=== PATIENT | female | born 1935 | race Caucasian/White ===

== ENCOUNTER 2017-04-05 11:01 | Outpatient (CLI) | payer MEDICARE, OTHER ==
--- NOTE | 2017-04-05 11:41 | Mammography Report ---
DIAGNOSTIC BILATERAL MAMMOGRAM: 04/05/2017 CLINICAL INDICATION: An 82-year-old nulliparous patient with personal history of left breast cancer status post lumpectomy and chemoradiation. COMPARISON: 08/2016, 12/2015, 03/2015, 08/2014, 07/2014, 06/2014, 06/2012, 12/2010, 08/2008. TECHNIQUE: Routine CC and MLO projections were obtained of the breasts. FINDINGS: The breasts again demonstrate scattered fibroglandular densities bilaterally. Coarse and punctate, typically benign calcifications are present. Postoperative and posttreatment changes in th e left breast are stable. No suspicious masses, clustered microcalcifications, or regions of archite ctural distortion are identified. IMPRESSION: BENIGN FINDINGS. RECOMMENDATION: Routine annual screening unless otherwise clinically indicated. BI-RADS category 2, benign findings. STANDARD QUALIFYING STATEMENTS 1. This examination was reviewed with the aid of Computer-Aided Detection (CAD). 2. A negative or benign imaging report should not delay biopsy if clinically suspicious findings are present. Consider surgical consultation if warranted. More than 5% of cancers are not identified by i maging. 3. Dense breasts may obscure an underlying neoplasm. JOB #: [id number] EXT JOB #:
== END 2017-04-05 11:02 | disposition home or self-care (01) ==
LOC: DI 11:01
PROVIDERS: ATTEND Internal Medicine Hematology & Oncology
DX: C50.212 Malignant neoplasm of upper-inner quadrant of left female breast (principal)
CPT/HCPCS: 77066

== ENCOUNTER 2018-01-27 10:16 | Outpatient (CLI) | payer MEDICARE, OTHER ==
--- NOTE | 2018-01-27 14:12 | XRAY Report ---
EXAM: CHEST RADIOGRAPHY EXAM DATE: 01/27/2018 10:30 AM. CLINICAL HISTORY: PNEUMONIA. COMPARISON: Chest radiograph 07/18/2014. TECHNIQUE: 2 views. FINDINGS: Lungs/Pleura: Increased lung markings. Bronchial cuffing. Bibasilar lung opacities. Blunting posterio r costophrenic angles. Mediastinum: Stable Other: Cholecystectomy clip IMPRESSION: 1. Bronchial cuffing and increased lung markings suggestive of underlying reactive airways disease or bronchitis/bronchiolitis 2. Heterogeneous bibasilar lung opacities may represent pneumonia. Follow-up to resolution 3. Small pleural effusions [facility] Referring Provider Line: [phone] SITE ID: [id number]
== END 2018-01-27 10:17 | disposition home or self-care (01) ==
LOC: DI 10:16
PROVIDERS: ATTEND Physician Assistant Medical
DX: J18.9 Pneumonia, unspecified organism (principal); J90 Pleural effusion, not elsewhere classified
CPT/HCPCS: 71046

== ENCOUNTER 2018-04-17 13:22 | Outpatient (CLI) | payer MEDICARE, OTHER ==
--- NOTE | 2018-04-18 14:54 | DEXA Report ---
Procedure Date: 04/17/2018 Accession Number: [id number] / [id number] Procedure: DEX - Dexa Spine and/or Hip CPT Code: FULL RESULT: EXAM: Dexa Spine and/or Hip DATE: 04/17/2018 2:04 PM CLINICAL HISTORY: POSTMENOPAUSAL TECHNIQUE: Dual energy x-ray absorptiometry (DXA) was performed on a [employer] System. Regions measured are the AP Spine, femoral neck, and if needed forearm. COMPARISON: None. In accordance with the International Society for Clinical Densitometry (ISCD) guidelines, data from previous exams may be reanalyzed using current recommendations and techniques. This is done to allow a more accurate basis for comparison with the current study. FINDINGS: The data for the lumbar spine is as follows: BMD (g/cm/cm) T-SCORE Z-SCORE REGION L1 1.733 5.0 5.8 L2 1.539 2.8 3.6 L3 1.641 3.7 4.4 L4 1.794 4.9 5.7 TOTAL 1.683 4.2 4.9 NOTE: All evaluable vertebrae are used for classification The data for the hip is as follows: BMD (g/cm/cm) T-SCORE Z-SCORE REGION Neck 1.037 0.0 1.6 TOTAL 1.176 1.3 2.8 NOTE: The femoral neck or total proximal femur, whichever is lowest, is used for classification. IMPRESSION: THE WHO CLASSIFICATION BASED ON THE INTERNATIONAL REFERENCE STANDARD IS NORMAL. THE FRACTURE RISK IS NOT INCREASED. RECOMMENDATION: Patients with diagnosis of osteoporosis or osteopenia should have regular bone mineral density assessment. For those eligible for Medicare, routine testing is allowed once every 2 years. Testing frequency can be increased for patients who have rapidly progressing disease or for those who are receiving medical therapy to restore bone mass. COMMENT: World Health Organization (WHO) definitions for osteoporosis and osteopenia: NORMAL BMD: T-score at -1.0 or higher, fracture risk is low OSTEOPENIA BMD: T-score between -1.0 and -2.5, fracture risk is increased. OSTEOPOROSIS BMD: T-score at -2.5 or lower, fracture risk is high. National Osteoporosis Foundation recommends: 1. Obtain adequate dietary calcium (at least 1200 mg per day) and vitamin D (400-800 international units per day). 2. Participate, as appropriate, in regular weightbearing and muscle-strengthening exercise. 3. Avoid tobacco use and reduce alcohol and caffeine intake. 4. For more detailed information see the website at www.NOF.org.
== END 2018-04-17 13:23 | disposition home or self-care (01) ==
LOC: DI 13:22
PROVIDERS: ATTEND Internal Medicine Hematology & Oncology
DX: C50.212 Malignant neoplasm of upper-inner quadrant of left female breast (principal); N95.8 Other specified menopausal and perimenopausal disorders
CPT/HCPCS: 77080

== ENCOUNTER 2018-04-17 13:24 | Outpatient (CLI) | payer MEDICARE, OTHER ==
--- NOTE | 2018-04-18 13:00 | Mammography Report ---
Procedure Date: 04/17/2018 Accession Number: [id number] / [id number] Procedure: STEPHANIE - Diagnostic Dig Bilat CPT Code: FULL RESULT: EXAM: Diagnostic Dig Bilat DATE: 04/17/2018 2:18 PM CLINICAL HISTORY: History of left breast cancer status post lumpectomy and chemotherapy. TECHNIQUE: Bilateral CC and MLO projections with an additional true lateral view. COMPARISON: 04/05/2017, 09/20/2016, 01/07/2016, 04/08/2015, 09/05/2014, 07/30/2014, 07/18/2014 and 07/13/2012 FINDINGS: There are scattered fibroglandular densities. Postsurgical deformity of the left breast is stable. Increasing coarse dystrophic posttreatment calcifications are present. No new dominant mass, suspicious microcalcifications or other finding. IMPRESSION: Benign findings RECOMMENDATION: Suggest routine screening in 12 months. BIRADS CATEGORY 2: Benign findings STANDARD QUALIFYING STATEMENTS: 1. This examination was reviewed with the aid of Computer-Aided Detection (CAD). 2. A negative or benign imaging report should not delay biopsy if clinically suspicious findings are present. Consider surgical consultation if warrented. More than 5% of cancers are not identified by imaging. 3. Dense breasts may obscure an underlying neoplasm.
== END 2018-04-17 13:25 | disposition home or self-care (01) ==
LOC: DI 13:24
PROVIDERS: ATTEND Internal Medicine Hematology & Oncology
DX: C50.212 Malignant neoplasm of upper-inner quadrant of left female breast (principal); N95.8 Other specified menopausal and perimenopausal disorders
CPT/HCPCS: 77066; 77080

== ENCOUNTER 2019-04-17 09:57 | Outpatient (CLI) | payer MEDICARE, OTHER ==
--- NOTE | 2019-04-17 14:09 | Mammography Report ---
Reason: HX BREAST CA Procedure Date: 04/17/2019 Accession Number: [id number] / [id number] Procedure: STEPHANIE - Diagnostic Dig Bilat CPT Code: FULL RESULT: EXAM: Diagnostic Dig Bilat DATE: 04/17/2019 10:36 AM CLINICAL HISTORY: Diagnostic examination. Personal history of left breast cancer status post lumpectomy in 2013. TECHNIQUE: (B) - Bilateral CC, laterally exaggerated CC, MLO views were obtained. Left ML view was obtained. Limited ability to position the patient, best possible images are obtained. COMPARISON: 04/17/2018 through 01/07/2016. PARENCHYMAL PATTERN: (A) - The breast(s) demonstrate(s) scattered fibroglandular densities. FINDINGS: Post lumpectomy and post treatment changes in the left breast are again seen with no concerning interval development. There are no suspicious masses, calcifications, or areas of distortion. IMPRESSION: Benign findings. BI-RADS category 2. RECOMMENDATION: (ANNUAL) - Recommend routine annual screening mammography. BI-RADS CATEGORY: (2) - Benign Findings. STANDARD QUALIFYING STATEMENTS: 1. This examination was not reviewed with the aid of Computer-Aided Detection (CAD). 2. A negative or benign imaging report should not preclude biopsy if clinically suspicious findings are present. 3. Dense breasts may obscure an underlying neoplasm. 4. This examination was reviewed with the aid of 3D breast imaging (tomosynthesis).
== END 2019-04-17 09:58 | disposition home or self-care (01) ==
LOC: DI 09:57
PROVIDERS: ATTEND Internal Medicine Hematology & Oncology
DX: C50.912 Malignant neoplasm of unspecified site of left female breast (principal)
CPT/HCPCS: 77066; G0279; 77062

== ENCOUNTER 2019-04-22 09:41 | Outpatient (CLI) | payer MEDICARE, OTHER ==
[2019-04-22 12:13] LABS: BASOPHILS % (AUTO) 0.7 %; EOSINOPHILS # (AUTO) 0.1 10^3/uL (0.0-0.7); EOSINOPHILS % (AUTO) 2.2 %; HGB - HEMOGLOBIN 12.7 g/dL (12.0-16.0); LYMPHOCYTES # (AUTO) 1.6 10^3/uL (1.5-3.5); LYMPHOCYTES % (AUTO) 27.9 %; MEAN CORPUSCULAR HEMOGLOBIN 30.8 pg (27.0-31.0); MEAN CORPUSCULAR HGB CONC 30.8 g/dL (32.0-36.0); MEAN PLATELET VOLUME 10.2 fL (7.9-10.8); MONOCYTES # (AUTO) 0.6 10^3/uL (0.0-1.0); MONOCYTES % (AUTO) 10.4 %; NEUTROPHILS # (AUTO) 3.4 10^3/uL (1.5-6.6); NEUTROPHILS % (AUTO) 58.5 %; PLT - PLATELET COUNT 234 10^3/uL (130-450); RED BLOOD COUNT 4.12 10^6/uL (4.20-5.40); RED CELL DISTRIBUTION WIDTH 14.9 % (12.0-15.0); WHITE BLOOD COUNT 5.9 x10^3/uL (4.8-10.8)
[2019-04-22 12:33] LABS: ALBUMIN/GLOBULIN RATIO 1.1 (1.0-2.2); ALKALINE PHOSPHATASE 62 IU/L (42-121); ALT ALANINE AMINOTRANSFERASE 18 IU/L (10-60); AST ASPARTATE AMINOTRANSFERASE 19 IU/L (10-42); BILIRUBIN,TOTAL 0.7 mg/dL (0.2-1.0); BUN - BLOOD UREA NITROGEN 21 mg/dL (6-20); CALCIUM 9.1 mg/dL (8.5-10.3); CARBON DIOXIDE - CO2 27 mmol/L (21-32); CHLORIDE 106 mmol/L (101-111); CHOL/HDL RATIO 3.7 (<4.4); CHOLESTEROL 204 mg/dL; CREATININE 0.8 mg/dL (0.4-1.0); GFR - MDRD 68 (>89); GLUCOSE 120 mg/dL (70-100); HDL CHOLESTEROL 55 mg/dL; LDL CHOLESTEROL,CALCULATED 128 mg/dL; LDL/HDL RATIO 2.3 (<4.4); SODIUM 142 mmol/L (135-145); TOTAL PROTEIN 7.5 g/dL (6.7-8.2); VLDL CHOLESTEROL 21 mg/dL
[2019-04-22 12:43] LABS: HB2 TOTAL 13.3 g/dL; HEMOGLOBIN A1C 0.54 g/dL; HEMOGLOBIN A1C % 5.9 % (4.6-6.2)
[2019-04-22 13:09] LABS: FREE T4 (FREE THYROXINE) 1.22 ng/dL (0.58-1.64)
== END 2019-04-22 09:42 | disposition home or self-care (01) ==
LOC: LAB.WCP 09:41
PROVIDERS: ATTEND Physician Assistant Medical
DX: E03.9 Hypothyroidism, unspecified (principal); I10 Essential (primary) hypertension; E78.5 Hyperlipidemia, unspecified; R73.9 Hyperglycemia, unspecified
CPT/HCPCS: 36415; 80053; 80061; 83036; 83721; 84439; 84443; 85025

== ENCOUNTER 2019-11-04 08:51 | Outpatient (CLI) | payer MEDICARE, OTHER ==
--- NOTE | 2019-11-04 14:53 | Nuclear Medicine Report ---
Reason: L BR CA, NEW PX IN R TIB, L FEMUR Procedure Date: 11/04/2019 Accession Number: [id number] / [id number] Procedure: NM - Bone Whole Body CPT Code: Final Report FULL RESULT: EXAM: BONE SCAN EXAM DATE: 11/04/2019 01:36 PM. CLINICAL HISTORY: L BR CA, NEW PX IN R TIB, L FEMUR. COMPARISON: ABDOMEN/PELVIS W/ 08/31/2016 12:30 PM. TECHNIQUE: Following the intravenous administration of 31.5 mCi of technetium 99m MDP and an appropriate delay, a whole-body scan was performed in anterior and posterior projections. Site-specific spot views of the region of interest were obtained in various projections. FINDINGS: Normal renal radiotracer uptake and bladder activity. Normal soft tissue activity. Overall normal osseous uptake. Moderate fairly linear uptake at approximately T9-T10, ultimately indeterminate but may be degenerative or reflect underlying compression fracture. Other multifocal cervical, thoracic, lumbar spinal uptake likely degenerative. Probable degenerative uptake at the sternoclavicular joints, right AC joint, bilateral mid feet. Nonspecific mild periprosthetic uptake at the knees. IMPRESSION: 1. No definite scintigraphic evidence of osseous metastatic disease. 2. Moderate uptake at approximately T9-T10, ultimately indeterminate but may be degenerative or reflect underlying compression fracture. 3. Other multifocal probable degenerative uptake as noted above. [facility]
--- NOTE | 2019-11-06 09:08 | DEXA Report ---
Reason: POSTMENOPAUSAL Procedure Date: 11/04/2019 Accession Number: [id number] / [id number] Procedure: DEX - Dexa Spine and/or Hip CPT Code: Final Report FULL RESULT: EXAM: Dexa Spine and/or Hip DATE: 11/04/2019 10:11 AM CLINICAL HISTORY: POSTMENOPAUSAL TECHNIQUE: Dual energy x-ray absorptiometry (DXA) was performed on a [employer] System. Regions measured are the AP Spine, femoral neck, and if needed forearm. COMPARISON: 04/17/2018 In accordance with the International Society for Clinical Densitometry (ISCD) guidelines, data from previous exams may be reanalyzed using current recommendations and techniques. This is done to allow a more accurate basis for comparison with the current study. FINDINGS: The data for the lumbar spine is as follows: BMD (g/cm/cm) T-SCORE Z-SCORE REGION L1 0.975 -1.3 -0.5 L2 1.147 -0.4 0.3 L3 1.040 -1.3 -0.6 L4 1.017 -1.5 -0.7 TOTAL 1.038 -1.2 -0.4 NOTE: All evaluable vertebrae are used for classification The data for the hip is as follows: BMD (g/cm/cm) T-SCORE Z-SCORE REGION Neck 0.968 -0.5 1.2 TOTAL 1.086 0.6 2.1 NOTE: The femoral neck or total proximal femur, whichever is lowest, is used for classification. DXA RESULTS SUMMARY: Spine SCAN DATE AGE BMD CHANGE VS CHANGE VS PREVIOUS PREVIOUS % [birth year][age]04/2019 [age] 1.038 -0.645* -38.3* 04/17/2018 85.1 1.683 * Denotes significant change at the 95% confidence level. Denotes dissimilar scan types or analysis methods. DXA RESULTS SUMMARY: Hip SCAN DATE AGE BMD CHANGE VS CHANGE VS PREVIOUS PREVIOUS % [birth year][age]04[birth year]2019 86.6 1.086 -0.090* -7.7* 04/17/2018 85.1 1.176 * Denotes significant change at the 95% confidence level. Denotes dissimilar scan types or analysis methods. IMPRESSION: THE WHO CLASSIFICATION BASED ON THE INTERNATIONAL REFERENCE STANDARD IS NORMAL. THE FRACTURE RISK IS NOT INCREASED. RECOMMENDATION: Patients with diagnosis of osteoporosis or osteopenia should have regular bone mineral density assessment. For those eligible for Medicare, routine testing is allowed once every 2 years. Testing frequency can be increased for patients who have rapidly progressing disease or for those who are receiving medical therapy to restore bone mass. COMMENT: World Health Organization (WHO) definitions for osteoporosis and osteopenia: NORMAL BMD: T-score at -1.0 or higher, fracture risk is low OSTEOPENIA BMD: T-score between -1.0 and -2.5, fracture risk is increased. OSTEOPOROSIS BMD: T-score at -2.5 or lower, fracture risk is high. National Osteoporosis Foundation recommends: 1. Obtain adequate dietary calcium (at least 1200 mg per day) and vitamin D (400-800 international units per day). 2. Participate, as appropriate, in regular weightbearing and muscle-strengthening exercise. 3. Avoid tobacco use and reduce alcohol and caffeine intake. 4. For more detailed information see the website at www.NOF.org.
== END 2019-11-04 08:52 | disposition home or self-care (01) ==
LOC: DI 08:51
PROVIDERS: ATTEND Internal Medicine Hematology & Oncology
DX: C50.912 Malignant neoplasm of unspecified site of left female breast (principal); M85.88 Other specified disorders of bone density and structure, other site; R07.81 Pleurodynia; M79.661 Pain in right lower leg; M89.8X8 Other specified disorders of bone, other site; Z78.0 Asymptomatic menopausal state
CPT/HCPCS: 77080; 78306

== ENCOUNTER 2019-12-27 07:57 | Inpatient (IN) | payer MEDICARE, OTHER ==
--- NOTE | 2019-12-27 08:28 | ED Physician Documentation ---
PD HPI DYSPNEA - Stated complaint Stated Complaint: SOA - Chief complaint Chief Complaint: Cardiac - History obtained from History obtained from: Patient - History of Present Illness Timing - onset: How many weeks ago (1) Timing - onset during: Light activity Timing - duration: Weeks (1) Timing - details: Gradual onset (Patient states she has had a feeling of wheezing and trouble breathing with activity associated with fever chills. She has a chronic cough from chronic bronchitis states that has not changed too much in character. No sputum production. However she has felt more wheezing and using her nebulizer this past few days. No history of heart disease that she is aware of. She felt significantly worse last night with dyspnea at rest and lightheadedness.), Still present (much worse last evening) Inciting event(s): URI Improved by: Rest. No: Inhaler/neb Worsened by: Exertion, Coughing Associated symptoms: Cough, Wheezing, Bilateral edema. No: Chest pain / discomfort, Palpitations Similar symptoms before: Has not had sx before Recently seen: Not recently seen Review of Systems Constitutional: reports: Chills, Myalgias, Fatigue. denies: Fever Nose: reports: Congestion. denies: Rhinorrhea / runny nose Throat: denies: Sore throat Cardiac: reports: Pedal edema (for the past few days). denies: Chest pain / pressure, Palpitations, Calf pain Respiratory: reports: Dyspnea, Cough, Wheezing GI: denies: Nausea : denies: Dysuria Neurologic: reports: Generalized weakness. denies: Focal weakness, Numbness Immunocompromised: denies: Immunocompromised PD PAST MEDICAL HISTORY - Past Medical History Cardiovascular: Congestive heart failure, Hypertension, High cholesterol, Murmur, Other Respiratory: None Endocrine/Autoimmune: HyPOthyroidism GI: None : None HEENT: None Psych: Depression, Anxiety Musculoskeletal: None Derm: None - Past Surgical History Past Surgical History: Yes General: Cholecystectomy, Appendectomy Ortho: Knee replacement /[employer]: Tubal ligation, 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, Other - Present Medications Home Medications: Ambulatory Orders Medication Instructions Recorded Confirmed NIFEdipine [Procardia Xl] 90 mg PO DAILY 08/28/13 12/27/19 polyethylene glycoL 3350 [Miralax] 17 gm PO DAILY PRN 11/24/14 11/11/19 Anastrozole 1 mg PO DAILY 90 Days #90 tablet 01/25/19 02/28/20 Albuterol Sulf [Ventolin Hfa 2 puffs INH Q4H PRN 12/27/19 12/27/19 Inhaler] Levothyroxine Sodium [Synthroid] 150 mcg PO QDAC 12/27/19 12/27/19 Trazodone HCl 150 mg PO QPM 12/27/19 12/27/19 - Allergies Allergies/Adverse Reactions: Allergies Allergy/AdvReac Type Severity Reaction Status Date / Time No Known Drug Allergies Allergy Verified 11/11/19 15:07 - Social History Does the pt smoke?: No Smoking Status: Never smoker Does the pt drink ETOH?: Yes Does the pt have substance abuse?: No - Immunizations Immunizations are current?: Yes - POLST Patient has POLST: No PD ED PE NORMAL - Vitals Vital signs reviewed: Yes - General General: Alert and oriented X 3, Well developed/nourished, Other - Cardiac Cardiac: No: RRR (Irregular and fast with a rate 1 40-1 50. There is a 1 out of 6 systolic murmur at the left sternal border with radiation to the neck consistent with possible aortic stenosis.) - Respiratory Respiratory: No: No respiratory distress (but does have expiratory wheezing bilaterally. Some fine crackles in bases. Able to talk sentences. ), Clear bilaterally - Abdomen Abdomen: Soft, Non tender - Back Back: No CVA TTP - Derm Derm: Normal color, Warm and dry - Extremities Extremities: No tenderness to palpate, Normal ROM s pain, No calf tenderness / cord, Other (mild edema in both legs. ) - Neuro Neuro: Alert and oriented X 3, No motor deficit, Normal speech Results - Vitals Vitals: Vital Signs - 24 hr 12/27/19 12/27/19 12/27/19 08:11 09:01 09:05 Temperature 37.1 C Heart Rate 150 H 127 H 87 Respiratory 20 24 20 Rate Blood Pressure 145/82 H 105/73 O2 Saturation 97 90 L 12/27/19 12/27/19 12/27/19 09:07 09:10 09:25 Temperature Heart Rate 89 90 88 Respiratory 27 H 24 27 H Rate Blood Pressure 119/91 H 100/59 L 115/67 O2 Saturation 94 96 95 12/27/19 12/27/19 12/27/19 09:30 10:00 10:13 Temperature Heart Rate 92 115 H 113 H Respiratory 18 24 24 Rate Blood Pressure 124/57 L 113/57 L 106/73 O2 Saturation 96 93 93 Oxygen O2 Source Nasal cannula - EKG (time done) 08:19 Rate: Rate (enter#) (143) Rhythm: Atrial fibrillation [employer]: Normal QRS: Normal Ischemia: Normal ST segments, Non specific changes. No: ST elevation c/w ischemia, ST depression Compare to prior EKG: Old EKG unavailable - Labs Labs: Laboratory Tests 12/27/19 12/27/19 12/27/19 08:45 08:45 08:45 WBC 8.4 RBC 3.70 L Hgb 11.8 L Hct 36.4 L MCV 98.4 MCH 31.9 H MCHC 32.4 RDW 14.4 Plt Count 220 MPV 10.1 Neut # (Auto) 6.3 Lymph # (Auto) 1.2 L Cooper # (Auto) 0.8 Eos # (Auto) 0.1 Baso # (Auto) 0.1 Absolute Nucleated RBC 0.00 Nucleated RBC % 0.0 Sodium 139 Potassium 4.0 Chloride 102 Carbon Dioxide 27 Anion Gap 10.0 BUN 20 Creatinine 0.8 Estimated GFR (MDRD) 68 L Glucose 130 H Lactic Acid Calcium 8.6 Magnesium 2.1 Total Bilirubin 0.7 AST 53 H ALT 86 H Alkaline Phosphatase 61 Troponin I High Sens 15.4 H* B-Natriuretic Peptide Total Protein 7.1 Albumin 3.5 Globulin 3.6 Albumin/Globulin Ratio 1.0 Lipase 23 TSH 12/27/19 12/27/19 12/27/19 08:45 09:25 09:25 WBC RBC Hgb Hct MCV MCH MCHC RDW Plt Count MPV Neut # (Auto) Lymph # (Auto) Cooper # (Auto) Eos # (Auto) Baso # (Auto) Absolute Nucleated RBC Nucleated RBC % Sodium Potassium Chloride Carbon Dioxide Anion Gap BUN Creatinine Estimated GFR (MDRD) Glucose Lactic Acid 1.2 Calcium Magnesium Total Bilirubin AST ALT Alkaline Phosphatase Troponin I High Sens B-Natriuretic Peptide 442 H Total Protein Albumin Globulin Albumin/Globulin Ratio Lipase TSH 0.09 L - Rads (name of study) chest xray Radiology: Prelim report reviewed (Interstitial fluid consistent with some failure. No focal infiltrates.), See rad report PD MEDICAL DECISION MAKING - ED course Complexity details: reviewed results, re-evaluated patient (Improved with DuoNeb as well as diltiazem. Her breathing is clear with less wheezing. Her heart rate is also down to 100-110. Likely both did lead to some improvement.), considered differential (Apparent new onset atrial fibrillation with fast rate. So unclear the timing of that as it sounds like it might of started yesterday and preceded by chest cold with exacerbation of her chronic bronchitis with wheezing. M may have been longer with this A. fib but the worsening of symptoms yesterday suggest onset then. She does not appear to be in any failure per se.) Departure - Departure Disposition: [facility] DC/Xfer Clinical Impression: Acute exacerbation of chronic bronchitis, Atrial fibrillation with rapid ventricular response, Acute dyspnea Upper respiratory infection Qualifiers: URI type: unspecified URI Qualified Code(s): J06.9 - Acute upper respiratory infection, unspecified Condition: Stable Record reviewed to determine appropriate education?: Yes Discharge Date/Time: 12/27/19 10:38
[2019-12-27] MEDS ORDERED: IPRATROPIUM/ALBUTEROL 3 ML NEB INH STA (08:52)
[2019-12-27] MEDS ORDERED: DEXAMETHASONE 10 MG/ML VIAL IVP STA (08:53)
[2019-12-27] MEDS ORDERED: diltiaZEM INJ 5 MG/ML VIAL IVP STA ×2 (08:53→09:59)
--- NOTE | 2019-12-27 08:55 | XRAY Report ---
Reason: Chest pain Procedure Date: 12/27/2019 Accession Number: [id number] / [id number] Procedure: XR - Chest 1 View X-Ray CPT Code: 87484 Final Report FULL RESULT: EXAM: CHEST RADIOGRAPHY 1 VIEW EXAM DATE: 12/27/2019. CLINICAL HISTORY: Chest pain. COMPARISON: PA and lateral chest on 02/08/2018. TECHNIQUE: AP upright portable chest at 0818. FINDINGS: The projection is lordotic. Lungs/Pleura: Mild distention of the pulmonary vasculature and increased interstitial opacity. No segmental consolidation or mass. No pleural fluid or pneumothorax. Mediastinum: Heart size is normal. Aortic tortuosity and atherosclerosis are unchanged. Otherwise normal mediastinal contours. Bones: Degenerative changes of the spine. Other: Surgical clips in the left axilla. IMPRESSION: Pulmonary vasculature appears slightly distended and there is a mild increase in interstitial opacity, suspect for mild congestive heart failure or fluid overload. Otherwise, no acute abnormality. [facility]
[2019-12-27] MEDS ORDERED: FUROSEMIDE 20 MG/2 ML VIAL IVP STA (09:03)
[2019-12-27 09:04] LABS: BASOPHILS # (AUTO) 0.1 10^3/uL (0.0-0.1); BASOPHILS % (AUTO) 0.6 %; EOSINOPHILS # (AUTO) 0.1 10^3/uL (0.0-0.7); EOSINOPHILS % (AUTO) 0.8 %; HGB - HEMOGLOBIN 11.8 g/dL (12.0-16.0); LYMPHOCYTES # (AUTO) 1.2 10^3/uL (1.5-3.5); LYMPHOCYTES % (AUTO) 14.4 %; MEAN CORPUSCULAR HEMOGLOBIN 31.9 pg (27.0-31.0); MEAN CORPUSCULAR HGB CONC 32.4 g/dL (32.0-36.0); MEAN CORPUSCULAR VOLUME 98.4 fL (81.0-99.0); MEAN PLATELET VOLUME 10.1 fL (7.9-10.8); MONOCYTES # (AUTO) 0.8 10^3/uL (0.0-1.0); MONOCYTES % (AUTO) 8.9 %; NEUTROPHILS # (AUTO) 6.3 10^3/uL (1.5-6.6); NEUTROPHILS % (AUTO) 75.1 %; PLT - PLATELET COUNT 220 10^3/uL (130-450); RED CELL DISTRIBUTION WIDTH 14.4 % (12.0-15.0); WHITE BLOOD COUNT 8.4 x10^3/uL (4.8-10.8)
[2019-12-27 09:46] LABS: ALBUMIN 3.5 g/dL (3.2-5.5); BILIRUBIN,TOTAL 0.7 mg/dL (0.2-1.0); CALCIUM 8.6 mg/dL (8.5-10.3); CREATININE 0.8 mg/dL (0.4-1.0); MAGNESIUM 2.1 mg/dL (1.7-2.8); TOTAL PROTEIN 7.1 g/dL (6.7-8.2)
[2019-12-27] MEDS ORDERED: KETOROLAC 30 MG/ML VIAL IVP STA (09:59)
[2019-12-27] MEDS ORDERED: ASPIRIN 325 MG TABLET PO STA (09:59)
[2019-12-27] MEDS ORDERED: ONDANSETRON 4 MG/2 ML VIAL IVP PRN (10:15)
[2019-12-27] MEDS ORDERED: LEVALBUTEROL 1.25 MG/3 ML NEB INH PRN (10:22)
[2019-12-27] MEDS ORDERED: polyethylene glycoL 3350 17 GM PACKET PO PRN (10:29)
[2019-12-27 11:22] LABS: BILIRUBIN,URINE NEGATIVE (NEGATIVE); GLUCOSE, URINE (UA) NEGATIVE (NEGATIVE); KETONES,URINE (UA) NEGATIVE (NEGATIVE); LEUKOCYTE ESTERASE, URINE NEGATIVE (NEGATIVE); NITRITE,URINE NEGATIVE (NEGATIVE); OCCULT BLOOD,URINE NEGATIVE (NEGATIVE); PH,URINE 6.5 PH (5.0-7.5); PROTEIN,URINE NEGATIVE (NEGATIVE); UROBILINOGEN,URINE 0.2 (NORMAL) E.U./dL (NORMAL)
[2019-12-27 11:25] LABS: CLARITY,URINE CLEAR (CLEAR)
[2019-12-27] MEDS ORDERED: ENOXAPARIN 30 MG/0.3 ML SYRINGE SUBQ SCH (12:00)
[2019-12-27] MEDS ORDERED: AZITHROMYCIN 250 MG TABLET PO ONE (12:00)
[2019-12-27] MEDS: BUDESONIDE 0.5 MG/2 ML NEB INH SCH ×2 (12:22→18:31)
[2019-12-27] MEDS: LEVALBUTEROL 1.25 MG/3 ML NEB INH SCH ×2 (12:22→18:22)
[2019-12-27 12:27] LABS: INR 1.1 (0.8-1.2)
[2019-12-27] MEDS: methylPREDNISolone SUCCINATE 40 MG/ML VIAL IVP SCH ×2 (14:10→21:14)
[2019-12-27] MEDS: FUROSEMIDE 20 MG/2 ML VIAL IVP SCH (14:10)
[2019-12-27] MEDS: SODIUM CHLORIDE FLUSH 0.9% 10 ML SYRINGE IVP SCH (16:06)
--- NOTE | 2019-12-27 17:01 | HISTORY & PHYSICAL EXAMINATION ---
DATE OF SERVICE: 12/27/2019 Physician: Indira Aguilar MD HISTORY OF PRESENT ILLNESS: This is an 84-year-old white female with a history of breast cancer 5 years ago, history of aortic stenosis and regurgitation, diastolic heart failure in the past, hypothyroidism, on replacement, bronchial asthma for which she takes p.r.n. inhalers and leg edema for which she takes p.r.n. Lasix. The patient reports that she developed a URI about 2 days ago with a cough and chills, but no fevers and this progressed daily to worsening shortness of breath. Because of the orthopnea complaints, she presented to the emergency room this morning and was found to be in new onset of atrial fibrillation, which is paroxysmal, and when she is in the atrial fibrillation, it is in a rapid ventricular rate. She was given IV diltiazem pushes x2, which dropped her heart rate only briefly to the 90s, it is still in the 100-120 range now and she received a nebulizer and with this, she felt better. The patient is being admitted to the hospital for management of bronchial asthma, new onset of atrial fibrillation with rapid ventricular response, worsening volume overload seen on chest x-ray, therefore, acute on chronic heart failure. ALLERGIES: NONE. MEDICATIONS 1. Nifedipine 90 mg daily. 2. Albuterol inhaler p.r.n. 3. Synthroid 150 mcg daily. 4. Arimidex 1 mg daily. 5. Trazodone 150 mg every night. 6. MiraLax daily p.r.n. constipation. FAMILY HISTORY: Heart disease in her father, her mother of sinus cancer and was a heavy smoker. She has one living brother, and one of alcoholism. She has 5 children, all of which are adopted, no natural children. SOCIAL HISTORY: The patient lives with her daughter and son-in-law and a grandchild. She is very active around the house, does cleaning, laundry and drives a car. 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 The patient was a smoker, she used to smoke until the age of 38 and has quit for 46 years. Alcohol: Social., about 2 drinks per week. Illicit drug use: Never. PAST MEDICAL HISTORY: CHF, bronchial asthma, hypothyroidism, on replacement, aortic stenosis murmur, breast cancer. PHYSICAL EXAMINATION GENERAL: Elderly white female. She is in mild respiratory distress. VITAL SIGNS: Blood pressure 122/60, heart rate 95-110 in atrial fibrillation and she intermittently goes into sinus rhythm. When she is in sinus rhythm, she has Mobitz 1 (Wenkebach) heart block. She is saturating at 93% on 2 liters nasal cannula. There was no oxygen saturation documented when she was on room air. HEENT: Unremarkable. NECK: Shows no JVD in a 30-degree upright angle. No carotid bruits. CHEST: Has crackles at both bases. HEART: Tachycardia. Irregularly irregular, 3/6 systolic murmur at the base, radiating to the neck, and a 2/6 systolic murmur at the lower left sternal border and apex. ABDOMEN: Obese with a pannus, and there is a small umbilical hernia. EXTREMITIES: Legs have 1+ lymphedema of the shins and she has 1+ pitting pedal edema. NEUROLOGIC: Grossly intact. LABORATORY DATA: Normal electrolytes. Normal BUN and creatinine. Lactic acid normal at 1.2, elevated AST of 53 and ALT of 86 Elevated troponin, high sensitivity of 15.4, very low TSH of 0.09. White blood count 8.4, hemoglobin 11.8, platelet count normal at 220. INR normal at 1.1. Urinalysis unremarkable. Serology showed negative for influenza A and B. CHEST X-RAY: Mild congestive heart failure and no obvious infiltrate. EKG: Atrial fibrillation with a rapid ventricular rate, left IVCD, left anterior fascicular block, poor R-wave progression. Compared to an old EKG from 2-3 years ago, the atrial fibrillation is new, along with tachycardia. IMPRESSION 1. Paroxysmal atrial fibrillation with rapid ventricular response. 2. New onset of atrial fibrillation. 3. Congestive heart failure, acute on chronic. 4. Bronchial asthma. 5. 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 6. Elevated troponin. 7. Elevated liver function tests, suspect from passive liver congestion. 8. Heart murmur. 9. History of breast cancer. PLAN: Start the patient on p.o. around the clock Cardizem for continued rate control. Use Lasix IV b.i.d. for her volume overload. Begin Zithromax for bronchial asthma treatment along with IV Solu-Medrol, Xopenex inhalers and steroid inhaler with Budesonide. Obtain an Echo to evaluate LV and RV contractility and her murmur. Cycle Troponins. Follow her BNP. Stop her thyroid replacement entirely since this is very likely adding to the rapid rate of her new atrial fibrillation. Depending on results of the Echo LVEF, her CHADS score will be calculated to determine which anticoagulant should be used for stroke prevention. The above was all discussed with the patient and her youngest, adult daughter at bedside, and she is agreeable to plan. CODE STATUS: DNR. DEEP VENOUS THROMBOSIS: PROPHYLAXIS: Pharmacotherapy. ATTESTATION: The patient is expected to be discharged or transferred to another facility within 96 hours: Yes cc: Tram Quintanilla PA-C TD: 12/27/2019 15:16 MARQUES
[2019-12-27] MEDS ORDERED: AZITHROMYCIN 250 MG TABLET PO STA (17:31)
[2019-12-27] MEDS: traZODone 50 MG TABLET PO SCH (21:13)
[2019-12-27] MEDS: SODIUM CHLORIDE FLUSH 0.9% 10 ML SYRINGE IVP PRN (21:14)
[2019-12-27] MEDS: FAMOTIDINE 20 MG TABLET PO SCH (21:14)
[2019-12-28] MEDS: LEVALBUTEROL 1.25 MG/3 ML NEB INH SCH ×4 (00:24→18:18)
[2019-12-28] MEDS: SODIUM CHLORIDE FLUSH 0.9% 10 ML SYRINGE IVP SCH ×3 (00:51→17:18)
[2019-12-28 05:24] LABS: BASOPHILS % (AUTO) 0.1 %; HGB - HEMOGLOBIN 11.5 g/dL (12.0-16.0); LYMPHOCYTES # (AUTO) 0.6 10^3/uL (1.5-3.5); LYMPHOCYTES % (AUTO) 9.1 %; MEAN CORPUSCULAR HGB CONC 32.2 g/dL (32.0-36.0); MEAN CORPUSCULAR VOLUME 99.4 fL (81.0-99.0); MONOCYTES # (AUTO) 0.2 10^3/uL (0.0-1.0); MONOCYTES % (AUTO) 2.6 %; NEUTROPHILS # (AUTO) 6.1 10^3/uL (1.5-6.6); NEUTROPHILS % (AUTO) 87.6 %; PLT - PLATELET COUNT 204 10^3/uL (130-450); RED BLOOD COUNT 3.59 10^6/uL (4.20-5.40); WHITE BLOOD COUNT 6.9 x10^3/uL (4.8-10.8)
[2019-12-28 05:31] LABS: ALBUMIN 3.2 g/dL (3.2-5.5); ALBUMIN/GLOBULIN RATIO 0.9 (1.0-2.2); BILIRUBIN,TOTAL 0.5 mg/dL (0.2-1.0); CALCIUM 8.6 mg/dL (8.5-10.3); CREATININE 0.8 mg/dL (0.4-1.0); MAGNESIUM 2.1 mg/dL (1.7-2.8); TOTAL PROTEIN 6.9 g/dL (6.7-8.2)
[2019-12-28] MEDS: FUROSEMIDE 20 MG/2 ML VIAL IVP SCH (06:12)
[2019-12-28] MEDS: SODIUM CHLORIDE FLUSH 0.9% 10 ML SYRINGE IVP PRN ×2 (06:12→22:07)
[2019-12-28] MEDS: methylPREDNISolone SUCCINATE 40 MG/ML VIAL IVP SCH ×3 (06:12→22:07)
[2019-12-28] MEDS: BUDESONIDE 0.5 MG/2 ML NEB INH SCH ×2 (06:15→18:18)
--- NOTE | 2019-12-28 08:32 | PHARMACY PROGRESS NOTE ---
- Best Possible Medication History Admit Date and Time: 12/27/19 1015 Processed by: Pharmacy Medication History completed: Yes Patient Interview: Completed Secondary Source(s): Physician records, Pharmacy records, Insurance records As the person ultimately responsible for medication therapy, providers are able to order a medication from an existing home medication list in [facility] via the "Reconcile Routine" prior to Confirmation of that medication by ground support equipment fitter. Such practice is discouraged except when the physician, in their clinical judgment, deems that a medical need exists for a medication without regard to previous use.
[2019-12-28] MEDS: AZITHROMYCIN 250 MG TABLET PO SCH (09:18)
[2019-12-28] MEDS: ACETAMINOPHEN 325 MG TABLET PO PRN (09:18)
[2019-12-28] MEDS: FAMOTIDINE 20 MG TABLET PO SCH ×2 (09:18→20:36)
[2019-12-28] MEDS: ANASTROZOLE 1 MG TABLET PO SCH (09:18)
[2019-12-28] MEDS: APIXABAN 5 MG TABLET PO SCH ×2 (09:19→20:35)
--- NOTE | 2019-12-28 12:00 | PROVIDER PROGRESS NOTE ---
Assessment/Plan - Problem List (1) Atrial fibrillation with rapid ventricular response Assessment/Plan: Heart rate control has been adequate using Cardizem CD every 6 hours. The etiology of the new onset of A. fib appears to be thyrotoxicosis related to high thyroid dose medication intake, plus due to longstanding valvular disease causing dilated atrial sizes on Echo. Synthroid has been stopped. Will transition to a long-acting oral agent for rate control, with Cardizem CD. Remain on telemetry while her meds and doses are being adjusted. Her CHADS score was 2 (hypertension and age over 79), therefore oral anticoagulant is stroke prevention treatment of choice and yesterday evening Eliquis was started. (2) Acute on chronic congestive heart failure Qualifiers: Heart failure type: diastolic Qualified Code(s): I50.33 - Acute on chronic diastolic (congestive) heart failure Assessment/Plan: The LVEF is preserved with probable diastolic dysfunction therefore. She has aortic stenosis, aortic regurgitation, and mitral stenosis. These findings have undoubtedly led to atrial enlargement and therefore her new A. fib. Her Afib with rapid rate added to the CHF exacerbation. She now has cor pulmonale as wel, with a dilated right ventricle and mild primary hypertension. She still desaturates to 87% with walking, on room air. Her BNP increased from 400's yesterday to 500's today. Continue supplemental oxygen, since she desaturated on room air when walking today. Continue with IV diuresis. She is not in negative fluid balance yet. Her I's and O's are equal. The patient also noticed that her urine output did not increase. Today she told me that the PRN Lasix dose is 80 mg orally. Will increase iv Lasix dose to 40 mg iv bid, and if no effect then to 80 mg iv bid. Follow I's and O's and daily weights, daily BMP and Mg. She is not ready for [facility] today. (3) Acute exacerbation of chronic bronchitis Assessment/Plan: She became hypoxic to a saturation of 87% on room air when trying to walk today with RT. She was put on supplemental O2 and the saturation increased to 89%. She remains on antibiotics, steroids, nebs. 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 fib and her CHF exacerbation. Her Synthroid is now on hold and plan to hold it for about 4 to 7 days. (5) Aortic stenosis Assessment/Plan: The Echo done yesterday shows moderate-severe aortic stenosis, and mild aortic regurfitation which is essentially stable for her. The Echo also showed mitral stenosis. She has left atrial and right atrial enlargement and right ventricular enlargement and mild pulm HTN. (6) Essential hypertension Assessment/Plan: She was on Procardia before admission. Now her blood pressure is controlled with Cardizem, which was needed for rate control. (7) Hx of breast cancer Assessment/Plan: Continue on her Arimidex daily treatment (8) Morbid obesity with BMI of 40.0-44.9, adult Assessment/Plan: She felt weak and "wobbly" when walking today. We will order PT to prevent deconditioning while she is here. A weight reduction diet would be helpful - Current Meds Current Meds: Current Medications Generic Name Dose Route Start Last Admin Trade Name Freq PRN Reason Stop Dose Admin Acetaminophen 650 mg 12/27/19 10:15 12/28/19 09:18 Tylenol PO 650 mg Q4HR PRN Administration Pain 1 to 4 Anastrozole 1 mg 12/28/19 09:00 12/28/19 09:18 Anastrozole PO 1 mg DAILY JULIANO Administration Apixaban 5 mg 12/28/19 09:00 12/28/19 09:19 Eliquis PO 5 mg BID JULIANO Administration Azithromycin 250 mg 12/28/19 09:00 12/28/19 09:18 Zithromax PO 12/31/19 09:01 250 mg DAILY JULIANO Administration Budesonide 0.5 mg 12/27/19 11:00 12/28/19 06:15 Pulmicort INH 0.5 mg RTBID JULIANO Administration Diltiazem HCl 60 mg 12/27/19 12:00 12/28/19 11:36 Cardizem PO 60 mg Q6HR JULIANO Administration Famotidine 10 mg 12/27/19 21:00 12/28/19 09:18 Pepcid PO 10 mg BID JULIANO Administration Furosemide 20 mg 12/27/19 14:00 12/28/19 06:12 Lasix Inj 20mg Vial IVP 20 mg BIDDIURETIC JULIANO Administration Levalbuterol HCl 1.25 mg 12/27/19 12:00 12/28/19 06:15 Xopenex INH 1.25 mg Q6H JULIANO Administration Methylprednisolone 40 mg 12/27/19 14:00 12/28/19 06:12 Solu-Medrol (40mg Vial) IVP 40 mg TID JULIANO Administration Polyethylene Glycol 17 gm 12/27/19 10:29 12/28/19 09:19 Miralax PO 17 gm DAILY PRN Administration Constipation Sodium Chloride 10 ml 12/27/19 10:15 12/28/19 06:12 Normal Saline Flush 0.9% IVP 10 ml PRN PRN Administration NEEDED PER PROVIDER ORDERS Sodium Chloride 10 ml 12/27/19 17:00 12/28/19 09:19 Normal Saline Flush 0.9% IVP 10 ml 0100,0900,1700 JULIANO Administration Trazodone HCl 150 mg 12/27/19 21:00 12/27/19 21:13 Desyrel PO 150 mg HS JULIANO Administration - Lab Result Fish Bone Diagrams: 12/28/19 04:40 12/28/19 04:40 - Additional Planning My Orders: My Active Orders 12/27/19 11:00 Budesonide [Pulmicort] 0.5 mg INH RTBID 12/27/19 12:00 Levalbuterol [Xopenex] 1.25 mg INH Q6H diltiaZEM [Cardizem] 60 mg PO Q6HR 12/27/19 14:00 FUROSEMIDE INJ 20mg VIAL [LASIX INJ 20mg VIAL] 20 mg IVP BIDDIURETIC methylPREDNISolone SUCCINATE [SOLU-Medrol (40MG VIAL)] 40 mg IVP TID 12/27/19 17:00 Sodium Chloride Flush 0.9% [Normal Saline Flush 0.9%] 10 ml IVP 0100,0900,1700 12/27/19 21:00 Famotidine [Pepcid] 10 mg PO BID traZODone [Desyrel] 150 mg PO HS 12/27/19 Lunch Low Sodium Diet [DIET] 12/28/19 Evaluate and Treat PT [PT] Routine 12/28/19 09:00 Anastrozole 1 mg PO DAILY Apixaban [Eliquis] 5 mg PO BID Azithromycin [Zithromax] 250 mg PO DAILY 12/29/19 05:00 BNP - B-NATRIURETIC PEPTIDE [IAI] DAILYLAB CBC - COMP BLD CT W/AUTO DIFF [HEME] DAILYLAB CMP [COMPREHENSIVE METABOLIC PANEL] [CHEM] DAILYLAB MAGNESIUM [CHEM] DAILYLAB 12/30/19 05:00 CMP [COMPREHENSIVE METABOLIC PANEL] [CHEM] DAILYLAB MAGNESIUM [CHEM] DAILYLAB Subjective - Subjective Patient Reports: Resting Comfortably, Shortness of Breath (Today the patient reported to me that when she uses her Lasix as needed leg edema, the dose is 80 mg, With that she gets a good diuretic effect. Since being here, she has not had the feeling of urinating more than her normal.) Objective Vital Signs: Vital Signs - 24 hr 12/27/19 12/27/19 12/27/19 12:01 12:22 14:07 Temperature 36.8 C Heart Rate 95 Heart Rate [ Activity] Heart Rate [ Brachial] Heart Rate [ 106 H Monitoring electrodes] Respiratory 20 20 Rate Blood Pressure 122/69 Blood Pressure [Activity] Blood Pressure 119/68 [Right Brachial artery] O2 Saturation 93 O2 Saturation [ With Activity] 12/27/19 12/27/19 12/27/19 15:49 18:22 18:27 Temperature 36.8 C 36.8 C Heart Rate 76 60 Heart Rate [ Activity] Heart Rate [ Brachial] Heart Rate [ 72 Monitoring electrodes] Respiratory 20 22 18 Rate Blood Pressure Blood Pressure [Activity] Blood Pressure 126/60 [Right Brachial artery] O2 Saturation 94 93 O2 Saturation [ With Activity] 12/27/19 12/27/19 12/28/19 18:57 19:44 00:25 Temperature 36.7 C Heart Rate 65 Heart Rate [ Activity] Heart Rate [ Brachial] Heart Rate [ 87 Monitoring electrodes] Respiratory 20 18 Rate Blood Pressure 118/85 H Blood Pressure [Activity] Blood Pressure 130/58 L [Right Brachial artery] O2 Saturation 94 O2 Saturation [ With Activity] 12/28/19 12/28/19 12/28/19 00:27 00:49 04:55 Temperature 36.6 C 36.5 C Heart Rate Heart Rate [ Activity] Heart Rate [ 75 66 Brachial] Heart Rate [ Monitoring electrodes] Respiratory 18 18 Rate Blood Pressure 130/66 Blood Pressure [Activity] Blood Pressure 130/66 142/73 H [Right Brachial artery] O2 Saturation 92 94 O2 Saturation [ With Activity] 12/28/19 12/28/19 12/28/19 06:05 06:16 07:47 Temperature 36.4 C L Heart Rate 52 L Heart Rate [ Activity] Heart Rate [ 72 Brachial] Heart Rate [ Monitoring electrodes] Respiratory 16 20 Rate Blood Pressure 134/63 H Blood Pressure [Activity] Blood Pressure 141/71 H [Right Brachial artery] O2 Saturation 94 O2 Saturation [ With Activity] 12/28/19 12/28/19 12/28/19 10:47 10:55 11:06 Temperature Heart Rate 105 H Heart Rate [ 76 Activity] Heart Rate [ 88 Brachial] Heart Rate [ Monitoring electrodes] Respiratory Rate Blood Pressure Blood Pressure 141/71 H [Activity] Blood Pressure 133/67 H [Right Brachial artery] O2 Saturation O2 Saturation [ 93 With Activity] 12/28/19 11:36 Temperature Heart Rate Heart Rate [ Activity] Heart Rate [ Brachial] Heart Rate [ Monitoring electrodes] Respiratory Rate Blood Pressure 133/67 H Blood Pressure [Activity] Blood Pressure [Right Brachial artery] O2 Saturation O2 Saturation [ With Activity] Oxygen O2 Source [With Activity] Nasal cannula O2 Source Nasal cannula I&O (Last 24 Hrs): Intake and Output Totals x24h 12/26/19 12/27/19 12/28/19 23:59 23:59 23:59 Intake Total 1277 490 Output Total 300 1400 Balance 977 -910 General: Alert, Oriented x3 HEENT: Mucous membr. moist/pink Neck: Supple, No JVD Neuro: Alert, Non Focal Cardiovascular: Other (Irreg irreg, 2/6 systolic murmur throughout, loudest at the base) Respiratory: Rales, Other (Bilateral rales, up 1/2 bilaterally, posteriorly.) Abdomen: Soft, Other (Obese with pannus) Extremities: Other (1+ pedal edema, 1+ lymphedema of shins up to knees) - Results Results: Laboratory Results WBC 6.9 x10^3/uL (4.8-10.8) 12/28/19 04:40 RBC 3.59 10^6/uL (4.20-5.40) L 12/28/19 04:40 Hgb 11.5 g/dL (12.0-16.0) L 12/28/19 04:40 Hct 35.7 % (37.0-47.0) L 12/28/19 04:40 MCV 99.4 fL (81.0-99.0) H 12/28/19 04:40 MCH 32.0 pg (27.0-31.0) H 12/28/19 04:40 MCHC 32.2 g/dL (32.0-36.0) 12/28/19 04:40 RDW 14.0 % (12.0-15.0) 12/28/19 04:40 Plt Count 204 10^3/uL (130-450) 12/28/19 04:40 MPV 10.0 fL (7.9-10.8) 12/28/19 04:40 Neut # (Auto) 6.1 10^3/uL (1.5-6.6) 12/28/19 04:40 Lymph # (Auto) 0.6 10^3/uL (1.5-3.5) L 12/28/19 04:40 [place] # (Auto) 0.2 10^3/uL (0.0-1.0) 12/28/19 04:40 Eos # (Auto) 0.0 10^3/uL (0.0-0.7) 12/28/19 04:40 Baso # (Auto) 0.0 10^3/uL (0.0-0.1) 12/28/19 04:40 Absolute Nucleated RBC 0.00 x10^3/uL 12/28/19 04:40 Nucleated RBC % 0.0 /100WBC 12/28/19 04:40 PT 13.0 secs (9.9-12.6) H 12/27/19 12:18 INR 1.1 (0.8-1.2) 12/27/19 12:18 Sodium 140 mmol/L (135-145) 12/28/19 04:40 Potassium 4.3 mmol/L (3.5-5.0) 12/28/19 04:40 Chloride 102 mmol/L (101-111) 12/28/19 04:40 Carbon Dioxide 28 mmol/L (21-32) 12/28/19 04:40 Anion Gap 10.0 (6-13) 12/28/19 04:40 BUN 24 mg/dL (6-20) H 12/28/19 04:40 Creatinine 0.8 mg/dL (0.4-1.0) 12/28/19 04:40 Estimated GFR (MDRD) 68 (>89) L 12/28/19 04:40 Glucose 174 mg/dL (70-100) H 12/28/19 04:40 Lactic Acid 1.2 mmol/L (0.5-2.2) 12/27/19 09:25 Calcium 8.6 mg/dL (8.5-10.3) 12/28/19 04:40 Magnesium 2.1 mg/dL (1.7-2.8) 12/28/19 04:40 Total Bilirubin 0.5 mg/dL (0.2-1.0) 12/28/19 04:40 AST 26 IU/L (10-42) 12/28/19 04:40 ALT 68 IU/L (10-60) H 12/28/19 04:40 Alkaline Phosphatase 53 IU/L (42-121) 12/28/19 04:40 Troponin I High Sens 14.6 ng/L (2.3-14.8) 12/27/19 12:18 B-Natriuretic Peptide 513 pg/mL (5-100) H 12/28/19 04:40 Total Protein 6.9 g/dL (6.7-8.2) 12/28/19 04:40 Albumin 3.2 g/dL (3.2-5.5) 12/28/19 04:40 Globulin 3.7 g/dL (2.1-4.2) 12/28/19 04:40 Albumin/Globulin Ratio 0.9 (1.0-2.2) L 12/28/19 04:40 Lipase 23 U/L (22-51) 12/27/19 08:45 TSH 0.09 uIU/mL (0.34-5.60) L 12/27/19 08:45 Urine Color YELLOW 12/27/19 11:18 Urine Clarity CLEAR (CLEAR) 12/27/19 11:18 Urine pH 6.5 PH (5.0-7.5) 12/27/19 11:18 Ur Specific [place] 1.015 (1.002-1.030) 12/27/19 11:18 Urine Protein NEGATIVE mg/dL (NEGATIVE) 12/27/19 11:18 Urine Glucose (UA) NEGATIVE mg/dL (NEGATIVE) 12/27/19 11:18 Urine Ketones NEGATIVE mg/dL (NEGATIVE) 12/27/19 11:18 Urine Occult Blood NEGATIVE (NEGATIVE) 12/27/19 11:18 Urine Nitrite NEGATIVE (NEGATIVE) 12/27/19 11:18 Urine Bilirubin NEGATIVE (NEGATIVE) 12/27/19 11:18 Urine Urobilinogen 0.2 (NORMAL) E.U./dL (NORMAL) 12/27/19 11:18 Ur Leukocyte Esterase NEGATIVE (NEGATIVE) 12/27/19 11:18 Ur Microscopic Review NOT INDICATED 12/27/19 11:18 Urine Culture Comments NOT INDICATED 12/27/19 11:18 Influenza A (Rapid) Negative (Negative) 12/27/19 12:20 Influenza B (Rapid) Negative (Negative) 12/27/19 12:20 - Procedures Procedures: Procedures ENDOSC POLYPECTOMY OF LG INTEST (04/11/14) EXCISE AXILLARY NODE (09/05/14) INSERTION OF TOTALLY IMPLANTABLE VASC ACCESS DEVIC (10/31/14) LOCAL EXCIS BREAST LES (09/05/14) REMOVAL OF VAD FROM UP EXTREM SUBCU/FASCIA, PERC APPROACH (08/07/15) THORAX SFT TISS XRAY NEC (10/31/14)
[2019-12-28] MEDS: FUROSEMIDE 40 MG/4 ML VIAL IVP SCH (13:32)
--- NOTE | 2019-12-28 14:20 | ADVANCE CARE PLANNING NOTE ---
Advance Care Planning - Planning Encounter Date: 12/28/19 Time: 14:00 Purpose: To re-think her DNR status Parties in Attendance: I spoke to the patient in her room, sitting in a recliner. Decisional Capacity of the Patient: She has full decisional capacity. - Diagnosis for Encounter (1) Acute on chronic congestive heart failure Qualifiers: Heart failure type: diastolic Qualified Code(s): I50.33 - Acute on chronic diastolic (congestive) heart failure Summary: Diastolic dysfunction secondary to chronic and due to new Afib with RVR, are now confirmed. - Encounter Subjective/Patient's Story: This was reviewed at the admission meeting, which took place yesterday with the daughter present and confirming the history. This is a 84-year-old white female who adopted 5 out of 8 foster children. She has a history of hypertension, obesity, aortic stenosis, chronic (diastolic) heart failure, and reactive airway disease. She is usually very active, "runs the house", drives a car, no longer works. She lives with her youngest (adult) daughter, son-in-law and their child. Objective/Medical Story: She presented with a 2 to 3-day history of URI with chills and feeling feverish, had become very short of breath with activity and orthopneic and had leg edema worse than her intermittent edema for which she takes Lasix 80 mg prn. She has been diagnosed with new onset of A. fib, was in RVR, has bronchitis with mild CHF by chest x-ray. She is very weak with attempting to walk today, and is still very SOB with walking a few feet, and desaturated. She is getting antibiotics, iv steroids, nebulizers, IV diuretics and new medications for rate control plus new Eliquis. Goals of Care: The patient stated yesterday and reiterated now that she wants "nature to take its course", but she and the daughter Karis have agreed that CPR and shock should be attempted in a Code Blue situation. Plan: I will change the Code Status to follow her request. Additional Discussion: The patient specifically requests to not be intubated and put on a ventilator, but to try CPR and shock. Code Status: Attempt Resuscitation Time spent on advance care plannin min
[2019-12-28] MEDS: DOCUSATE SODIUM 250 MG CAPSULE PO SCH (20:35)
[2019-12-28] MEDS: traZODone 50 MG TABLET PO SCH (20:35)
[2019-12-28] MEDS: SENNA 8.6 MG TABLET PO SCH (20:36)
[2019-12-29] MEDS: LEVALBUTEROL 1.25 MG/3 ML NEB INH SCH ×4 (00:10→19:28)
[2019-12-29] MEDS: SODIUM CHLORIDE FLUSH 0.9% 10 ML SYRINGE IVP SCH ×3 (00:31→17:54)
[2019-12-29] MEDS: ACETAMINOPHEN 325 MG TABLET PO PRN (03:31)
[2019-12-29 05:03] LABS: BASOPHILS % (AUTO) 0.2 %; LYMPHOCYTES # (AUTO) 0.5 10^3/uL (1.5-3.5); LYMPHOCYTES % (AUTO) 4.1 %; MEAN CORPUSCULAR HEMOGLOBIN 30.9 pg (27.0-31.0); MEAN CORPUSCULAR HGB CONC 31.3 g/dL (32.0-36.0); MEAN CORPUSCULAR VOLUME 98.9 fL (81.0-99.0); MEAN PLATELET VOLUME 10.3 fL (7.9-10.8); MONOCYTES # (AUTO) 0.5 10^3/uL (0.0-1.0); MONOCYTES % (AUTO) 3.6 %; NEUTROPHILS # (AUTO) 11.6 10^3/uL (1.5-6.6); NEUTROPHILS % (AUTO) 91.4 %; PLT - PLATELET COUNT 222 10^3/uL (130-450); RED BLOOD COUNT 3.56 10^6/uL (4.20-5.40); RED CELL DISTRIBUTION WIDTH 14.4 % (12.0-15.0); WHITE BLOOD COUNT 12.7 x10^3/uL (4.8-10.8)
[2019-12-29 05:16] LABS: ALBUMIN 3.3 g/dL (3.2-5.5); ALBUMIN/GLOBULIN RATIO 0.9 (1.0-2.2); BILIRUBIN,TOTAL 0.6 mg/dL (0.2-1.0); CALCIUM 8.6 mg/dL (8.5-10.3); CREATININE 0.8 mg/dL (0.4-1.0); MAGNESIUM 2.2 mg/dL (1.7-2.8); TOTAL PROTEIN 6.8 g/dL (6.7-8.2)
[2019-12-29] MEDS: SODIUM CHLORIDE FLUSH 0.9% 10 ML SYRINGE IVP PRN ×2 (06:00→22:01)
[2019-12-29] MEDS: methylPREDNISolone SUCCINATE 40 MG/ML VIAL IVP SCH ×3 (06:00→22:00)
[2019-12-29] MEDS: FUROSEMIDE 40 MG/4 ML VIAL IVP SCH ×2 (06:00→14:17)
[2019-12-29] MEDS: BUDESONIDE 0.5 MG/2 ML NEB INH SCH ×2 (06:05→19:28)
[2019-12-29] MEDS: diltiaZEM CD 120 MG CAPSULE PO SCH ×2 (08:30→17:54)
[2019-12-29] MEDS: ANASTROZOLE 1 MG TABLET PO SCH (08:30)
[2019-12-29] MEDS: SENNA 8.6 MG TABLET PO SCH (08:31)
[2019-12-29] MEDS: FAMOTIDINE 20 MG TABLET PO SCH ×2 (08:31→20:35)
[2019-12-29] MEDS: AZITHROMYCIN 250 MG TABLET PO SCH (08:31)
[2019-12-29] MEDS: DOCUSATE SODIUM 250 MG CAPSULE PO SCH (08:31)
[2019-12-29] MEDS: APIXABAN 5 MG TABLET PO SCH ×2 (08:31→20:36)
--- NOTE | 2019-12-29 16:36 | PROVIDER PROGRESS NOTE ---
Assessment/Plan - Problem List (1) Atrial fibrillation with rapid ventricular response Assessment/Plan: HR is well controlled with present Cardizem CD dose. She is on new Eliquis for stroke prevention. (2) Acute on chronic congestive heart failure Qualifiers: Heart failure type: diastolic Qualified Code(s): I50.33 - Acute on chronic diastolic (congestive) heart failure Assessment/Plan: She is now in (-) fluid balance since the iv LAsix dose was increased and fluid restriction added to diet order Continue Lasix and will transition to po Lasix daily, not just prn. (3) Acute exacerbation of chronic bronchitis Assessment/Plan: Her lungs are clear and she is not coughing. Continue pulmonary toilet and antibx. 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 (5) Aortic stenosis Assessment/Plan: Moderate-severe by Echo done here. (6) Essential hypertension Assessment/Plan: BP controlled onb current meds and management (7) Hx of breast cancer Assessment/Plan: On Arimadex (8) Morbid obesity with BMI of 40.0-44.9, adult Assessment/Plan: Weight reduction would be beneficial. - Current Meds Current Meds: Current Medications Generic Name Dose Route Start Last Admin Trade Name Freq PRN Reason Stop Dose Admin Acetaminophen 650 mg 12/27/19 10:15 12/29/19 03:31 Tylenol PO 650 mg Q4HR PRN Administration Pain 1 to 4 Anastrozole 1 mg 12/28/19 09:00 12/29/19 08:30 Anastrozole PO 1 mg DAILY JULIANO Administration Apixaban 5 mg 12/28/19 09:00 12/29/19 08:31 Eliquis PO 5 mg BID JULIANO Administration Azithromycin 250 mg 12/28/19 09:00 12/29/19 08:31 Zithromax PO 12/31/19 09:01 250 mg DAILY JULIANO Administration Budesonide 0.5 mg 12/27/19 11:00 12/29/19 06:05 Pulmicort INH 0.5 mg RTBID JULIANO Administration Diltiazem HCl 120 mg 12/29/19 08:00 12/29/19 08:30 Cardizem Cd PO 120 mg 0800,1800 JULIANO Administration Docusate Sodium 250 - 500 mg 12/28/19 21:00 12/29/19 08:31 Colace 250mg Capsule PO 250 mg DAILY JULIANO Administration Famotidine 10 mg 12/27/19 21:00 12/29/19 08:31 Pepcid PO 10 mg BID JULIANO Administration Furosemide 40 mg 12/28/19 14:00 12/29/19 14:17 Lasix Inj 40 Mg Vial IVP 40 mg BIDDIURETIC JULIANO Administration Levalbuterol HCl 1.25 mg 12/27/19 12:00 12/29/19 12:37 Xopenex INH 1.25 mg Q6H JULIANO Administration Methylprednisolone 40 mg 12/27/19 14:00 12/29/19 14:17 Solu-Medrol (40mg Vial) IVP 40 mg TID JULIANO Administration Polyethylene Glycol 17 gm 12/27/19 10:29 12/28/19 09:19 Miralax PO 17 gm DAILY PRN Administration Constipation Senna 8.6 - 17.2 mg 12/28/19 21:00 12/29/19 08:31 Senokot PO 8.6 mg DAILY JULIANO Administration Sodium Chloride 10 ml 12/27/19 10:15 12/29/19 06:00 Normal Saline Flush 0.9% IVP 10 ml PRN PRN Administration NEEDED PER PROVIDER ORDERS Sodium Chloride 10 ml 12/27/19 17:00 12/29/19 08:34 Normal Saline Flush 0.9% IVP 10 ml 0100,0900,1700 JULIANO Administration Trazodone HCl 150 mg 12/27/19 21:00 12/28/19 20:35 Desyrel PO 150 mg HS JULIANO Administration - Lab Result Fish Bone Diagrams: 12/29/19 04:20 12/29/19 04:20 - Additional Planning My Orders: My Active Orders 12/28/19 21:00 Docusate Sodium 250Mg Capsule [Colace 250Mg Capsule] 250 - 500 mg PO DAILY Senna [Senokot] 8.6 - 17.2 mg PO DAILY 12/29/19 08:00 diltiaZEM CD [Cardizem Cd] 120 mg PO 0800,1800 12/30/19 05:00 CMP [COMPREHENSIVE METABOLIC PANEL] [CHEM] DAILYLAB MAGNESIUM [CHEM] DAILYLAB Subjective - Subjective Patient Reports: Feeling Better, Other (Has increased urination since Lasix dose was increased yesterday afternoon, and able to lie flat to rest without SOB) Objective Vital Signs: Vital Signs - 24 hr 12/28/19 12/28/19 12/28/19 17:17 18:18 20:11 Temperature 36.7 C Heart Rate 84 Heart Rate [ 93 Brachial] Respiratory 16 20 Rate Blood Pressure 153/95 H Blood Pressure 137/50 H [Right Brachial artery] O2 Saturation 96 12/28/19 12/29/19 12/29/19 23:35 00:05 03:30 Temperature 36.8 C 36.7 C Heart Rate 75 Heart Rate [ 76 62 Brachial] Respiratory 18 16 18 Rate Blood Pressure Blood Pressure 141/78 H 130/85 H [Right Brachial artery] O2 Saturation 93 94 12/29/19 12/29/19 12/29/19 05:57 06:05 06:27 Temperature Heart Rate 85 Heart Rate [ 99 77 Brachial] Respiratory 18 Rate Blood Pressure Blood Pressure 144/85 H [Right Brachial artery] O2 Saturation 95 96 12/29/19 12/29/19 12/29/19 07:28 12:26 12:39 Temperature 36.6 C 36.4 C L Heart Rate 85 Heart Rate [ 96 93 Brachial] Respiratory 18 20 20 Rate Blood Pressure Blood Pressure 113/65 133/88 H [Right Brachial artery] O2 Saturation 94 95 Oxygen O2 Source [With Activity] Nasal cannula O2 Source Nasal cannula I&O (Last 24 Hrs): Intake and Output Totals x24h 12/27/19 12/28/19 12/29/19 23:59 23:59 23:59 Intake Total 1277 1670 480 Output Total 300 2650 2950 Balance 977 -980 -2470 General: Alert, Oriented x3 HEENT: Mucous membr. moist/pink Neck: Supple, No JVD Neuro: Alert, Non Focal Cardiovascular: Other (Irreg, 3/6 murmur) Respiratory: No respiratory distress, Breath sounds nml Abdomen: Soft, Other (Obese with pannus) Extremities: Other (Trace edema) - Results Results: Laboratory Results WBC 12.7 x10^3/uL (4.8-10.8) H 12/29/19 04:20 RBC 3.56 10^6/uL (4.20-5.40) L 12/29/19 04:20 Hgb 11.0 g/dL (12.0-16.0) L 12/29/19 04:20 Hct 35.2 % (37.0-47.0) L 12/29/19 04:20 MCV 98.9 fL (81.0-99.0) 12/29/19 04:20 MCH 30.9 pg (27.0-31.0) 12/29/19 04:20 MCHC 31.3 g/dL (32.0-36.0) L 12/29/19 04:20 RDW 14.4 % (12.0-15.0) 12/29/19 04:20 Plt Count 222 10^3/uL (130-450) 12/29/19 04:20 MPV 10.3 fL (7.9-10.8) 12/29/19 04:20 Neut # (Auto) 11.6 10^3/uL (1.5-6.6) H 12/29/19 04:20 Lymph # (Auto) 0.5 10^3/uL (1.5-3.5) L 12/29/19 04:20 [place] # (Auto) 0.5 10^3/uL (0.0-1.0) 12/29/19 04:20 Eos # (Auto) 0.0 10^3/uL (0.0-0.7) 12/29/19 04:20 Baso # (Auto) 0.0 10^3/uL (0.0-0.1) 12/29/19 04:20 Absolute Nucleated RBC 0.00 x10^3/uL 12/29/19 04:20 Nucleated RBC % 0.0 /100WBC 12/29/19 04:20 PT 13.0 secs (9.9-12.6) H 12/27/19 12:18 INR 1.1 (0.8-1.2) 12/27/19 12:18 Sodium 139 mmol/L (135-145) 12/29/19 04:20 Potassium 4.5 mmol/L (3.5-5.0) 12/29/19 04:20 Chloride 101 mmol/L (101-111) 12/29/19 04:20 Carbon Dioxide 28 mmol/L (21-32) 12/29/19 04:20 Anion Gap 10.0 (6-13) 12/29/19 04:20 BUN 35 mg/dL (6-20) H 12/29/19 04:20 Creatinine 0.8 mg/dL (0.4-1.0) 12/29/19 04:20 Estimated GFR (MDRD) 68 (>89) L 12/29/19 04:20 Glucose 174 mg/dL (70-100) H 12/29/19 04:20 Lactic Acid 1.2 mmol/L (0.5-2.2) 12/27/19 09:25 Calcium 8.6 mg/dL (8.5-10.3) 12/29/19 04:20 Magnesium 2.2 mg/dL (1.7-2.8) 12/29/19 04:20 Total Bilirubin 0.6 mg/dL (0.2-1.0) 12/29/19 04:20 AST 38 IU/L (10-42) 12/29/19 04:20 ALT 82 IU/L (10-60) H 12/29/19 04:20 Alkaline Phosphatase 51 IU/L (42-121) 12/29/19 04:20 Troponin I High Sens 14.6 ng/L (2.3-14.8) 12/27/19 12:18 B-Natriuretic Peptide 431 pg/mL (5-100) H 12/29/19 04:20 Total Protein 6.8 g/dL (6.7-8.2) 12/29/19 04:20 Albumin 3.3 g/dL (3.2-5.5) 12/29/19 04:20 Globulin 3.5 g/dL (2.1-4.2) 12/29/19 04:20 Albumin/Globulin Ratio 0.9 (1.0-2.2) L 12/29/19 04:20 Lipase 23 U/L (22-51) 12/27/19 08:45 TSH 0.09 uIU/mL (0.34-5.60) L 12/27/19 08:45 Urine Color YELLOW 12/27/19 11:18 Urine Clarity CLEAR (CLEAR) 12/27/19 11:18 Urine pH 6.5 PH (5.0-7.5) 12/27/19 11:18 Ur Specific [place] 1.015 (1.002-1.030) 12/27/19 11:18 Urine Protein NEGATIVE mg/dL (NEGATIVE) 12/27/19 11:18 Urine Glucose (UA) NEGATIVE mg/dL (NEGATIVE) 12/27/19 11:18 Urine Ketones NEGATIVE mg/dL (NEGATIVE) 12/27/19 11:18 Urine Occult Blood NEGATIVE (NEGATIVE) 12/27/19 11:18 Urine Nitrite NEGATIVE (NEGATIVE) 12/27/19 11:18 Urine Bilirubin NEGATIVE (NEGATIVE) 12/27/19 11:18 Urine Urobilinogen 0.2 (NORMAL) E.U./dL (NORMAL) 12/27/19 11:18 Ur Leukocyte Esterase NEGATIVE (NEGATIVE) 12/27/19 11:18 Ur Microscopic Review NOT INDICATED 12/27/19 11:18 Urine Culture Comments NOT INDICATED 12/27/19 11:18 Influenza A (Rapid) Negative (Negative) 12/27/19 12:20 Influenza B (Rapid) Negative (Negative) 12/27/19 12:20 - Procedures Procedures: Procedures ENDOSC POLYPECTOMY OF LG INTEST (04/11/14) EXCISE AXILLARY NODE (09/05/14) INSERTION OF TOTALLY IMPLANTABLE VASC ACCESS DEVIC (10/31/14) LOCAL EXCIS BREAST LES (09/05/14) REMOVAL OF VAD FROM UP EXTREM SUBCU/FASCIA, PERC APPROACH (08/07/15) THORAX SFT TISS XRAY NEC (10/31/14)
[2019-12-29] MEDS: traZODone 50 MG TABLET PO SCH (20:35)
[2019-12-30] MEDS: LEVALBUTEROL 1.25 MG/3 ML NEB INH SCH ×4 (00:36→19:48)
[2019-12-30] MEDS: FUROSEMIDE 40 MG/4 ML VIAL IVP SCH ×2 (05:25→13:38)
[2019-12-30] MEDS: SODIUM CHLORIDE FLUSH 0.9% 10 ML SYRINGE IVP PRN ×3 (05:25→21:54)
[2019-12-30] MEDS: methylPREDNISolone SUCCINATE 40 MG/ML VIAL IVP SCH ×3 (05:25→21:54)
[2019-12-30] MEDS: SODIUM CHLORIDE FLUSH 0.9% 10 ML SYRINGE IVP SCH ×4 (05:38→23:41)
[2019-12-30 06:04] LABS: ALBUMIN 3.1 g/dL (3.2-5.5); ALBUMIN/GLOBULIN RATIO 0.9 (1.0-2.2); BILIRUBIN,TOTAL 0.4 mg/dL (0.2-1.0); CALCIUM 8.2 mg/dL (8.5-10.3); CREATININE 0.8 mg/dL (0.4-1.0); MAGNESIUM 2.3 mg/dL (1.7-2.8); TOTAL PROTEIN 6.5 g/dL (6.7-8.2)
[2019-12-30] MEDS: BUDESONIDE 0.5 MG/2 ML NEB INH SCH ×2 (07:22→19:48)
[2019-12-30] MEDS: SENNA 8.6 MG TABLET PO SCH (08:28)
[2019-12-30] MEDS: AZITHROMYCIN 250 MG TABLET PO SCH (08:29)
[2019-12-30] MEDS: APIXABAN 5 MG TABLET PO SCH ×2 (08:29→20:51)
[2019-12-30] MEDS: diltiaZEM CD 120 MG CAPSULE PO SCH (08:29)
[2019-12-30] MEDS: DOCUSATE SODIUM 250 MG CAPSULE PO SCH (08:29)
[2019-12-30] MEDS: FAMOTIDINE 20 MG TABLET PO SCH ×2 (08:29→20:51)
[2019-12-30] MEDS: ANASTROZOLE 1 MG TABLET PO SCH (08:29)
--- NOTE | 2019-12-30 15:13 | PROVIDER PROGRESS NOTE ---
Assessment/Plan - Problem List (1) Atrial fibrillation with rapid ventricular response Assessment/Plan: HR rises to 130's with walking and is slow to recover afterward with rest, but eventually drops to 80's and during sleep her HR is 80's. This could be from being very out of shape and overweight, and her Thyrotoxicosis. Will increase dose of Cardizem for rate control, from Cardizem CD 120 bid to Cardizem CD 180 bid, starting tonight. Watch for excessive BP drop. She is on new Eliquis for stroke prophylaxis treatment. (2) Acute on chronic diastolic (congestive) heart failure Assessment/Plan: Her underlying significant valve disease likely caused the diastolic heart failure, which was worsened by (unknown duration of) her new Afib with RVR. After the Lasix 20 iv bid was increased to 40 mg iv bid, she has finally had a neg fluid balance. She is now 5L (-) in fluid balance. Today with PT ambulation she still desaturated to 85% on room air. Will transition to oral Lasix tomorrow, to assure there is continued good diuresis. She was taking an 80 mg dose at home, but only prn for leg edema, which was maybe once a week in the past. She was also sipping on water all day, her first day here, until a fluid restriction was added to the orders. A consult was requested of Dietary for CHF teaching, hopefully to be done today. An oxygen saturation walk test should be repeated tomorrow, for possible home oxygen order. (3) Acute exacerbation of chronic bronchitis Assessment/Plan: This event started with a URI and cough and chills. Mucinex, empiric antibiotics plus nebs and iv steroids have helped. Will transition to po steroids and she will need a taper down schedule at [facility], continue Mucinex, finish the po Zithromax dosing, and resume home inhalers after [facility]. She was tested today for a new order for home O2 and would need it, by virtue of desating to 85% on room air, but she will not be discharged today, since several medications are being adjusted. Will re-order a desat walk study with RT for tomorrow. Possible Dch home tomorrow. 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 Will recheck a TSH in the morning tomorrow, to determine if the thyroid treatment can be resumed at a lower dose for DCh home. IN addition, the patient reported that she has noticed no full-body itching since being off Synthroid and wants a new formulation if thyroid treatment is restarted: possibly Rebecca Thyroid. (5) Aortic stenosis Assessment/Plan: Moderate-severe seen on echo done this admission. (6) Essential hypertension Assessment/Plan: Nifedipine was stopped at admission, in order to use Diltiazem. Her current (new) meds are controlling her BP. (7) Hx of breast cancer Assessment/Plan: Anastrazole daily continues (8) Morbid obesity with BMI of 40.0-44.9, adult Assessment/Plan: Weight loss would be beneficial - Current Meds Current Meds: Current Medications Generic Name Dose Route Start Last Admin Trade Name Freq PRN Reason Stop Dose Admin Acetaminophen 650 mg 12/27/19 10:15 12/29/19 03:31 Tylenol PO 650 mg Q4HR PRN Administration Pain 1 to 4 Anastrozole 1 mg 12/28/19 09:00 12/30/19 08:29 Anastrozole PO 1 mg DAILY JULIANO Administration Apixaban 5 mg 12/28/19 09:00 12/30/19 08:29 Eliquis PO 5 mg BID JULIANO Administration Azithromycin 250 mg 12/28/19 09:00 12/30/19 08:29 Zithromax PO 12/31/19 09:01 250 mg DAILY JULIANO Administration Budesonide 0.5 mg 12/27/19 11:00 12/30/19 07:22 Pulmicort INH 0.5 mg RTBID JULIANO Administration Diltiazem HCl 120 mg 12/29/19 08:00 12/30/19 08:29 Cardizem Cd PO 120 mg 0800,1800 JULIANO Administration Docusate Sodium 250 - 500 mg 12/28/19 21:00 12/30/19 08:29 Colace 250mg Capsule PO 250 mg DAILY JULIANO Administration Famotidine 10 mg 12/27/19 21:00 12/30/19 08:29 Pepcid PO 10 mg BID JULIANO Administration Levalbuterol HCl 1.25 mg 12/27/19 12:00 12/30/19 13:01 Xopenex INH 1.25 mg Q6H JULIANO Administration Methylprednisolone 40 mg 12/27/19 14:00 12/30/19 13:38 Solu-Medrol (40mg Vial) IVP 12/30/19 23:00 40 mg TID JULIANO Administration Polyethylene Glycol 17 gm 12/27/19 10:29 12/28/19 09:19 Miralax PO 17 gm DAILY PRN Administration Constipation Senna 8.6 - 17.2 mg 12/28/19 21:00 12/30/19 08:28 Senokot PO 8.6 mg DAILY JULIANO Administration Sodium Chloride 10 ml 12/27/19 10:15 12/30/19 05:37 Normal Saline Flush 0.9% IVP 10 ml PRN PRN Administration NEEDED PER PROVIDER ORDERS Sodium Chloride 10 ml 12/27/19 17:00 12/30/19 08:31 Normal Saline Flush 0.9% IVP 10 ml 0100,0900,1700 JULIANO Administration Trazodone HCl 150 mg 12/27/19 21:00 12/29/19 20:35 Desyrel PO 150 mg HS JULIANO Administration - Lab Result Fish Bone Diagrams: 12/29/19 04:20 12/30/19 05:22 - Additional Planning My Orders: My Active Orders 12/30/19 13:26 Oxygen Desat. Study w/Exercise [RC] .ONCE 12/31/19 08:00 predniSONE [Deltasone] 20 mg PO DAILYWM 12/31/19 09:00 Furosemide [Lasix] 80 mg PO DAILY Subjective - Subjective Patient Reports: Other (Wants to go home, but understands that she was weak and needed PT.) Nursing Reports: Other (When PT walked with her, she dropped her sat to 85% on r.a.) Objective Vital Signs: Vital Signs - 24 hr 12/29/19 12/29/19 12/29/19 16:52 19:28 20:03 Temperature 36.5 C 36.8 C Heart Rate 91 Heart Rate [ 85 91 Brachial] Respiratory 18 18 18 Rate Blood Pressure [Left Brachial artery] Blood Pressure 131/71 H 126/69 [Right Brachial artery] O2 Saturation 95 95 12/30/19 12/30/19 12/30/19 00:31 00:35 05:00 Temperature 36.6 C 36.5 C Heart Rate 84 Heart Rate [ 85 87 Brachial] Respiratory 18 18 18 Rate Blood Pressure 153/82 H [Left Brachial artery] Blood Pressure 148/80 H [Right Brachial artery] O2 Saturation 94 96 12/30/19 12/30/19 12/30/19 07:25 07:32 13:00 Temperature 36.4 C L Heart Rate 86 Heart Rate [ 81 91 Brachial] Respiratory 18 20 18 Rate Blood Pressure 131/56 H [Left Brachial artery] Blood Pressure 148/86 H [Right Brachial artery] O2 Saturation 93 90 L 12/30/19 12/30/19 13:03 13:27 Temperature Heart Rate 77 120 H Heart Rate [ Brachial] Respiratory 18 Rate Blood Pressure [Left Brachial artery] Blood Pressure [Right Brachial artery] O2 Saturation Oxygen O2 Source [With Activity] Nasal cannula O2 Source Nasal cannula I&O (Last 24 Hrs): Intake and Output Totals x24h 12/28/19 12/29/19 12/30/19 23:59 23:59 23:59 Intake Total 1670 1130 890 Output Total 2650 4850 3000 Balance -980 -3720 -2110 General: Alert, Oriented x3 HEENT: Mucous membr. moist/pink, Other (Good dentition.) Neck: Supple, No JVD Neuro: Alert, Non Focal Cardiovascular: Other (Irreg, 3/6 systolic murmur at base of heart) Respiratory: No respiratory distress, Breath sounds nml Abdomen: Soft, Other (Obese with pannus) Extremities: No edema (but she has lymphedema of shins) - Results Results: Laboratory Results WBC 12.7 x10^3/uL (4.8-10.8) H 12/29/19 04:20 RBC 3.56 10^6/uL (4.20-5.40) L 12/29/19 04:20 Hgb 11.0 g/dL (12.0-16.0) L 12/29/19 04:20 Hct 35.2 % (37.0-47.0) L 12/29/19 04:20 MCV 98.9 fL (81.0-99.0) 12/29/19 04:20 MCH 30.9 pg (27.0-31.0) 12/29/19 04:20 MCHC 31.3 g/dL (32.0-36.0) L 12/29/19 04:20 RDW 14.4 % (12.0-15.0) 12/29/19 04:20 Plt Count 222 10^3/uL (130-450) 12/29/19 04:20 MPV 10.3 fL (7.9-10.8) 12/29/19 04:20 Neut # (Auto) 11.6 10^3/uL (1.5-6.6) H 12/29/19 04:20 Lymph # (Auto) 0.5 10^3/uL (1.5-3.5) L 12/29/19 04:20 [place] # (Auto) 0.5 10^3/uL (0.0-1.0) 12/29/19 04:20 Eos # (Auto) 0.0 10^3/uL (0.0-0.7) 12/29/19 04:20 Baso # (Auto) 0.0 10^3/uL (0.0-0.1) 12/29/19 04:20 Absolute Nucleated RBC 0.00 x10^3/uL 12/29/19 04:20 Nucleated RBC % 0.0 /100WBC 12/29/19 04:20 PT 13.0 secs (9.9-12.6) H 12/27/19 12:18 INR 1.1 (0.8-1.2) 12/27/19 12:18 Sodium 138 mmol/L (135-145) 12/30/19 05:22 Potassium 4.2 mmol/L (3.5-5.0) 12/30/19 05:22 Chloride 100 mmol/L (101-111) L 12/30/19 05:22 Carbon Dioxide 32 mmol/L (21-32) 12/30/19 05:22 Anion Gap 6.0 (6-13) 12/30/19 05:22 BUN 40 mg/dL (6-20) H 12/30/19 05:22 Creatinine 0.8 mg/dL (0.4-1.0) 12/30/19 05:22 Estimated GFR (MDRD) 68 (>89) L 12/30/19 05:22 Glucose 163 mg/dL (70-100) H 12/30/19 05:22 Lactic Acid 1.2 mmol/L (0.5-2.2) 12/27/19 09:25 Calcium 8.2 mg/dL (8.5-10.3) L 12/30/19 05:22 Magnesium 2.3 mg/dL (1.7-2.8) 12/30/19 05:22 Total Bilirubin 0.4 mg/dL (0.2-1.0) 12/30/19 05:22 AST 49 IU/L (10-42) H 12/30/19 05:22 ALT 114 IU/L (10-60) H 12/30/19 05:22 Alkaline Phosphatase 50 IU/L (42-121) 12/30/19 05:22 Troponin I High Sens 14.6 ng/L (2.3-14.8) 12/27/19 12:18 B-Natriuretic Peptide 431 pg/mL (5-100) H 12/29/19 04:20 Total Protein 6.5 g/dL (6.7-8.2) L 12/30/19 05:22 Albumin 3.1 g/dL (3.2-5.5) L 12/30/19 05:22 Globulin 3.4 g/dL (2.1-4.2) 12/30/19 05:22 Albumin/Globulin Ratio 0.9 (1.0-2.2) L 12/30/19 05:22 Lipase 23 U/L (22-51) 12/27/19 08:45 TSH 0.09 uIU/mL (0.34-5.60) L 12/27/19 08:45 Urine Color YELLOW 12/27/19 11:18 Urine Clarity CLEAR (CLEAR) 12/27/19 11:18 Urine pH 6.5 PH (5.0-7.5) 12/27/19 11:18 Ur Specific [place] 1.015 (1.002-1.030) 12/27/19 11:18 Urine Protein NEGATIVE mg/dL (NEGATIVE) 12/27/19 11:18 Urine Glucose (UA) NEGATIVE mg/dL (NEGATIVE) 12/27/19 11:18 Urine Ketones NEGATIVE mg/dL (NEGATIVE) 12/27/19 11:18 Urine Occult Blood NEGATIVE (NEGATIVE) 12/27/19 11:18 Urine Nitrite NEGATIVE (NEGATIVE) 12/27/19 11:18 Urine Bilirubin NEGATIVE (NEGATIVE) 12/27/19 11:18 Urine Urobilinogen 0.2 (NORMAL) E.U./dL (NORMAL) 12/27/19 11:18 Ur Leukocyte Esterase NEGATIVE (NEGATIVE) 12/27/19 11:18 Ur Microscopic Review NOT INDICATED 12/27/19 11:18 Urine Culture Comments NOT INDICATED 12/27/19 11:18 Influenza A (Rapid) Negative (Negative) 12/27/19 12:20 Influenza B (Rapid) Negative (Negative) 12/27/19 12:20 - Procedures Procedures: Procedures ENDOSC POLYPECTOMY OF LG INTEST (04/11/14) EXCISE AXILLARY NODE (09/05/14) INSERTION OF TOTALLY IMPLANTABLE VASC ACCESS DEVIC (10/31/14) LOCAL EXCIS BREAST LES (09/05/14) REMOVAL OF VAD FROM UP EXTREM SUBCU/FASCIA, PERC APPROACH (08/07/15) THORAX SFT TISS XRAY NEC (10/31/14)
[2019-12-30] MEDS: diltiaZEM CD 180 MG CAPSULE PO SCH (17:46)
[2019-12-30] MEDS: traZODone 50 MG TABLET PO SCH (20:51)
[2019-12-31 05:36] LABS: CALCIUM 8.2 mg/dL (8.5-10.3); CREATININE 0.8 mg/dL (0.4-1.0); MAGNESIUM 2.3 mg/dL (1.7-2.8)
[2019-12-31] MEDS: BUDESONIDE 0.5 MG/2 ML NEB INH SCH (07:38)
[2019-12-31] MEDS ORDERED: predniSONE 20 MG TABLET PO SCH (08:00)
[2019-12-31] MEDS: diltiaZEM CD 180 MG CAPSULE PO SCH (08:30)
[2019-12-31] MEDS: ANASTROZOLE 1 MG TABLET PO SCH (08:43)
[2019-12-31] MEDS: SENNA 8.6 MG TABLET PO SCH (08:43)
[2019-12-31] MEDS: APIXABAN 5 MG TABLET PO SCH (08:44)
[2019-12-31] MEDS: FAMOTIDINE 20 MG TABLET PO SCH (08:44)
[2019-12-31] MEDS: AZITHROMYCIN 250 MG TABLET PO SCH (08:44)
[2019-12-31] MEDS: DOCUSATE SODIUM 250 MG CAPSULE PO SCH (08:45)
[2019-12-31] MEDS: SODIUM CHLORIDE FLUSH 0.9% 10 ML SYRINGE IVP SCH (08:47)
[2019-12-31] MEDS ORDERED: FUROSEMIDE 40 MG TABLET PO SCH (09:00)
--- NOTE | 2019-12-31 09:22 | Discharge Plan ---
Discharge Plan Problem Reviewed?: Yes Disposition: Home, Self Care Condition: Stable Prescriptions: Apixaban [Eliquis] 5 mg PO BID #60 tablet diltiaZEM CD [Cardizem Cd] 180 mg PO 0800,1800 #60 capsule Furosemide [Lasix] 40 mg PO DAILY #30 tablet Potassium Chloride [Micro-K] 10 meq PO 0800 #30 capsule Diet: Cardiac Activity Restrictions: Activity as Tolerated Shower Restrictions: No Driving Restrictions: No Assistance Devices: Walker Instruction Topics: Apixaban oral tablets, Diltiazem tablets, Tips Using Less Salt, Choices Low Salt, Heart Valve Stenosis, Potassium, Diet Low Salt Dc, Hypertension Pulmonary, Foods Heart Healthy, Atrial Fibrillation Health Concerns: In the context of a patient who has valve heart disease called aortic stenosis, and diastolic heart failure, you presented with a cold 2 days ago and was symptomatic with cough, chills, but were getting more more short of breath. In the emergency room you were found to be in new onset atrial fibrillation which is an irregularly irregular heart rate that was very fast. We also think that your cold gave you asthmatic bronchitis. The fast heart rate did also give you a little bit worse diastolic heart failure. An ultrasound of your heart was done during the stay, that is called an echocardiogram. Your heart muscle on the left side of your heart is big, but its ability to pump, which is called ejection fraction, is normal. That ejection fraction is 65 to 70%. The right side of your heart is also enlarged indicating that you have been in chronic heart failure from your aortic stenosis. And that your asthma is also causing the right side of your heart to work more. Plan of Treatment: 1. You were started on a new medicine called Cardizem to slow down your heart rate. You will be on it twice a day until you see your primary care provider, Tram Quintanilla, in the next week. You may be able to go to once a day. See AARON Quintanilla in the next week. 2. AARON Quintanilla may want to send you to see a inspector casing for an opinion. 3. You have been started on Lasix. You will take it every day. This helps with the diastolic heart failure. 4. Take your weight daily with your blood pressure. Write it down in a daily spiral notebook diary. Take that diary with you when you see AARON Quintanilla to make sure that you are maintaining a good fluid dry weight. 5. Atrial fibrillation will increase your risk of stroke. That is from small clots that develop in the heart chambers. You have been started on a medicine that will stop those clots from forming in your heart chamber. The medicine is called Eliquis and you will take it every day. Again, when you see cardiology, they may change your medication for this. 6. You were on steroids while you were in the hospital for your asthmatic bronchitis. You no longer need those. You will go home on your usual Ventolin inhaler. 7. was called into you after you left. Do not take your synthroid until you see AARON Quintanilla. She may want to change you to a new medicine. Care Goals: To control your heart rate so that you do not go into congestive heart failure. Hopefully to see a inspector casing to get you back into a regular rhythm. Assessment: Patient expresses understanding of care goals as long as we write them down. This has been provided to her. And she promises to follow through. No Smoking: If you smoke, Please STOP! Call for help. Follow-up with: Tram Quintanilla PA-C [Primary Care Provider] -
[2019-12-31 11:00] VITALS: BP 117/69
--- NOTE | 2019-12-31 14:15 | DISCHARGE SUMMARY ---
Physician: Key Crowell MD DATE OF ADMISSION: 12/27/2019 DATE OF DISCHARGE: 12/31/2019 PRIMARY CARE PHYSICIAN: Tram Quintanilla PA-C DISCHARGE DIAGNOSES 1. Acute on chronic diastolic heart failure. 2. New onset atrial fibrillation with rapid ventricular response. 3. Acute exacerbation of chronic bronchitis. 4. 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 5. Aortic stenosis, moderate to severe. 6. Essential hypertension. 7. History of breast cancer. 8. Morbid obesity with a body mass index of 40 to 44.9. DISCHARGE MEDICATIONS 1. Albuterol HFA inhaler 2 puffs every 4 hours as needed. 2. Levothyroxine 150 mcg daily. 3. Procardia XL 90 mg daily. 4. Trazodone 150 mg every evening. 5. Anastrozole 1 mg daily. 6. Eliquis 5 mg p.o. b.i.d. 7. Cardizem CD 180 mg p.o. b.i.d. 8. Lasix 40 mg daily. 9. Potassium 10 mEq daily. HOSPITAL COURSE: Patient is an 84-year-old female who has documented aortic stenosis, chronic leg ed ra, history of breast cancer, history of asthma requiring Ventolin p.r.n. that presents with a histo ry of a URI for several days. It gradually became symptomatic enough that coughing was nonstop and s he was becoming short of breath and came to the ER. In the emergency room, she was identified as hav ing new onset atrial fibrillation. Initial troponin was 15.4, repeat 4 hours later was 14.6. So she is not felt to have an NC. TSH was 0.09 and on repeat less than 0.08 and felt to be over treated fo r her hypothyroidism. BNP was mildly elevated at 442. Patient was brought into slow down her heart rate, and to control probable acute diastolic congestive heart failure which she has chronic diastolic heart failure as a history. At discharge she has an echocardiogram that has not been finally reported. Preliminary report shows her to have moderate concentric ventricular hypertrophy. Systolic function is normal with an ejectio n fraction of 65-70%. Vofl-iv-xatorhgu right ventricular enlargement. Right ventricular systolic fu nction is mildly impaired. Moderate to severe aortic stenosis with a peak mean pressure gradient at 54 mmHg/31 mmHg. Aortic valve area is 1.09 cm. As compared to her prior echo, the aortic pressure g radient of increased from 45 mmHg/27 mmHg. She has mild mitral stenosis, moderate mitral annular katia cification, mildly abnormal right heart pressures with RVSP at rest 45 mmHg. Patient was also changed to daily as opposed to p.r.n, Lasix 80 mg. At discharge, she will be discha rged on 40 mg of daily Lasix with potassium supplementation. Because of her risk of stroke with a high CHADS score. She has been placed on Eliquis. For her bronchitis, she did respond to empiric steroids and Mucinex. Antibiotics were not required. It was discussed with her that she may want to be on a new thyroid medication. She says that she has full body itching with Synthroid. If she wants to go back on Synthroid or thyroid replacement, Armo ur Thyroid may be a better choice for her. At discharge, nifedipine was stopped in order to use dilt iazem. She is discharged in stable condition. DISCHARGE PHYSICAL EXAMINATION VITAL SIGNS: Temperature of 36.5, pulse 86, blood pressure 117/69, respirations 18, 95% on room air. GENERAL: She is a 4 feet 11 female who weighs 118 kg. Very cheerful, bright personality with short, curly, dyed red hair, penciled in eyebrows. NECK: Supple. No JVD. LUNGS: Completely clear to auscultation and percussion. HEART: PMI is normally placed with an irregular rate, rhythm and a harsh systolic murmur that radiat es into her carotids. ABDOMEN: Obese, soft, nontender. EXTREMITIES: Right now the feet have no edema. She is ambulating in her room without any increased respiratory effort or ataxia. Greater than 30 minutes was spent coordinating discharge. I have asked her to please follow up with her primary care provider, Tram Quintanilla. She also should probably follow up with Cardiology. Begi nnjamin conversation should occur with regard to how she plans on having her aortic stenosis disease tr eated. At 84 it maybe only medical management versus a EVAN. cc: Tram Quintanilla PA-C TD: 12/31/2019 13:52
== END 2019-12-31 11:25 | disposition home or self-care (01) | DRG 292 ==
LOC: ED 07:57 → MS2 10:15
PROVIDERS: ADMIT Internal Medicine; ATTEND Specialist
DX: I48.91 Unspecified atrial fibrillation (principal); J42 Unspecified chronic bronchitis; J06.9 Acute upper respiratory infection, unspecified; I11.0 Hypertensive heart disease with heart failure; I50.9 Heart failure, unspecified; E78.00 Pure hypercholesterolemia, unspecified; Z68.41 Body mass index [BMI] 40.0-44.9, adult; Z96.659 Presence of unspecified artificial knee joint; J44.1 Chronic obstructive pulmonary disease with (acute) exacerbation; I50.33 Acute on chronic diastolic (congestive) heart failure; I48.0 Paroxysmal atrial fibrillation; E03.9 Hypothyroidism, unspecified; E05.40 Thyrotoxicosis factitia without thyrotoxic crisis or storm; T38.1X5A Adverse effect of thyroid hormones and substitutes, initial encounter; Y92.009 Unspecified place in unspecified non-institutional (private) residence as the place of occurrence of the external cause; I35.0 Nonrheumatic aortic (valve) stenosis; E66.01 Morbid (severe) obesity due to excess calories; R79.89 Other specified abnormal findings of blood chemistry; C50.919 Malignant neoplasm of unspecified site of unspecified female breast; Z79.899 Other long term (current) drug therapy; Z79.51 Long term (current) use of inhaled steroids; Z87.891 Personal history of nicotine dependence
CPT/HCPCS: 36415; 71045; 80048; 80053; 81003; 83605; 83690; 83735; 83880; 84443; 84484; 85025; 85610; 87275; 87276; 93005; 93306; 94640; 96374; 96375; 96376; 97116; 97162; 97530; 99284; 99285; A9270; J1650; J7512; J7626; 81001; 87086; 94761

== ENCOUNTER 2020-03-06 09:34 | Outpatient (CLI) | payer MEDICARE, OTHER ==
[2020-03-06 14:44] LABS: ALBUMIN/GLOBULIN RATIO 1.2 (1.0-2.2); ALKALINE PHOSPHATASE 55 IU/L (42-121); ALT ALANINE AMINOTRANSFERASE 20 IU/L (10-60); AST ASPARTATE AMINOTRANSFERASE 33 IU/L (10-42); BILIRUBIN,TOTAL 0.7 mg/dL (0.2-1.0); BUN - BLOOD UREA NITROGEN 25 mg/dL (6-20); CALCIUM 9.3 mg/dL (8.5-10.3); CARBON DIOXIDE - CO2 33 mmol/L (21-32); CHLORIDE 92 mmol/L (101-111); CHOLESTEROL 387 mg/dL; CREATININE 1.6 mg/dL (0.4-1.0); GLUCOSE 123 mg/dL (70-100); HDL CHOLESTEROL 64 mg/dL; LDL CHOLESTEROL,CALCULATED 281 mg/dL; LDL/HDL RATIO 4.4 (<4.4); SODIUM 137 mmol/L (135-145); TOTAL PROTEIN 7.3 g/dL (6.7-8.2); VLDL CHOLESTEROL 42 mg/dL
[2020-03-06 15:49] LABS: FREE T4 (FREE THYROXINE) < 0.25 ng/dL (0.58-1.64)
== END 2020-03-06 23:59 | disposition home or self-care (01) ==
LOC: LAB.WCP 09:34
PROVIDERS: ATTEND Physician Assistant Medical
DX: E78.5 Hyperlipidemia, unspecified (principal); E03.9 Hypothyroidism, unspecified
CPT/HCPCS: 36415; 80053; 80061; 83721; 84439; 84443

== ENCOUNTER 2020-04-28 07:10 | Outpatient (CLI) | payer MEDICARE, OTHER ==
[2020-04-28 11:57] LABS: BASOPHILS # (AUTO) 0.1 10^3/uL (0.0-0.1); BASOPHILS % (AUTO) 0.9 %; EOSINOPHILS # (AUTO) 0.2 10^3/uL (0.0-0.7); EOSINOPHILS % (AUTO) 2.7 %; HGB - HEMOGLOBIN 8.9 g/dL (12.0-16.0); LYMPHOCYTES # (AUTO) 1.6 10^3/uL (1.5-3.5); LYMPHOCYTES % (AUTO) 28.7 %; MEAN CORPUSCULAR HEMOGLOBIN 30.8 pg (27.0-31.0); MEAN CORPUSCULAR HGB CONC 30.3 g/dL (32.0-36.0); MEAN CORPUSCULAR VOLUME 101.7 fL (81.0-99.0); MEAN PLATELET VOLUME 9.7 fL (7.9-10.8); MONOCYTES # (AUTO) 0.6 10^3/uL (0.0-1.0); NEUTROPHILS # (AUTO) 3.2 10^3/uL (1.5-6.6); NEUTROPHILS % (AUTO) 56.5 %; PLT - PLATELET COUNT 273 10^3/uL (130-450); RED BLOOD COUNT 2.89 10^6/uL (4.20-5.40); RED CELL DISTRIBUTION WIDTH 16.4 % (12.0-15.0); WHITE BLOOD COUNT 5.6 x10^3/uL (4.8-10.8)
[2020-04-28 12:10] LABS: CALCIUM 8.7 mg/dL (8.5-10.3)
== END 2020-04-28 23:59 | disposition home or self-care (01) ==
LOC: LAB.WCP 07:10
PROVIDERS: ATTEND Physician Assistant Medical
DX: E03.9 Hypothyroidism, unspecified (principal); R53.83 Other fatigue; D62 Acute posthemorrhagic anemia; K92.2 Gastrointestinal hemorrhage, unspecified
CPT/HCPCS: 36415; 80048; 84443; 85025

== ENCOUNTER 2020-05-04 07:15 | Outpatient (CLI) | payer MEDICARE, OTHER ==
[2020-05-04 13:10] LABS: BASOPHILS # (AUTO) 0.1 10^3/uL (0.0-0.1); BASOPHILS % (AUTO) 0.9 %; EOSINOPHILS # (AUTO) 0.2 10^3/uL (0.0-0.7); EOSINOPHILS % (AUTO) 2.9 %; HGB - HEMOGLOBIN 9.3 g/dL (12.0-16.0); LYMPHOCYTES # (AUTO) 1.4 10^3/uL (1.5-3.5); LYMPHOCYTES % (AUTO) 23.8 %; MEAN CORPUSCULAR HEMOGLOBIN 29.8 pg (27.0-31.0); MEAN CORPUSCULAR HGB CONC 29.8 g/dL (32.0-36.0); MEAN PLATELET VOLUME 9.8 fL (7.9-10.8); MONOCYTES # (AUTO) 0.7 10^3/uL (0.0-1.0); MONOCYTES % (AUTO) 11.9 %; NEUTROPHILS # (AUTO) 3.5 10^3/uL (1.5-6.6); NEUTROPHILS % (AUTO) 60.2 %; PLT - PLATELET COUNT 320 10^3/uL (130-450); RED BLOOD COUNT 3.12 10^6/uL (4.20-5.40); RED CELL DISTRIBUTION WIDTH 17.2 % (12.0-15.0); WHITE BLOOD COUNT 5.8 x10^3/uL (4.8-10.8)
[2020-05-04 13:46] LABS: CREATININE 0.9 mg/dL (0.4-1.0)
== END 2020-05-04 23:59 | disposition home or self-care (01) ==
LOC: LAB.WCP 07:15
PROVIDERS: ATTEND Physician Assistant Medical
DX: I10 Essential (primary) hypertension (principal); D62 Acute posthemorrhagic anemia
CPT/HCPCS: 36415; 80048; 85025

== ENCOUNTER 2020-09-18 14:53 | Inpatient (IN) | payer MEDICARE, OTHER ==
--- NOTE | 2020-09-18 15:06 | ED Physician Documentation ---
PD HPI DYSPNEA - Stated complaint Stated Complaint: SOA,WEAKNESS - History obtained from History obtained from: Patient - History of Present Illness Timing - onset: How many weeks ago (few) Timing - onset during: Rest (now even dyspnea at rest), Light activity (for few weeks), Exertion Timing - details: Gradual onset, Still present Improved by: O2 (chronic oxygen 3 lpm NC.), Rest, Sitting up, Other (has taken extra lasix dose yeseterday and today with some increased urine output but still dyspnea.) Worsened by: Exertion, Laying flat. No: Coughing Associated symptoms: Wheezing, Bilateral edema. No: Fever, Cough, Hemoptysis, Chest pain / discomfort Similar symptoms before: Diagnosis (CHF/ atrial fib, anemia with transfusions (iron deficiency).) Recently seen: Clinic (Cardology Dr. Maloney yesterday for cardioversion of her atrial fib. Told she was anemic yesterday. History of iron deficiency anemia.) Review of Systems Constitutional: denies: Fever, Chills Nose: denies: Rhinorrhea / runny nose, Congestion Throat: denies: Sore throat Cardiac: reports: Pedal edema. denies: Chest pain / pressure, Palpitations, Calf pain Respiratory: reports: Dyspnea, Wheezing. denies: Cough GI: denies: Nausea, Vomiting, Diarrhea, Bloody / black stool : denies: Dysuria Skin: denies: Rash, Lesions Neurologic: reports: Generalized weakness. denies: Focal weakness, Numbness, Near syncope PD PAST MEDICAL HISTORY - Past Medical History Cardiovascular: Congestive heart failure (no ischemic heart disease. Prior atrial fib and aortic stenosis. On diuretics. 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, 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, Other - Present Medications Home Medications: Ambulatory Orders Medication Instructions Recorded Confirmed NIFEdipine [Procardia Xl] 90 mg PO DAILY 08/28/13 08/03/20 Anastrozole 1 mg PO DAILY 90 Days #90 tablet 11/23/18 08/03/20 Albuterol Sulf [Ventolin Hfa 2 puffs INH Q4H PRN 12/27/19 08/03/20 Inhaler] Levothyroxine Sodium [Synthroid] 150 mcg PO QDAC 12/27/19 08/03/20 Trazodone HCl 150 mg PO QPM 12/27/19 08/03/20 Apixaban [Eliquis] 5 mg PO BID #60 tablet 12/31/19 08/03/20 Furosemide [Lasix] 40 mg PO DAILY #30 tablet 12/31/19 08/03/20 Potassium Chloride [Micro-K] 10 meq PO 0800 #30 capsule 12/31/19 08/03/20 diltiaZEM CD [Cardizem Cd] 180 mg PO 0800,1800 #60 capsule 12/31/19 08/03/20 - Allergies Allergies/Adverse Reactions: Allergies Allergy/AdvReac Type Severity Reaction Status Date / Time No Known Drug Allergies Allergy Verified 09/18/20 15:07 - Social History Does the pt smoke?: No Smoking Status: Never smoker Does the pt drink ETOH?: Yes Does the pt have substance abuse?: No - Immunizations Immunizations are current?: Yes - POLST Patient has POLST: No PD ED PE NORMAL - Vitals Vital signs reviewed: Yes - General General: Alert and oriented X 3, Well developed/nourished - HEENT HEENT: Pharynx benign - Neck Neck: Supple, no meningeal sign, No adenopathy - Cardiac Cardiac: RRR, Other (2/6 systolic murmur left chest c/w . ) - Respiratory Respiratory: No: Clear bilaterally (crackles fine in both bases/lower third. ) - Abdomen Abdomen: Soft, Non tender - Derm Derm: Normal color, Warm and dry - Extremities Extremities: Other (1+ edema in both lower legs up to knees; no calf tenderness. ) - Neuro Neuro: Alert and oriented X 3, No motor deficit, Normal speech Eye Opening: Spontaneous Motor: Obeys Commands Verbal: Oriented GCS Score: 15 Results - Vitals Vitals: Vital Signs - 24 hr 09/18/20 09/18/20 09/18/20 15:07 15:13 15:57 Temperature 37.0 C 37.0 C Heart Rate 83 82 75 Respiratory 30 H 22 23 Rate Blood Pressure 135/40 H 135/40 H O2 Saturation 92 96 09/18/20 16:46 Temperature 37.0 C Heart Rate 78 Respiratory 24 Rate Blood Pressure 122/52 L O2 Saturation 97 Oxygen O2 Source [With Activity] Nasal cannula O2 Source Nasal cannula Oxygen Flow Rate 3 - EKG (time done) 14:58 Rate: Rate (enter#) (79) Rhythm: NSR [place]: Normal Intervals: Wide QRS, RBBB Ischemia: Normal ST segments, T wave inversion, Non specific changes. No: ST elevation c/w ischemia, ST depression Compare to prior EKG: Unchanged from prior EKG (November 2019) - Labs Labs: Laboratory Tests 09/18/20 09/18/20 09/18/20 16:13 16:13 16:13 WBC 7.1 RBC 2.01 L Hgb 5.9 L* Hct 21.0 L MCV 104.5 H MCH 29.4 MCHC 28.1 L RDW 18.9 H Plt Count 220 MPV 10.1 Neut # (Auto) 5.5 Lymph # (Auto) 0.7 L Iroquois # (Auto) 0.7 Eos # (Auto) 0.1 Baso # (Auto) 0.0 Absolute Nucleated RBC 0.00 Nucleated RBC % 0.0 Sodium 140 Potassium 3.5 Chloride 95 L Carbon Dioxide 35 H Anion Gap 10.0 BUN 24 H Creatinine 0.9 Estimated GFR (MDRD) 59 L Glucose 125 H Calcium 8.3 L Ionized Calcium YES Magnesium 1.8 Total Bilirubin 0.5 AST 17 ALT 12 Alkaline Phosphatase 50 B-Natriuretic Peptide 283 H Total Protein 6.5 L Albumin 3.3 Globulin 3.2 Albumin/Globulin Ratio 1.0 Blood Type Crossmatch IS Only 09/18/20 16:13 WBC RBC Hgb Hct MCV MCH MCHC RDW Plt Count MPV Neut # (Auto) Lymph # (Auto) Iroquois # (Auto) Eos # (Auto) Baso # (Auto) Absolute Nucleated RBC Nucleated RBC % Sodium Potassium Chloride Carbon Dioxide Anion Gap BUN Creatinine Estimated GFR (MDRD) Glucose Calcium Ionized Calcium Magnesium Total Bilirubin AST ALT Alkaline Phosphatase B-Natriuretic Peptide Total Protein Albumin Globulin Albumin/Globulin Ratio Blood Type O POSITIVE Crossmatch IS Only See Detail - Rads (name of study) chest xray Radiology: Prelim report reviewed (bilateral congestion cw CHF), See rad report PD MEDICAL DECISION MAKING - ED course Complexity details: considered differential (Progressive shortness of breath and orthopnea to the point of rest dyspnea over the last several days with leg edema. History of A. fib with cardioversion yesterday by Dr. Morton. Sinus rhythm today but still clinically appears CHF and also is significantly anemic with hemoglobin 5.9)
[2020-09-18] MEDS ORDERED: ALBUTEROL NEB 2.5 MG/3 ML INH STA (15:32)
[2020-09-18] MEDS ORDERED: DEXAMETHASONE 10 MG/ML VIAL IVP STA (15:32)
--- NOTE | 2020-09-18 15:59 | XRAY Report ---
PROCEDURE: Chest 1 View X-Ray INDICATIONS: Chest Pain TECHNIQUE: One view of the chest was acquired. COMPARISON: 12/27/2019 FINDINGS: Surgical changes and devices: None. Lungs and pleura: A single view of the chest was performed. There are bilateral airspace opacities in the lower lungs, worse on the right. Mediastinum: Mediastinal contours appear normal. Heart size is normal. The aorta is tortuous Bones and chest wall: No suspicious bony lesions. Overlying soft tissues appear unremarkable. IMPRESSION: Bilateral mid and lower lung field infiltrates most consistent with CHF. Reviewed by: Wally Veliz on 09/18/2020 3:58 PM PST Approved by: Wally Veliz on 09/18/2020 3:58 PM PST Station ID: [id number]
[2020-09-18] MEDS ORDERED: FUROSEMIDE 40 MG/4 ML VIAL IVP STA (16:14)
[2020-09-18 16:27] LABS: BASOPHILS % (AUTO) 0.6 %; EOSINOPHILS # (AUTO) 0.1 10^3/uL (0.0-0.7); LYMPHOCYTES # (AUTO) 0.7 10^3/uL (1.5-3.5); LYMPHOCYTES % (AUTO) 9.6 %; MEAN CORPUSCULAR HEMOGLOBIN 29.4 pg (27.0-31.0); MEAN CORPUSCULAR HGB CONC 28.1 g/dL (32.0-36.0); MEAN CORPUSCULAR VOLUME 104.5 fL (81.0-99.0); MEAN PLATELET VOLUME 10.1 fL (7.9-10.8); MONOCYTES # (AUTO) 0.7 10^3/uL (0.0-1.0); MONOCYTES % (AUTO) 10.3 %; NEUTROPHILS # (AUTO) 5.5 10^3/uL (1.5-6.6); NEUTROPHILS % (AUTO) 77.9 %; PLT - PLATELET COUNT 220 10^3/uL (130-450); RED BLOOD COUNT 2.01 10^6/uL (4.20-5.40); RED CELL DISTRIBUTION WIDTH 18.9 % (12.0-15.0); WHITE BLOOD COUNT 7.1 x10^3/uL (4.8-10.8)
[2020-09-18 16:39] LABS: ALBUMIN 3.3 g/dL (3.2-5.5); ALKALINE PHOSPHATASE 50 IU/L (42-121); ALT ALANINE AMINOTRANSFERASE 12 IU/L (10-60); AST ASPARTATE AMINOTRANSFERASE 17 IU/L (10-42); BILIRUBIN,TOTAL 0.5 mg/dL (0.2-1.0); BUN - BLOOD UREA NITROGEN 24 mg/dL (6-20); CALCIUM 8.3 mg/dL (8.5-10.3); CARBON DIOXIDE - CO2 35 mmol/L (21-32); CHLORIDE 95 mmol/L (101-111); CREATININE 0.9 mg/dL (0.4-1.0); GLUCOSE 125 mg/dL (70-100); MAGNESIUM 1.8 mg/dL (1.7-2.8); SODIUM 140 mmol/L (135-145); TOTAL PROTEIN 6.5 g/dL (6.7-8.2)
[2020-09-18 16:42] LABS: HGB - HEMOGLOBIN 5.9 g/dL (12.0-16.0)
[2020-09-18 16:54] LABS: VBG PH 7.425 (7.31-7.41)
[2020-09-18] MEDS ORDERED: ONDANSETRON 4 MG/2 ML VIAL IVP PRN (16:55)
[2020-09-18] MEDS ORDERED: SODIUM CHLORIDE FLUSH 0.9% 10 ML SYRINGE IVP PRN (16:55)
[2020-09-18] MEDS ORDERED: ACETAMINOPHEN 325 MG TABLET PO PRN (16:55)
[2020-09-18] MEDS ORDERED: FUROSEMIDE 20 MG/2 ML VIAL IVP SCH (17:00)
[2020-09-18 17:07] LABS: PARTIAL THROMBOPLASTIN TIME 30.3 secs (24.9-33.3)
--- NOTE | 2020-09-18 17:07 | HISTORY & PHYSICAL EXAMINATION ---
Chief Complaint - Chief Complaint Chief Complaint: SOB History of Present Illness - Admitted From Admitted From:: ER - History Obtained From Records Reviewed: [facility] History obtained from: Pt Exam Limitations: no - History of Present Illness HPI Comment/Other: This is a 85-years old female with a past medical history significant for breast cancer 6 years ago, aortic stenosis and regurgitation, afib with Eliquis, diastolic heart failure in the past, hypothyroidism, bronchial asthma and leg edema, severe anemia of iron deficiency, Who present to ER complain shortness of breathing. Pt reports she has been on shortness of breath early on this year. In the last few days her shortness of breath increased significantly. She took O2 at home. She visited her nurse supervisor on yesterday, and Got labs done yesterday. She was told very anemic. Pt also report she had a cardiac conversion for her A- Fib in her nurse supervisor office on yesterday as well. In ER her EKG show she had Sinus rhythm. Patient denies GI bleeding, chest pain, fever, chill, cough, nausea, vomiting, abdominal pain.Routine laboratory show her hemoglobin is 5.9. Chest x-ray show Bilaterally middle to low lung field infiltrate most consistent with CHF. In the ER, patient is afebrile, but tachypnea at 30, patient needed 3 L oxygen support to have 96% sats. Discussed the care goal with the patient, patient clearly stated she wanted DNR, and at the time nurse is in the bedside as witness. History - Past Medical History Cardiovascular: reports: Congestive heart failure (no ischemic heart disease. Prior atrial fib and aortic stenosis. On diuretics. 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: Tubal ligation, 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, Other - POLST Patient has POLST: No Meds/Allgy - Home Medications Home Medications: Ambulatory Orders Medication Instructions Recorded Confirmed Anastrozole 1 mg PO DAILY 90 Days #90 tablet 11/23/18 09/18/20 Albuterol Sulf [Ventolin Hfa 2 puffs INH Q4H PRN 12/27/19 09/18/20 Inhaler] Levothyroxine Sodium [Synthroid] 150 mcg PO QDAC 12/27/19 09/18/20 Trazodone HCl 150 mg PO QPM 12/27/19 09/18/20 Apixaban [Eliquis] 5 mg PO BID #60 tablet 12/31/19 09/18/20 Furosemide [Lasix] 40 mg PO DAILY #30 tablet 12/31/19 09/18/20 Potassium Chloride [Micro-K] 10 meq PO 0800 #30 capsule 12/31/19 09/18/20 diltiaZEM CD [Cardizem Cd] 180 mg PO 0800,1800 #60 capsule 12/31/19 09/18/20 Aspirin [Aspirin EC] 81 mg PO DAILY 09/18/20 Budesonide/Formoterol Fumarate 2 puffs INH BID 09/18/20 [Symbicort 160-4.5 Mcg Inhaler] Clopidogrel [Plavix] 75 mg PO DAILY 09/18/20 09/18/20 Metoprolol Tartrate [Lopressor] 25 mg PO BID 09/18/20 09/18/20 Pantoprazole [Protonix] 40 mg PO QDAC 09/18/20 09/18/20 Rosuvastatin Calcium [Crestor] 5 mg PO QPM 09/18/20 09/18/20 - Allergies Allergies/Adverse Reactions: Allergies Allergy/AdvReac Type Severity Reaction Status Date / Time No Known Drug Allergies Allergy Verified 09/18/20 15:07 Review of Systems - Constitutional Constitutional: denies: Fever, Chills, Poor appetite, Diaphoresis - Eyes Eyes: denies: Pain, Blurred vision, Field loss, Vision loss, Dipolpia - Ears, Nose & Throat Ears, Nose & Throat: denies: Ear pain, Vertigo, Nosebleeds, Sore throat, Bleeding gums - Cardiovascular Cariovascular: reports: Edema, Exertional dyspnea, Decr. exercise tolerance. denies: Irregular heart rate, Palpitations, Chest pain, Lightheadedness, Syncope - Respiratory Respiratory: reports: SOB with exertion. denies: Cough, Sputum production, Wheezing, Hemoptysis, Orthopnea, SOB at rest - Gastrointestinal Gastrointestinal: reports: Abdominal pain, Constipation. denies: Diarrhea, Rectal bleeding, Black stools, Bloody stools, Nausea, Vomiting, [place] blood emesis, Coffee grounds emesis - Genitourinary Genitourinary: denies: Dysuria, Hematuria, Incontinence - Musculoskeletal Musculoskeletal: denies: Muscle pain, Muscle aches, Limited range of motion - Integumentary Integumentary: denies: Rash, Lesions, Lumps - Neurological Neurological: reports: General weakness. denies: Focal weakness, Headache, Dizziness, Numbness, Memory problems, Pre-existing deficit, Abnormal gait, Seizures, Incoordination, Slurred speech - Psychiatric Psychiatric: denies: Suicidal, Delusions, Hallucinations - Endocrine Endocrine: denies: Polyuria, Polydypsia - Hematologic/Lymphatic Hematologic/Lymphatic: reports: Anemia. denies: Blood clots Exam - Vital Signs Vital Signs: Vital Signs x48h Temp Pulse Resp BP Pulse Ox 09/18/20 16:46 37.0 C 78 24 122/52 L 97 09/18/20 15:57 75 23 09/18/20 15:13 37.0 C 82 22 135/40 H 96 09/18/20 15:07 37.0 C 83 30 H 135/40 H 92 - Physical Exam General Appearance: positive: Alert, Mild distress. negative: Lethargic Eyes Bilateral: positive: Normal inspection, EOMI, No lid inflammation ENT: positive: ENT inspection nml, No signs of dehydration. negative: Purulent nasal drainage Neck: positive: Thyroid nml, Trachea midline. negative: Thyromegaly, Tracheal deviation Respiratory: positive: Chest non-tender, No respiratory distress. negative: Wheezes, Rales, Rhonchi Cardiovascular: positive: Irregularly irregular, Systolic murmur, Diastolic murmur. negative: No murmur, Tachycardia, Bradycardia Peripheral Pulses: positive: 2+ Abdomen: positive: Non-tender, Nml bowel sounds, No distention. negative: Tenderness, Guarding, Rebound Back: positive: Nml inspection. negative: CVA tenderness (R), CVA tenderness (L) Skin: positive: Color nml, No rash, Warm, Dry. negative: Cyanosis, Diaphoresis, Pallor Extremities: positive: Non-tender, Full ROM, Nml appearance. negative: Calf tenderness Neurologic/Psychiatric: positive: Oriented x3, Motor nml, Sensation nml, Mood/affect nml. negative: Weakness, Sensory loss, Facial droop, Slurred/abnml speech, Depressed mood/affect Sepsis Event Note (H) - Evaluation Current Stage of Sepsis: Ruled out Conclusion/Plan - Problem List (1) Anemia Conclusion/Plan: Patient had a hemoglobin 5.9 on today and patient complain shortness of breathing. Patient denies dark stool, Or GI bleeding. Occult stool blood test is pending. Patient take both Eliquis and Plavix in the home medication list. We will resume patient Plavix now, depending to stooi blood test then patient may resume Eliquis as well if occult stool test is negative. Anemia study show patient does not have significant iron deficiency. It is unclear why patient still has a significant anemia. Patient had 500 mg twice intravenous iron on your last months when she visited Dr. Erick Orta. ER order 2 units blood transfusion, We will give the patient 20 mg intravenous Lasix after each transfusion. Patient has history diastolic heart failure, CXR suggest CHF, And the patient has a history of moderate to severe aortic stenosis. (2) Diastolic heart failure Conclusion/Plan: Patient had echo done in November of this year suggest patient had reserved EF with diastolic heart failure and with moderate to severe aortic stenosis. Chest x-ray suggest CHF. pt also present leg edema. Patient is follow-up by her nurse supervisor, she visit her nurse supervisor on yesterday and [facility]. We will resume patient home medication metoprolol, statin, Plavix, lower dosage of Lasix for her blood transfusion but we will precaution of pt's aortic stenosis as well. Telemetry, vital signs monitor patient. (3) A-fib Conclusion/Plan: Patient has a history of atrial fibrillation. Patient had a cardiac conversion at her nurse supervisor office on yesterday, now pt's HR is good controlled, EKG show it is Sinus rhythm. Patient was given metoprolol on yesterday, we will resume. Patient also take Cardizem in the home, we will resume if her heart rate is not controlled. Continue threat monitoring analyst (4) Aortic stenosis Conclusion/Plan: Patient has history moderate to severe aortic stenosis, murmur. We will cautiously use diuretic as well vasodilation blood pressure medicine.Advised patient continue follow-up with nurse supervisor as outpatient. (5) Hypothyroidism Conclusion/Plan: We will check TSH, resume home synthroid (6) Asthma Conclusion/Plan: Patient is no asthma exacerbation now, resume home albuterol PRN (7) Hx of breast cancer Conclusion/Plan: Patient follow-up with oncologist Dr. Erick Orta. we may resume her home meds after confirm - Lab Results Fish Bones: 09/18/20 16:13 09/18/20 16:13 Core Measures - Anticipated LOS I expect patient to be DC'd or transferred within 96 hours.: Yes - DVT/VTE - Prophylaxis VTE/DVT Device ordered at admit?: Yes VTE/DVT Prophylaxis med ordered at admit?: Yes
[2020-09-18 17:29] LABS: ABSOLUTE RETICS # AUTO 0.102 10^6/uL (0.020-0.110); RED BLOOD COUNT 2.05 10^6/uL (4.20-5.40)
[2020-09-18 17:46] LABS: FERRITIN 34.9 ng/mL (11.0-306.8)
[2020-09-18 17:58] LABS: % IRON SATURATION 7 % (20-50); IRON 29 ug/dL (28-170); TOTAL IRON BINDING CAPACITY 388 ug/dL (250-450); TRANSFERRIN 277 mg/dL (192-382)
[2020-09-18] MEDS: SODIUM CHLORIDE FLUSH 0.9% 10 ML SYRINGE IVP SCH (18:17)
[2020-09-18 18:42] LABS: C. PNEUMONIAE- RESP PCR PANEL NOT DETECTED
[2020-09-18] MEDS ORDERED: ALBUTEROL NEB 2.5 MG/3 ML INH PRN (18:50)
[2020-09-18] MEDS: FUROSEMIDE 20 MG/2 ML VIAL IVP PRN ×2 (19:49→23:16)
[2020-09-18] MEDS ORDERED: APIXABAN 5 MG TABLET PO SCH (21:00)
[2020-09-18] MEDS: ATORVASTATIN 10 MG TABLET PO SCH (21:09)
[2020-09-18] MEDS: traZODone 50 MG TABLET PO SCH (21:10)
[2020-09-18] MEDS: METOPROLOL TARTRATE 25 MG TABLET PO SCH (23:16)
[2020-09-19 06:03] LABS: BASOPHILS % (AUTO) 0.2 %; HGB - HEMOGLOBIN 7.9 g/dL (12.0-16.0); LYMPHOCYTES # (AUTO) 0.5 10^3/uL (1.5-3.5); LYMPHOCYTES % (AUTO) 9.1 %; MEAN CORPUSCULAR HEMOGLOBIN 30.2 pg (27.0-31.0); MEAN CORPUSCULAR HGB CONC 30.2 g/dL (32.0-36.0); MEAN PLATELET VOLUME 9.6 fL (7.9-10.8); MONOCYTES # (AUTO) 0.2 10^3/uL (0.0-1.0); MONOCYTES % (AUTO) 3.5 %; NEUTROPHILS # (AUTO) 4.3 10^3/uL (1.5-6.6); NEUTROPHILS % (AUTO) 86.4 %; PLT - PLATELET COUNT 185 10^3/uL (130-450); RED BLOOD COUNT 2.62 10^6/uL (4.20-5.40); RED CELL DISTRIBUTION WIDTH 18.7 % (12.0-15.0); WHITE BLOOD COUNT 4.9 x10^3/uL (4.8-10.8)
[2020-09-19 06:14] LABS: CALCIUM 8.2 mg/dL (8.5-10.3); CREATININE 0.7 mg/dL (0.4-1.0)
[2020-09-19] MEDS: PANTOPRAZOLE 40 MG TABLET PO SCH (06:28)
[2020-09-19] MEDS ORDERED: LEVOTHYROXINE 75 MCG TABLET PO SCH (07:00)
[2020-09-19] MEDS ORDERED: ENOXAPARIN 40 MG/0.4 ML SYRINGE SUBQ SCH (09:00)
[2020-09-19] MEDS: METOPROLOL TARTRATE 25 MG TABLET PO SCH ×2 (09:43→20:36)
[2020-09-19] MEDS: polyethylene glycoL 3350 17 GM PACKET PO SCH (09:44)
[2020-09-19] MEDS: SODIUM CHLORIDE FLUSH 0.9% 10 ML SYRINGE IVP SCH ×3 (09:44→16:04)
[2020-09-19] MEDS: CLOPIDOGREL 75 MG TABLET PO SCH (09:44)
--- NOTE | 2020-09-19 10:53 | PROVIDER PROGRESS NOTE ---
Assessment/Plan - Problem List (1) CHF (congestive heart failure) Assessment/Plan: Patient presented with dyspnea, leg edema and desaturations. Her BNP was elevated and chest x-ray showed CHF. Her last Echo done in November of this year suggest patient had reserved EF with diastolic heart failure (and with moderate to severe aortic stenosis). She had just undergone elective cardioversion from A. fib successfully converted to sinus rhythm, done on the day before this hospitalization. Presumably her current severe anemia and recent A. fib put her into congestive heart failure. We will continue her home meds of Lasix 40 mg p.o. daily and Metoprolol and Cardizem for rate control. Follow I's and O's, currently she is only -750 mL since admission. Follow BMP and magnesium daily. (2) Anemia Assessment/Plan: There is a history of iron deficiency and she has needed IV iron in the past, is followed by furniture refinisher. At presentation now, her hemoglobin was 5.9, she received 2 units PRBCs, the hemoglobin improved to 7.9. Follow H/H every 12 hours. A guaiac of her stool was(+) today. Eliquis will not be resumed. She is on her daily Plavix and aspirin however, since coronary stenting was just done 4 mos ago. Will request Gen Surgery consult for EGD and colonoscopy. (3) History of atrial fibrillation Assessment/Plan: This patient was on Eliquis, Cardizem and metoprolol, and she can feel when she goes into A. fib (according to the records that were obtained from [facility], Dr. Morton's notes). She just underwent elective cardioversion successfully to sinus rhythm on 09/17/2020. There was no RAUL with this procedure, the notes state that the rationale was because she was on uninterrupted Eliquis. TSH is very low which means she was on excessive Synthroid, and this may have caused the recent recurrence of her A. fib from which she needed that cardioversion. We will stop her Synthroid. Will await stool guaiac, if it is negative plan to resume her Eliquis 5 mg p.o. twice daily. Continue Cardizem and Metoprolol. (4) History of hypothyroidism Assessment/Plan: She was on Synthroid 150 mcg daily. Her TSH is very low indicating she was on excessive Synthroid dose. We will stop her Synthroid currently. A lower dose will be resumed in several days. (5) Status post insertion of drug-eluting stent into left anterior descending (LAD) artery for coronary artery disease Assessment/Plan: We received records from Dr. Morton her oncology social worker office in [place]. This patient has coronary disease with atherectomy and stenting done to the proximal RCA, and stenting to the mid LAD done in April 2020. We will continue her daily aspirin and Plavix. (6) Hx of breast cancer Assessment/Plan: She was on home Arimidex for this (7) Hypokalemia Assessment/Plan: Related to diuretics. Replace. Follow BMP daily (8) Asthma Assessment/Plan: Her inhalers are ordered as needed as nebs (9) Hx of diabetes mellitus Assessment/Plan: The records from [place] indicate she has a history of diabetes mellitus. She was on no diabetic medications on her med list. Her A1c is pending to establish if she has this diagnosis. (10) Morbid obesity with BMI of 50.0-59.9, adult Assessment/Plan: As per Hx - Current Meds Current Meds: Current Medications Generic Name Dose Route Start Last Admin Trade Name Freq PRN Reason Stop Dose Admin Atorvastatin Calcium 10 mg 09/18/20 21:00 09/18/20 21:09 Lipitor PO 10 mg QPM JULIANO Administration Clopidogrel Bisulfate 75 mg 09/19/20 09:00 09/19/20 09:44 Plavix PO 75 mg DAILY JULIANO Administration Metoprolol Tartrate 25 mg 09/18/20 21:00 09/19/20 09:43 Lopressor PO 25 mg BID JULINAO Administration Pantoprazole Sodium 40 mg 09/19/20 07:00 09/19/20 06:28 Protonix PO 40 mg QDAC JULIANO Administration Polyethylene Glycol 17 gm 09/19/20 09:00 09/19/20 09:44 Miralax PO 17 gm DAILY JULIANO Administration Sodium Chloride 10 ml 09/18/20 17:00 09/19/20 09:44 Normal Saline Flush 0.9% IVP 10 ml 0100,0900,1700 JULIANO Administration Trazodone HCl 150 mg 09/18/20 21:00 09/18/20 21:10 Desyrel PO 150 mg QPM JULIANO Administration - Lab Result Fish Bone Diagrams: 09/19/20 05:56 09/19/20 05:56 - Additional Planning My Orders: My Active Orders 09/19/20 05:00 MAGNESIUM [CHEM] Routine 09/19/20 09:00 polyethylene glycoL 3350 [Miralax] 17 gm PO DAILY 09/19/20 11:00 Aspirin EC [Ecotrin] 81 mg PO DAILY Furosemide [Lasix] 40 mg PO DAILY 09/19/20 17:00 HEMOGLOBIN AND HEMATOCRIT [HEME] Q12H 09/19/20 21:00 Apixaban [Eliquis] 5 mg PO BID 09/20/20 05:00 HEMOGLOBIN AND HEMATOCRIT [HEME] Q12H MAGNESIUM [CHEM] DAILYLAB 09/20/20 07:00 Pantoprazole [Protonix] 40 mg PO QDAC 09/20/20 08:00 Potassium Chloride [Micro-K] 10 meq PO 0800 09/20/20 17:00 HEMOGLOBIN AND HEMATOCRIT [HEME] Q12H 09/21/20 05:00 HEMOGLOBIN AND HEMATOCRIT [HEME] Q12H 09/21/20 17:00 HEMOGLOBIN AND HEMATOCRIT [HEME] Q12H Subjective - Subjective Patient Reports: Resting Comfortably, No Complaints, Other (Feels much better after 2units PRBCs transfused late yesterday) Objective Vital Signs: Vital Signs - 24 hr 09/18/20 09/18/20 09/18/20 15:07 15:13 15:57 Temperature 37.0 C 37.0 C Heart Rate 83 82 75 Heart Rate [ Radial] Respiratory 30 H 22 23 Rate Blood Pressure 135/40 H 135/40 H Blood Pressure [Right Brachial artery] O2 Saturation 92 96 09/18/20 09/18/20 09/18/20 16:46 17:00 17:30 Temperature 37.0 C 36.9 C Heart Rate 78 79 80 Heart Rate [ Radial] Respiratory 24 18 18 Rate Blood Pressure 122/52 L 116/54 L 116/56 L Blood Pressure [Right Brachial artery] O2 Saturation 97 98 98 09/18/20 09/18/20 09/18/20 17:33 17:45 18:56 Temperature 37.2 C 37.1 C 37.1 C Heart Rate 77 78 Heart Rate [ 85 Radial] Respiratory 18 18 14 Rate Blood Pressure 116/54 L 115/47 L Blood Pressure 131/49 H [Right Brachial artery] O2 Saturation 96 09/18/20 09/18/2009/18/20 20:01 20:17 20:25 Temperature 36.9 C 36.9 C Heart Rate 82 82 85 Heart Rate [ Radial] Respiratory 18 18 16 Rate Blood Pressure 127/45 L 127/45 L Blood Pressure [Right Brachial artery] O2 Saturation 09/18/20 09/18/20 09/18/20 20:40 23:00 23:16 Temperature 37.2 C 36.9 C Heart Rate 83 81 Heart Rate [ Radial] Respiratory 18 18 Rate Blood Pressure 136/53 H 123/41 L 123/41 L Blood Pressure [Right Brachial artery] O2 Saturation 09/19/20 09/19/20 09/19/20 04:50 07:51 09:43 Temperature 36.8 C 36.8 C Heart Rate Heart Rate [ 86 83 Radial] Respiratory 16 19 Rate Blood Pressure 127/52 L Blood Pressure 142/57 H 130/59 L [Right Brachial artery] O2 Saturation 96 96 Oxygen O2 Source [With Activity] Nasal cannula O2 Source Nasal cannula Oxygen Flow Rate 3 I&O (Last 24 Hrs): Intake and Output Totals x24h 09/17/20 09/18/20 09/19/20 23:59 23:59 23:59 Intake Total 1040 340 Output Total 750 1100 Balance 290 -760 General: Alert, Oriented x3 HEENT: EOMI, Mucous membr. moist/pink Neck: Supple, No JVD Neuro: Alert, Non Focal Cardiovascular: Regular rate Respiratory: No respiratory distress Abdomen: Soft Extremities: No edema - Results Results: Laboratory Results WBC 4.9 x10^3/uL (4.8-10.8) 09/19/20 05:56 RBC 2.62 10^6/uL (4.20-5.40) L 09/19/20 05:56 Hgb 7.9 g/dL (12.0-16.0) L 09/19/20 05:56 Hct 26.2 % (37.0-47.0) L 09/19/20 05:56 MCV 100.0 fL (81.0-99.0) H 09/19/20 05:56 MCH 30.2 pg (27.0-31.0) 09/19/20 05:56 MCHC 30.2 g/dL (32.0-36.0) L 09/19/20 05:56 RDW 18.7 % (12.0-15.0) H 09/19/20 05:56 Plt Count 185 10^3/uL (130-450) 09/19/20 05:56 MPV 9.6 fL (7.9-10.8) 09/19/20 05:56 Reticulocyte % (Auto) 4.96 % (0.5-2.3) H 09/18/20 17:22 Neut # (Auto) 4.3 10^3/uL (1.5-6.6) 09/19/20 05:56 Lymph # (Auto) 0.5 10^3/uL (1.5-3.5) L 09/19/20 05:56 [place] # (Auto) 0.2 10^3/uL (0.0-1.0) 09/19/20 05:56 Eos # (Auto) 0.0 10^3/uL (0.0-0.7) 09/19/20 05:56 Baso # (Auto) 0.0 10^3/uL (0.0-0.1) 09/19/20 05:56 Absolute Nucleated RBC 0.00 x10^3/uL 09/19/20 05:56 Nucleated RBC % 0.0 /100WBC 09/19/20 05:56 Absolute Retic 0.102 10^6/uL (0.020-0.110) 09/18/20 17:22 PT 21.0 secs (9.9-12.6) H 09/18/20 16:49 INR 2.0 (0.8-1.2) H 09/18/20 16:49 APTT 30.3 secs (24.9-33.3) 09/18/20 16:49 VBG pH 7.425 (7.31-7.41) H 09/18/20 16:13 Ionized Calcium 1.08 mmol/L (1.15-1.33) L 09/18/20 16:13 Sodium 142 mmol/L (135-145) 09/19/20 05:56 Potassium 3.3 mmol/L (3.5-5.0) L 09/19/20 05:56 Chloride 95 mmol/L (101-111) L 09/19/20 05:56 Carbon Dioxide 38 mmol/L (21-32) H 09/19/20 05:56 Anion Gap 9.0 (6-13) 09/19/20 05:56 BUN 23 mg/dL (6-20) H 09/19/20 05:56 Creatinine 0.7 mg/dL (0.4-1.0) 09/19/20 05:56 Estimated GFR (MDRD) 79 (>89) L 09/19/20 05:56 Glucose 144 mg/dL (70-100) H 09/19/20 05:56 Calcium 8.2 mg/dL (8.5-10.3) L 09/19/20 05:56 Ionized Calcium YES 09/18/20 16:13 Magnesium 1.8 mg/dL (1.7-2.8) 09/18/20 16:13 Iron 29 ug/dL (28-170) 09/18/20 16:13 TIBC 388 ug/dL (250-450) 09/18/20 16:13 % Saturation 7 % (20-50) L 09/18/20 16:13 Transferrin 277 mg/dL (192-382) 09/18/20 16:13 Ferritin 34.9 ng/mL (11.0-306.8) 09/18/20 16:13 Total Bilirubin 0.5 mg/dL (0.2-1.0) 09/18/20 16:13 AST 17 IU/L (10-42) 09/18/20 16:13 ALT 12 IU/L (10-60) 09/18/20 16:13 Alkaline Phosphatase 50 IU/L (42-121) 09/18/20 16:13 Lactate Dehydrogenase 280 IU/L (91-225) H 09/18/20 16:13 B-Natriuretic Peptide 663 pg/mL (5-100) H 09/19/20 05:56 Total Protein 6.5 g/dL (6.7-8.2) L 09/18/20 16:13 Albumin 3.3 g/dL (3.2-5.5) 09/18/20 16:13 Globulin 3.2 g/dL (2.1-4.2) 09/18/20 16:13 Albumin/Globulin Ratio 1.0 (1.0-2.2) 09/18/20 16:13 Vitamin B12 335 pg/mL (180-914) 09/18/20 16:13 TSH 0.15 uIU/mL (0.34-5.60) L 09/19/20 05:56 Nasal Adenovirus (PCR) NOT DETECTED 09/18/20 17:36 Nasal B. parapertussis DNA (PCR) NOT DETECTED 09/18/20 17:36 Nasal Coronavir 229E PCR NOT DETECTED 09/18/20 17:36 Nasal Coronavir HKU1 PCR NOT DETECTED 09/18/20 17:36 Nasal Coronavir NL63 PCR NOT DETECTED 09/18/20 17:36 Nasal Coronavir OC43 PCR NOT DETECTED 09/18/20 17:36 Nasal Enterovir/Rhinovir PCR NOT DETECTED 09/18/20 17:36 Nasal Influenza B PCR NOT DETECTED 09/18/20 17:36 Nasal Influenza A PCR NOT DETECTED 09/18/20 17:36 Nasal Parainfluen 1 PCR NOT DETECTED 09/18/20 17:36 Nasal Parainfluen 2 PCR NOT DETECTED 09/18/20 17:36 Nasal Parainfluen 3 PCR NOT DETECTED 09/18/20 17:36 Nasal Parainfluen 4 PCR NOT DETECTED 09/18/20 17:36 Nasal RSV (PCR) NOT DETECTED 09/18/20 17:36 Nasal B.pertussis DNA PCR NOT DETECTED 09/18/20 17:36 Nasal C.pneumoniae (PCR) NOT DETECTED 09/18/20 17:36 Macho Human Metapneumo PCR NOT DETECTED 09/18/20 17:36 Nasal M.pneumoniae (PCR) NOT DETECTED 09/18/20 17:36 Nasal SARS-CoV-2 (PCR) NOT DETECTED 09/18/20 17:36 Blood Type O POSITIVE 09/18/20 16:13 Antibody Screen NEGATIVE 09/18/20 16:13 Crossmatch IS Only See Detail 09/18/20 16:13 - Procedures Procedures: Procedures ENDOSC POLYPECTOMY OF LG INTEST (04/11/14) EXCISE AXILLARY NODE (09/05/14) INSERTION OF TOTALLY IMPLANTABLE VASC ACCESS DEVIC (10/31/14) LOCAL EXCIS BREAST LES (09/05/14) REMOVAL OF VAD FROM UP EXTREM SUBCU/FASCIA, PERC APPROACH (08/07/15) THORAX SFT TISS XRAY NEC (10/31/14) Sepsis Event Note (H) - Evaluation Current Stage of Sepsis: Ruled out
[2020-09-19] MEDS: ASPIRIN EC 81 MG TABLET PO SCH (11:25)
[2020-09-19] MEDS: FUROSEMIDE 40 MG TABLET PO SCH (11:25)
[2020-09-19 13:11] LABS: HEMOGLOBIN A1c% 4.5 % (4.27-6.07)
[2020-09-19 17:08] LABS: HGB - HEMOGLOBIN 7.8 g/dL (12.0-16.0)
[2020-09-19] MEDS ORDERED: diltiaZEM CD 180 MG CAPSULE PO SCH (19:00)
[2020-09-19] MEDS: ATORVASTATIN 10 MG TABLET PO SCH (20:35)
[2020-09-19] MEDS: traZODone 50 MG TABLET PO SCH (20:36)
[2020-09-19] MEDS ORDERED: APIXABAN 5 MG TABLET PO SCH (21:00)
--- NOTE | 2020-09-19 21:03 | CONSULTATION NOTE ---
Referring Provider Name of Referring Provider:: Dr. Aguilar Consult Date: 09/19/20 Chief Complaint - Chief Complaint Chief Complaint: Gastrointestinal bleed History of Present Illness - Admitted From Admitted From:: Home - History Obtained From Records Reviewed: EMR History obtained from: Patient Exam Limitations: None - History of Present Illness HPI Comment/Other: 85-year-old female multiply comorbid with atrial fibrillation on Eliquis who had recently been started on oral iron supplementation secondary to chronic anemia who presents with acute onset bright red blood per rectum. Patient admitted through the emergency room and transfused 2 unit packed cells. Patient reports last colonoscopy 3 years prior. No prior episodes of gastrointestinal bleeding. Denies reflux. Daily bowel movements. Only prior abdominal surgical history includes appendectomy at age 18 by report, however review of records list cholecystectomy as well as hysterectomy. No hematemesis. No recent sick contacts. No personal or family history of inflammatory bowel disease Crohn's disease ulcerative colitis. No personal or family history of colorectal cancer. Patient prior smoker with reported development of COPD. History - Past Medical History Cardiovascular: reports: Congestive heart failure (no ischemic heart disease. Prior atrial fib and aortic stenosis. On diuretics. 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: Tubal ligation, 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, Other - POLST Patient has POLST: No Meds/Allgy - Home Medications Home Medications: Ambulatory Orders Medication Instructions Recorded Confirmed Anastrozole 1 mg PO DAILY 90 Days #90 tablet 11/23/18 09/18/20 Albuterol Sulf [Ventolin Hfa 2 puffs INH Q4H PRN 12/27/19 09/18/20 Inhaler] Levothyroxine Sodium [Synthroid] 150 mcg PO QDAC 12/27/19 09/18/20 Trazodone HCl 150 mg PO QPM 12/27/19 09/18/20 Apixaban [Eliquis] 5 mg PO BID #60 tablet 12/31/19 09/18/20 Furosemide [Lasix] 40 mg PO DAILY #30 tablet 12/31/19 09/18/20 Potassium Chloride [Micro-K] 10 meq PO 0800 #30 capsule 12/31/19 09/18/20 [id number] CD [Cardizem Cd] 180 mg PO 0800,1800 #60 capsule 12/31/19 09/18/20 Aspirin [Aspirin EC] 81 mg PO DAILY 09/18/20 Clopidogrel [Plavix] 75 mg PO DAILY 09/18/20 09/18/20 Metoprolol Tartrate [Lopressor] 25 mg PO BID 09/18/20 09/18/20 Pantoprazole [Protonix] 40 mg PO QDAC 09/18/20 09/18/20 Rosuvastatin Calcium [Crestor] 5 mg PO QPM 09/18/20 09/18/20 - Allergies Allergies/Adverse Reactions: Allergies Allergy/AdvReac Type Severity Reaction Status Date / Time No Known Drug Allergies Allergy Verified 09/18/20 15:07 Review of Systems - Constitutional Constitutional: reports: Weakness - Cardiovascular Cariovascular: reports: Irregular heart rate, Palpitations - Respiratory Respiratory: reports: Cough, Sputum production - Gastrointestinal Gastrointestinal: reports: Rectal bleeding, Black stools, Bloody stools. denies: Abdominal pain, Abdominal distention, Nausea, Vomiting - All Other Systems All Other Systems: reports: Reviewed and negative Exam - Vital Signs Reviewed Vital Signs: Yes Vital Signs: Vital Signs x48h Temp Pulse Resp BP BP Pulse Ox 09/19/20 20:36 140/52 H 09/19/20 19:50 37.1 C 79 20 140/52 H 98 09/19/20 15:40 36.6 C 75 20 110/46 L 94 - Physical Exam General Appearance: positive: No acute distress, Alert Eyes Bilateral: positive: Normal inspection, PERRL, EOMI ENT: positive: ENT inspection nml Neck: positive: Nml inspection Respiratory: positive: Chest non-tender, No respiratory distress, Breath sounds nml Cardiovascular: positive: Irregularly irregular. negative: Regular rate & rhythm Abdomen: positive: Non-tender, No distention. negative: Tenderness, Guarding, Rebound Rectal: positive: Other (Deferred pending colonoscopy) Extremities: positive: Non-tender, Full ROM, Nml appearance Neurologic/Psychiatric: positive: Oriented x3, CN's nml (2-12), Motor nml, Sensation nml, Mood/affect nml Conclusion/Plan - Diagnosis Diagnosis: 1. Coronary artery disease, atrial fibrillation on systemic anticoagulation, CHF. 2. Gastrointestinal bleeding, symptomatic anemia. 3. COPD, history of tobacco use and abuse. 4. Morbid obesity, diabetes - Plan Plan: 1. Admit to hospital, with hospitalist service 2. Transfuse as necessary, serial H&H's 3. Plan upper endoscopy to evaluate source, will also perform colonoscopy given history of diverticulosis, extensive 4. Aggressive resuscitation 5. Bowel rest and bowel prep 6. PPI infusion and consider Carafate pending results 7. Continue to hold systemic anticoagulation - Lab Results Fish Bones: 09/20/20 05:30 09/20/20 05:30
[2020-09-19] MEDS: POTASSIUM CHLOR 10 MEQ/100 ML 10 MEQ/100 ML BAG IV SCH ×2 (21:33→22:47)
[2020-09-19] MEDS: SODIUM/POTASSIUM/MAG SULFATES 354 ML PREP KIT PO SCH (21:48)
[2020-09-20] MEDS: POTASSIUM CHLOR 10 MEQ/100 ML 10 MEQ/100 ML BAG IV SCH ×2 (00:14→01:22)
[2020-09-20] MEDS: SODIUM CHLORIDE FLUSH 0.9% 10 ML SYRINGE IVP SCH ×3 (00:35→16:45)
[2020-09-20] MEDS: SODIUM/POTASSIUM/MAG SULFATES 354 ML PREP KIT PO SCH (04:56)
[2020-09-20 05:50] LABS: BASOPHILS % (AUTO) 0.1 %; EOSINOPHILS # (AUTO) 0.1 10^3/uL (0.0-0.7); EOSINOPHILS % (AUTO) 1.4 %; HGB - HEMOGLOBIN 8.6 g/dL (12.0-16.0); LYMPHOCYTES % (AUTO) 13.1 %; MEAN CORPUSCULAR HEMOGLOBIN 29.6 pg (27.0-31.0); MEAN CORPUSCULAR HGB CONC 28.7 g/dL (32.0-36.0); MEAN CORPUSCULAR VOLUME 103.1 fL (81.0-99.0); MEAN PLATELET VOLUME 9.9 fL (7.9-10.8); MONOCYTES # (AUTO) 0.7 10^3/uL (0.0-1.0); MONOCYTES % (AUTO) 8.4 %; NEUTROPHILS # (AUTO) 6.1 10^3/uL (1.5-6.6); NEUTROPHILS % (AUTO) 76.6 %; PLT - PLATELET COUNT 222 10^3/uL (130-450); RED BLOOD COUNT 2.91 10^6/uL (4.20-5.40); RED CELL DISTRIBUTION WIDTH 18.9 % (12.0-15.0)
[2020-09-20] MEDS: PANTOPRAZOLE 40 MG TABLET PO SCH ×3 (06:02→21:54)
[2020-09-20 06:03] LABS: CALCIUM 8.7 mg/dL (8.5-10.3); CREATININE 0.8 mg/dL (0.4-1.0); MAGNESIUM 2.4 mg/dL (1.7-2.8)
[2020-09-20 06:11] LABS: PLATELET ESTIMATE, MANUAL NORMAL (130-450,000) (NORMAL); PLATELET MORPHOLOGY NORMAL APPEARANCE (NORMAL); RBC MORPHOLOGY (MULTIPLE) 1+ HYPOCHROMASIA (NORMAL)
[2020-09-20] MEDS ORDERED: PANTOPRAZOLE 40 MG TABLET PO SCH (07:00)
[2020-09-20] MEDS: METOPROLOL TARTRATE 25 MG TABLET PO SCH (08:26)
[2020-09-20] MEDS: FUROSEMIDE 40 MG TABLET PO SCH (08:27)
[2020-09-20] MEDS: POTASSIUM CHLORIDE 10 MEQ CAPSULE PO SCH (08:28)
[2020-09-20] MEDS: polyethylene glycoL 3350 17 GM PACKET PO SCH (08:28)
--- NOTE | 2020-09-20 09:48 | ANESTHESIA ---
Pre-Anesthesia VS, & Labs - Diagnosis gi bleed - Procedure EGD, colonoscopy Vital Signs: Temp Pulse Resp BP Pulse Ox 36.5 C 135 H 20 100/80 100 09/20/20 07:52 09/20/20 07:52 09/20/20 07:52 09/20/20 07:52 09/20/20 07:52 Height: 4 ft 11 in Weight (kg): 113.398 kg Body Mass Index: 50.5 BMI Classification: Morbidly Obese - Is Patient ?: No - Lab Results Current Lab Results: Laboratory Tests 09/20/20 05:30: B-Natriuretic Peptide 625 H 09/20/20 05:30: Sodium 144, Potassium 4.0, Chloride 96 L, Carbon Dioxide 40 H*, Anion Gap 8.0, BUN 28 H, Creatinine 0.8, Estimated GFR (MDRD) 68 L, Glucose 130 H, Calcium 8.7, Magnesium 2.4 09/20/20 05:30: WBC 8.0, RBC 2.91 L, Hgb 8.6 L, Hct 30.0 L, MCV 103.1 H, MCH 29.6, MCHC 28.7 L, RDW 18.9 H, Plt Count 222, MPV 9.9, Neut # (Auto) 6.1, Lymph # (Auto) 1.0 L, [place] # (Auto) 0.7, Eos # (Auto) 0.1, Baso # (Auto) 0.0, Absolute Nucleated RBC 0.00, Nucleated RBC % 0.0, Manual Slide Review Indicated, WBC Morphology NORMAL APPEARANCE, Platelet Estimate NORMAL (130-450,000), Platelet Morphology NORMAL APPEARANCE, RBC Morph Micro Appear 1+ HYPOCHROMASIA 09/19/20 16:50: Hgb 7.8 L, Hct 26.5 L 09/19/20 05:56: Magnesium 2.2 09/19/20 05:56: Estimat Average Glucose 82, Hemoglobin A1c % 4.5 09/19/20 05:56: TSH 0.15 L 09/19/20 05:56: B-Natriuretic Peptide 663 H 09/19/20 05:56: Sodium 142, Potassium 3.3 L, Chloride 95 L, Carbon Dioxide 38 H, Anion Gap 9.0, BUN 23 H, Creatinine 0.7, Estimated GFR (MDRD) 79 L, Glucose 144 H, Calcium 8.2 L 09/19/20 05:56: WBC 4.9, RBC 2.62 L, Hgb 7.9 L, Hct 26.2 L, MCV 100.0 H, MCH 30.2, MCHC 30.2 L, RDW 18.7 H, Plt Count 185, MPV 9.6, Neut # (Auto) 4.3, Lymph # (Auto) 0.5 L, [place] # (Auto) 0.2, Eos # (Auto) 0.0, Baso # (Auto) 0.0, Absolute Nucleated RBC 0.00, Nucleated RBC % 0.0 09/18/20 17:22: RBC 2.05 L, Reticulocyte % (Auto) 4.96 H, Absolute Retic 0.102 09/18/20 16:49: PT 21.0 H, INR 2.0 H, APTT 30.3 09/18/20 16:13: Lactate Dehydrogenase 280 H 09/18/20 16:13: Ferritin 34.9, Vitamin B12 335 09/18/20 16:13: Iron 29, TIBC 388, % Saturation 7 L, Transferrin 277 09/18/20 16:13: VBG pH 7.425 H, Ionized Calcium 1.08 L 09/18/20 16:13: Blood Type O POSITIVE, Antibody Screen NEGATIVE, Crossmatch IS Only See Detail 09/18/20 16:13: Ionized Calcium YES, Sodium 140, Potassium 3.5, Chloride 95 L, Carbon Dioxide 35 H, Anion Gap 10.0, BUN 24 H, Creatinine 0.9, Estimated GFR (MDRD) 59 L, Glucose 125 H, Calcium 8.3 L, Magnesium 1.8, Total Bilirubin 0.5, AST 17, ALT 12, Alkaline Phosphatase 50, Total Protein 6.5 L, Albumin 3.3, Globulin 3.2, Albumin/Globulin Ratio 1.0 09/18/20 16:13: B-Natriuretic Peptide 283 H 09/18/20 16:13: WBC 7.1, RBC 2.01 L, Hgb 5.9 L*, Hct 21.0 L, MCV 104.5 H, MCH 29.4, MCHC 28.1 L, RDW 18.9 H, Plt Count 220, MPV 10.1, Neut # (Auto) 5.5, Lymph # (Auto) 0.7 L, [place] # (Auto) 0.7, Eos # (Auto) 0.1, Baso # (Auto) 0.0, Absolute Nucleated RBC 0.00, Nucleated RBC % 0.0 Lab results reviewed: Yes Fish Bones: 09/20/20 05:30 09/20/20 05:30 Home Medications and Allergies Home Medications: Ambulatory Orders Aspirin [Aspirin EC] 81 mg PO DAILY 09/18/20 Clopidogrel [Plavix] 75 mg PO DAILY 09/18/20 Metoprolol Tartrate [Lopressor] 25 mg PO BID 09/18/20 Pantoprazole [Protonix] 40 mg PO QDAC 09/18/20 Rosuvastatin Calcium [Crestor] 5 mg PO QPM 09/18/20 Active Medications Acetaminophen (Tylenol) 650 mg PO Q4HR PRN PRN Reason: Pain 1 to 4 Last Admin: 09/20/20 01:13 Dose: 650 mg Documented by: Albuterol () 2.5 mg INH Q4H PRN PRN Reason: Shortness of Air/Wheezing Aspirin (Ecotrin) 81 mg PO DAILY [facility] Last Admin: 09/19/20 11:25 Dose: 81 mg Documented by: Atorvastatin Calcium (Lipitor) 10 mg PO QPM [facility] Last Admin: 09/19/20 20:35 Dose: 10 mg Documented by: Clopidogrel Bisulfate (Plavix) 75 mg PO DAILY [facility] Last Admin: 09/19/20 09:44 Dose: 75 mg Documented by: Furosemide (Lasix) 40 mg PO DAILY [facility] Last Admin: 09/20/20 08:27 Dose: 40 mg Documented by: Metoprolol Tartrate (Lopressor) 25 mg PO BID [facility] Last Admin: 09/20/20 08:26 Dose: 25 mg Documented by: Ondansetron HCl (Zofran Inj) 4 mg IVP Q6HR PRN PRN Reason: Nausea / Vomiting Pantoprazole Sodium (Protonix) 40 mg PO QDAC [facility] Last Admin: 09/20/20 06:02 Dose: 40 mg Documented by: Polyethylene Glycol (Miralax) 17 gm PO DAILY [facility] Last Admin: 09/20/20 08:28 Dose: Not Given Documented by: Potassium Chloride (Micro-K) 10 meq PO 0800 [facility] Last Admin: 09/20/20 08:28 Dose: 10 meq Documented by: Sodium Chloride (Normal Saline Flush 0.9%) 10 ml IVP PRN PRN PRN Reason: NEEDED PER PROVIDER ORDERS Last Admin: 09/20/20 08:28 Dose: 10 ml Documented by: Sodium Chloride (Normal Saline Flush 0.9%) 10 ml IVP 0100,0900,1700 [facility] Last Admin: 09/20/20 08:28 Dose: 10 ml Documented by: Trazodone HCl (Desyrel) 150 mg PO QPM [facility] Last Admin: 09/19/20 20:36 Dose: 150 mg Documented by: Albuterol Sulf [Ventolin Hfa Inhaler] 2 puffs INH Q4H PRN 12/27/19 Levothyroxine Sodium [Synthroid] 150 mcg PO QDAC 12/27/19 Trazodone HCl 150 mg PO QPM 12/27/19 Aspirin [Aspirin EC] 81 mg PO DAILY 09/18/20 Clopidogrel [Plavix] 75 mg PO DAILY 09/18/20 Metoprolol Tartrate [Lopressor] 25 mg PO BID 09/18/20 Pantoprazole [Protonix] 40 mg PO QDAC 09/18/20 Rosuvastatin Calcium [Crestor] 5 mg PO QPM 09/18/20 Allergies/Adverse Reactions: Allergies Allergy/AdvReac Type Severity Reaction Status Date / Time No Known Drug Allergies Allergy Verified 09/18/20 15:07 Anes History & Medical History - Anesthetic History Anesthesia Complications: reports: No previous complications - Medical History Cardiovascular: reports: Congestive heart failure (no ischemic heart disease. Prior atrial fib and aortic stenosis. On diuretics. ), Hypertension, High cholesterol, Murmur, Valve disorder (aortic stenosis), Other Pulmonary: reports: None Gastrointestinal: reports: None Urinary: reports: None Neuro: reports: None Musculoskeletal: reports: None Endocrine/Autoimmune: reports: HyPOthyroidism Blood Disorders: reports: None Skin: reports: None Smoking Status: Former smoker - Surgical History General: Cholecystectomy, Appendectomy Gynecologic: Tubal ligation, 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, Other Orthopedic: Knee replacement Exam General: Alert Dental: WNL Mouth Opening: Greater than 4 Fingerbreadths Mallampati classification: II Thyromental Distance: greater than 6 cm Respiratory: Decreased breath sounds, Accessory muscle use, Rales Cardiovascular: Regular rate, Normal S1, Normal S2 Plan Anesthesia Type: MAC Consent for Procedure(s) Verified and Reviewed: Yes Code Status: Attempt Resuscitation ASA classification: 3-Severe systemic disease Is this case an emergency?: Yes
--- NOTE | 2020-09-20 11:46 | PROVIDER PROGRESS NOTE ---
Progress Note 85-year-old female gastrointestinal bleed transfused 2 units packed red blood cells. Multiply comorbid and systemic anticoagulation historically for atrial fibrillation. Coronary artery disease, CHF, COPD, diabetes. Morbid obesity. Status post colonoscopy with results as follows: 1. Extensive diverticulosis predominantly sigmoid with significant tortuosity and angulation requiring careful navigation. 2. No faye active diverticular bleed however single area of potential previous inflammatory change at single diverticulum 3. Terminal ileum normal with no ileitis, no hematochezia or melanotic stool. 4. No colitis, no proctitis. Status post upper endoscopy with results as follows: 1. Duodenum normal with no duodenitis, bilious contents, 2. Enteritis with segmental gastritis, biopsied 3. Hiatal hernia; gastric body biopsy 4. GE junction normal with no esophagitis; biopsy Would recommend the followin. Continue to hold systemic anticoagulation until stabilized for H&H 2. PPI twice daily after transition from gtt; Carafate 4 times daily 3. Await biopsy results before considering H. pylori treatment 4. Recommend iron infusions in likely acute on chronic blood loss anemia 5. Safe to resume diet low fiber advance slowly.
[2020-09-20] MEDS: CLOPIDOGREL 75 MG TABLET PO SCH (15:26)
[2020-09-20] MEDS: ASPIRIN EC 81 MG TABLET PO SCH (15:26)
[2020-09-20 17:16] LABS: HGB - HEMOGLOBIN 7.9 g/dL (12.0-16.0)
--- NOTE | 2020-09-20 18:30 | PROVIDER PROGRESS NOTE ---
Assessment/Plan - Problem List (1) Anemia Qualifiers: Anemia type: iron deficiency Assessment/Plan: Stabilized after transfusion on day of admission. We are continue to follow her hemoglobin every 12 hours to transfuse again if it drops under 8. Awaiting today's EGD results which will also help determine if bleeding has stopped>> Dr. Ribera performed EGD and colonoscopy and found very mild gastritis and a previously bleeding diverticulum. He recommends stopping anticoagulation which was done yesterday. Continue to replace with iron. PPI was recommended. Will resume her diet advancing it slowly, possible discharge tomorrow (2) CHF (congestive heart failure) Assessment/Plan: Resolved. Her bicarb is climbing daily since admission, making concerned that she actually is dehydrated and has contraction alkalosis. Will hold the Lasix today since she is n.p.o. and not volume overloaded. Follow BMP daily (3) History of atrial fibrillation Assessment/Plan: Patient was cardioverted to sinus rhythm 1 day before this admission, electively with her barrel drainer and [place]. Today she is back in A. fib and not in sinus rhythm. She can no longer be on anticoagulants at least temporarily. Her Eliquis was stopped yesterday. Continue with her heart rate control controlling meds. Continue telemetry. If rate control is achieved, she could be discharged tomorrow (5) Status post insertion of drug-eluting stent into left anterior descending (LAD) artery for coronary artery disease Assessment/Plan: We will continue her aspirin Plavix since her stent was just placed 4 months ago (6) Hx of breast cancer Assessment/Plan: As per history. (7) Asthma Assessment/Plan: No exacerbation current, prn inh [id number] (8) Hx of diabetes mellitus Assessment/Plan: CC diet and assess insulin for Accu-Cheks (9) Morbid obesity with BMI of 50.0-59.9, adult Assessment/Plan: As per Hx (10) Hypokalemia Assessment/Plan: Resolved - Current Meds Current Meds: Current Medications Generic Name Dose Route Start Last Admin Trade Name Freq PRN Reason Stop Dose Admin Acetaminophen 650 mg 09/18/20 16:55 09/20/20 01:13 Tylenol PO 650 mg Q4HR PRN Administration Pain 1 to 4 Aspirin 81 mg 09/19/20 11:00 09/20/20 15:26 Ecotrin PO 81 mg DAILY JULIANO Administration Atorvastatin Calcium 10 mg 09/18/20 21:00 09/19/20 20:35 Lipitor PO 10 mg QPM JULIANO Administration Clopidogrel Bisulfate 75 mg 09/19/20 09:00 09/20/20 15:26 Plavix PO 75 mg DAILY JULIANO Administration Furosemide 40 mg 09/19/20 11:00 09/20/20 08:27 Lasix PO 40 mg DAILY JULIANO Administration Pantoprazole Sodium 40 mg 09/19/20 07:00 09/20/20 06:02 Protonix PO 40 mg QDAC JULIANO Administration Polyethylene Glycol 17 gm 09/19/20 09:00 09/20/20 08:28 Miralax PO Not Given DAILY JULIANO Potassium Chloride 10 meq 09/20/20 08:00 09/20/20 08:28 Micro-K PO 10 meq 0800 JULIANO Administration Sodium Chloride 10 ml 09/18/20 16:55 09/20/20 08:28 Normal Saline Flush 0.9% IVP 10 ml PRN PRN Administration NEEDED PER PROVIDER ORDERS Sodium Chloride 10 ml 09/18/20 17:00 09/20/20 16:45 Normal Saline Flush 0.9% IVP 10 ml 0100,0900,1700 JULIANO Administration Trazodone HCl 150 mg 09/18/20 21:00 09/19/20 20:36 Desyrel PO 150 mg QPM JULIANO Administration - Lab Result Fish Bone Diagrams: 09/20/20 16:58 09/20/20 05:30 - Additional Planning My Orders: My Active Orders 09/20/20 08:00 Potassium Chloride [Micro-K] 10 meq PO 0800 09/20/20 Dinner DIET [Soft (Low Fiber) Diet] [DIET] 09/20/20 21:00 Metoprolol Succinate [Toprol Xl] 25 mg PO BID 09/21/20 05:00 HEMOGLOBIN AND HEMATOCRIT [HEME] Q12H 09/21/20 17:00 HEMOGLOBIN AND HEMATOCRIT [HEME] Q12H Objective Vital Signs: Vital Signs - 24 hr 09/19/20 09/19/20 09/19/20 19:50 20:25 20:36 Temperature 37.1 C Heart Rate 77 Heart Rate [ Brachial] Heart Rate [ Monitoring electrodes] Heart Rate [ 79 Radial] Respiratory 20 18 Rate Blood Pressure 140/52 H Blood Pressure [Left Radial artery] Blood Pressure 140/52 H [Right Brachial artery] O2 Saturation 98 09/20/20 09/20/20 09/20/20 00:00 07:52 08:26 Temperature 36.7 C 36.5 C Heart Rate Heart Rate [ Brachial] Heart Rate [ 114 H Monitoring electrodes] Heart Rate [ 100 135 H Radial] Respiratory 18 20 Rate Blood Pressure Blood Pressure [Left Radial artery] Blood Pressure 137/78 H 100/80 [Right Brachial artery] O2 Saturation 98 100 09/20/20 09/20/20 11:38 15:42 Temperature 36.3 C L 36.5 C Heart Rate Heart Rate [ 92 Brachial] Heart Rate [ Monitoring electrodes] Heart Rate [ 112 H Radial] Respiratory 17 20 Rate Blood Pressure Blood Pressure 101/52 L [Left Radial artery] Blood Pressure 104/63 [Right Brachial artery] O2 Saturation 93 97 Oxygen O2 Source [With Activity] Nasal cannula O2 Source Nasal cannula Oxygen Flow Rate 3 I&O (Last 24 Hrs): Intake and Output Totals x24h 09/18/20 09/19/20 09/20/20 23:59 23:59 23:59 Intake Total 1040 2760 2321 Output Total 750 2950 5950 Balance 290 -413 -3625 General: Alert HEENT: Mucous membr. moist/pink Neck: Supple Neuro: Non Focal Cardiovascular: Other (Irregularly irregular) Respiratory: No respiratory distress Abdomen: Soft Extremities: No edema - Results Results: Laboratory Results WBC 8.0 x10^3/uL (4.8-10.8) 09/20/20 05:30 RBC 2.91 10^6/uL (4.20-5.40) L 09/20/20 05:30 Hgb 7.9 g/dL (12.0-16.0) L 09/20/20 16:58 Hct 26.7 % (37.0-47.0) L 09/20/20 16:58 MCV 103.1 fL (81.0-99.0) H 09/20/20 05:30 MCH 29.6 pg (27.0-31.0) 09/20/20 05:30 MCHC 28.7 g/dL (32.0-36.0) L 09/20/20 05:30 RDW 18.9 % (12.0-15.0) H 09/20/20 05:30 Plt Count 222 10^3/uL (130-450) 09/20/20 05:30 MPV 9.9 fL (7.9-10.8) 09/20/20 05:30 Reticulocyte % (Auto) 4.96 % (0.5-2.3) H 09/18/20 17:22 Neut # (Auto) 6.1 10^3/uL (1.5-6.6) 09/20/20 05:30 Lymph # (Auto) 1.0 10^3/uL (1.5-3.5) L 09/20/20 05:30 [place] # (Auto) 0.7 10^3/uL (0.0-1.0) 09/20/20 05:30 Eos # (Auto) 0.1 10^3/uL (0.0-0.7) 09/20/20 05:30 Baso # (Auto) 0.0 10^3/uL (0.0-0.1) 09/20/20 05:30 Absolute Nucleated RBC 0.00 x10^3/uL 09/20/20 05:30 Nucleated RBC % 0.0 /100WBC 09/20/20 05:30 Manual Slide Review Indicated 09/20/20 05:30 WBC Morphology NORMAL APPEARANCE (NORMAL) 09/20/20 05:30 Platelet Estimate NORMAL (130-450,000) (NORMAL) 09/20/20 05:30 Platelet Morphology NORMAL APPEARANCE (NORMAL) 09/20/20 05:30 RBC Morph Micro Appear 1+ HYPOCHROMASIA (NORMAL) 09/20/20 05:30 Absolute Retic 0.102 10^6/uL (0.020-0.110) 09/18/20 17:22 PT 21.0 secs (9.9-12.6) H 09/18/20 16:49 INR 2.0 (0.8-1.2) H 09/18/20 16:49 APTT 30.3 secs (24.9-33.3) 09/18/20 16:49 VBG pH 7.425 (7.31-7.41) H 09/18/20 16:13 Ionized Calcium 1.08 mmol/L (1.15-1.33) L 09/18/20 16:13 Sodium 144 mmol/L (135-145) 09/20/20 05:30 Potassium 4.0 mmol/L (3.5-5.0) 09/20/20 05:30 Chloride 96 mmol/L (101-111) L 09/20/20 05:30 Carbon Dioxide 40 mmol/L (21-32) H* 09/20/20 05:30 Anion Gap 8.0 (6-13) 09/20/20 05:30 BUN 28 mg/dL (6-20) H 09/20/20 05:30 Creatinine 0.8 mg/dL (0.4-1.0) 09/20/20 05:30 Estimated GFR (MDRD) 68 (>89) L 09/20/20 05:30 Glucose 130 mg/dL (70-100) H 09/20/20 05:30 Estimat Average Glucose 82 mg/dL (70-100) 09/19/20 05:56 Hemoglobin A1c % 4.5 % (4.27-6.07) 09/19/20 05:56 Calcium 8.7 mg/dL (8.5-10.3) 09/20/20 05:30 Ionized Calcium YES 09/18/20 16:13 Magnesium 2.4 mg/dL (1.7-2.8) 09/20/20 05:30 Iron 29 ug/dL (28-170) 09/18/20 16:13 TIBC 388 ug/dL (250-450) 09/18/20 16:13 % Saturation 7 % (20-50) L 09/18/20 16:13 Transferrin 277 mg/dL (192-382) 09/18/20 16:13 Ferritin 34.9 ng/mL (11.0-306.8) 09/18/20 16:13 Total Bilirubin 0.5 mg/dL (0.2-1.0) 09/18/20 16:13 AST 17 IU/L (10-42) 09/18/20 16:13 ALT 12 IU/L (10-60) 09/18/20 16:13 Alkaline Phosphatase 50 IU/L (42-121) 09/18/20 16:13 Lactate Dehydrogenase 280 IU/L (91-225) H 09/18/20 16:13 B-Natriuretic Peptide 625 pg/mL (5-100) H 09/20/20 05:30 Total Protein 6.5 g/dL (6.7-8.2) L 09/18/20 16:13 Albumin 3.3 g/dL (3.2-5.5) 09/18/20 16:13 Globulin 3.2 g/dL (2.1-4.2) 09/18/20 16:13 Albumin/Globulin Ratio 1.0 (1.0-2.2) 09/18/20 16:13 Vitamin B12 335 pg/mL (180-914) 09/18/20 16:13 TSH 0.15 uIU/mL (0.34-5.60) L 09/19/20 05:56 Nasal Adenovirus (PCR) NOT DETECTED 09/18/20 17:36 Nasal B. parapertussis DNA (PCR) NOT DETECTED 09/18/20 17:36 Nasal Coronavir 229E PCR NOT DETECTED 09/18/20 17:36 Nasal Coronavir HKU1 PCR NOT DETECTED 09/18/20 17:36 Nasal Coronavir NL63 PCR NOT DETECTED 09/18/20 17:36 Nasal Coronavir OC43 PCR NOT DETECTED 09/18/20 17:36 Nasal Enterovir/Rhinovir PCR NOT DETECTED 09/18/20 17:36 Nasal Influenza B PCR NOT DETECTED 09/18/20 17:36 Nasal Influenza A PCR NOT DETECTED 09/18/20 17:36 Nasal Parainfluen 1 PCR NOT DETECTED 09/18/20 17:36 Nasal Parainfluen 2 PCR NOT DETECTED 09/18/20 17:36 Nasal Parainfluen 3 PCR NOT DETECTED 09/18/20 17:36 Nasal Parainfluen 4 PCR NOT DETECTED 09/18/20 17:36 Nasal RSV (PCR) NOT DETECTED 09/18/20 17:36 Nasal B.pertussis DNA PCR NOT DETECTED 09/18/20 17:36 Nasal C.pneumoniae (PCR) NOT DETECTED 09/18/20 17:36 [place] Human Metapneumo PCR NOT DETECTED 09/18/20 17:36 Nasal M.pneumoniae (PCR) NOT DETECTED 09/18/20 17:36 Nasal SARS-CoV-2 (PCR) NOT DETECTED 09/18/20 17:36 Blood Type O POSITIVE 09/18/20 16:13 Antibody Screen NEGATIVE 09/18/20 16:13 Crossmatch IS Only See Detail 09/18/20 16:13 - Procedures Procedures: Procedures ENDOSC POLYPECTOMY OF LG INTEST (04/11/14) EXCISE AXILLARY NODE (09/05/14) INSERTION OF TOTALLY IMPLANTABLE VASC ACCESS DEVIC (10/31/14) LOCAL EXCIS BREAST LES (09/05/14) REMOVAL OF VAD FROM UP EXTREM SUBCU/FASCIA, PERC APPROACH (08/07/15) THORAX SFT TISS XRAY NEC (10/31/14) Sepsis Event Note (H) - Evaluation Current Stage of Sepsis: Ruled out
[2020-09-20] MEDS: traZODone 50 MG TABLET PO SCH (21:53)
[2020-09-20] MEDS: ATORVASTATIN 10 MG TABLET PO SCH (21:54)
[2020-09-20] MEDS: METOPROLOL SUCCINATE 25 MG TABLET PO SCH (21:54)
[2020-09-21] MEDS: SODIUM CHLORIDE FLUSH 0.9% 10 ML SYRINGE IVP SCH ×3 (00:01→16:18)
[2020-09-21] MEDS: ALBUTEROL NEB 2.5 MG/3 ML INH PRN (04:28)
[2020-09-21 05:02] LABS: BASOPHILS % (AUTO) 0.3 %; EOSINOPHILS # (AUTO) 0.1 10^3/uL (0.0-0.7); EOSINOPHILS % (AUTO) 2.1 %; HGB - HEMOGLOBIN 8.1 g/dL (12.0-16.0); LYMPHOCYTES # (AUTO) 1.4 10^3/uL (1.5-3.5); LYMPHOCYTES % (AUTO) 21.4 %; MEAN CORPUSCULAR HEMOGLOBIN 29.6 pg (27.0-31.0); MEAN CORPUSCULAR HGB CONC 28.4 g/dL (32.0-36.0); MEAN PLATELET VOLUME 9.8 fL (7.9-10.8); MONOCYTES # (AUTO) 0.6 10^3/uL (0.0-1.0); NEUTROPHILS # (AUTO) 4.1 10^3/uL (1.5-6.6); NEUTROPHILS % (AUTO) 65.7 %; PLT - PLATELET COUNT 203 10^3/uL (130-450); RED BLOOD COUNT 2.74 10^6/uL (4.20-5.40); RED CELL DISTRIBUTION WIDTH 18.1 % (12.0-15.0); WHITE BLOOD COUNT 6.3 x10^3/uL (4.8-10.8)
[2020-09-21 05:08] LABS: CALCIUM 8.4 mg/dL (8.5-10.3); CREATININE 0.9 mg/dL (0.4-1.0)
[2020-09-21 05:29] LABS: PLATELET ESTIMATE, MANUAL NORMAL (130-450,000) (NORMAL); PLATELET MORPHOLOGY NORMAL APPEARANCE (NORMAL); RBC MORPHOLOGY (MULTIPLE) 1+ HYPOCHROMASIA (NORMAL)
[2020-09-21] MEDS: METOPROLOL SUCCINATE 25 MG TABLET PO SCH (09:33)
[2020-09-21] MEDS: PANTOPRAZOLE 40 MG TABLET PO SCH ×2 (09:33→20:09)
[2020-09-21] MEDS: ASPIRIN EC 81 MG TABLET PO SCH (09:33)
[2020-09-21] MEDS: POTASSIUM CHLORIDE 10 MEQ CAPSULE PO SCH (09:33)
--- NOTE | 2020-09-21 09:34 | ANESTHESIA POST OP EVALUATION ---
Anesthesia Post Eval - Post Anesthesia Eval Vitals: Last Vital Signs Temp 36.9 C 09/21/20 03:02 Pulse 73 09/21/20 04:28 Resp 22 09/21/20 04:28 BP 119/64 09/21/20 03:02 Pulse Ox 95 09/21/20 03:02 CV Function Including HR & BP: positive: Stable Pain Control: positive: Satisfactory Nausea & Vomiting: positive: Negative Mental Status: positive: Patient Participates Respiratory Status: Airway Patent Hydration Status: Satisfactory Anesthesia Complications: positive: None
[2020-09-21] MEDS: polyethylene glycoL 3350 17 GM PACKET PO SCH (10:03)
[2020-09-21] MEDS: CLOPIDOGREL 75 MG TABLET PO SCH (10:44)
[2020-09-21] MEDS ORDERED: METOPROLOL 5 MG/5 ML VIAL IVP ONE (12:00)
[2020-09-21 17:14] LABS: HGB - HEMOGLOBIN 8.2 g/dL (12.0-16.0)
[2020-09-21] MEDS: ATORVASTATIN 10 MG TABLET PO SCH (20:09)
[2020-09-21] MEDS: traZODone 50 MG TABLET PO SCH (20:09)
[2020-09-21] MEDS: METOPROLOL SUCCINATE 50 MG TABLET PO SCH (20:09)
[2020-09-21] MEDS ORDERED: polyethylene glycoL 3350 17 GM PACKET PO SCH (20:10)
--- NOTE | 2020-09-21 20:25 | PROVIDER PROGRESS NOTE ---
Subjective - Prog Note Date Prog Note Date: 09/21/20 Prog Note Time: 20:29 - Subjective Pt reports feeling: Improved Subjective: She says that she feels fine. She is tired. She prefers to be at about 30 to 35 degrees because she gets too short of breath if she lays down flat. No chest pain, no cough, no dizziness or syncope. Current Medications - Current Medications Current Medications: Active Medications Acetaminophen (Tylenol) 650 mg PO Q4HR PRN PRN Reason: Pain 1 to 4 Last Admin: 09/20/20 01:13 Dose: 650 mg Documented by: Albuterol () 2.5 mg INH Q4H PRN PRN Reason: Shortness of Air/Wheezing Last Admin: 09/21/20 04:28 Dose: 2.5 mg Documented by: Aspirin (Ecotrin) 81 mg PO DAILY ON LICENSE OF [facility] Last Admin: 09/21/20 09:33 Dose: 81 mg Documented by: Atorvastatin Calcium (Lipitor) 10 mg PO QPM ON LICENSE OF [facility] Last Admin: 09/21/20 20:09 Dose: 10 mg Documented by: Clopidogrel Bisulfate (Plavix) 75 mg PO DAILY ON LICENSE OF [facility] Last Admin: 09/21/20 10:44 Dose: 75 mg Documented by: Metoprolol Succinate (Toprol Xl) 50 mg PO BID ON LICENSE OF [facility] Last Admin: 09/21/20 20:09 Dose: 50 mg Documented by: Ondansetron HCl (Zofran Inj) 4 mg IVP Q6HR PRN PRN Reason: Nausea / Vomiting Pantoprazole Sodium (Protonix) 40 mg PO BID ON LICENSE OF [facility] Last Admin: 09/21/20 20:09 Dose: 40 mg Documented by: Polyethylene Glycol (Miralax) 17 gm PO DAILY ON LICENSE OF [facility] Stop: 09/22/20 01:00 Last Admin: 09/21/20 20:07 Dose: 17 gm Documented by: Potassium Chloride (Micro-K) 10 meq PO 0800 ON LICENSE OF [facility] Last Admin: 09/21/20 09:33 Dose: 10 meq Documented by: Sodium Chloride (Normal Saline Flush 0.9%) 10 ml IVP PRN PRN PRN Reason: NEEDED PER PROVIDER ORDERS Last Admin: 09/20/20 08:28 Dose: 10 ml Documented by: Sodium Chloride (Normal Saline Flush 0.9%) 10 ml IVP 0100,0900,1700 ON LICENSE OF [facility] Last Admin: 09/21/20 16:18 Dose: 10 ml Documented by: Trazodone HCl (Desyrel) 150 mg PO QPM JULIANO Last Admin: 09/21/20 20:09 Dose: 150 mg Documented by: Albuterol Sulf [Ventolin Hfa Inhaler] 2 puffs INH Q4H PRN 12/27/19 Levothyroxine Sodium [Synthroid] 150 mcg PO QDAC 12/27/19 Trazodone HCl 150 mg PO QPM 12/27/19 Aspirin [Aspirin EC] 81 mg PO DAILY 09/18/20 Clopidogrel [Plavix] 75 mg PO DAILY 09/18/20 Metoprolol Tartrate [Lopressor] 25 mg PO BID 09/18/20 Pantoprazole [Protonix] 40 mg PO QDAC 09/18/20 Rosuvastatin Calcium [Crestor] 5 mg PO QPM 09/18/20 Objective - Vital Signs/Intake & Output Reviewed Vital Signs: Yes Vital Signs: Vital Signs x48h Temp Pulse Pulse Pulse Resp BP BP 09/21/20 19:58 36.9 C 100 20 120/52 L 09/21/20 15:59 36.9 C 81 22 108/74 09/21/20 13:00 114 H 105/68 09/21/20 12:45 110 H 92/47 L 09/21/20 12:30 95 100/62 Pulse Ox 09/21/20 19:58 100 09/21/20 15:59 97 09/21/20 13:00 09/21/20 12:45 09/21/20 12:30 Intake & Output: Intake & Output 09/18/20 09/19/20 09/20/20 09/21/20 23:59 23:59 23:59 23:59 Intake Total 1040 2760 2621 890 Output Total 750 2950 6150 1300 Balance 093 -225 -2456 -410 - Objective General Appearance: positive: Alert, Other (4 foot 11 female who weighs 114 kg. Brightly dyed red hair.) Eyes Bilateral: positive: PERRL, EOMI ENT: positive: Pharynx nml Neck: positive: No JVD. negative: Stiff neck Respiratory: positive: Other (No respiratory distress at rest. But when I have her sit up to examine her, and she starts to talk, this all makes her short of breath. Getting up to walk to the bathroom is reportedly causing her quite a bit of dyspnea per nursing.). negative: Wheezes, Rales, Rhonchi Cardiovascular: positive: Irregularly irregular, Systolic murmur. negative: Gallop/S4, Friction rub Abdomen: positive: Non-tender, No organomegaly, Nml bowel sounds, No distention Skin: positive: Warm, Dry, Pallor Extremities: positive: Non-tender Neurologic/Psychiatric: positive: Oriented x3, CN's nml (2-12) (Mildly deaf.), Motor nml, Other (Able to dangle her feet at the side of the bed, stand, walk to the bathroom.) - Lab Results Fish Bones: 09/21/20 17:08 09/21/20 04:50 Other Labs: Lab Results x24hrs 09/21/20 09/21/20 09/21/20 Range/Units 17:08 04:50 04:50 WBC (4.8-10.8) x10^3/uL RBC (4.20-5.40) 10^6/uL Hgb 8.2 L (12.0-16.0) g/dL Hct 27.6 L (37.0-47.0) % MCV (81.0-99.0) fL MCH (27.0-31.0) pg MCHC (32.0-36.0) g/dL RDW (12.0-15.0) % Plt Count (130-450) 10^3/uL MPV (7.9-10.8) fL Neut # (Auto) (1.5-6.6) 10^3/uL Lymph # (Auto) (1.5-3.5) 10^3/uL [place] # (Auto) (0.0-1.0) 10^3/uL Eos # (Auto) (0.0-0.7) 10^3/uL Baso # (Auto) (0.0-0.1) 10^3/uL Absolute Nucleated RBC x10^3/uL Nucleated RBC % /100WBC Manual Slide Review Platelet Estimate (NORMAL) Platelet Morphology (NORMAL) RBC Morph Micro Appear (NORMAL) Sodium 141 (135-145) mmol/L Potassium 4.0 (3.5-5.0) mmol/L Chloride 92 L (101-111) mmol/L Carbon Dioxide 39 H* (21-32) mmol/L Anion Gap 10.0 (6-13) BUN 25 H (6-20) mg/dL Creatinine 0.9 (0.4-1.0) mg/dL Estimated GFR (MDRD) 59 L (>89) Glucose 101 H (70-100) mg/dL Calcium 8.4 L (8.5-10.3) mg/dL B-Natriuretic Peptide 802 H (5-100) pg/mL 09/21/20 Range/Units 04:50 WBC 6.3 (4.8-10.8) x10^3/uL RBC 2.74 L (4.20-5.40) 10^6/uL Hgb 8.1 L (12.0-16.0) g/dL Hct 28.5 L (37.0-47.0) % MCV 104.0 H (81.0-99.0) fL MCH 29.6 (27.0-31.0) pg MCHC 28.4 L (32.0-36.0) g/dL RDW 18.1 H (12.0-15.0) % Plt Count 203 (130-450) 10^3/uL MPV 9.8 (7.9-10.8) fL Neut # (Auto) 4.1 (1.5-6.6) 10^3/uL Lymph # (Auto) 1.4 L (1.5-3.5) 10^3/uL [place] # (Auto) 0.6 (0.0-1.0) 10^3/uL Eos # (Auto) 0.1 (0.0-0.7) 10^3/uL Baso # (Auto) 0.0 (0.0-0.1) 10^3/uL Absolute Nucleated RBC 0.00 x10^3/uL Nucleated RBC % 0.0 /100WBC Manual Slide Review Indicated Platelet Estimate NORMAL (130-450,000) (NORMAL) Platelet Morphology NORMAL APPEARANCE (NORMAL) RBC Morph Micro Appear 1+ HYPOCHROMASIA (NORMAL) Sodium (135-145) mmol/L Potassium (3.5-5.0) mmol/L Chloride (101-111) mmol/L Carbon Dioxide (21-32) mmol/L Anion Gap (6-13) BUN (6-20) mg/dL Creatinine (0.4-1.0) mg/dL Estimated GFR (MDRD) (>89) Glucose (70-100) mg/dL Calcium (8.5-10.3) mg/dL B-Natriuretic Peptide (5-100) pg/mL ABX Reporting Has patient been on IV antibiotics over the past 48 hours?: No Sepsis Event Note (H) - Evaluation Current Stage of Sepsis: Ruled out Assessment/Plan - Problem List (1) Acute blood loss anemia Impression: Qualifiers: with iron deficiency and FOBT (+) Assessment/Plan: Stabilized after transfusion on day of admission.On admission she was 5.9 g. Transfused 2 units total. Hemoglobin has stayed stable at 8.1-8.2 today. We are continue to follow her hemoglobin every 12 hours to transfuse again if it drops under 8. Dr. Ribera performed EGD and colonoscopy and found very mild gastritis and a p reviously bleeding diverticulum. He recommends stopping anticoagulation which was done 09/19 Continue to replace with iron. PPI was recommended. Her diet was advanced. We were considering discharging her today. But since she went back into RVR from her atrial fibrillation discharge she has been de layed. (2) CHF (congestive heart failure) Assessment/Plan: Resolved. Her bicarb is climbing daily since admission, making concerned that she actually is dehydrated and has contraction alkalosis. Lasix was held. Carbon dioxide went from 40 yesterday to 39 today. Follow BMP daily (3) Atrial fibrillation Assessment/Plan: Patient was cardioverted to sinus rhythm 1 day before this admission, electively with her vegetable grower in [place]. 09/20 she is back in A. fib and not in sinus rhythm. She cannot be on anticoagulants, at least temporarily. Her Eliquis was stopped 09/19 Continue with her heart rate control controlling meds. Continue telemetry. If rate control is achieved, she could be discharged tomorrow. She was supposed to be discharged today. But with rate not completely controlled will reassess tomorrow morning. We will also reassess carbon dioxide levels. (5) Status post insertion of drug-eluting stent into left anterior descending (LAD) artery for coronary artery disease Assessment/Plan: We will continue her aspirin Plavix since her stent was just placed 4 months ago (6) Hx of breast cancer Assessment/Plan: As per history. (7) Asthma Assessment/Plan: No exacerbation current, prn inh [id number] (8) Hx of diabetes mellitus Assessment/Plan: CC diet and assess insulin for Accu-Cheks (9) Morbid obesity with BMI of 50.0-59.9, adult Assessment/Plan: As per Hx (10) Hypokalemia Assessment/Plan: Resolved (11) Aortic stenosis Moderate to severe aortic stenosis was the last documented finding from the reports we received from her vegetable grower in [place]. No CHF, syncope or angina (12) Hypothyroidism TSH is oversupressed at 0.015. synthroid is at 150 mcg daily. She received 1 dose on the and has not received any since then. Would resume at 125 mcg at discharge. Recheck TSH in a month.
[2020-09-22] MEDS: ALBUTEROL NEB 2.5 MG/3 ML INH PRN ×3 (00:10→22:12)
[2020-09-22] MEDS: SODIUM CHLORIDE FLUSH 0.9% 10 ML SYRINGE IVP SCH ×3 (00:10→16:42)
[2020-09-22 05:43] LABS: BASOPHILS % (AUTO) 0.4 %; EOSINOPHILS # (AUTO) 0.1 10^3/uL (0.0-0.7); EOSINOPHILS % (AUTO) 2.4 %; HGB - HEMOGLOBIN 8.1 g/dL (12.0-16.0); LYMPHOCYTES # (AUTO) 1.1 10^3/uL (1.5-3.5); LYMPHOCYTES % (AUTO) 20.4 %; MEAN CORPUSCULAR HGB CONC 29.2 g/dL (32.0-36.0); MEAN CORPUSCULAR VOLUME 102.6 fL (81.0-99.0); MONOCYTES # (AUTO) 0.5 10^3/uL (0.0-1.0); MONOCYTES % (AUTO) 9.9 %; NEUTROPHILS # (AUTO) 3.6 10^3/uL (1.5-6.6); NEUTROPHILS % (AUTO) 66.7 %; PLT - PLATELET COUNT 192 10^3/uL (130-450); RED CELL DISTRIBUTION WIDTH 17.4 % (12.0-15.0); WHITE BLOOD COUNT 5.3 x10^3/uL (4.8-10.8)
[2020-09-22 05:52] LABS: CALCIUM 8.2 mg/dL (8.5-10.3); CREATININE 0.6 mg/dL (0.4-1.0)
[2020-09-22] MEDS: CLOPIDOGREL 75 MG TABLET PO SCH (10:00)
[2020-09-22] MEDS: POTASSIUM CHLORIDE 10 MEQ CAPSULE PO SCH (10:00)
[2020-09-22] MEDS: METOPROLOL SUCCINATE 50 MG TABLET PO SCH ×2 (10:00→21:04)
[2020-09-22] MEDS: PANTOPRAZOLE 40 MG TABLET PO SCH ×2 (10:00→21:04)
[2020-09-22] MEDS: ASPIRIN EC 81 MG TABLET PO SCH (10:00)
--- NOTE | 2020-09-22 14:09 | PROVIDER PROGRESS NOTE ---
Subjective - Prog Note Date Prog Note Date: 09/22/20 - Subjective Subjective: She states she still feels short of breath especially when lying flat. Reports no lower extremity edema. Denies any chest pain. She is on 3 L of oxygen at home. She states she been short of breath for the past year and a half. She states that minimal exertion causes her to be quite dyspneic. Current Medications - Current Medications Current Medications: Active Medications Acetaminophen (Tylenol) 650 mg PO Q4HR PRN PRN Reason: Pain 1 to 4 Last Admin: 09/20/20 01:13 Dose: 650 mg Documented by: Albuterol () 2.5 mg INH Q4H PRN PRN Reason: Shortness of Air/Wheezing Last Admin: 09/22/20 07:11 Dose: 2.5 mg Documented by: Aspirin (Ecotrin) 81 mg PO DAILY [facility] Last Admin: 09/22/20 10:00 Dose: 81 mg Documented by: Atorvastatin Calcium (Lipitor) 10 mg PO QPM [facility] Last Admin: 09/21/20 20:09 Dose: 10 mg Documented by: Clopidogrel Bisulfate (Plavix) 75 mg PO DAILY [facility] Last Admin: 09/22/20 10:00 Dose: 75 mg Documented by: Levothyroxine Sodium (Synthroid) 125 mcg PO QDAC [facility] Metoprolol Succinate (Toprol Xl) 50 mg PO BID [facility] Last Admin: 09/22/20 10:00 Dose: 50 mg Documented by: Ondansetron HCl (Zofran Inj) 4 mg IVP Q6HR PRN PRN Reason: Nausea / Vomiting Pantoprazole Sodium (Protonix) 40 mg PO BID [facility] Last Admin: 09/22/20 10:00 Dose: 40 mg Documented by: Potassium Chloride (Micro-K) 10 meq PO 0800 [facility] Last Admin: 09/22/20 10:00 Dose: 10 meq Documented by: Sodium Chloride (Normal Saline Flush 0.9%) 10 ml IVP PRN PRN PRN Reason: NEEDED PER PROVIDER ORDERS Last Admin: 09/20/20 08:28 Dose: 10 ml Documented by: Sodium Chloride (Normal Saline Flush 0.9%) 10 ml IVP 0100,0900,1700 [facility] Last Admin: 09/22/20 10:01 Dose: 10 ml Documented by: Trazodone HCl (Desyrel) 150 mg PO QPM [facility] Last Admin: 09/21/20 20:09 Dose: 150 mg Documented by: Albuterol Sulf [Ventolin Hfa Inhaler] 2 puffs INH Q4H PRN 12/27/19 Levothyroxine Sodium [Synthroid] 150 mcg PO QDAC 12/27/19 Trazodone HCl 150 mg PO QPM 12/27/19 Aspirin [Aspirin EC] 81 mg PO DAILY 09/18/20 Clopidogrel [Plavix] 75 mg PO DAILY 09/18/20 Metoprolol Tartrate [Lopressor] 25 mg PO BID 09/18/20 Pantoprazole [Protonix] 40 mg PO QDAC 09/18/20 Rosuvastatin Calcium [Crestor] 5 mg PO QPM 09/18/20 Objective - Vital Signs/Intake & Output Vital Signs: Vital Signs x48h Temp Pulse Pulse Resp BP BP Pulse Ox 09/22/20 12:12 36.9 C 95 20 111/89 H 96 09/22/20 08:00 36.8 C 116 H 20 123/68 96 09/22/20 07:18 36.8 C 85 16 97 09/22/20 07:12 81 16 Intake & Output: Intake & Output 09/19/20 09/20/20 09/21/20 09/22/20 23:59 23:59 23:59 23:59 Intake Total 2760 2621 1290 440 Output Total 2950 6150 1850 500 Balance -190 -3529 -560 -60 - Objective General Appearance: positive: No acute distress, Alert Eyes Bilateral: positive: Normal inspection, Conjunctivae nml ENT: positive: ENT inspection nml, Other (Nasal cannula in place.) Neck: positive: Nml inspection Respiratory: positive: No respiratory distress, Other (Diminished in bases.). negative: Wheezes, Rales Cardiovascular: positive: Irregularly irregular. negative: Tachycardia, Bradycardia, Systolic murmur Abdomen: positive: Non-tender, No distention. negative: Tenderness, Rebound Skin: positive: Warm, Dry Extremities: positive: Pedal edema (Trace edema in bilateral lower extremities.) Neurologic/Psychiatric: positive: Oriented x3. negative: Disoriented to person, Disoriented to place, Disoriented to time - Lab Results Fish Bones: 09/22/20 05:32 09/22/20 05:32 Other Labs: Lab Results x24hrs 09/22/20 09/22/20 09/22/20 Range/Units 05:32 05:32 05:32 WBC 5.3 (4.8-10.8) x10^3/uL RBC 2.70 L (4.20-5.40) 10^6/uL Hgb 8.1 L (12.0-16.0) g/dL Hct 27.7 L (37.0-47.0) % MCV 102.6 H (81.0-99.0) fL MCH 30.0 (27.0-31.0) pg MCHC 29.2 L (32.0-36.0) g/dL RDW 17.4 H (12.0-15.0) % Plt Count 192 (130-450) 10^3/uL MPV 10.0 (7.9-10.8) fL Neut # (Auto) 3.6 (1.5-6.6) 10^3/uL Lymph # (Auto) 1.1 L (1.5-3.5) 10^3/uL [place] # (Auto) 0.5 (0.0-1.0) 10^3/uL Eos # (Auto) 0.1 (0.0-0.7) 10^3/uL Baso # (Auto) 0.0 (0.0-0.1) 10^3/uL Absolute Nucleated RBC 0.00 x10^3/uL Nucleated RBC % 0.0 /100WBC Sodium 139 (135-145) mmol/L Potassium 3.7 (3.5-5.0) mmol/L Chloride 94 L (101-111) mmol/L Carbon Dioxide 36 H (21-32) mmol/L Anion Gap 9.0 (6-13) BUN 19 (6-20) mg/dL Creatinine 0.6 (0.4-1.0) mg/dL Estimated GFR (MDRD) 95 (>89) Glucose 100 (70-100) mg/dL Calcium 8.2 L (8.5-10.3) mg/dL B-Natriuretic Peptide 778 H (5-100) pg/mL 09/21/20 Range/Units 17:08 WBC (4.8-10.8) x10^3/uL RBC (4.20-5.40) 10^6/uL Hgb 8.2 L (12.0-16.0) g/dL Hct 27.6 L (37.0-47.0) % MCV (81.0-99.0) fL MCH (27.0-31.0) pg MCHC (32.0-36.0) g/dL RDW (12.0-15.0) % Plt Count (130-450) 10^3/uL MPV (7.9-10.8) fL Neut # (Auto) (1.5-6.6) 10^3/uL Lymph # (Auto) (1.5-3.5) 10^3/uL [place] # (Auto) (0.0-1.0) 10^3/uL Eos # (Auto) (0.0-0.7) 10^3/uL Baso # (Auto) (0.0-0.1) 10^3/uL Absolute Nucleated RBC x10^3/uL Nucleated RBC % /100WBC Sodium (135-145) mmol/L Potassium (3.5-5.0) mmol/L Chloride (101-111) mmol/L Carbon Dioxide (21-32) mmol/L Anion Gap (6-13) BUN (6-20) mg/dL Creatinine (0.4-1.0) mg/dL Estimated GFR (MDRD) (>89) Glucose (70-100) mg/dL Calcium (8.5-10.3) mg/dL B-Natriuretic Peptide (5-100) pg/mL ABX Reporting Has patient been on IV antibiotics over the past 48 hours?: No Sepsis Event Note (H) - Evaluation Current Stage of Sepsis: Ruled out Assessment/Plan - Problem List (1) Acute on chronic diastolic heart failure Impression: Although her BNP has increased since admission, she remains on her baseline 3 L of oxygen. She still feels quite dyspneic with exertion although this appears be quite chronic for her. Her chest x-ray did reveal pulmonary vascular congestion on admission. Given her ongoing dyspnea, we will repeat this today. Her Lasix had been held due to contraction alkalosis. Based off of chest x-ray findings today, will consider another dose of IV Lasix. She will need oral Lasix on discharge. Continue with daily weights. Recheck BNP in the morning. (2) Acute blood loss anemia Impression: This was likely secondary to mild gastritis and possibly bleeding diverticulum. Her hemoglobin has since maintained without evidence of bleeding. Continue oral iron supplementation. Continue to hold anticoagulation for the time being but will likely discharge her on Eliquis and Plavix if okay with general surgery. Continue oral Protonix. (3) Chronic respiratory failure with hypoxia Impression: She remains on her baseline 3 L of oxygen. It is unclear if this is due to her chronic heart failure or possible underlying COPD given her smoking history. We will treat her acute congestive heart failure as mentioned above. (4) Status post insertion of drug-eluting stent into left anterior descending (LAD) artery for coronary artery disease Impression: Continue aspirin and Plavix for the time being given her stent was placed about 4 months ago. Will discuss with general surgery on discharge that she should be on Eliquis given atrial fibrillation. We will likely look to discharge her on Eliquis and Plavix. (5) Atrial fibrillation with rapid ventricular response Impression: Her heart rate has been better controlled this morning it was up to the 110s. Her metoprolol dose to be increased 50 mg twice daily. We will continue this for the time being and will consider increasing 75 mg if necessary. (6) Hx of diabetes mellitus Impression: Her last A1c was 4.5% all of this was obtained during his hospitalization she was anemic and might have been drawn after she received 2 units of packed red blood cells which could decrease this value. We will continue carb controlled diet. Start sliding scale. (7) Hypothyroidism Impression: Her TSH was quite suppressed at 0.15. We have resumed her home Synthroid but at a lower dose of 125 mcg. She will need repeat TSH in 4 to 6 weeks.
[2020-09-22] MEDS ORDERED: ETOMIDATE 40 MG/20 ML VIAL IVP ONE (15:22)
[2020-09-22] MEDS ORDERED: PHENYLEPHRINE 10 MG/ML VIAL IV ONE (15:22)
[2020-09-22] MEDS ORDERED: MIDAZOLAM 2 MG/2 ML VIAL IVP ONE (15:22)
[2020-09-22] MEDS ORDERED: LIDOCAINE-MPF 2% 5 ML VIAL IM ONE (15:22)
--- NOTE | 2020-09-22 16:09 | XRAY Report ---
PROCEDURE: Chest 1 View X-Ray INDICATIONS: Follow up CHF. TECHNIQUE: One view of the chest was acquired. COMPARISON: Chest x-ray 09/18/2020 FINDINGS: Surgical changes and devices: None. Lungs and pleura: Persistent although improved appearance of bilateral pulmonary opacities. Persisten t is most notable in the left base. Increased vascularity is noted. Mediastinum: Mediastinal contours appear normal. Heart size is enlarged. Bones and chest wall: No suspicious bony lesions. Overlying soft tissues appear unremarkable. IMPRESSION: Improved appearance of previous bibasilar opacities. There is persistent likely left effusion with in creased vascularity consistent with edema. Reviewed by: Ashanti Amor MD on 09/22/2020 3:08 PM [facility] Approved by: Ashanti Amor MD on 09/22/2020 3:08 PM [facility] Station ID: [id number]
[2020-09-22] MEDS ORDERED: FUROSEMIDE 20 MG/2 ML VIAL IVP ONE (16:40)
[2020-09-22] MEDS: INSULIN ASPART 300 UNIT/3 ML PEN SUBQ SCH ×2 (16:42→21:04)
[2020-09-22] MEDS: ATORVASTATIN 10 MG TABLET PO SCH (21:04)
[2020-09-22] MEDS: traZODone 50 MG TABLET PO SCH (21:04)
[2020-09-23] MEDS: SODIUM CHLORIDE FLUSH 0.9% 10 ML SYRINGE IVP SCH ×2 (00:30→10:54)
[2020-09-23] MEDS ORDERED: LEVOTHYROXINE 125 MCG TABLET PO SCH (07:00)
[2020-09-23 07:03] LABS: BASOPHILS % (AUTO) 0.8 %; EOSINOPHILS # (AUTO) 0.2 10^3/uL (0.0-0.7); EOSINOPHILS % (AUTO) 2.9 %; HGB - HEMOGLOBIN 7.7 g/dL (12.0-16.0); LYMPHOCYTES % (AUTO) 19.5 %; MEAN CORPUSCULAR HEMOGLOBIN 29.4 pg (27.0-31.0); MEAN CORPUSCULAR HGB CONC 28.9 g/dL (32.0-36.0); MEAN CORPUSCULAR VOLUME 101.5 fL (81.0-99.0); MEAN PLATELET VOLUME 9.6 fL (7.9-10.8); MONOCYTES # (AUTO) 0.5 10^3/uL (0.0-1.0); MONOCYTES % (AUTO) 10.4 %; NEUTROPHILS # (AUTO) 3.4 10^3/uL (1.5-6.6); NEUTROPHILS % (AUTO) 65.8 %; PLT - PLATELET COUNT 177 10^3/uL (130-450); RED BLOOD COUNT 2.62 10^6/uL (4.20-5.40); RED CELL DISTRIBUTION WIDTH 17.2 % (12.0-15.0); WHITE BLOOD COUNT 5.1 x10^3/uL (4.8-10.8)
[2020-09-23 07:21] LABS: CALCIUM 8.2 mg/dL (8.5-10.3); CREATININE 0.7 mg/dL (0.4-1.0); MAGNESIUM 2.3 mg/dL (1.7-2.8)
[2020-09-23 07:56] LABS: PLATELET ESTIMATE, MANUAL NORMAL (130-450,000) (NORMAL); PLATELET MORPHOLOGY NORMAL APPEARANCE (NORMAL); RBC MORPHOLOGY (MULTIPLE) 3+ HYPOCHROMASIA (NORMAL)
[2020-09-23] MEDS: PANTOPRAZOLE 40 MG TABLET PO SCH (08:30)
[2020-09-23] MEDS: INSULIN ASPART 300 UNIT/3 ML PEN SUBQ SCH ×2 (08:30→12:18)
[2020-09-23] MEDS: ASPIRIN EC 81 MG TABLET PO SCH (08:30)
[2020-09-23] MEDS: CLOPIDOGREL 75 MG TABLET PO SCH (08:30)
[2020-09-23] MEDS: POTASSIUM CHLORIDE 10 MEQ CAPSULE PO SCH (08:30)
[2020-09-23] MEDS ORDERED: METOPROLOL SUCCINATE 50 MG TABLET PO SCH (09:00)
[2020-09-23] MEDS ORDERED: diltiaZEM CD 180 MG CAPSULE PO SCH (09:00)
[2020-09-23] MEDS: ALBUTEROL NEB 2.5 MG/3 ML INH PRN (10:10)
[2020-09-23] MEDS ORDERED: IRON DEXTRAN 1,000 MG in SODIUM CHLORIDE 0.9% 250 ML IV ONE (11:00)
--- NOTE | 2020-09-23 11:24 | Discharge Plan ---
Discharge Plan Problem Reviewed?: Yes Disposition: Home, Self Care Condition: Stable Prescriptions: Pantoprazole [Protonix] 40 mg PO QDAC #30 tab Levothyroxine [Synthroid] 125 mcg PO QDAC #30 tablet Diet: Cardiac Activity Restrictions: Activity as Tolerated Health Concerns: You were seen in the hospital because of bleeding that caused you to be anemic. You underwent an endoscopy and colonoscopy. You had mild inflammation of your stomach and you need to take Protonix 40 mg every day. The colonoscopy showed you have diverticulosis which at times can cause bleeding. This usually resol ves on its own. He did require blood and your blood counts have since been stable. Your iron levels are low because of the bleeding and we gave you an iron infusion during this hospitalization. Please stop taking the Eliquis due to the bleeding. You can continue aspirin and Plavix. Plan of Treatment: Your thyroid medication dose is too high so we have decreased to 125 mcg a day. A new prescription was sent to your pharmacy. You will need to check your thyroid labs in 4 to 6 weeks with your primary care doctor. Stop taking the old dose of 150 mcg. I spoke with the surgeon and we recommend that you take aspirin and Plavix and stop the Eliquis for the time being due to the bleeding you had. You will need to have your blood counts checked and if they are stable with no evidence of bleeding, your primary care doctor can consider resuming the Eliquis at that time. Care Goals: To make sure your blood counts are stable and there is no further evidence of bleeding. Assessment: Patient expressed understanding of the treatment plan. Additional Instructions or Follow Up instructions: Please follow-up with your primary care provider within 1 week. You should have repeat labs to make sure your blood counts are stable. No Smoking: If you smoke, Please STOP! Call for help. Follow-up with: Tram Quintanilla PA-C [Primary Care Provider] -
--- NOTE | 2020-09-23 11:29 | DISCHARGE SUMMARY ---
"Discharge Summary Admit Date: 09/18/20 Discharge Date: 09/23/20 Discharging Provider: Ang Escalona Primary Care Provider: Tram Quintanilla Code Status: Do Not Attempt Resuscitation Condition at Discharge: Stable Discharge Disposition: 01 Home, Self Care - DIAGNOSES Admission Diagnoses: Anemia Diastolic heart failure Atrial fibrillation Aortic stenosis Hypothyroidism Asthma History of breast cancer Shortness of breath Discharge Diagnoses with Status of Each Condition: Acute blood loss anemia - stable. Acute on chronic diastolic heart failure - resolved. Chronic respiratory failure with hypoxia - stable. Status post insertion of drug-eluting stent into the LAD for coronary artery disease - stable. Atrial fibrillation with RVR - stable. History of diabetes - stable. Hypothyroidism - stable. - HPI History of Present Illness: H&P per ADIN Cunningham: This is a 85-years old female with a past medical history significant for breast cancer 6 years ago, aortic stenosis and regurgitation, afib with Eliquis, diastolic heart failure in the past, hypothyroidism, bronchial asthma and leg ed ra, severe anemia of iron deficiency, Who present to ER complain shortness of breathing. Pt reports she has been on shortness of breath early on this year. In the last few days her shortness of breath increased significantly. She took O2 at home. She visited her automatic coin machine mechanic on yesterday, and Got labs done yesterday. She was told very anemic. Pt also report she had a cardiac conversion for her A- Fib in her automatic coin machine mechanic office on yesterday as well. In ER her EKG show she had Sinus rhythm. Patient denies GI bleeding, chest pain, fever, chill, cough, nausea, vomiting, abdominal pain.Routine laboratory show her hemoglobin is 5.9. Chest x-ray show Bilaterally middle to low lung field infiltrate most consistent with CHF. In the ER, patient is afebrile, but tachypnea at 30, patient needed 3 L oxygen support to have 96% sats. Discussed the care goal with the patient, patient clearly stated she wanted DNR, and at the time nurse is in the bedside as witness. - CONSULTS | PROCEDURES Consultations: General Surgery Procedures: Colonoscopy showed extensive diverticulosis predominantly sigmoid with significant tortuosity and angulation. No faye active diverticular bleed however single area of potential previous amatory changes single diverticulum. Terminal ileum normal with no ileitis, no hematochezia or melanotic stool. No colitis, no proctitis. Endoscopy showed normal duodenum with no duodenitis. Enteritis with segmental gastritis. Hiatal hernia. GE junction normal with no esophagitis. - HOSPITAL COURSE Hospital Course: She was admitted for acute blood loss anemia and transfused 2 units of packed red blood cell. She underwent endoscopy and colonoscopy which was concerning for possible diverticular bleed and gastritis. Her home Eliquis was held throughout this hospitalization. She was continued on aspirin and Plavix given her recent drug-eluting stent that was placed 4 months ago. Her hemoglobin remained stable after transfusion. Unfortunate she did develop mild acute on chronic diastolic congestive heart failure after the transfusions. She was diuresed with Lasix IV. She did develop a slight contraction alkalosis and so the IV Lasix was discontinued. She always remained on her baseline 3 L of oxygen via nasal cannula. Repeat chest x-ray showed improvement in the pulmonary vascular congestion. Her BNP did increase though and she still felt dyspneic. She was given 1 more day of IV Lasix with improvement in her BNP and significant improvement in her symptoms. She was changed back to oral diuretics. She was given a dose of IV iron prior to discharge given her chronic iron deficiency anemia. Her TSH was also found to be decreased at 0.15. Her home Synthroid dose was decreased to 125 mcg on discharge. I did discuss with general surgery regarding antiplatelet regimen on discharge. They recommended continuing with aspirin and Plavix for the time being but to hold off on Eliquis given the concern for a recurrent diverticular bleed. They stated Eliquis can be resumed on outpatient basis if her hemoglobin remained stable without evidence of bleeding. She will be discharged on aspirin and Plavix. When her Eliquis is been resumed, her aspirin can likely be discontinued and she can just be on Eliquis and Plavix. This was discussed with the patient who is in agreement. On day of discharge, hemoglobin is 7.7. It has been stable at around 8 over the past 48 hours. - ALLERGIES Allergies/Adverse Reactions: Allergies Allergy/AdvReac Type Severity Reaction Status Date / Time No Known Drug Allergies Allergy Verified 09/18/20 15:07 - MEDICATIONS Home Medications: Ambulatory Orders Medication Instructions Recorded Confirmed Anastrozole 1 mg PO DAILY 90 Days #90 tablet 11/23/18 09/18/20 Albuterol Sulf [Ventolin Hfa 2 puffs INH Q4H PRN 12/27/19 09/18/20 Inhaler] Trazodone HCl 150 mg PO QPM 12/27/19 09/18/20 Furosemide [Lasix] 40 mg PO DAILY #30 tablet 12/31/19 09/18/20 Potassium Chloride [Micro-K] 10 meq PO 0800 #30 capsule 12/31/19 09/18/20 [id number] CD [Cardizem Cd] 180 mg PO 0800,1800 #60 capsule 12/31/19 09/18/20 Aspirin [Aspirin EC] 81 mg PO DAILY 09/18/20 Clopidogrel [Plavix] 75 mg PO DAILY 09/18/20 09/18/20 Metoprolol Tartrate [Lopressor] 25 mg PO BID 09/18/20 09/18/20 Rosuvastatin Calcium [Crestor] 5 mg PO QPM 09/18/20 09/18/20 Levothyroxine [Synthroid] 125 mcg PO QDAC #30 tablet 09/23/20 Pantoprazole [Protonix] 40 mg PO QDAC #30 tab 09/23/20 - PHYSICAL EXAM AT DISCHARGE General Appearance: positive: No acute distress, Alert Eyes Bilateral: positive: Normal inspection, Conjunctivae nml ENT: positive: ENT inspection nml Neck: positive: Nml inspection Respiratory: positive: No respiratory distress, Other (Diminished in bases.). negative: Wheezes, Rales Cardiovascular: positive: Irregularly irregular. negative: Tachycardia, Bradycardia, Systolic murmur Abdomen: positive: Non-tender, No distention. negative: Tenderness, Guarding, Rebound Skin: positive: Warm, Dry Extremities: positive: Pedal edema (Trace pitting edema in bilateral lower extremities.) Neurologic/Psychiatric: positive: Oriented x3, Motor nml. negative: Disoriented to person, Disoriented to place, Disoriented to time Physical Exam Other/Comments: Vital Signs - 24 hr 09/22/20 09/22/20 09/23/20 21:00 22:06 00:31 Temperature 37.3 C 37.0 C Heart Rate 120 H Heart Rate [ 114 H Brachial] Heart Rate [ 77 Monitoring electrodes] Respiratory 18 20 20 Rate Blood Pressure [Left Radial artery] Blood Pressure 123/71 126/91 H [Right Brachial artery] O2 Saturation 98 98 09/23/20 09/23/20 09/23/20 04:18 08:00 10:10 Temperature 36.7 C 36.9 C Heart Rate 74 Heart Rate [ 77 76 Brachial] Heart Rate [ Monitoring electrodes] Respiratory 17 16 20 Rate Blood Pressure [Left Radial artery] Blood Pressure 120/58 L 139/50 H [Right Brachial artery] O2 Saturation 97 98 09/23/20 13:00 Temperature 36.8 C Heart Rate Heart Rate [ Brachial] Heart Rate [ 94 Monitoring electrodes] Respiratory 24 Rate Blood Pressure 127/60 [Left Radial artery] Blood Pressure [Right Brachial artery] O2 Saturation 98 Oxygen O2 Source [With Activity] Nasal cannula O2 Source Room air Oxygen Flow Rate 3 - LABS Result Diagrams: 09/23/20 06:22 09/23/20 06:22 Other Lab Results: Laboratory Results 09/23/20 07:54: POC Whole Bld Glucose 92 09/23/20 06:22: B-Natriuretic Peptide 666 H 09/23/20 06:22: Sodium 138, Potassium 4.1, Chloride 96 L, Carbon Dioxide 35 H, Anion Gap 7.0, BUN 18, Creatinine 0.7, Estimated GFR (MDRD) 79 L, Glucose 95, Calcium 8.2 L, Magnesium 2.3 09/23/20 06:22: WBC 5.1, RBC 2.62 L, Hgb 7.7 L, Hct 26.6 L, MCV 101.5 H, MCH 29.4, MCHC 28.9 L, RDW 17.2 H, Plt Count 177, MPV 9.6, Neut # (Auto) 3.4, Lymph # (Auto) 1.0 L, [place] # (Auto) 0.5, Eos # (Auto) 0.2, Baso # (Auto) 0.0, Absolute Nucleated RBC 0.00, Nucleated RBC % 0.0, Manual Slide Review Indicated, Platelet Estimate NORMAL (130-450,000), Platelet Morphology NORMAL APPEARANCE, RBC Morph Micro Appear 3+ HYPOCHROMASIA 09/22/20 20:55: POC Whole Bld Glucose 109 H 09/22/20 16:38: POC Whole Bld Glucose 106 H 09/22/20 05:32: B-Natriuretic Peptide 778 H 09/22/20 05:32: Sodium 139, Potassium 3.7, Chloride 94 L, Carbon Dioxide 36 H, Anion Gap 9.0, BUN 19, Creatinine 0.6, Estimated GFR (MDRD) 95, Glucose 100, Calcium 8.2 L 09/22/20 05:32: WBC 5.3, RBC 2.70 L, Hgb 8.1 L, Hct 27.7 L, MCV 102.6 H, MCH 30.0, MCHC 29.2 L, RDW 17.4 H, Plt Count 192, MPV 10.0, Neut # (Auto) 3.6, Lymph # (Auto) 1.1 L, [place] # (Auto) 0.5, Eos # (Auto) 0.1, Baso # (Auto) 0.0, Absolute Nucleated RBC 0.00, Nucleated RBC % 0.0 - DIAGNOSTIC IMAGING Diagnostic Imaging Results: Final report reviewed - SEPSIS Current Stage of Sepsis: Ruled out - FOLLOW UP Follow Up: She was asked to follow-up with her primary care provider in 1 week. She will need repeat labs to ensure her hemoglobin is stable and to discuss resumption of Eliquis. She will need a repeat TSH in approximately 6 weeks. - TIME SPENT Time Spent in Discharge (Minutes): 32"
[2020-09-23 13:39] VITALS: BP 127/60
[2020-09-24] MEDS ORDERED: PANTOPRAZOLE 40 MG TABLET PO SCH (07:00)
== END 2020-09-23 13:00 | disposition home or self-care (01) | DRG 377 ==
LOC: ED 14:53 → MS3 16:55
PROVIDERS: ADMIT Nurse Practitioner Gerontology; ATTEND Internal Medicine
PROC: 0DB58ZX Excision of Esophagus, Via Natural or Artificial Opening Endoscopic, Diagnostic (ICD-10-PCS; 2020-09-20)
PROC: 0DB48ZX Excision of Esophagogastric Junction, Via Natural or Artificial Opening Endoscopic, Diagnostic (ICD-10-PCS; 2020-09-20)
PROC: 0DJD8ZZ Inspection of Lower Intestinal Tract, Via Natural or Artificial Opening Endoscopic (ICD-10-PCS; 2020-09-20)
PROC: 0DB98ZX Excision of Duodenum, Via Natural or Artificial Opening Endoscopic, Diagnostic (ICD-10-PCS; principal; 2020-09-20 10:00)
PROC: 0DB68ZX Excision of Stomach, Via Natural or Artificial Opening Endoscopic, Diagnostic (ICD-10-PCS; 2020-09-20 10:00)
DX: K29.71 Gastritis, unspecified, with bleeding (principal); D64.9 Anemia, unspecified; D62 Acute posthemorrhagic anemia; J96.11 Chronic respiratory failure with hypoxia; Z68.43 Body mass index [BMI] 50.0-59.9, adult; K57.31 Diverticulosis of large intestine without perforation or abscess with bleeding; I50.33 Acute on chronic diastolic (congestive) heart failure; I50.9 Heart failure, unspecified; I11.0 Hypertensive heart disease with heart failure; I48.91 Unspecified atrial fibrillation; I08.0 Rheumatic disorders of both mitral and aortic valves; J45.998 Other asthma; E11.9 Type 2 diabetes mellitus without complications; I25.10 Atherosclerotic heart disease of native coronary artery without angina pectoris; E87.6 Hypokalemia; K44.9 Diaphragmatic hernia without obstruction or gangrene; E66.01 Morbid (severe) obesity due to excess calories; E78.00 Pure hypercholesterolemia, unspecified; C50.919 Malignant neoplasm of unspecified site of unspecified female breast; Z66 Do not resuscitate; D50.9 Iron deficiency anemia, unspecified; I35.0 Nonrheumatic aortic (valve) stenosis; E03.9 Hypothyroidism, unspecified; Z79.82 Long term (current) use of aspirin; Z79.51 Long term (current) use of inhaled steroids; Z79.01 Long term (current) use of anticoagulants; Z98.890 Other specified postprocedural states; Z86.79 Personal history of other diseases of the circulatory system; Z87.891 Personal history of nicotine dependence; Z95.5 Presence of coronary angioplasty implant and graft; Z79.02 Long term (current) use of antithrombotics/antiplatelets; Z79.899 Other long term (current) drug therapy; Z99.81 Dependence on supplemental oxygen
CPT/HCPCS: 36415; 71045; 80048; 80053; 82272; 82330; 82607; 82728; 83036; 83540; 83615; 83735; 83880; 84443; 84466; 85014; 85018; 85025; 85045; 85610; 85730; 86850; 86900; 86901; 86920; 87631; 88305; 93005; 93306; 94640; 96374; 99284; 99285; A9270; J1750; P9016; 0202U

== ENCOUNTER 2020-10-02 13:22 | Outpatient (CLI) | payer MEDICARE, OTHER ==
[2020-10-02 18:11] LABS: BASOPHILS % (AUTO) 0.4 %; EOSINOPHILS # (AUTO) 0.1 10^3/uL (0.0-0.7); EOSINOPHILS % (AUTO) 1.6 %; HGB - HEMOGLOBIN 8.8 g/dL (12.0-16.0); LYMPHOCYTES # (AUTO) 1.2 10^3/uL (1.5-3.5); LYMPHOCYTES % (AUTO) 17.9 %; MEAN CORPUSCULAR HEMOGLOBIN 29.8 pg (27.0-31.0); MEAN CORPUSCULAR HGB CONC 28.5 g/dL (32.0-36.0); MEAN CORPUSCULAR VOLUME 104.7 fL (81.0-99.0); MEAN PLATELET VOLUME 10.3 fL (7.9-10.8); MONOCYTES # (AUTO) 0.6 10^3/uL (0.0-1.0); MONOCYTES % (AUTO) 8.7 %; NEUTROPHILS # (AUTO) 4.7 10^3/uL (1.5-6.6); PLT - PLATELET COUNT 253 10^3/uL (130-450); RED BLOOD COUNT 2.95 10^6/uL (4.20-5.40); RED CELL DISTRIBUTION WIDTH 18.8 % (12.0-15.0); WHITE BLOOD COUNT 6.7 x10^3/uL (4.8-10.8)
[2020-10-02 19:04] LABS: % IRON SATURATION 24 % (20-50); IRON 85 ug/dL (28-170); TOTAL IRON BINDING CAPACITY 350 ug/dL (250-450); TRANSFERRIN 250 mg/dL (192-382)
[2020-10-02 19:11] LABS: FERRITIN 257.1 ng/mL (11.0-306.8)
[2020-10-02 19:44] LABS: PLATELET ESTIMATE, MANUAL NORMAL (130-450,000) (NORMAL); PLATELET MORPHOLOGY NORMAL APPEARANCE (NORMAL)
== END 2020-10-03 13:24 | disposition home or self-care (01) ==
LOC: LAB.WCP 13:22
PROVIDERS: ATTEND Physician Assistant Medical
DX: D62 Acute posthemorrhagic anemia (principal); E03.9 Hypothyroidism, unspecified
CPT/HCPCS: 36415; 82728; 83540; 84443; 84466; 85025

== ENCOUNTER 2020-10-28 09:24 | Outpatient (CLI) | payer MEDICARE, OTHER ==
[2020-10-28 12:23] LABS: BASOPHILS % (AUTO) 0.7 %; EOSINOPHILS # (AUTO) 0.1 10^3/uL (0.0-0.7); EOSINOPHILS % (AUTO) 2.1 %; HCT - HEMATOCRIT 31.9 % (37.0-47.0); HGB - HEMOGLOBIN 9.3 g/dL (12.0-16.0); LYMPHOCYTES # (AUTO) 0.9 10^3/uL (1.5-3.5); LYMPHOCYTES % (AUTO) 14.9 %; MEAN CORPUSCULAR HEMOGLOBIN 30.8 pg (27.0-31.0); MEAN CORPUSCULAR HGB CONC 29.2 g/dL (32.0-36.0); MEAN CORPUSCULAR VOLUME 105.6 fL (81.0-99.0); MEAN PLATELET VOLUME 10.1 fL (7.9-10.8); MONOCYTES # (AUTO) 0.6 10^3/uL (0.0-1.0); MONOCYTES % (AUTO) 9.7 %; NEUTROPHILS # (AUTO) 4.4 10^3/uL (1.5-6.6); NEUTROPHILS % (AUTO) 72.4 %; PLT - PLATELET COUNT 204 10^3/uL (130-450); RED BLOOD COUNT 3.02 10^6/uL (4.20-5.40); RED CELL DISTRIBUTION WIDTH 19.9 % (12.0-15.0); WHITE BLOOD COUNT 6.1 x10^3/uL (4.8-10.8)
[2020-10-28 12:51] LABS: % IRON SATURATION 27 % (20-50); IRON 93 ug/dL (28-170); TOTAL IRON BINDING CAPACITY 343 ug/dL (250-450); TRANSFERRIN 245 mg/dL (192-382)
== END 2020-10-28 23:59 | disposition home or self-care (01) ==
LOC: LAB.WCP 09:24
PROVIDERS: ATTEND Physician Assistant Medical
DX: D62 Acute posthemorrhagic anemia (principal)
CPT/HCPCS: 36415; 82728; 83540; 84466; 85025

== ENCOUNTER 2020-11-19 07:42 | Outpatient (CLI) | payer MEDICARE, OTHER | END 2020-11-19 07:43 | disposition critical access hospital (66) | LOC: EMS 07:42 | PROVIDERS: ATTEND Surgery | DX: R04.0 Epistaxis (principal); R06.00 Dyspnea, unspecified | CPT/HCPCS: A0425; A0427 ==

== ENCOUNTER 2020-11-19 08:04 | Emergency (ER) | payer MEDICARE, OTHER ==
[2020-11-19] MEDS ORDERED: OXYMETAZOLINE HCL 100 SPRAYS BOTTLE NAS STA (08:07)
[2020-11-19 09:29] LABS: BASOPHILS % (AUTO) 0.4 %; EOSINOPHILS # (AUTO) 0.1 10^3/uL (0.0-0.7); EOSINOPHILS % (AUTO) 1.8 %; LYMPHOCYTES % (AUTO) 17.4 %; MEAN CORPUSCULAR HEMOGLOBIN 31.5 pg (27.0-31.0); MEAN CORPUSCULAR HGB CONC 30.2 g/dL (32.0-36.0); MEAN CORPUSCULAR VOLUME 104.4 fL (81.0-99.0); MEAN PLATELET VOLUME 9.9 fL (7.9-10.8); MONOCYTES # (AUTO) 0.6 10^3/uL (0.0-1.0); MONOCYTES % (AUTO) 10.2 %; NEUTROPHILS # (AUTO) 3.9 10^3/uL (1.5-6.6); PLT - PLATELET COUNT 166 10^3/uL (130-450); RED BLOOD COUNT 3.17 10^6/uL (4.20-5.40); RED CELL DISTRIBUTION WIDTH 18.3 % (12.0-15.0); WHITE BLOOD COUNT 5.5 x10^3/uL (4.8-10.8)
[2020-11-19 09:36] LABS: INR 1.2 (0.8-1.2); PT - PROTHROMBIN TIME 12.9 secs (9.9-12.6)
[2020-11-19 09:41] LABS: ALBUMIN 3.8 g/dL (3.2-5.5); ALBUMIN/GLOBULIN RATIO 1.2 (1.0-2.2); BILIRUBIN,TOTAL 0.5 mg/dL (0.2-1.0); CALCIUM 9.4 mg/dL (8.5-10.3); CREATININE 0.9 mg/dL (0.4-1.0)
--- NOTE | 2020-11-19 10:12 | ED Physician Documentation ---
PD HPI HEENT - Stated complaint Stated Complaint: NOSE BLEED - Chief complaint Chief Complaint: Heent - History obtained from History obtained from: Patient, EMS - History of Present Illness Timing - onset: Today Timing - duration: Hours Timing - details: Abrupt onset, Still present Location: Nose Worsens: Swalllowing Associated symptoms: No: Fever, Congestion, Rhinorrhea, Trismus, Unable to swallow, Swollen nodes, Facial swelling, Headache, Cough Similar symptoms before: Diagnosis (bleeding requiring transfusion) Recently seen: Admitted - Additional information Additional information: 85-year-old female with a history of atrial fibrillation who was on Eliquis has discontinued the Eliquis in August of last year after bleeding led to the need for transfusion. She developed some nosebleed this morning and feels it draining down the back of her throat and is concerned she may need another transfusion. Review of Systems Constitutional: denies: Fever Eyes: denies: Decreased vision Ears: denies: Ear pain Nose: reports: Epistaxis Throat: denies: Sore throat Cardiac: denies: Chest pain / pressure, Palpitations Respiratory: denies: Dyspnea, Cough GI: denies: Vomiting PD PAST MEDICAL HISTORY - Past Medical History Past Medical History: Yes Cardiovascular: Congestive heart failure, Hypertension, High cholesterol, Murmur, Valve disorder, Other Respiratory: None Neuro: None Endocrine/Autoimmune: HyPOthyroidism GI: None : None HEENT: None Psych: Depression, Anxiety Musculoskeletal: None Derm: None - Past Surgical History Past Surgical History: Yes General: Cholecystectomy, Appendectomy Ortho: 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, 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, Other - Present Medications Home Medications: Ambulatory Orders Medication Instructions Recorded Confirmed Anastrozole 1 mg PO DAILY 90 Days #90 tablet 11/23/18 11/19/20 Albuterol Sulf [Ventolin Hfa 2 puffs INH Q4H PRN 12/27/19 11/19/20 Inhaler] Trazodone HCl 150 mg PO QPM 12/27/19 11/19/20 Furosemide [Lasix] 40 mg PO DAILY #30 tablet 12/31/19 11/19/20 Potassium Chloride [Micro-K] 10 meq PO 0800 #30 capsule 12/31/19 11/19/20 [id number] CD [Cardizem Cd] 180 mg PO 0800,1800 #60 capsule 12/31/19 11/19/20 Aspirin [Aspirin EC] 81 mg PO DAILY 11/20/20 01/21/21 Clopidogrel [Plavix] 75 mg PO DAILY 09/18/20 11/19/20 Metoprolol Tartrate [Lopressor] 25 mg PO BID 09/18/20 11/19/20 Rosuvastatin Calcium [Crestor] 5 mg PO QPM 09/18/20 11/19/20 Levothyroxine [Synthroid] 125 mcg PO QDAC #30 tablet 09/23/20 11/19/20 Pantoprazole [Protonix] 40 mg PO QDAC #30 tab 09/23/20 11/19/20 - Allergies Allergies/Adverse Reactions: Allergies Allergy/AdvReac Type Severity Reaction Status Date / Time No Known Drug Allergies Allergy Verified 11/19/20 08:16 - Social History Does the pt smoke?: No Smoking Status: Never smoker Does the pt drink ETOH?: Yes Does the pt have substance abuse?: No - Immunizations Immunizations are current?: Yes - POLST Patient has POLST: No PD ED PE NORMAL - Vitals Vital signs reviewed: Yes (Hypertensive) - General General: Alert and oriented X 3, No acute distress, Well developed/nourished, Other (Smiling 85-year-old with bright red hair is happy and has some blood from the left nares) - HEENT HEENT: Atraumatic, PERRL, EOMI, Pharynx benign, Other (The patient uses oxygen at home and has nasal cannula in place she does have some blood from the right nares there is no blood draining down the posterior pharynx now. Clots are cleared and the patient is given oxymetazoline without further bleeding. ) - Neck Neck: Supple, no meningeal sign, No bony TTP - Respiratory Respiratory: No respiratory distress - Derm Derm: Normal color, Warm and dry - Extremities Extremities: No deformity, No edema - Neuro Neuro: bottler 2-12 intact, No motor deficit, No sensory deficit, Normal speech Eye Opening: Spontaneous Motor: Obeys Commands Verbal: Oriented GCS Score: 15 - Psych Psych: Normal mood, Normal affect Results - Vitals Vitals: Vital Signs - 24 hr 11/19/20 11/19/20 11/19/20 08:14 08:45 09:30 Temperature 36.4 C L Heart Rate 81 83 92 Respiratory 16 20 16 Rate Blood Pressure 112/87 H 124/63 126/73 O2 Saturation 100 93 100 11/19/20 11/19/20 10:00 10:49 Temperature Heart Rate 92 102 H Respiratory 16 20 Rate Blood Pressure 117/77 109/69 O2 Saturation 100 100 Oxygen O2 Source [With Activity] Nasal cannula O2 Source Nasal cannula - Labs Labs: Laboratory Tests 11/19/20 11/19/20 11/19/20 09:25 09:25 09:25 WBC 5.5 RBC 3.17 L Hgb 10.0 L Hct 33.1 L MCV 104.4 H MCH 31.5 H MCHC 30.2 L RDW 18.3 H Plt Count 166 MPV 9.9 Neut # (Auto) 3.9 Lymph # (Auto) 1.0 L [place] # (Auto) 0.6 Eos # (Auto) 0.1 Baso # (Auto) 0.0 Absolute Nucleated RBC 0.00 Nucleated RBC % 0.0 PT 12.9 H INR 1.2 Sodium 144 Potassium 4.4 Chloride 97 L Carbon Dioxide 34 H Anion Gap 13.0 BUN 27 H Creatinine 0.9 Estimated GFR (MDRD) 59 L Glucose 121 H Calcium 9.4 Total Bilirubin 0.5 AST 14 ALT 13 Alkaline Phosphatase 59 Total Protein 7.0 Albumin 3.8 Globulin 3.2 Albumin/Globulin Ratio 1.2 Lipase 27 PD MEDICAL DECISION MAKING - ED course Complexity details: considered differential, d/w patient ED course: 85-year-old female with nosebleed has had prior bleeding requiring transfusion. Today her bleeding is easily controlled and reexamination of the septum after administration of oxymetazoline shows several small areas of recent hemorrhage and no current hemorrhage. There is no hemorrhage noted to the posterior pharynx. The patient is given a clamp and instructed in its use. Her main concern was whether she might need another transfusion and her blood counts were checked today and are improved from her last. Departure - Departure Disposition: 01 Home, Self Care Clinical Impression: Epistaxis Condition: Stable Instructions: ED Nosebleed Follow-Up: Tram Quintanilla PA-C [Primary Care Provider] - Discharge Date/Time: 11/19/20 11:00
[2020-11-19 10:49] VITALS: BP 109/69
== END 2020-11-19 11:00 | disposition home or self-care (01) ==
LOC: EDUNIT# → ED 08:04
DX: R04.0 Epistaxis (principal); I48.91 Unspecified atrial fibrillation; Z79.02 Long term (current) use of antithrombotics/antiplatelets; Z79.82 Long term (current) use of aspirin; I11.0 Hypertensive heart disease with heart failure; I50.9 Heart failure, unspecified; Z99.81 Dependence on supplemental oxygen
CPT/HCPCS: 36415; 80053; 83690; 85025; 85610; 99283; 99284; A9270

== ENCOUNTER 2020-11-20 11:35 | Emergency (ER) | payer MEDICARE, OTHER ==
[2020-11-20] MEDS ORDERED: OXYMETAZOLINE HCL 100 SPRAYS BOTTLE NAS STA (12:23)
--- NOTE | 2020-11-20 12:35 | ED Physician Documentation ---
PD HPI HEENT - Stated complaint Stated Complaint: SEVERE NOSE BLEED - Chief complaint Chief Complaint: Heent - History obtained from History obtained from: Patient - History of Present Illness Timing - onset: Yesterday (was seen in ER for nosebleed and it improved. No packing nor cautery. She states it started bleeding again this morning, without obvious instigation. Not improved with pinching.) Timing - duration: Hours Timing - details: Abrupt onset, Still present Location: Nose (left anterior nosebleed) Associated symptoms: No: Fever, Congestion, Rhinorrhea, Headache, Cough Similar symptoms before: Diagnosis (seen yesterday in ER for bleeding same nostril, that improved with Afrin and noseclamp. NO packing done.) Recently seen: Emergency Dept Review of Systems Constitutional: denies: Fever, Chills Ears: reports: Loss of hearing (both sides this morning) Nose: reports: Epistaxis. denies: Rhinorrhea / runny nose, Congestion Throat: denies: Sore throat Cardiac: denies: Chest pain / pressure Respiratory: denies: Dyspnea, Cough Neurologic: denies: Generalized weakness, Focal weakness, Near syncope Endocrine: reports: Easy bruising / bleeding. denies: Weight loss PD PAST MEDICAL HISTORY - Past Medical History Cardiovascular: Congestive heart failure, Hypertension, High cholesterol, Murmur, Valve disorder (previously on Eliquis but not since the fall; currently on ASA and Plavix. 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, 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, Other - Present Medications Home Medications: Ambulatory Orders Medication Instructions Recorded Confirmed Anastrozole 1 mg PO DAILY 90 Days #90 tablet 11/23/18 11/19/20 Albuterol Sulf [Ventolin Hfa 2 puffs INH Q4H PRN 12/27/19 11/19/20 Inhaler] Trazodone HCl 150 mg PO QPM 12/27/19 11/19/20 Furosemide [Lasix] 40 mg PO DAILY #30 tablet 12/31/19 11/19/20 Potassium Chloride [Micro-K] 10 meq PO 0800 #30 capsule 12/31/19 11/19/20 [id number] CD [Cardizem Cd] 180 mg PO 0800,1800 #60 capsule 12/31/19 11/19/20 Aspirin [Aspirin EC] 81 mg PO DAILY 09/18/20 11/19/20 Clopidogrel [Plavix] 75 mg PO DAILY 09/18/20 11/19/20 Metoprolol Tartrate [Lopressor] 25 mg PO BID 09/18/20 11/19/20 Rosuvastatin Calcium [Crestor] 5 mg PO QPM 09/18/20 11/19/20 Levothyroxine [Synthroid] 125 mcg PO QDAC #30 tablet 09/23/20 11/19/20 Pantoprazole [Protonix] 40 mg PO QDAC #30 tab 09/23/20 11/19/20 - Allergies Allergies/Adverse Reactions: Allergies Allergy/AdvReac Type Severity Reaction Status Date / Time No Known Drug Allergies Allergy Verified 11/20/20 11:38 - Social History Does the pt smoke?: No Smoking Status: Never smoker Does the pt drink ETOH?: Yes Does the pt have substance abuse?: No - Immunizations Immunizations are current?: Yes - POLST Patient has POLST: No PD ED PE NORMAL - Vitals Vital signs reviewed: Yes - General General: Alert and oriented X 3, Well developed/nourished, Other (left anterior nostril with bleeding anteriorly until clamped, then some posteriorly. trickle over to right, but no obvious acute bleeding. Anxious with dabbing up the bleeding. ) - HEENT HEENT: Pharynx benign (mild trickle of blood down back of throat. ) - Neck Neck: Supple, no meningeal sign, No adenopathy - Cardiac Cardiac: RRR - Respiratory Respiratory: Clear bilaterally - Abdomen Abdomen: Soft, Non tender - Derm Derm: Normal color, Warm and dry, No rash - Extremities Extremities: No calf tenderness / cord - Neuro Neuro: Alert and oriented X 3, No motor deficit, Normal speech Results - Vitals Vitals: Vital Signs - 24 hr 11/20/20 11/20/20 11:39 14:36 Temperature 36.2 C L 36.8 C Heart Rate 110 H 110 H Respiratory 22 18 Rate Blood Pressure 144/100 H 113/63 O2 Saturation 92 99 Oxygen O2 Source [With Activity] Nasal cannula O2 Source Nasal cannula - Labs Labs: Laboratory Tests 11/20/20 12:33 WBC 6.6 RBC 3.21 L Hgb 10.1 L Hct 33.2 L MCV 103.4 H MCH 31.5 H MCHC 30.4 L RDW 17.9 H Plt Count 175 MPV 10.3 Neut # (Auto) 4.9 Lymph # (Auto) 0.9 L [place] # (Auto) 0.7 Eos # (Auto) 0.1 Baso # (Auto) 0.0 Absolute Nucleated RBC 0.00 Nucleated RBC % 0.0 Procedures - Epistaxis Site: Left, Anterior Preparation: Clots removed, Afrin, Lidocaine, Clamp / pressure applied, Other (TXA - it took couple rounds of Afrin spray and then cautery to get bleeding to minimal to where cautery could be applied. Expanding foam then placed and expended with Afrin. Bleeding down to dabs of red, which I think is runoff of clot and blood from upper higher in nares. Merocel not worse.) Treatment: Silver Nitrate, Packing inserted Other: Observed - no bleeding (there is spotting of some dark blood on right, which seems to be trickle over from left side.), Pt tolerated well Departure - Departure Disposition: 01 Home, Self Care Clinical Impression: Anterior epistaxis Condition: Stable Instructions: Nosebleed Follow-Up: Tram Quintanilla PA-C [Primary Care Provider] - Comments: Hold your Plavix for a day. Leave the packing in the left nostril for a day and then remove gently or follow-up with your primary care or the ER to have it riky tony. I believe the bleeding has stopped at this point and what you are having come out now is the residual clot from up in the nose and nasopharynx. I would anticipate that improving after several hours. You can use some saline spray or water cleansing up the right nostril to help clear that passageway. Sleep with your head slightly elevated to promote drainage. Recheck if recurrent bleeding not responsive to pinching the nostril for 15 or 20 minutes. Your blood count was the same today as yesterday so no impact on your blood count from the blood loss. Discharge Date/Time: 11/20/20 15:57
[2020-11-20 12:42] LABS: BASOPHILS % (AUTO) 0.6 %; EOSINOPHILS # (AUTO) 0.1 10^3/uL (0.0-0.7); EOSINOPHILS % (AUTO) 1.1 %; HGB - HEMOGLOBIN 10.1 g/dL (12.0-16.0); LYMPHOCYTES # (AUTO) 0.9 10^3/uL (1.5-3.5); LYMPHOCYTES % (AUTO) 13.3 %; MEAN CORPUSCULAR HEMOGLOBIN 31.5 pg (27.0-31.0); MEAN CORPUSCULAR HGB CONC 30.4 g/dL (32.0-36.0); MEAN CORPUSCULAR VOLUME 103.4 fL (81.0-99.0); MEAN PLATELET VOLUME 10.3 fL (7.9-10.8); MONOCYTES # (AUTO) 0.7 10^3/uL (0.0-1.0); MONOCYTES % (AUTO) 9.8 %; NEUTROPHILS # (AUTO) 4.9 10^3/uL (1.5-6.6); NEUTROPHILS % (AUTO) 74.9 %; PLT - PLATELET COUNT 175 10^3/uL (130-450); RED BLOOD COUNT 3.21 10^6/uL (4.20-5.40); RED CELL DISTRIBUTION WIDTH 17.9 % (12.0-15.0); WHITE BLOOD COUNT 6.6 x10^3/uL (4.8-10.8)
[2020-11-20] MEDS ORDERED: SILVER NITRATE APPLICATOR TOP STA (14:06)
[2020-11-20 14:37] VITALS: BP 113/63
== END 2020-11-20 15:57 | disposition home or self-care (01) ==
LOC: ED 11:35
DX: R04.0 Epistaxis (principal); I11.0 Hypertensive heart disease with heart failure; I50.9 Heart failure, unspecified; Z79.02 Long term (current) use of antithrombotics/antiplatelets; Z79.82 Long term (current) use of aspirin
CPT/HCPCS: 30901; 85025; 99283; A9270

== ENCOUNTER 2020-12-24 08:00 | Outpatient (CLI) | payer MEDICARE, OTHER ==
[2020-12-24 13:19] LABS: BASOPHILS % (AUTO) 0.8 %; EOSINOPHILS # (AUTO) 0.1 10^3/uL (0.0-0.7); EOSINOPHILS % (AUTO) 2.3 %; HGB - HEMOGLOBIN 11.5 g/dL (12.0-16.0); LYMPHOCYTES # (AUTO) 1.5 10^3/uL (1.5-3.5); LYMPHOCYTES % (AUTO) 27.5 %; MEAN CORPUSCULAR HEMOGLOBIN 32.6 pg (27.0-31.0); MEAN CORPUSCULAR HGB CONC 31.3 g/dL (32.0-36.0); MEAN CORPUSCULAR VOLUME 104.2 fL (81.0-99.0); MEAN PLATELET VOLUME 10.7 fL (7.9-10.8); MONOCYTES # (AUTO) 0.6 10^3/uL (0.0-1.0); MONOCYTES % (AUTO) 11.5 %; NEUTROPHILS # (AUTO) 3.1 10^3/uL (1.5-6.6); NEUTROPHILS % (AUTO) 57.7 %; PLT - PLATELET COUNT 185 10^3/uL (130-450); RED BLOOD COUNT 3.53 10^6/uL (4.20-5.40); WHITE BLOOD COUNT 5.3 x10^3/uL (4.8-10.8)
[2020-12-24 13:49] LABS: ALBUMIN/GLOBULIN RATIO 1.3 (1.0-2.2); ALKALINE PHOSPHATASE 56 IU/L (42-121); ALT ALANINE AMINOTRANSFERASE 15 IU/L (10-60); AST ASPARTATE AMINOTRANSFERASE 20 IU/L (10-42); BILIRUBIN,TOTAL 0.4 mg/dL (0.2-1.0); BUN - BLOOD UREA NITROGEN 37 mg/dL (6-20); CALCIUM 9.6 mg/dL (8.5-10.3); CARBON DIOXIDE - CO2 35 mmol/L (21-32); CHLORIDE 92 mmol/L (101-111); CHOL/HDL RATIO 2.3 (<4.4); CHOLESTEROL 117 mg/dL; CREATININE 1.2 mg/dL (0.4-1.0); GLUCOSE 119 mg/dL (70-100); HDL CHOLESTEROL 51 mg/dL; LDL CHOLESTEROL,CALCULATED 53 mg/dL; TOTAL PROTEIN 7.2 g/dL (6.7-8.2); VLDL CHOLESTEROL 13 mg/dL
[2020-12-24 14:21] LABS: FREE T4 (FREE THYROXINE) 0.81 ng/dL (0.58-1.64)
== END 2020-12-24 23:59 | disposition home or self-care (01) ==
LOC: LAB.WCP 08:00
PROVIDERS: ATTEND Physician Assistant Medical
DX: I10 Essential (primary) hypertension (principal); R94.31 Abnormal electrocardiogram [ECG] [EKG]; E78.5 Hyperlipidemia, unspecified; F41.9 Anxiety disorder, unspecified; F32.9 Major depressive disorder, single episode, unspecified; E03.9 Hypothyroidism, unspecified; K92.2 Gastrointestinal hemorrhage, unspecified; D62 Acute posthemorrhagic anemia
CPT/HCPCS: 36415; 80053; 80061; 83721; 84439; 84443; 85025

== ENCOUNTER 2021-01-03 09:36 | Emergency (ER) | payer MEDICARE, OTHER ==
--- NOTE | 2021-01-03 09:41 | ED Physician Documentation ---
PD HPI DYSPNEA - Stated complaint Stated Complaint: SOA - History obtained from History obtained from: Patient - History of Present Illness Timing - onset: How many weeks ago (1 1/2) Timing - onset during: Light activity Timing - duration: Days (some weight gain over 1 1/2 weeks of about 10 lbs. Having worse dyspnea the past few days, increased today.) Timing - details: Gradual onset Inciting event(s): No: Out of meds Worsened by: Exertion, Laying flat Associated symptoms: Bilateral edema. No: Fever, Cough, Wheezing Similar symptoms before: Diagnosis (CHF, atrial fib, asthma) Recently seen: Clinic (her PMD had her increase her Lasix from daily to BID 40 mg several days ago but pt is still feeling progressively worse. Not having increased urine output.) Review of Systems Constitutional: denies: Fever, Chills Nose: denies: Rhinorrhea / runny nose, Congestion Throat: denies: Sore throat Cardiac: reports: Pedal edema. denies: Chest pain / pressure, Palpitations, Calf pain Respiratory: reports: Dyspnea. denies: Cough, Wheezing GI: denies: Vomiting, Diarrhea, Bloody / black stool Musculoskeletal: denies: Neck pain, Back pain Neurologic: reports: Generalized weakness. denies: Near syncope PD PAST MEDICAL HISTORY - Past Medical History Cardiovascular: Congestive heart failure, Hypertension, High cholesterol, Murmur, Valve disorder (previously on Eliquis but not since the fall; currently on ASA and Plavix. 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, Other - Present Medications Home Medications: Ambulatory Orders Medication Instructions Recorded Confirmed Albuterol Sulf [Ventolin Hfa 2 puffs INH Q4H PRN 12/27/19 01/03/21 Inhaler] Trazodone HCl 150 mg PO QPM 12/27/19 01/03/21 Potassium Chloride [Micro-K] 10 meq PO 0800 #30 capsule 12/31/19 01/03/21 [id number] CD [Cardizem Cd] 180 mg PO 0800,1800 #60 capsule 12/31/19 01/03/21 Aspirin [Aspirin EC] 81 mg PO DAILY 09/18/20 01/03/21 Clopidogrel [Plavix] 75 mg PO DAILY 09/18/20 01/03/21 Metoprolol Tartrate [Lopressor] 50 mg PO BID 09/18/20 01/03/21 Rosuvastatin Calcium [Crestor] 5 mg PO QPM 09/18/20 01/03/21 Levothyroxine [Synthroid] 125 mcg PO QDAC #30 tablet 09/23/20 01/03/21 Furosemide [Lasix] 40 mg PO BID 01/03/21 01/03/21 - Allergies Allergies/Adverse Reactions: Allergies Allergy/AdvReac Type Severity Reaction Status Date / Time levothyroxine Allergy Itching Verified 11/23/20 11:00 - Social History Does the pt smoke?: No Smoking Status: Never smoker Does the pt drink ETOH?: Yes Does the pt have substance abuse?: No - Immunizations Immunizations are current?: Yes - POLST Patient has POLST: No PD ED PE NORMAL - Vitals Vital signs reviewed: Yes - General General: Alert and oriented X 3, No acute distress, Well developed/nourished - HEENT HEENT: Pharynx benign - Neck Neck: Supple, no meningeal sign, No adenopathy - Cardiac Cardiac: RRR, Other (2/6 murmur left chest c/w murmur) - Respiratory Respiratory: No: Clear bilaterally (fine crackles at bases bilaterally) - Abdomen Abdomen: Soft, Non tender - Derm Derm: Normal color, Warm and dry - Extremities Extremities: No tenderness to palpate, Normal ROM s pain, No calf tenderness / cord, Other (1+ edema both lower legs) - Neuro Neuro: Alert and oriented X 3, No motor deficit, Normal speech Results - Vitals Vitals: Vital Signs - 24 hr 01/03/21 01/03/21 01/03/21 09:43 10:34 11:01 Temperature 36.4 C L Heart Rate 71 55 L 54 L Respiratory 24 17 19 Rate Blood Pressure 123/63 110/70 127/64 O2 Saturation 96 99 99 01/03/21 01/03/21 01/03/21 11:20 11:31 12:00 Temperature Heart Rate 89 47 L 50 L Respiratory 21 16 16 Rate Blood Pressure 120/91 H 135/69 H 128/55 L O2 Saturation 100 100 100 01/03/21 01/03/21 12:30 13:26 Temperature Heart Rate 54 L 62 Respiratory 19 20 Rate Blood Pressure 129/63 113/80 O2 Saturation 99 100 Oxygen O2 Source [With Activity] Nasal cannula O2 Source Nasal cannula Oxygen Flow Rate 3 - EKG (time done) 11:05 Rate: Rate (enter#) (36) Rhythm: Atrial fibrillation (bradycardic) [place]: Normal QRS: Normal Ischemia: Normal ST segments. No: ST elevation c/w ischemia, ST depression - Labs Labs: Laboratory Tests 01/03/21 01/03/21 01/03/21 10:20 10:20 10:20 WBC 4.4 L RBC 3.34 L Hgb 10.9 L Hct 35.6 L MCV 106.6 H MCH 32.6 H MCHC 30.6 L RDW 15.9 H Plt Count 158 MPV 10.4 Neut # (Auto) 2.9 Lymph # (Auto) 0.8 L [place] # (Auto) 0.6 Eos # (Auto) 0.1 Baso # (Auto) 0.0 Absolute Nucleated RBC 0.00 Nucleated RBC % 0.0 PT 12.8 H INR 1.2 APTT 24.3 L Sodium 144 Potassium 4.2 Chloride 101 Carbon Dioxide 33 H Anion Gap 10.0 BUN 22 H Creatinine 0.9 Estimated GFR (MDRD) 59 L Glucose 120 H Calcium 8.7 Magnesium 2.3 Total Bilirubin 0.5 AST 21 ALT 25 Alkaline Phosphatase 55 Troponin I High Sens B-Natriuretic Peptide Total Protein 6.7 Albumin 3.6 Globulin 3.1 Albumin/Globulin Ratio 1.2 Lipase 20 L 01/03/21 01/03/21 10:20 10:20 WBC RBC Hgb Hct MCV MCH MCHC RDW Plt Count MPV Neut # (Auto) Lymph # (Auto) [place] # (Auto) Eos # (Auto) Baso # (Auto) Absolute Nucleated RBC Nucleated RBC % PT INR APTT Sodium Potassium Chloride Carbon Dioxide Anion Gap BUN Creatinine Estimated GFR (MDRD) Glucose Calcium Magnesium Total Bilirubin AST ALT Alkaline Phosphatase Troponin I High Sens 8.0 B-Natriuretic Peptide 412 H Total Protein Albumin Globulin Albumin/Globulin Ratio Lipase - Rads (name of study) chest xray Radiology: Prelim report reviewed (interstitial changes c/w CHF. ), See rad report PD MEDICAL DECISION MAKING - ED course Complexity details: re-evaluated patient (she has diuresed a large amount of urine and is feeling much improved. Sats good, breathing well. Shared agreement that she can be discharged and continue higher dose Lasix. Has recheck with PMD in couple days.), considered differential (ECG showing marked bradycardia but the main HR through most of the ED stay was 47-80 and not consistently slow. Symptoms seem CHF with weight gain, edema and progressive dyspne.), d/w patient Departure - Departure Disposition: Home, Self Care Clinical Impression: Acute exacerbation of CHF (congestive heart failure), Abnormal weight gain Dyspnea Qualifiers: Dyspnea type: shortness of breath Qualified Code(s): R06.02 - Shortness of breath Condition: Stable Record reviewed to determine appropriate education?: Yes Instructions: ED CHF General Follow-Up: Tram Quintanilla PA-C [Primary Care Provider] - Comments: With your current medications including the increased dose of Lasix you have been taking. Low-salt diet. Follow-up with your primary care this coming week, call tomorrow morning for follow-up appointment time. I would anticipate continued improvement over the next couple of days now that you are starting to diurese better. Return if worsening symptoms again. Discharge Date/Time: 01/03/21 14:13
[2021-01-03] MEDS ORDERED: FUROSEMIDE 40 MG/4 ML VIAL IVP STA (09:57)
[2021-01-03] MEDS ORDERED: NITROGLYCERIN 2% PASTE TOP STA (09:59)
--- NOTE | 2021-01-03 10:18 | XRAY Report ---
PROCEDURE: Chest 1 View X-Ray INDICATIONS: Chest Pain TECHNIQUE: One view of the chest was acquired. COMPARISON: 09/22/2020 FINDINGS: Surgical changes and devices: None. Lungs and pleura: Question mild interstitial pulmonary edema. Small left pleural effusion. Patchy bib asilar atelectasis. Mediastinum: Mediastinal contours appear normal. Mild cardiomegaly. Bones and chest wall: No suspicious bony lesions. Overlying soft tissues appear unremarkable. IMPRESSION: Probable congestive heart failure exacerbation. Reviewed by: Narciso Flanagan MD on 01/03/2021 9:17 AM [facility] Approved by: Narciso Flanagan MD on 01/03/2021 9:17 AM [facility] Station ID: [id number]
[2021-01-03 10:24] LABS: BASOPHILS % (AUTO) 0.7 %; EOSINOPHILS # (AUTO) 0.1 10^3/uL (0.0-0.7); EOSINOPHILS % (AUTO) 1.8 %; HCT - HEMATOCRIT 35.6 % (37.0-47.0); HGB - HEMOGLOBIN 10.9 g/dL (12.0-16.0); LYMPHOCYTES # (AUTO) 0.8 10^3/uL (1.5-3.5); LYMPHOCYTES % (AUTO) 17.8 %; MEAN CORPUSCULAR HEMOGLOBIN 32.6 pg (27.0-31.0); MEAN CORPUSCULAR HGB CONC 30.6 g/dL (32.0-36.0); MEAN CORPUSCULAR VOLUME 106.6 fL (81.0-99.0); MEAN PLATELET VOLUME 10.4 fL (7.9-10.8); MONOCYTES # (AUTO) 0.6 10^3/uL (0.0-1.0); MONOCYTES % (AUTO) 12.8 %; NEUTROPHILS # (AUTO) 2.9 10^3/uL (1.5-6.6); NEUTROPHILS % (AUTO) 66.7 %; PLT - PLATELET COUNT 158 10^3/uL (130-450); RED BLOOD COUNT 3.34 10^6/uL (4.20-5.40); RED CELL DISTRIBUTION WIDTH 15.9 % (12.0-15.0); WHITE BLOOD COUNT 4.4 x10^3/uL (4.8-10.8)
[2021-01-03 10:30] LABS: INR 1.2 (0.8-1.2); PT - PROTHROMBIN TIME 12.8 secs (9.9-12.6)
[2021-01-03 10:37] LABS: PARTIAL THROMBOPLASTIN TIME 24.3 secs (24.9-33.3)
[2021-01-03 10:44] LABS: ALBUMIN 3.6 g/dL (3.2-5.5); ALBUMIN/GLOBULIN RATIO 1.2 (1.0-2.2); BILIRUBIN,TOTAL 0.5 mg/dL (0.2-1.0); CALCIUM 8.7 mg/dL (8.5-10.3); CREATININE 0.9 mg/dL (0.4-1.0); MAGNESIUM 2.3 mg/dL (1.7-2.8); POTASSIUM 4.2 mmol/L (3.5-5.0); TOTAL PROTEIN 6.7 g/dL (6.7-8.2)
[2021-01-03 13:28] VITALS: BP 113/80
== END 2021-01-03 14:13 | disposition home or self-care (01) ==
LOC: ED 09:36
DX: I11.0 Hypertensive heart disease with heart failure (principal); I50.9 Heart failure, unspecified; R63.5 Abnormal weight gain; I48.91 Unspecified atrial fibrillation; R00.1 Bradycardia, unspecified; I45.2 Bifascicular block; Z79.02 Long term (current) use of antithrombotics/antiplatelets; Z79.82 Long term (current) use of aspirin
CPT/HCPCS: 36415; 51702; 71045; 80053; 83690; 83735; 83880; 84484; 85025; 85610; 85730; 93005; 96374; 99284; 99285; A9270

== ENCOUNTER 2021-06-25 09:06 | Inpatient (IN) | payer MEDICARE, OTHER ==
--- NOTE | 2021-06-25 09:26 | ED Physician Documentation ---
PD HPI DYSPNEA - Stated complaint Stated Complaint: SOA,COUGH - Chief complaint Chief Complaint: Cardiac - History obtained from History obtained from: Patient - History of Present Illness Timing - onset: How many weeks ago (1) Timing - onset during: Light activity Timing - duration: Weeks (1) Timing - details: Gradual onset Inciting event(s): No: Out of meds, URI Improved by: O2 (She has continue with her oxygen regularly at 3 L. She does usually use it at night and much of the time during the day but could the off of it at times until this past week. Unable to walk even across the room the last few days.), Rest, Sitting up Worsened by: Exertion, Laying flat Associated symptoms: Cough (mild nonproductive), Bilateral edema, Other (weight gain of 10 lbs in the past couple of weeks, and has lost only few lbs with incr eased lasix dosing the past 5 days. Still having significant dyspnea though. Had COVID vaccine in December.). No: Fever, Hemoptysis, Wheezing, Chest pain / discomfort Similar symptoms before: Diagnosis (CHF. Does have some history of asthma but not recent problem.) Recently seen: Not recently seen (she increased her Lasix on her own, as per prior discussions with PCP, from 40 mg TID up to 80mg/40mg/40mg. No improvement in symptoms.) Review of Systems Constitutional: denies: Fever, Chills Nose: denies: Rhinorrhea / runny nose, Congestion Throat: denies: Sore throat Cardiac: reports: Pedal edema. denies: Chest pain / pressure Respiratory: reports: Dyspnea. denies: Cough, Wheezing GI: denies: Abdominal Pain, Nausea, Vomiting, Bloody / black stool Musculoskeletal: reports: Extremity swelling Neurologic: reports: Generalized weakness. denies: Focal weakness, Numbness PD PAST MEDICAL HISTORY - Past Medical History Cardiovascular: Congestive heart failure, Hypertension, High cholesterol, Atrial fibrillation (chronic), Valve disorder (previously on Eliquis but not since the fall; currently on ASA and Plavix. 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, 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, Other - Present Medications Home Medications: Ambulatory Orders Medication Instructions Recorded Confirmed Albuterol Sulf [Ventolin Hfa 2 puffs INH Q4H PRN 12/27/19 06/25/21 Inhaler] Trazodone HCl 150 mg PO QPM 12/27/19 06/25/21 Potassium Chloride [Micro-K] 10 meq PO 0800 #30 capsule 12/31/19 06/25/21 [id number] CD [Cardizem Cd] 180 mg PO 0800,1800 #60 capsule 12/31/19 06/25/21 Aspirin [Aspirin EC] 81 mg PO DAILY 09/18/20 06/25/21 Clopidogrel [Plavix] 75 mg PO DAILY 09/18/20 06/25/21 Metoprolol Tartrate [Lopressor] 50 mg PO BID 09/18/20 06/25/21 Rosuvastatin Calcium [Crestor] 5 mg PO QPM 09/18/20 06/25/21 Levothyroxine [Synthroid] 125 mcg PO QDAC #30 tablet 09/23/20 06/25/21 Furosemide [Lasix] 40 mg PO BID 01/03/21 06/25/21 - Allergies Allergies/Adverse Reactions: Allergies Allergy/AdvReac Type Severity Reaction Status Date / Time No Known Drug Allergies Allergy Verified 06/25/21 09:14 - Social History Does the pt smoke?: No Smoking Status: Never smoker Does the pt drink ETOH?: Yes Does the pt have substance abuse?: No - Immunizations Immunizations are current?: Yes - POLST Patient has POLST: No PD ED PE NORMAL - Vitals Vital signs reviewed: Yes - General General: Alert and oriented X 3, Well developed/nourished, Other (partial sentence dyspnea. Feels dyspnea with head of bed at 45 degrees, put up straighter and feels better. ) - HEENT HEENT: Pharynx benign - Neck Neck: Supple, no meningeal sign, No adenopathy - Cardiac Cardiac: No: RRR (irregular but rate controlled. ) - Respiratory Respiratory: No: Clear bilaterally (coarse sounds lower half. No wheezes noted. Diminished sounds diffusely. ) - Abdomen Abdomen: Soft, Non tender - Back Back: No CVA TTP - Derm Derm: Normal color - Extremities Extremities: Normal ROM s pain, No calf tenderness / cord, Other (2+ edema in both lower legs up to mid shins. ) - Neuro Neuro: Alert and oriented X 3, No motor deficit, Normal speech Results - Vitals Vitals: Vital Signs - 24 hr 06/25/21 06/25/21 06/25/21 09:11 09:38 10:15 Temperature 36.4 C L Heart Rate 75 86 75 Respiratory 22 24 20 Rate Blood Pressure 115/78 O2 Saturation 93 98 06/25/21 10:56 Temperature Heart Rate 62 Respiratory 19 Rate Blood Pressure 121/58 L O2 Saturation 97 Oxygen O2 Source [With Activity] Nasal cannula O2 Source Room air Oxygen Flow Rate 3 - EKG (time done) 10:04 Rate: Rate (enter#) (70) Rhythm: Atrial fibrillation Petroleum: Normal Intervals: Wide QRS QRS: Normal Ischemia: Normal ST segments. No: ST elevation c/w ischemia, ST depression - Labs Labs: Laboratory Tests 06/25/21 06/25/21 06/25/21 10:05 10:05 10:05 WBC 5.8 RBC 3.47 L Hgb 11.6 L Hct 35.4 L MCV 102.0 H MCH 33.4 H MCHC 32.8 RDW 14.3 Plt Count 187 MPV 9.9 Neut # (Auto) 4.1 Lymph # (Auto) 0.9 L [place] # (Auto) 0.6 Eos # (Auto) 0.1 Baso # (Auto) 0.0 Absolute Nucleated RBC 0.00 Nucleated RBC % 0.0 Sodium 139 Potassium 4.3 Chloride 97 L Carbon Dioxide 33 H Anion Gap 9.0 BUN 26 H Creatinine 0.8 Estimated GFR (MDRD) 68 L Glucose 127 H Calcium 9.0 Magnesium 2.1 Total Bilirubin 0.9 AST 16 ALT 17 Alkaline Phosphatase 65 Troponin I High Sens B-Natriuretic Peptide 411 H Total Protein 7.4 Albumin 3.9 Globulin 3.5 Albumin/Globulin Ratio 1.1 Lipase 31 TSH Nasal Adenovirus (PCR) Nasal B. parapertussis DNA (PCR) Nasal Coronavir 229E PCR Nasal Coronavir HKU1 PCR Nasal Coronavir NL63 PCR Nasal Coronavir OC43 PCR Nasal Enterovir/Rhinovir PCR Nasal Influenza B PCR Nasal Influenza A PCR Nasal Parainfluen 1 PCR Nasal Parainfluen 2 PCR Nasal Parainfluen 3 PCR Nasal Parainfluen 4 PCR Nasal RSV (PCR) Nasal B.pertussis DNA PCR Nasal C.pneumoniae (PCR) [place] Human Metapneumo PCR Nasal M.pneumoniae (PCR) Nasal SARS-CoV-2 (PCR) 06/25/21 06/25/21 06/25/21 10:05 10:05 10:05 WBC RBC Hgb Hct MCV MCH MCHC RDW Plt Count MPV Neut # (Auto) Lymph # (Auto) [place] # (Auto) Eos # (Auto) Baso # (Auto) Absolute Nucleated RBC Nucleated RBC % Sodium Potassium Chloride Carbon Dioxide Anion Gap BUN Creatinine Estimated GFR (MDRD) Glucose Calcium Magnesium Total Bilirubin AST ALT Alkaline Phosphatase Troponin I High Sens 13.3 B-Natriuretic Peptide Total Protein Albumin Globulin Albumin/Globulin Ratio Lipase TSH 2.38 Nasal Adenovirus (PCR) NOT DETECTED Nasal B. parapertussis DNA (PCR) NOT DETECTED Nasal Coronavir 229E PCR NOT DETECTED Nasal Coronavir HKU1 PCR NOT DETECTED Nasal Coronavir NL63 PCR NOT DETECTED Nasal Coronavir OC43 PCR NOT DETECTED Nasal Enterovir/Rhinovir PCR NOT DETECTED Nasal Influenza B PCR NOT DETECTED Nasal Influenza A PCR NOT DETECTED Nasal Parainfluen 1 PCR NOT DETECTED Nasal Parainfluen 2 PCR NOT DETECTED Nasal Parainfluen 3 PCR NOT DETECTED Nasal Parainfluen 4 PCR NOT DETECTED Nasal RSV (PCR) NOT DETECTED Nasal B.pertussis DNA PCR NOT DETECTED Nasal C.pneumoniae (PCR) NOT DETECTED [place] Human Metapneumo PCR NOT DETECTED Nasal M.pneumoniae (PCR) NOT DETECTED Nasal SARS-CoV-2 (PCR) NOT DETECTED - Rads (name of study) Chest Radiology: Prelim report reviewed (CHF/increased vascularity), See rad report PD MEDICAL DECISION MAKING - ED course Complexity details: reviewed results, re-evaluated patient (He has started putting more urine out with the second dose of Lasix. She has had about 600 to 800 mL. She still seems short of breath even with resting in bed. It is feeling improved.), considered differential, d/w patient ED course: Given that she has already increased her home Lasix dosing and still was having worsening symptoms, it seemed reasonable to treat her with more vigorous diuresis. She is normally on oxygen at home much of the time. Her sats are good on the 3 L nasal cannula here but is low without oxygen. We discussed it and shared decision to talk with the hospitalist about observation for over short-term increase diuretic. Patient is agreeable Departure - Departure Disposition: ED Place in Observation Clinical Impression: Dyspnea Qualifiers: Dyspnea type: dyspnea on exertion Qualified Code(s): R06.00 - Dyspnea, unspecified CHF exacerbation Qualifiers: Heart failure type: unspecified Qualified Code(s): I50.9 - Heart failure, unspecified
[2021-06-25] MEDS ORDERED: FUROSEMIDE 40 MG/4 ML VIAL IVP STA ×2 (09:48→12:01)
[2021-06-25] MEDS ORDERED: IPRATROPIUM/ALBUTEROL 3 ML NEB INH STA (09:48)
[2021-06-25 10:24] LABS: BASOPHILS % (AUTO) 0.7 %; EOSINOPHILS # (AUTO) 0.1 10^3/uL (0.0-0.7); EOSINOPHILS % (AUTO) 1.4 %; HCT - HEMATOCRIT 35.4 % (37.0-47.0); HGB - HEMOGLOBIN 11.6 g/dL (12.0-16.0); LYMPHOCYTES # (AUTO) 0.9 10^3/uL (1.5-3.5); LYMPHOCYTES % (AUTO) 16.1 %; MEAN CORPUSCULAR HEMOGLOBIN 33.4 pg (27.0-31.0); MEAN CORPUSCULAR HGB CONC 32.8 g/dL (32.0-36.0); MEAN PLATELET VOLUME 9.9 fL (7.9-10.8); MONOCYTES # (AUTO) 0.6 10^3/uL (0.0-1.0); MONOCYTES % (AUTO) 10.8 %; NEUTROPHILS # (AUTO) 4.1 10^3/uL (1.5-6.6); NEUTROPHILS % (AUTO) 70.7 %; PLT - PLATELET COUNT 187 10^3/uL (130-450); RED BLOOD COUNT 3.47 10^6/uL (4.20-5.40); RED CELL DISTRIBUTION WIDTH 14.3 % (12.0-15.0); WHITE BLOOD COUNT 5.8 x10^3/uL (4.8-10.8)
--- NOTE | 2021-06-25 10:26 | XRAY Report ---
PROCEDURE: Chest 1 View X-Ray INDICATIONS: chest pain TECHNIQUE: One view of the chest was acquired. COMPARISON: Chest radiograph 01/03/2021 and 09/02/2020 FINDINGS: Surgical changes and devices: None. Lungs and pleura: There is mild prominence of the central pulmonary vasculature. No acute airspace co nsolidation is seen. There is mild blunting of the left costophrenic angle that may represent a trace pleural effusion. No right pleural effusion. No pneumothorax. Mediastinum: Mediastinal contours appear normal. Heart size is mildly enlarged stable. Bones and chest wall: No suspicious bony lesions. Overlying soft tissues appear unremarkable. Dege nerative changes are seen in the spine and acromioclavicular joints. IMPRESSION: Mild cardiomegaly with prominence of the central pulmonary vasculature. Possible trace left pleural e ffusion. Reviewed by: Jeremy Jones MD on 06/25/2021 10:25 AM PDT Approved by: Jeremy Jones MD on 06/25/2021 10:25 AM PDT Station ID: [id number]
[2021-06-25 10:46] LABS: ALBUMIN 3.9 g/dL (3.2-5.5); ALBUMIN/GLOBULIN RATIO 1.1 (1.0-2.2); BILIRUBIN,TOTAL 0.9 mg/dL (0.2-1.0); CREATININE 0.8 mg/dL (0.4-1.0); MAGNESIUM 2.1 mg/dL (1.7-2.8); POTASSIUM 4.3 mmol/L (3.5-5.0); TOTAL PROTEIN 7.4 g/dL (6.7-8.2)
[2021-06-25 11:17] LABS: B. PARAPERTUSSIS- RESP PCR PAN NOT DETECTED; B. PERTUSSIS- RESP PCR PANEL NOT DETECTED; C. PNEUMONIAE- RESP PCR PANEL NOT DETECTED; CORONAVIRUS 229E-RESP PCR NOT DETECTED; CORONAVIRUS HKU1-RESP PCR NOT DETECTED; CORONAVIRUS NL63-RESP PCR NOT DETECTED; CORONAVIRUS OC43-RESP PCR NOT DETECTED; HUMAN METAPNEUMOVIRUS NOT DETECTED; INFLUENZA A- RESP PCR PANEL NOT DETECTED; INFLUENZA B - RESP PCR PANEL NOT DETECTED; M. PNEUMONIAE- RESP PCR PANEL NOT DETECTED; PARAINFLUENZA VIRUS 1 NOT DETECTED; PARAINFLUENZA VIRUS 2 NOT DETECTED; PARAINFLUENZA VIRUS 3 NOT DETECTED; PARAINFLUENZA VIRUS 4 NOT DETECTED; RHINOVIRUS/ENTEROVIRUS NOT DETECTED; RSV- RESP PCR PANEL NOT DETECTED; SARS-CoV-2 -RESP PCR PANEL NOT DETECTED
[2021-06-25] MEDS ORDERED: ONDANSETRON ODT 4 MG TABLET TL PRN (12:17)
[2021-06-25] MEDS ORDERED: ACETAMINOPHEN 325 MG TABLET PO PRN (12:17)
[2021-06-25] MEDS ORDERED: SODIUM CHLORIDE FLUSH 0.9% 10 ML SYRINGE IVP PRN (12:17)
[2021-06-25] MEDS ORDERED: HYDROcod/ACETAM 5/325 MG TABLET PO PRN (12:17)
[2021-06-25] MEDS ORDERED: ALBUTEROL NEB 2.5 MG/3 ML INH PRN (14:07)
--- NOTE | 2021-06-25 16:31 | HISTORY & PHYSICAL EXAMINATION ---
Chief Complaint - Chief Complaint Chief Complaint: Shortness of breath History of Present Illness - Admitted From Admitted From:: Emergency department via home - History Obtained From Records Reviewed: ER History obtained from: Patient Exam Limitations: None - History of Present Illness HPI Comment/Other: Patient is an 86-year-old female with a known history of CHF, hypothyroidism, A. fib, anemia, breast cancer, hypertension, reactive airway disease, among others, who presented with a week and a half of progressively worsening dyspnea and shortness of breath on exertion. Patient has a sky cap with whom she follo ws and plan has been in the past to titrate up her Lasix dosing on a as needed basis which she has been doing up to80 mg Lasix in the morning and 40 in the afternoon and 40 at night increased from her baseline of 40 mg 3 times daily. This is in the setting of a 10 pound weight gain in the last week and a half. After finding that the shortness of breath had not improved she was planning to see her sky cap today. However, her sky cap comes in from the [facility] to [place] and due to an issue with the [facility] her appointment was canceled today she was unable to see him. Out of concern that her symptoms were not improving she decided to come to the ER for further evaluation. Patient denies any chest pain though she does admit to a intermittent cough but no other symptoms suggestive of illness such as nausea, vomiting, chills, rash, known sick contact, etc.P.o. intake has been normal as have bowel and urinary function.With the exception of increasing her Lasix dosing in the morning she has not changed her medications. She does note that currently her ankle swelling is better than it had been as it had previously been worsening over the last week and a half. ER course: In the ER she was found to be hypoxic to her baseline hypoxia requiring 3 L by nasal cannula which she states is what she normally uses at home. Her labs were relatively unremarkable with the exception of a BNP level of 411 and she tested negative for COVID-19. Chest x-ray shows evidence of central pulmonary vasculature consistent with CHF exacerbation and a minute left pleural effusion. She was given a dose of 80 mg Lasix IV in the ER after which she had significant urine output but continues to have dyspnea and so hospitalist admission was requested. 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, 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, Other - Family & Social History Family History: Mother: Hypertension, Father: Hypertension Living arrangement: At home Living Situation: With family - Substance History Use: Uses substance without health or social issues: NONE Abuse: Recurrent use of substance despite neg consequences: NONE - POLST Patient has POLST: No Meds/Allgy - Home Medications Home Medications: Ambulatory Orders Medication Instructions Recorded Confirmed Albuterol Sulf [Ventolin Hfa 2 puffs INH Q4H PRN 12/27/19 06/25/21 Inhaler] Trazodone HCl 150 mg PO QPM 12/27/19 06/25/21 Potassium Chloride [Micro-K] 10 meq PO 0800 #30 capsule 12/31/19 06/25/21 [id number] CD [Cardizem Cd] 180 mg PO 0800,1800 #60 capsule 12/31/19 06/25/21 Aspirin [Aspirin EC] 81 mg PO DAILY 09/18/20 06/25/21 Clopidogrel [Plavix] 75 mg PO DAILY 09/18/20 06/25/21 Metoprolol Tartrate [Lopressor] 50 mg PO BID 09/18/20 06/25/21 Rosuvastatin Calcium [Crestor] 5 mg PO QPM 09/18/20 06/25/21 Levothyroxine [Synthroid] 125 mcg PO QDAC #30 tablet 09/23/20 06/25/21 Furosemide [Lasix] 40 mg PO BID 01/03/21 06/25/21 - Allergies Allergies/Adverse Reactions: Allergies Allergy/AdvReac Type Severity Reaction Status Date / Time No Known Drug Allergies Allergy Verified 06/25/21 09:14 Review of Systems - Constitutional Constitutional: denies: Fever, Chills - Cardiovascular Cariovascular: denies: Irregular heart rate, Palpitations, Chest pain - Respiratory Respiratory: reports: Cough, SOB with exertion. denies: Sputum production, Wheezing, Orthopnea, SOB at rest - Gastrointestinal Gastrointestinal: denies: Abdominal pain Prior Level of Functionality: Independent at home at baseline without the use of assistive devices Exam - Vital Signs Reviewed Vital Signs: Yes Vital Signs: Vital Signs x48h Temp Pulse Pulse Resp BP BP Pulse Ox 06/25/21 15:49 36.5 C 67 18 123/53 L 98 06/25/21 13:00 36.8 C 57 L 18 127/92 H 96 06/25/21 12:38 77 20 104/56 L 97 06/25/21 10:56 62 19 121/58 L 97 06/25/21 10:15 75 20 06/25/21 09:38 86 24 98 06/25/21 09:11 36.4 C L 75 22 115/78 93 - Physical Exam General Appearance: positive: No acute distress Eyes Bilateral: positive: Normal inspection ENT: positive: ENT inspection nml Neck: positive: Nml inspection Respiratory: positive: Chest non-tender, No respiratory distress, Breath sounds nml Cardiovascular: positive: No gallop, Irregularly irregular, Systolic murmur. negative: Regular rate & rhythm Abdomen: positive: Non-tender, No organomegaly, Nml bowel sounds, No distention Skin: positive: Color nml Extremities: negative: Pedal edema Neurologic/Psychiatric: positive: Oriented x3 Conclusion/Plan - Problem List (1) Acute on chronic diastolic (congestive) heart failure Conclusion/Plan: Patient with known history of diastolic congestive heart failure presents with acute on chronic CHF exacerbation Underlying etiology is unclear as she does have A. fib but appears to be rate controlled Denies any significant chest pain to indicate ischemic heart disease acutely We will increase diuresis starting with 80 mg in the ER followed by 60 mg IV twice daily Monitor urine output Echocardiogram unavailable through the weekend after admission, and can likely be discharged home in 1 to 2 days with outpatient cardiology follow-up but if she is still here on Monday can consider repeating echocardiogram (2) A-fib Conclusion/Plan: Rate controlled Continue current medications Defer anticoagulation to outpatient setting with her sky cap (3) Anemia Conclusion/Plan: Anemia present on admission No evidence of acute bleeding Monitor H&H Outpatient follow-up Qualifiers: Anemia type: iron deficiency (4) Essential hypertension Conclusion/Plan: Blood pressures well controlled Continue home medications (5) Hyperlipidemia Conclusion/Plan: Resume home statin (6) Hypothyroidism Conclusion/Plan: TSH normal Resume home levothyroxine (7) Reactive airway disease Conclusion/Plan: Stable No evidence of acute exacerbation given no wheezing on exam Given weight gain, elevated BNP, and pleural fluid seen on chest x-ray this is likely CHF exacerbation however will continue as needed nebulizers - Lab Results Lab results reviewed: Yes Fish Bones: 06/25/21 10:05 06/25/21 10:05 - Diagnostic Imaging Results Diagnostic Imaging Results: positive: Final report reviewed, Read independently - EKG Results EKG Interpreted Independently: Yes EKG Comparison: Unchanged from prior EKG Core Measures - Anticipated LOS I expect patient to be DC'd or transferred within 96 hours.: Yes - DVT/VTE - Prophylaxis VTE/DVT Device ordered at admit?: Yes
[2021-06-25] MEDS: SODIUM CHLORIDE FLUSH 0.9% 10 ML SYRINGE IVP SCH (18:33)
[2021-06-25] MEDS: diltiaZEM CD 180 MG CAPSULE PO SCH (18:33)
[2021-06-25] MEDS: METOPROLOL TARTRATE 25 MG TABLET PO SCH (21:27)
[2021-06-25] MEDS: POTASSIUM CHLORIDE 20 MEQ TABLET PO SCH (21:27)
[2021-06-25] MEDS: ATORVASTATIN 10 MG TABLET PO SCH (21:27)
[2021-06-25] MEDS: FUROSEMIDE 40 MG/4 ML VIAL IVP SCH (21:29)
[2021-06-25] MEDS: traZODone 50 MG TABLET PO SCH (21:29)
[2021-06-25] MEDS: HEPARIN 5,000 UNIT/ML VIAL SUBQ SCH (21:30)
[2021-06-26] MEDS: SODIUM CHLORIDE FLUSH 0.9% 10 ML SYRINGE IVP SCH ×3 (01:45→15:58)
[2021-06-26 06:02] LABS: HCT - HEMATOCRIT 37.1 % (37.0-47.0); HGB - HEMOGLOBIN 11.9 g/dL (12.0-16.0); MEAN CORPUSCULAR HEMOGLOBIN 32.5 pg (27.0-31.0); MEAN CORPUSCULAR HGB CONC 32.1 g/dL (32.0-36.0); MEAN CORPUSCULAR VOLUME 101.4 fL (81.0-99.0); MEAN PLATELET VOLUME 10.3 fL (7.9-10.8); RED BLOOD COUNT 3.66 10^6/uL (4.20-5.40); RED CELL DISTRIBUTION WIDTH 14.1 % (12.0-15.0); WHITE BLOOD COUNT 5.2 x10^3/uL (4.8-10.8)
[2021-06-26 06:16] LABS: CALCIUM 8.8 mg/dL (8.5-10.3); CREATININE 0.9 mg/dL (0.4-1.0); POTASSIUM 3.8 mmol/L (3.5-5.0)
[2021-06-26] MEDS: LEVOTHYROXINE 125 MCG TABLET PO SCH (06:51)
[2021-06-26] MEDS: diltiaZEM CD 180 MG CAPSULE PO SCH ×2 (07:48→17:35)
[2021-06-26] MEDS: ASPIRIN EC 81 MG TABLET PO SCH (08:21)
[2021-06-26] MEDS: CLOPIDOGREL 75 MG TABLET PO SCH (08:21)
[2021-06-26] MEDS: METOPROLOL TARTRATE 25 MG TABLET PO SCH ×2 (08:21→20:42)
[2021-06-26] MEDS: POTASSIUM CHLORIDE 20 MEQ TABLET PO SCH ×2 (08:21→20:46)
[2021-06-26] MEDS: FUROSEMIDE 40 MG/4 ML VIAL IVP SCH ×2 (08:22→20:46)
[2021-06-26] MEDS: HEPARIN 5,000 UNIT/ML VIAL SUBQ SCH ×2 (08:25→20:44)
--- NOTE | 2021-06-26 16:07 | PROVIDER PROGRESS NOTE ---
Subjective - Prog Note Date Prog Note Date: 06/26/21 Prog Note Time: 16:04 - Subjective Pt reports feeling: Improved (Initially was feeling better last night, was able to stand and reposition without dyspnea however this morning started to feel worse again. Overall feeling weak and not quite back to baseline.) Current Medications - Current Medications Current Medications: Current Medications Generic Name Dose Route Start Last Admin Trade Name Freq PRN Reason Stop Dose Admin Albuterol 2.5 mg 06/25/21 14:07 06/26/21 09:30 Albuterol Neb 2.5 Mg/3 Ml INH 2.5 mg RTQ4H PRN Administration Wheezing Aspirin 81 mg 06/26/21 09:00 06/26/21 08:21 Aspirin Ec 81 Mg Tablet PO 81 mg DAILY JULIANO Administration Atorvastatin Calcium 10 mg 06/25/21 21:00 06/25/21 21:27 Atorvastatin 10 Mg Tablet PO 10 mg QPM JULIANO Administration Clopidogrel Bisulfate 75 mg 06/26/21 09:00 06/26/21 08:21 Clopidogrel 75 Mg Tablet PO 75 mg DAILY JULIANO Administration Diltiazem HCl 180 mg 06/25/21 18:00 06/26/21 07:48 Diltiazem Cd 180 Mg Capsule PO 180 mg 0800,1800 JULIANO Administration Furosemide 60 mg 06/25/21 21:00 06/26/21 08:22 Furosemide 40 Mg/4 Ml Vial IVP 60 mg BID JULIANO Administration Heparin Sodium (Porcine) 5,000 unit 06/25/21 21:00 06/26/21 08:25 Heparin 5,000 Unit/Ml Vial SUBQ 5,000 unit BID JULAINO Administration Levothyroxine Sodium 125 mcg 06/26/21 07:00 06/26/21 06:51 Levothyroxine 125 Mcg Tablet PO 125 mcg QDAC JULIANO Administration Metoprolol Tartrate 50 mg 06/25/21 21:00 06/26/21 08:21 Metoprolol Tartrate 25 Mg Tablet PO 50 mg BID JULIANO Administration Potassium Chloride 20 meq 06/25/21 21:00 06/26/21 08:21 Potassium Chloride 20 Meq Tablet PO 20 meq BID JULIANO Administration Sodium Chloride 10 ml 06/25/21 17:00 06/26/21 15:58 Sodium Chloride Flush 0.9% 10 Ml Syringe IVP 10 ml 0100,0900,1700 JULIANO Administration Trazodone HCl 150 mg 06/25/21 21:00 06/25/21 21:29 Trazodone 50 Mg Tablet PO 150 mg QPM JULIANO Administration Objective - Vital Signs/Intake & Output Reviewed Vital Signs: Yes Vital Signs: Vital Signs x48h Temp Pulse Pulse Resp BP Pulse Ox 06/26/21 12:23 36.4 C L 61 20 94/66 96 06/26/21 09:30 82 14 06/26/21 08:06 36.6 C 78 18 117/63 96 Intake & Output: Intake & Output 06/23/21 06/24/21 06/25/21 06/26/21 23:59 23:59 23:59 23:59 Intake Total 990 860 Output Total 2600 2400 Balance -1610 -1540 - Objective General Appearance: positive: No acute distress Eyes Bilateral: positive: Normal inspection ENT: positive: ENT inspection nml Neck: positive: Nml inspection Respiratory: positive: Chest non-tender, Other (Mild expiratory wheeze, mildly diminished breath sounds bilaterally) Cardiovascular: positive: Regular rate & rhythm Abdomen: positive: Non-tender, No organomegaly, Nml bowel sounds Rectal: positive: Non-tender Back: positive: Nml inspection Skin: positive: Color nml, No rash Extremities: positive: Non-tender, Nml appearance Neurologic/Psychiatric: positive: Oriented x3, CN's nml (2-12) - Lab Results Fish Bones: 06/26/21 05:05 06/26/21 05:05 Other Labs: Lab Results x24hrs 06/26/21 06/26/21 Range/Units 05:05 05:05 WBC 5.2 (4.8-10.8) x10^3/uL RBC 3.66 L (4.20-5.40) 10^6/uL Hgb 11.9 L (12.0-16.0) g/dL Hct 37.1 (37.0-47.0) % MCV 101.4 H (81.0-99.0) fL MCH 32.5 H (27.0-31.0) pg MCHC 32.1 (32.0-36.0) g/dL RDW 14.1 (12.0-15.0) % Plt Count 189 (130-450) 10^3/uL MPV 10.3 (7.9-10.8) fL Sodium 141 (135-145) mmol/L Potassium 3.8 (3.5-5.0) mmol/L Chloride 94 L (101-111) mmol/L Carbon Dioxide 36 H (21-32) mmol/L Anion Gap 11.0 (6-13) BUN 28 H (6-20) mg/dL Creatinine 0.9 (0.4-1.0) mg/dL Estimated GFR (MDRD) 59 L (>89) Glucose 120 H (70-100) mg/dL Calcium 8.8 (8.5-10.3) mg/dL Assessment/Plan - Problem List (1) Acute on chronic diastolic (congestive) heart failure Impression: Stable on baseline 3 L oxygen Continues to complain of dyspnea on exertion though somewhat improved since admission -1.5 L fluid balance since admission Continue IV Lasix diuresis (2) A-fib Impression: Rate controlled Continue current meds (3) Essential hypertension Impression: Blood pressure normal or below normal For now, continue current meds but consider holding p.m. dose of metoprolol tartrate as patient is likely becoming more euvolemic and therefore having lower blood pressures Otherwise, if blood pressure stabilized, resume home medications (4) Hyperlipidemia Impression: Continue home statin (5) Hypothyroidism Impression: Synthroid (6) Reactive airway disease Impression: Mild wheezing on exam, continue current as needed nebs
[2021-06-26] MEDS: traZODone 50 MG TABLET PO SCH (20:45)
[2021-06-26] MEDS: ATORVASTATIN 10 MG TABLET PO SCH (20:46)
[2021-06-27] MEDS: SODIUM CHLORIDE FLUSH 0.9% 10 ML SYRINGE IVP SCH ×2 (00:47→08:42)
[2021-06-27 06:02] LABS: HCT - HEMATOCRIT 38.5 % (37.0-47.0); HGB - HEMOGLOBIN 12.4 g/dL (12.0-16.0); MEAN CORPUSCULAR HEMOGLOBIN 32.5 pg (27.0-31.0); MEAN CORPUSCULAR HGB CONC 32.2 g/dL (32.0-36.0); MEAN CORPUSCULAR VOLUME 100.8 fL (81.0-99.0); MEAN PLATELET VOLUME 9.7 fL (7.9-10.8); RED BLOOD COUNT 3.82 10^6/uL (4.20-5.40); WHITE BLOOD COUNT 5.4 x10^3/uL (4.8-10.8)
[2021-06-27] MEDS: LEVOTHYROXINE 125 MCG TABLET PO SCH (06:08)
[2021-06-27 06:14] LABS: CALCIUM 8.8 mg/dL (8.5-10.3); POTASSIUM 3.9 mmol/L (3.5-5.0)
[2021-06-27] MEDS: diltiaZEM CD 180 MG CAPSULE PO SCH (07:48)
[2021-06-27] MEDS: FUROSEMIDE 40 MG/4 ML VIAL IVP SCH (08:36)
[2021-06-27] MEDS: CLOPIDOGREL 75 MG TABLET PO SCH (08:37)
[2021-06-27] MEDS: ASPIRIN EC 81 MG TABLET PO SCH (08:37)
[2021-06-27] MEDS: METOPROLOL TARTRATE 25 MG TABLET PO SCH (08:37)
[2021-06-27] MEDS: POTASSIUM CHLORIDE 20 MEQ TABLET PO SCH (08:37)
--- NOTE | 2021-06-27 08:37 | Discharge Plan ---
Discharge Plan Problem Reviewed?: Yes Disposition: Home, Self Care Condition: Good Prescriptions: Furosemide [Lasix] 60 mg PO BID 30 Days #180 tablet Diet: Cardiac Activity Restrictions: No Restrictions Instruction Topics: Heart Failure Meds Control, Heart Failure Tracking Weight, Heart Failure Warning Signs Plan of Treatment: You were admitted for shortness of breath which is likely related to your condition of heart failure. This is managed by prescribing diuretic medications such as furosemide which you were previously taking at home. In the hospital, you received a higher dose of this medication than you typically take at home which helped improve your breathing. We are going to then increase the dose of furosemide to 60 mg twice daily. A prescription will be sent to your pharmacy. Please follow-up with your risk engineer and primary care physician as soon as you can. In the meantime, keep an eye on your weight because if it does go up it may indicate you are retaining water and your medications may need to be adjusted. Try to avoid excessive salt intake, and aim for less than 1500 mg/day. If you develop any further shortness of breath please call for medical attention. No Smoking: If you smoke, Please STOP! Call for help. Follow-up with: Tram Quintanilla PA-C [Primary Care Provider] -
[2021-06-27] MEDS: HEPARIN 5,000 UNIT/ML VIAL SUBQ SCH (08:39)
--- NOTE | 2021-06-27 08:59 | DISCHARGE SUMMARY ---
Discharge Summary Admit Date: 06/25/21 Discharge Date: 06/27/21 Discharging Provider: Tae Newman MD Primary Care Provider: Tram Quintanilla PA-C Condition at Discharge: Good Discharge Disposition: 01 Home, Self Care - DIAGNOSES Admission Diagnoses: Acute on chronic diastolic congestive heart failure A. fib Anemia chronic Essential hypertension Hyperlipidemia Hypothyroidism Reactive airway disease Discharge Diagnoses with Status of Each Condition: Acute on chronic diastolic congestive heart failure - improved A. fib - stable Anemia (chronic) - Stable Essential hypertension - Stable Hyperlipidemia - Stable Hypothyroidism - Stable Reactive airway disease - Improved - HPI History of Present Illness: Patient is an 86-year-old female with a known history of CHF, hypothyroidism, A. fib, anemia, breast cancer, hypertension, reactive airway disease, among others, who presented with a week and a half of progressively worsening dyspnea and shortness of breath on exertion. Patient has a ophthalmic tech with whom she follows and plan has been in the past to titrate up her Lasix dosing on a as needed basis which she has been doing up to80 mg Lasix in the morning and 40 in the afternoon and 40 at night increased from her baseline of 40 mg 3 times daily. This is in the setting of a 10 pound weight gain in the last week and a half. After finding that the shortness of breath had not improved she was planning to see her ophthalmic tech today. However, her ophthalmic tech comes in [facility] to [place] and due to an issue with the [facility] her appointment was canceled today she was unable to see him. Out of concern that her symptoms were not improving she decided to come to the ER for further evaluation. Patient denies any chest pain though she does admit to a intermittent cough but no other symptoms suggestive of illness such as nausea, vomiting, chills, rash, known sick contact, etc.P.o. intake has been normal as have bowel and urinary function.With the exception of increasing her Lasix dosing in the morning she has not changed her medications. She does note that currently her ankle swelling is better than it had been as it had previously been worsening over the last week and a half. ER course: In the ER she was found to be hypoxic to her baseline hypoxia requiring 3 L by nasal cannula which she states is what she normally uses at home. Her labs were relatively unremarkable with the exception of a BNP level of 411 and she tested negative for COVID-19. Chest x-ray shows evidence of central pulmonary vasculature consistent with CHF exacerbation and a minute left pleural effusion. She was given a dose of 80 mg Lasix IV in the ER after which she had significant urine output but continues to have dyspnea and so hospitalist admission was requested. - HOSPITAL COURSE Hospital Course: Patient was admitted for suspected acute on chronic diastolic congestive heart failure exacerbation. She responded fairly well to the initial dose of 80 mg of Lasix given in the emergency department and by the late evening of admission she was already starting to feel better, notably stating that after getting up and out of bed she was no longer dyspneic the way she was previously at home. However the following morning she subjectively reported feeling more dyspneic again despite the fact that her oxygen requirement was unchanged at 3 L by nasal cannula (Which is her home baseline oxygen requirement). She was kept an additional day and the Lasix was maintained throughout the hospitalization at 60 mg IV twice daily. She was able to diurese effectively close to 2 L of fluid, and by 06/27/2021, day of discharge, she subjectively reported feeling great. She was still on her home oxygen requirement of 3 L, but was able to challenge a resting oxygen saturation with no oxygen for some time while in bed at night and with no oxygen was able to maintain 94% oxygen for a brief period of time. This encouraged her, and put her in very good spirits, and she was eager to go home. Her medications were adjusted and she was put on Lasix 60 mg twice daily, increasing from her home dose of 40 mg Prior to admission. She was encouraged to follow-up with her ophthalmic tech and PCP, as this dosing may need to be adjusted depending on her clinical course. - ALLERGIES Allergies/Adverse Reactions: Allergies Allergy/AdvReac Type Severity Reaction Status Date / Time No Known Drug Allergies Allergy Verified 06/25/21 09:14 - MEDICATIONS Home Medications: Ambulatory Orders Medication Instructions Recorded Confirmed Albuterol Sulf [Ventolin Hfa 2 puffs INH Q4H PRN 12/27/19 06/25/21 Inhaler] Trazodone HCl 150 mg PO QPM 12/27/19 06/25/21 [id number] CD [Cardizem Cd] 180 mg PO 0800,1800 #60 capsule 12/31/19 06/25/21 Aspirin [Aspirin EC] 81 mg PO DAILY 09/18/20 06/25/21 Clopidogrel [Plavix] 75 mg PO DAILY 09/18/20 06/25/21 Metoprolol Tartrate [Lopressor] 50 mg PO BID 09/18/20 06/25/21 Rosuvastatin Calcium [Crestor] 5 mg PO QPM 09/18/20 06/25/21 Levothyroxine [Synthroid] 125 mcg PO QDAC #30 tablet 09/23/20 06/25/21 Furosemide [Lasix] 60 mg PO BID 30 Days #180 tablet 06/27/21 Furosemide [Lasix] 60 mg PO BID 30 Days #180 tablet 06/27/21 Potassium Chloride [K-Dur] 20 meq PO 0800 30 Days #30 tablet 06/27/21 Potassium Chloride [K-Dur] 20 meq PO DAILY tablet 06/27/21 - PHYSICAL EXAM AT DISCHARGE General Appearance: positive: No acute distress Eyes Bilateral: positive: Normal inspection ENT: positive: ENT inspection nml Neck: positive: Nml inspection, Thyroid nml, No JVD Respiratory: positive: Chest non-tender, No respiratory distress, Breath sounds nml Cardiovascular: positive: No murmur, No gallop, Irregularly irregular Abdomen: positive: Non-tender, No organomegaly, Nml bowel sounds Extremities: positive: No pedal edema Neurologic/Psychiatric: positive: Oriented x3, CN's nml (2-12) - LABS Result Diagrams: 06/27/21 05:50 06/27/21 05:50 - DIAGNOSTIC IMAGING Diagnostic Imaging Results: Final report reviewed - FOLLOW UP Follow Up: Follow-up with PCP and ophthalmic tech as soon as able. - TIME SPENT Time Spent in Discharge (Minutes): 39
[2021-06-27 10:56] VITALS: BP 113/71
== END 2021-06-27 11:19 | disposition home or self-care (01) | DRG 293 ==
LOC: ED 09:06 → MS2 12:17 → OBSVTOIN 06-26 15:06
PROVIDERS: ADMIT Family Medicine Sports Medicine; ATTEND Family Medicine Sports Medicine
DX: I11.0 Hypertensive heart disease with heart failure (principal); I50.33 Acute on chronic diastolic (congestive) heart failure; I48.91 Unspecified atrial fibrillation; E03.9 Hypothyroidism, unspecified; D50.9 Iron deficiency anemia, unspecified; C50.919 Malignant neoplasm of unspecified site of unspecified female breast; J45.909 Unspecified asthma, uncomplicated; E78.5 Hyperlipidemia, unspecified; Z96.659 Presence of unspecified artificial knee joint; Z99.81 Dependence on supplemental oxygen; Z79.82 Long term (current) use of aspirin; Z79.02 Long term (current) use of antithrombotics/antiplatelets; Z79.899 Other long term (current) drug therapy; Z20.822 Contact with and (suspected) exposure to COVID-19
CPT/HCPCS: 36415; 71045; 80048; 80053; 83690; 83735; 83880; 84443; 84484; 85025; 85027; 87631; 93005; 94640; 96372; 96374; 96376; 99284; 99285; A9270; G0378; 0202U

== ENCOUNTER 2021-07-12 10:58 | Outpatient (CLI) | payer MEDICARE, OTHER ==
--- NOTE | 2021-07-13 13:00 | Mammography Report ---
BILATERAL DIGITAL SCREENING MAMMOGRAM 3D/2D: 07/12/2021 CLINICAL: Routine screening. Personal history of left breast cancer. Comparison is made to exams dated: 04/17/2019 mammogram, 04/17/2018 mammogram, 04/05/2017 mammogram, ultrasound, 09/20/2016 mammogram, and 01/07/2016 mammogram - [facility]. Th e tissue of both breasts is predominantly fatty. There are benign calcifications in the left breast. There also are benign post operative findings in the left breast. No significant masses, calcifications, or other findings are seen in either breast. There has been no significant interval change. IMPRESSION: BENIGN There is no mammographic evidence of malignancy. A 1 year screening mammogram is recommended. This exam was interpreted at Station ID: [id number]. NOTE: For mammograms, a report in lay terms will be sent to the patient. Approximately 15% of breast malignancies will not be visualized mammographically. In the management of a palpable breast mass, a negative mammogram must not discourage biopsy of a clinically suspicious lesion. Electronically Signed By: Wally Veliz acr/penrad:07/12/2021 12:14:51 ACR BI-RADS Category 2: Benign Finding(s) 3342F PARENCHYMAL PATTERN: (F) - The breast(s) demonstrate(s) diffuse fatty replacement. BI-RADS CATEGORY: (2) - 2 RECOMMENDATION: (ANNUAL) - Recommend routine annual screening mammography. [id number] 1 year screening LATERALITY: (B)
== END 2021-07-12 10:59 | disposition home or self-care (01) ==
LOC: DI.N 10:58
DX: Z12.31 Encounter for screening mammogram for malignant neoplasm of breast (principal); Z85.3 Personal history of malignant neoplasm of breast

== ENCOUNTER 2022-05-12 14:02 | Outpatient (CLI) | payer MEDICARE, OTHER ==
[2022-05-12 17:47] LABS: BASOPHILS # (AUTO) 0.1 10^3/uL (0.0-0.1); BASOPHILS % (AUTO) 0.8 %; EOSINOPHILS # (AUTO) 0.1 10^3/uL (0.0-0.7); EOSINOPHILS % (AUTO) 1.5 %; HGB - HEMOGLOBIN 12.1 g/dL (12.0-16.0); LYMPHOCYTES # (AUTO) 1.5 10^3/uL (1.5-3.5); LYMPHOCYTES % (AUTO) 20.8 %; MEAN CORPUSCULAR HEMOGLOBIN 31.1 pg (27.0-31.0); MEAN CORPUSCULAR HGB CONC 31.8 g/dL (32.0-36.0); MEAN CORPUSCULAR VOLUME 97.7 fL (81.0-99.0); MEAN PLATELET VOLUME 10.6 fL (7.9-10.8); MONOCYTES # (AUTO) 0.7 10^3/uL (0.0-1.0); MONOCYTES % (AUTO) 9.4 %; NEUTROPHILS # (AUTO) 4.9 10^3/uL (1.5-6.6); NEUTROPHILS % (AUTO) 67.2 %; PLT - PLATELET COUNT 206 10^3/uL (130-450); RED BLOOD COUNT 3.89 10^6/uL (4.20-5.40); RED CELL DISTRIBUTION WIDTH 14.6 % (12.0-15.0); WHITE BLOOD COUNT 7.3 x10^3/uL (4.8-10.8)
[2022-05-12 18:18] LABS: ALBUMIN/GLOBULIN RATIO 1.1 (1.0-2.2); ALKALINE PHOSPHATASE 64 IU/L (42-121); ALT ALANINE AMINOTRANSFERASE 17 IU/L (10-60); AST ASPARTATE AMINOTRANSFERASE 18 IU/L (10-42); BILIRUBIN,TOTAL 0.8 mg/dL (0.2-1.0); BUN - BLOOD UREA NITROGEN 21 mg/dL (6-20); CARBON DIOXIDE - CO2 34 mmol/L (21-32); CHLORIDE 100 mmol/L (101-111); CHOL/HDL RATIO 2.9 (<4.4); CHOLESTEROL 137 mg/dL; CREATININE 0.9 mg/dL (0.4-1.0); GFR - MDRD 59 (>89); GLUCOSE 121 mg/dL (70-100); HDL CHOLESTEROL 48 mg/dL; LDL CHOLESTEROL,CALCULATED 71 mg/dL; LDL/HDL RATIO 1.5 (<4.4); POTASSIUM 4.1 mmol/L (3.5-5.0); SODIUM 144 mmol/L (135-145); TOTAL PROTEIN 7.6 g/dL (6.7-8.2); TRIGLYCERIDES 88 mg/dL; VLDL CHOLESTEROL 18 mg/dL
[2022-05-12 18:26] LABS: THYROID STIMULATING HORMONE 0.78 uIU/mL (0.34-5.60)
== END 2022-05-12 14:03 | disposition home or self-care (01) ==
LOC: LAB.N 14:02
PROVIDERS: ATTEND Physician Assistant Medical
DX: E78.5 Hyperlipidemia, unspecified (principal); E03.9 Hypothyroidism, unspecified; D62 Acute posthemorrhagic anemia
CPT/HCPCS: 36415; 80053; 80061; 83721; 84443; 85025

== ENCOUNTER 2022-05-23 19:28 | Inpatient (IN) | payer MEDICARE, OTHER ==
[2022-05-23] MEDS: ALBUTEROL NEB 2.5 MG/3 ML INH PRN (19:55)
[2022-05-23] MEDS ORDERED: ALBUTEROL NEB 2.5 MG/3 ML INH ONE (19:56)
[2022-05-23 20:01] LABS: BASOPHILS # (AUTO) 0.1 10^3/uL (0.0-0.1); BASOPHILS % (AUTO) 0.7 %; EOSINOPHILS # (AUTO) 0.1 10^3/uL (0.0-0.7); EOSINOPHILS % (AUTO) 1.7 %; HCT - HEMATOCRIT 34.9 % (37.0-47.0); HGB - HEMOGLOBIN 11.4 g/dL (12.0-16.0); LYMPHOCYTES # (AUTO) 1.4 10^3/uL (1.5-3.5); LYMPHOCYTES % (AUTO) 20.1 %; MEAN CORPUSCULAR HEMOGLOBIN 31.8 pg (27.0-31.0); MEAN CORPUSCULAR HGB CONC 32.7 g/dL (32.0-36.0); MEAN CORPUSCULAR VOLUME 97.5 fL (81.0-99.0); MEAN PLATELET VOLUME 10.3 fL (7.9-10.8); MONOCYTES # (AUTO) 0.6 10^3/uL (0.0-1.0); MONOCYTES % (AUTO) 9.1 %; NEUTROPHILS # (AUTO) 4.7 10^3/uL (1.5-6.6); PLT - PLATELET COUNT 212 10^3/uL (130-450); RED BLOOD COUNT 3.58 10^6/uL (4.20-5.40); RED CELL DISTRIBUTION WIDTH 14.8 % (12.0-15.0)
--- NOTE | 2022-05-23 20:02 | ED Physician Documentation ---
History of Present Illness - Stated complaint Stated Complaint: SOB,SWELLING,FATIGUE - Chief complaint Chief Complaint: Resp - History obtained from History obtained from: Patient, Family - History of Present Illness Timing: Today PD PAST MEDICAL HISTORY - Past Medical History Past Medical History: Yes Cardiovascular: Congestive heart failure, Hypertension, High cholesterol, Atrial fibrillation, Valve disorder, Other Respiratory: None Neuro: None Endocrine/Autoimmune: HyPOthyroidism GI: None : None HEENT: None Psych: Depression, Anxiety Musculoskeletal: None Derm: None - Past Surgical History Past Surgical History: Yes General: Cholecystectomy, Appendectomy 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, 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, Other - Present Medications Home Medications: Ambulatory Orders Medication Instructions Recorded Confirmed Albuterol Sulf [Ventolin Hfa 2 puffs INH Q4H PRN 12/27/19 10/18/21 Inhaler] Trazodone HCl 150 mg PO QPM 12/27/19 10/18/21 [id number] CD [Cardizem Cd] 180 mg PO 0800,1800 #60 capsule 12/31/19 10/18/21 Aspirin [Aspirin EC] 81 mg PO DAILY 09/18/20 10/18/21 Clopidogrel [Plavix] 75 mg PO DAILY 09/18/20 10/18/21 Metoprolol Tartrate [Lopressor] 50 mg PO BID 09/18/20 10/18/21 Rosuvastatin Calcium [Crestor] 5 mg PO QPM 09/18/20 10/18/21 Levothyroxine [Synthroid] 125 mcg PO QDAC #30 tablet 09/23/20 10/18/21 Furosemide [Lasix] 60 mg PO BID 30 Days #180 tablet 06/27/21 10/18/21 Furosemide [Lasix] 60 mg PO BID 30 Days #180 tablet 06/27/21 10/18/21 Potassium Chloride [K-Dur] 20 meq PO 0800 30 Days #30 tablet 06/27/21 10/18/21 Potassium Chloride [K-Dur] 20 meq PO DAILY tablet 06/27/21 10/18/21 - Allergies Allergies/Adverse Reactions: Allergies Allergy/AdvReac Type Severity Reaction Status Date / Time No Known Drug Allergies Allergy Verified 05/23/22 19:39 - Social History Does the pt smoke?: No Smoking Status: Never smoker Does the pt drink ETOH?: Yes Does the pt have substance abuse?: No - Immunizations Immunizations are current?: Yes - POLST Patient has POLST: No Results - Vitals Vitals: Vital Signs - 24 hr 05/23/22 05/23/22 19:39 19:55 Temperature 36.6 C Heart Rate 88 Respiratory 30 H 18 Rate Blood Pressure 152/99 H O2 Saturation 86 L 96 Oxygen O2 Source [With Activity] Nasal cannula O2 Source Nasal cannula - EKG (time done) 1939 Rate: Rate (enter#) (64) Rhythm: Atrial fibrillation [place]: Other (LAFB) QRS: Normal Ischemia: ST depression (I, aVL), Q waves (v1-3)
[2022-05-23 20:15] LABS: ALBUMIN 3.8 g/dL (3.2-5.5); ALBUMIN/GLOBULIN RATIO 1.1 (1.0-2.2); BILIRUBIN,TOTAL 0.9 mg/dL (0.2-1.0); CALCIUM 9.3 mg/dL (8.5-10.3); CREATININE 1.1 mg/dL (0.4-1.0); POTASSIUM 3.9 mmol/L (3.5-5.0); TOTAL PROTEIN 7.4 g/dL (6.7-8.2)
--- NOTE | 2022-05-23 20:18 | XRAY Report ---
PROCEDURE: Chest 1 View X-Ray INDICATIONS: Chest Pain TECHNIQUE: One view of the chest was acquired. COMPARISON: 06/25/2021 FINDINGS: Surgical changes and devices: None. Lungs and pleura: No pleural effusions or pneumothorax. Prominent central pulmonary vasculature with cephalization of pulmonary vessels. Mediastinum: Mediastinal contours appear normal. Heart size is enlarged. Bones and chest wall: No suspicious bony lesions. Overlying soft tissues appear unremarkable. IMPRESSION: Cardiomegaly and mild interstitial edema. Reviewed by: David Molina MD on 05/23/2022 8:14 PM PDT Approved by: David Molina MD on 05/23/2022 8:14 PM PDT Station ID: [id number]
[2022-05-23] MEDS ORDERED: FUROSEMIDE 40 MG/4 ML VIAL IVP STA (20:51)
--- NOTE | 2022-05-23 20:53 | ED Physician Documentation ---
History of Present Illness - Stated complaint Stated Complaint: SOB,SWELLING,FATIGUE - Chief complaint Chief Complaint: Resp - History obtained from History obtained from: Patient, Family - History of Present Illness Timing: How many weeks ago (3) - Additonal information Additional information: 87-year-old female with history of COPD on chronic 3 L home O2, CHF, asthma, A. fib on Eliquis, aortic regurgitation presents for approximately 1 week of gradually worsening shortness of breath, especially worse over the last 3 days. Patient states this is typical of CHF exacerbation and she states that she is feeling with fluid. She states that even mild exertion causes her extreme shortness of breath. She states that her abdomen feels swollen and tight in her lower extremities feel swollen and heavy. Patient states that she is on daily 80 mg twice daily of Lasix and has 40 mg that she may take for "breakthrough swelling ", however this is not helping. Patient denies chest pain, syncope, other complaints at this time. Review of Systems Ten Systems: 10 systems reviewed and negative Constitutional: denies: Fever, Chills Nose: denies: Rhinorrhea / runny nose, Congestion, Foreign Body Cardiac: reports: Pedal edema. denies: Chest pain / pressure, Palpitations, Calf pain Respiratory: reports: Dyspnea, Cough. 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, 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, Other - Present Medications Home Medications: Ambulatory Orders Medication Instructions Recorded Confirmed Albuterol Sulf [Ventolin Hfa 2 puffs INH Q4H PRN 12/27/19 10/18/21 Inhaler] Trazodone HCl 150 mg PO QPM 12/27/19 10/18/21 diltiaZEM CD [Cardizem Cd] 180 mg PO 0800,1800 #60 capsule 12/31/19 10/18/21 Aspirin [Aspirin EC] 81 mg PO DAILY 09/18/20 10/18/21 Clopidogrel [Plavix] 75 mg PO DAILY 09/18/20 10/18/21 Metoprolol Tartrate [Lopressor] 50 mg PO BID 09/18/20 10/18/21 Rosuvastatin Calcium [Crestor] 5 mg PO QPM 09/18/20 10/18/21 Levothyroxine [Synthroid] 125 mcg PO QDAC #30 tablet 09/23/20 10/18/21 Furosemide [Lasix] 60 mg PO BID 30 Days #180 tablet 06/27/21 10/18/21 Furosemide [Lasix] 60 mg PO BID 30 Days #180 tablet 06/27/21 10/18/21 Potassium Chloride [K-Dur] 20 meq PO 0800 30 Days #30 tablet 06/27/21 10/18/21 Potassium Chloride [K-Dur] 20 meq PO DAILY tablet 06/27/21 10/18/21 - Allergies Allergies/Adverse Reactions: Allergies Allergy/AdvReac Type Severity Reaction Status Date / Time No Known Drug Allergies Allergy Verified 05/23/22 19:39 - Social History Does the pt smoke?: No Smoking Status: Never smoker Does the pt drink ETOH?: Yes Does the pt have substance abuse?: No - Immunizations Immunizations are current?: Yes - POLST Patient has POLST: No PD ED PE NORMAL - Vitals Vital signs reviewed: Yes - General General: Alert and oriented X 3, No acute distress, Well developed/nourished, Other (morbidly obese) - HEENT HEENT: Atraumatic, PERRL, EOMI, Ears normal - Neck Neck: Supple, no meningeal sign - Cardiac Cardiac: RRR, No gallop, Strong equal pulses - Respiratory Respiratory: No respiratory distress (comfortable on NC), Other (inspiratory crackles bilaterally) - Abdomen Abdomen: Soft, Non tender, Non distended - Female Female : Deferred - Rectal Rectal: Deferred - Back Back: No CVA TTP, No spinal TTP - Derm Derm: Normal color, Warm and dry, No rash - Extremities Extremities: No deformity, No tenderness to palpate, Normal ROM s pain, Other (1+ nonpitting edema to thighs bilaterally) - Neuro Neuro: Alert and oriented X 3, 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, No motor deficit, No sensory deficit, Normal speech - Psych Psych: Normal mood, Normal affect Results - Vitals Vitals: Vital Signs - 24 hr 05/23/22 05/23/22 05/23/22 19:39 19:55 20:11 Temperature 36.6 C Heart Rate 88 70 60 Respiratory 30 H 24 17 Rate Blood Pressure 152/99 H 142/69 H O2 Saturation 86 L 96 96 05/23/22 05/23/22 20:30 21:00 Temperature Heart Rate 53 L 54 L Respiratory 20 20 Rate Blood Pressure 126/60 121/53 L O2 Saturation 96 96 Oxygen O2 Source [With Activity] Nasal cannula O2 Source Nasal cannula - EKG (time done) 193 Rate: Rate (enter#) (64) Rhythm: Atrial fibrillation Ischemia: Normal ST segments, Non specific changes - Labs Labs: Laboratory Tests 05/23/22 05/23/22 05/23/22 19:49 19:49 19:49 WBC 7.0 RBC 3.58 L Hgb 11.4 L Hct 34.9 L MCV 97.5 MCH 31.8 H MCHC 32.7 RDW 14.8 Plt Count 212 MPV 10.3 Neut # (Auto) 4.7 Lymph # (Auto) 1.4 L [place] # (Auto) 0.6 Eos # (Auto) 0.1 Baso # (Auto) 0.1 Absolute Nucleated RBC 0.00 Nucleated RBC % 0.0 Sodium 142 Potassium 3.9 Chloride 102 Carbon Dioxide 31 Anion Gap 9.0 BUN 24 H Creatinine 1.1 H Estimated GFR (MDRD) 47 L Glucose 138 H Calcium 9.3 Total Bilirubin 0.9 AST 19 ALT 18 Alkaline Phosphatase 72 Troponin I High Sens 17.0 H* B-Natriuretic Peptide Total Protein 7.4 Albumin 3.8 Globulin 3.6 Albumin/Globulin Ratio 1.1 Lipase 28 05/23/22 19:49 WBC RBC Hgb Hct MCV MCH MCHC RDW Plt Count MPV Neut # (Auto) Lymph # (Auto) [place] # (Auto) Eos # (Auto) Baso # (Auto) Absolute Nucleated RBC Nucleated RBC % Sodium Potassium Chloride Carbon Dioxide Anion Gap BUN Creatinine Estimated GFR (MDRD) Glucose Calcium Total Bilirubin AST ALT Alkaline Phosphatase Troponin I High Sens B-Natriuretic Peptide 354 H Total Protein Albumin Globulin Albumin/Globulin Ratio Lipase PD MEDICAL DECISION MAKING - ED course Complexity details: reviewed old records, reviewed results, re-evaluated patient, d/w patient, d/w family ED course: Patient presenting for shortness of breath consistent with CHF exacerbation. Found to be hypoxic on her chronic 3 L O2. X-ray imaging and laboratory work consistent with CHF exacerbation. Patient started on IV diuretics. Since she is requiring additional oxygen and is debilitated from her shortness of breath will admit for further treatment. Patient and family in agreement at this time. Departure - Departure Disposition: [facility] DC/Xfer Clinical Impression: Acute on chronic diastolic (congestive) heart failure Condition: Stable Discharge Date/Time: 05/23/22 22:04
[2022-05-23] MEDS ORDERED: ONDANSETRON 4 MG/2 ML VIAL IVP PRN (21:16)
[2022-05-23] MEDS ORDERED: ACETAMINOPHEN 325 MG TABLET PO PRN (21:16)
[2022-05-23] MEDS ORDERED: ONDANSETRON ODT 4 MG TABLET TL PRN (21:16)
--- NOTE | 2022-05-23 21:23 | HISTORY & PHYSICAL EXAMINATION ---
Chief Complaint - Chief Complaint Chief Complaint: Shortness of breath History of Present Illness - Admitted From Admitted From:: Home - History Obtained From Records Reviewed: [facility] History obtained from: Patient, ER Physician, EMR - History of Present Illness HPI Comment/Other: This is a 87-year-old female with a past medical history significant for chronic diastolic heart failure on 3 L of oxygen, aortic stenosis, atrial fibrillation, coronary artery disease who presents today complaining of shortness of breath and worsening lower extremity edema. She states she has felt more short of breath over the past 3 days. She states she has nausea become more edematous over the past month despite taking Lasix 80 mg twice a day. Her edema really progressed over the last 2 to 3 days. She saw her certified emergency vehicle technician last week, Dr. Morton, and she states he had plan to order an EKG which she was to get done shortly. She reports no chest pain. She has had an occasional cough and does report orthopnea. She is also complained of difficulty urinating and feels like she cannot empty her bladder. She complains of abdominal discomfort because of this. She has no dysuria or hematuria. She denies any fevers, chills. She is on 3 L of oxygen at baseline but she did increase this to 4 L yesterday given she felt more short of breath. In the emergency department, she was initially saturating in the mid 80s on 3 L of oxygen but is improved to above 90% on 4 L. Chest x-ray suggested pulmonary edema. She was given IV Lasix and medicine was consulted for admission. We discussed goals of care and she would like to be a DNR. History - Past Medical History Cardiovascular: reports: Congestive heart failure, Hypertension, High cholesterol, Coronary artery disease, Atrial fibrillation, Valve disorder Respiratory: reports: Asthma Neuro: reports: None Endocrine/Autoimmune: reports: HyPOthyroidism GI: reports: None : reports: None HEENT: reports: None Psych: reports: Depression, Anxiety Musculoskeletal: reports: None Derm: reports: None MRSA Hx?: No - Past Surgical History General: reports: Cholecystectomy, Appendectomy Ortho: reports: Knee replacement /RESIN COATER: reports: Tubal ligation, 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, Other - Family & Social History Family History: Mother: , Cancer, Hypertension, Father: , Hypertension Family History Comment/Other: Her mother at the age of 41 from what sounds like nasopharyngeal carcinoma. She was a smoker. Her father had a history of arrhythmia and required a pacemaker Living arrangement: At home Living Situation: With family Social History Notes: She lives at home with her daughter. She smoked less than a pack a day for 20 years but quit at the age of 38. She rarely drinks alcohol. - Substance History Use: Uses substance without health or social issues: NONE - POLST Patient has POLST: No Meds/Allgy - Home Medications Home Medications: Ambulatory Orders Medication Instructions Recorded Confirmed Albuterol Sulf [Ventolin Hfa 2 puffs INH Q4H PRN 12/27/19 10/18/21 Inhaler] Trazodone HCl 150 mg PO QPM 12/27/19 10/18/21 diltiaZEM CD [Cardizem Cd] 180 mg PO 0800,1800 #60 capsule 12/31/19 10/18/21 Aspirin [Aspirin EC] 81 mg PO DAILY 09/18/20 10/18/21 Clopidogrel [Plavix] 75 mg PO DAILY 09/18/20 10/18/21 Metoprolol Tartrate [Lopressor] 50 mg PO BID 09/18/20 10/18/21 Rosuvastatin Calcium [Crestor] 5 mg PO QPM 09/18/20 10/18/21 Levothyroxine [Synthroid] 125 mcg PO QDAC #30 tablet 09/23/20 10/18/21 Furosemide [Lasix] 60 mg PO BID 30 Days #180 tablet 06/27/21 10/18/21 Furosemide [Lasix] 60 mg PO BID 30 Days #180 tablet 06/27/21 10/18/21 Potassium Chloride [K-Dur] 20 meq PO 0800 30 Days #30 tablet 06/27/21 10/18/21 Potassium Chloride [K-Dur] 20 meq PO DAILY tablet 06/27/21 10/18/21 - Allergies Allergies/Adverse Reactions: Allergies Allergy/AdvReac Type Severity Reaction Status Date / Time No Known Drug Allergies Allergy Verified 05/23/22 19:39 Review of Systems - Constitutional Constitutional: reports: Weakness. denies: Fatigue, Fever, Chills - Ears, Nose & Throat Ears, Nose & Throat: denies: Nasal discharge, Nasal congestion - Cardiovascular Cariovascular: reports: Edema, Lightheadedness, Exertional dyspnea, Decr. exercise tolerance. denies: Chest pain, Syncope - Respiratory Respiratory: reports: Cough, SOB at rest, SOB with exertion - Gastrointestinal Gastrointestinal: reports: Abdominal pain. denies: Nausea, Vomiting - Genitourinary Genitourinary: denies: Dysuria, Frequency, Urgency, Hematuria - Integumentary Integumentary: denies: Rash - Neurological Neurological: reports: General weakness, Dizziness. denies: Focal weakness - Endocrine Endocrine: denies: Polyuria - Hematologic/Lymphatic Hematologic/Lymphatic: denies: Anemia, Bruising, Bleeding tendencies - All Other Systems All Other Systems: reports: Reviewed and negative Prior Level of Functionality: She states that she is independent with her ADLs and cares for her family. Exam - Vital Signs Reviewed Vital Signs: Yes Vital Signs: Vital Signs x48h Temp Pulse Resp BP Pulse Ox 05/23/22 20:30 53 L 20 126/60 96 05/23/22 20:11 60 17 142/69 H 96 05/23/22 19:55 18 96 05/23/22 19:39 36.6 C 88 30 H 152/99 H 86 L - Physical Exam General Appearance: positive: No acute distress, Alert Eyes Bilateral: positive: Normal inspection ENT: positive: ENT inspection nml, Other (Nasal cannula in place.) Neck: positive: Nml inspection Respiratory: positive: No respiratory distress, Rales. negative: Wheezes, Rhonchi Cardiovascular: positive: Irregularly irregular, Systolic murmur. negative: No murmur, Tachycardia Abdomen: positive: No distention, Tenderness (Tenderness in suprapubic region.). negative: Guarding, Rebound Skin: positive: Warm, Dry Extremities: positive: Pedal edema (+1 to +2 pitting edema in bilateral lower extremities.) Neurologic/Psychiatric: negative: Disoriented to person, Disoriented to place Conclusion/Plan - Problem List (1) Acute on chronic respiratory failure with hypoxia Conclusion/Plan: This is secondary to acute exacerbation of the heart failure. She is on 3 L of oxygen at baseline for her heart failure/COPD. She is now requiring 4 L to maintain oxygen saturation given 88%. Her chest x-ray does suggest pulmonary edema and she has had an increase in her lower extremity edema. We will admit her for IV diuresis. Continue submental oxygen for goal saturation greater than 88%. She will need an exercise desaturation test prior to discharge. (2) Acute on chronic diastolic (congestive) heart failure Conclusion/Plan: This is the cause of her acute on chronic hypoxic respiratory failure. She presents with worsening dyspnea, lower extremity edema and chest x-ray suggests pulmonary congestion. Her BNP is the lowest it has been but she is obese this is likely falsely decreased. Clinically she appears to be in heart failure. We will place her on Lasix 60 mg IV twice daily. We will consider the addition of metolazone if she does not diurese enough with the Lasix. We will place her on a fluid restriction of 1800 mL. Low-sodium diet. Daily weights. Strict I's and O's.We will consider the addition of metolazone if she does not diurese en ough with the Lasix. We will place her on a fluid restriction of 1800 mL. Low- sodium diet. Daily weights. Strict I's and O's. We will order an echocardiogram for the morning. (3) Aortic stenosis Conclusion/Plan: Her last echocardiogram from 2 years ago revealed mild to moderate aortic stenosis. This is likely contributing to her dyspnea and heart failure. We will repeat an echocardiogram to assess the severity of the aortic stenosis now. (4) A-fib Conclusion/Plan: She is rate controlled. We are continuing her home Eliquis as well as metoprolol and diltiazem. (5) History of coronary artery disease Conclusion/Plan: She is known history of coronary artery disease with stenting in the LAD. She currently has no chest pain or EKG does not suggest ischemia. Her troponin is mildly elevated but is likely demand ischemia due to the heart failure. We will continue her home Eliquis, metoprolol, statin. We will recheck a troponin. Monitor on telemetry. (6) Urinary retention Conclusion/Plan: This is a new problem for her. We bladder scanned her for over some 700 mL. We will straight catheter once. If she fails a voiding trial again then she will need a Gauthier catheter. We can consider the use of Flomax.. (7) Reactive airway disease Conclusion/Plan: Stable. This is not an exacerbation. We will use albuterol as needed. (8) Hypothyroidism Conclusion/Plan: We will continue home Synthroid. - Lab Results Lab results reviewed: Yes Fish Bones: 05/23/22 19:49 05/23/22 19:49 - Diagnostic Imaging Results Diagnostic Imaging Results: positive: Final report reviewed - EKG Results EKG Interpreted Independently: Yes EKG Comparison: Unchanged from prior EKG EKG Findings: EKG reveals atrial fibrillation. There are nonspecific ST segment changes. Core Measures - Anticipated LOS I expect patient to be DC'd or transferred within 96 hours.: Yes - Issues Hospital Issues and Management Plan: 87-year-old female with history of atrial fibrillation, diastolic heart failure on oxygen presents with dyspnea found to have acute exacerbation of her heart failure. She will be admitted for IV diuresis. - DVT/VTE - Prophylaxis VTE/DVT Device ordered at admit?: No VTE/DVT Prophylaxis med ordered at admit?: Yes
[2022-05-23 22:21] LABS: CORONAVIRUS 229E-RESP PCR NOT DETECTED; CORONAVIRUS HKU1-RESP PCR NOT DETECTED; CORONAVIRUS NL63-RESP PCR NOT DETECTED; CORONAVIRUS OC43-RESP PCR NOT DETECTED; SARS-CoV-2 -RESP PCR PANEL NOT DETECTED
[2022-05-23 22:22] LABS: B. PARAPERTUSSIS- RESP PCR PAN NOT DETECTED; B. PERTUSSIS- RESP PCR PANEL NOT DETECTED; C. PNEUMONIAE- RESP PCR PANEL NOT DETECTED; HUMAN METAPNEUMOVIRUS NOT DETECTED; INFLUENZA A- RESP PCR PANEL NOT DETECTED; INFLUENZA B - RESP PCR PANEL NOT DETECTED; M. PNEUMONIAE- RESP PCR PANEL NOT DETECTED; PARAINFLUENZA VIRUS 1 NOT DETECTED; PARAINFLUENZA VIRUS 2 NOT DETECTED; PARAINFLUENZA VIRUS 3 NOT DETECTED; PARAINFLUENZA VIRUS 4 NOT DETECTED; RHINOVIRUS/ENTEROVIRUS NOT DETECTED; RSV- RESP PCR PANEL NOT DETECTED
[2022-05-23] MEDS ORDERED: traZODone 50 MG TABLET PO SCH (23:00)
[2022-05-23] MEDS: SODIUM CHLORIDE FLUSH 0.9% 10 ML SYRINGE IVP SCH (23:34)
[2022-05-24 05:07] LABS: BASOPHILS # (AUTO) 0.1 10^3/uL (0.0-0.1); BASOPHILS % (AUTO) 0.8 %; EOSINOPHILS # (AUTO) 0.1 10^3/uL (0.0-0.7); HCT - HEMATOCRIT 32.8 % (37.0-47.0); HGB - HEMOGLOBIN 10.5 g/dL (12.0-16.0); LYMPHOCYTES # (AUTO) 1.1 10^3/uL (1.5-3.5); LYMPHOCYTES % (AUTO) 16.9 %; MEAN CORPUSCULAR HEMOGLOBIN 31.1 pg (27.0-31.0); MEAN PLATELET VOLUME 10.2 fL (7.9-10.8); MONOCYTES # (AUTO) 0.6 10^3/uL (0.0-1.0); MONOCYTES % (AUTO) 9.4 %; NEUTROPHILS # (AUTO) 4.5 10^3/uL (1.5-6.6); NEUTROPHILS % (AUTO) 70.6 %; PLT - PLATELET COUNT 194 10^3/uL (130-450); RED BLOOD COUNT 3.38 10^6/uL (4.20-5.40); RED CELL DISTRIBUTION WIDTH 14.9 % (12.0-15.0); WHITE BLOOD COUNT 6.4 x10^3/uL (4.8-10.8)
[2022-05-24 05:12] LABS: CALCIUM 8.5 mg/dL (8.5-10.3); CREATININE 0.8 mg/dL (0.4-1.0); MAGNESIUM 2.2 mg/dL (1.7-2.8); POTASSIUM 3.3 mmol/L (3.5-5.0)
[2022-05-24] MEDS: FUROSEMIDE 40 MG/4 ML VIAL IVP SCH ×2 (06:18→12:50)
[2022-05-24] MEDS: LEVOTHYROXINE 125 MCG TABLET PO SCH (06:18)
[2022-05-24] MEDS: ALBUTEROL NEB 2.5 MG/3 ML INH PRN (07:40)
--- NOTE | 2022-05-24 07:53 | PROVIDER PROGRESS NOTE ---
Assessment/Plan - Problem List (1) Acute on chronic respiratory failure with hypoxia Assessment/Plan: Likely secondary to CHF exacerbation. Patient is on her baseline supplemental oxygen of 3 L with oxygen saturation in the 90s. Continue diuresis with Lasix 60 mg IV twice daily. Continue fluid restriction of 1800 mils total. (2) Acute on chronic diastolic (congestive) heart failure Assessment/Plan: Lasix 60 mg IV twice daily Metoprolol tartrate 50 mg p.o. twice daily held for now due to bradycardia with frequent pauses. BNP was 356. 2D echocardiogram pending. Fluid restriction of 1800 mL total daily. Low sodium diet. Strict I's and O's. (3) A-fib Assessment/Plan: On Eliquis 5 mg p.o. twice daily. Diltiazem CD1 180 mg p.o. twice daily. Due to bradycardia with frequent pauses, will hold metoprolol for now. (4) Aortic stenosis Assessment/Plan: 2D echocardiogram pending. Last 2D echocardiogram was 2 years ago which revealed mild to moderate aortic stenosis. (5) History of coronary artery disease Assessment/Plan: Atorvastatin 10 mg p.o. every afternoon Plavix 75 mg p.o. daily Eliquis 5 mg p.o. twice daily. Metoprolol tartrate held for now due to bradycardia and frequent pauses. (6) Hypothyroidism Assessment/Plan: On Synthroid 125 mcg p.o. daily AC. (7) Reactive airway disease Assessment/Plan: Not in exacerbation. Albuterol as needed. - Current Meds Current Meds: Current Medications Generic Name Dose Route Start Last Admin Trade Name Freq PRN Reason Stop Dose Admin Albuterol 2.5 mg 05/23/22 21:46 05/24/22 07:40 Albuterol Neb 2.5 Mg/3 Ml INH 2.5 mg RTQ4H PRN Administration Wheezing Furosemide 60 mg 05/24/22 06:00 05/24/22 06:18 Furosemide 40 Mg/4 Ml Vial IVP 60 mg BIDDIURETIC JULIANO Administration Levothyroxine Sodium 125 mcg 05/24/22 07:00 05/24/22 06:18 Levothyroxine 125 Mcg Tablet PO 125 mcg QDAC JULIANO Administration Sodium Chloride 10 ml 05/24/22 01:00 05/23/22 23:34 Sodium Chloride Flush 0.9% 10 Ml Syringe IVP 10 ml 0100,0900,1700 [facility] Administration - Lab Result Fish Bone Diagrams: 05/24/22 04:28 05/24/22 04:28 Subjective - Subjective Patient Reports: Other (She was seated in the bedside chair at time of visit. She has mild conversational dyspnea. 2+ lower extremity edema. Crackles on lung bases. Complains of frequent leg cramps.) Objective Vital Signs: Vital Signs - 24 hr 05/23/22 05/23/22 05/23/22 19:39 19:55 20:11 Temperature 36.6 C Heart Rate 88 70 60 Heart Rate [ Brachial] Respiratory 30 H 24 17 Rate Blood Pressure 152/99 H 142/69 H Blood Pressure [Left Brachial artery] O2 Saturation 86 L 96 96 05/23/22 05/23/22 05/23/22 20:30 21:00 21:36 Temperature Heart Rate 53 L 54 L 61 Heart Rate [ Brachial] Respiratory 20 20 23 Rate Blood Pressure 126/60 121/53 L 116/93 H Blood Pressure [Left Brachial artery] O2 Saturation 96 96 94 05/23/22 05/24/22 05/24/22 22:00 00:09 04:41 Temperature 36.9 C 36.9 C 36.8 C Heart Rate Heart Rate [ 68 53 L 53 L Brachial] Respiratory 24 18 18 Rate Blood Pressure Blood Pressure 150/71 H 155/94 H 145/60 H [Left Brachial artery] O2 Saturation 94 94 94 05/24/22 05/24/22 07:12 07:44 Temperature 36.6 C Heart Rate 78 Heart Rate [ 61 Brachial] Respiratory 16 18 Rate Blood Pressure Blood Pressure 130/57 L [Left Brachial artery] O2 Saturation 92 Oxygen O2 Source [With Activity] Nasal cannula O2 Source Nasal cannula I&O (Last 24 Hrs): Intake and Output Totals x24h 05/22/22 05/23/22 05/24/22 23:59 23:59 23:59 Intake Total 200 Output Total 950 2300 Balance -950 -2100 General: Alert, Oriented x3, Mild distress (respiratory) HEENT: PERRLA, EOMI Neck: Supple, No JVD Neuro: Alert, Oriented Times 3 Cardiovascular: Regular rate, Other (3/6 blowing systolic murmur) Respiratory: Chest non-tender, Other (mild crackle in lung bases) Abdomen: Normal bowel sounds, Soft, No tenderness, No masses Extremities: No clubbing, No cyanosis, Other (2+ edema) Skin: No rashes, No breakdown, No significant lesion - Results Results: Laboratory Results WBC 6.4 x10^3/uL (4.8-10.8) 05/24/22 04:28 RBC 3.38 10^6/uL (4.20-5.40) L 05/24/22 04:28 Hgb 10.5 g/dL (12.0-16.0) L 05/24/22 04:28 Hct 32.8 % (37.0-47.0) L 05/24/22 04:28 MCV 97.0 fL (81.0-99.0) 05/24/22 04: MCH 31.1 pg (27.0-31.0) H 05/24/22 04: MCHC 32.0 g/dL (32.0-36.0) 05/24/22 04: RDW 14.9 % (12.0-15.0) 05/24/22 04:28 Plt Count 194 10^3/uL (130-450) 05/24/22 04:28 MPV 10.2 fL (7.9-10.8) 05/24/22 04:28 Neut # (Auto) 4.5 10^3/uL (1.5-6.6) 05/24/22 04:28 Lymph # (Auto) 1.1 10^3/uL (1.5-3.5) L 05/24/22 04:28 Stearns # (Auto) 0.6 10^3/uL (0.0-1.0) 05/24/22 04:28 Eos # (Auto) 0.1 10^3/uL (0.0-0.7) 05/24/22 04:28 Baso # (Auto) 0.1 10^3/uL (0.0-0.1) 05/24/22 04: Absolute Nucleated RBC 0.00 x10^3/uL 05/24/22 04:28 Nucleated RBC % 0.0 /100WBC 05/24/22 04:28 Sodium 140 mmol/L (135-145) 05/24/22 04:28 Potassium 3.3 mmol/L (3.5-5.0) L 05/24/22 04:28 Chloride 99 mmol/L (101-111) L 05/24/22 04:28 Carbon Dioxide 30 mmol/L (21-32) 05/24/22 04:28 Anion Gap 11.0 (6-13) 05/24/22 04:28 BUN 20 mg/dL (6-20) 05/24/22 04:28 Creatinine 0.8 mg/dL (0.4-1.0) 05/24/22 04:28 Estimated GFR (MDRD) 68 (>89) L 05/24/22 04:28 Glucose 113 mg/dL (70-100) H 05/24/22 04:28 Calcium 8.5 mg/dL (8.5-10.3) 05/24/22 04:28 Magnesium 2.2 mg/dL (1.7-2.8) 05/24/22 04:28 Total Bilirubin 0.9 mg/dL (0.2-1.0) 05/23/22 19:49 AST 19 IU/L (10-42) 05/23/22 19:49 ALT 18 IU/L (10-60) 05/23/22 19:49 Alkaline Phosphatase 72 IU/L (42-121) 05/23/22 19:49 Troponin I High Sens 19.3 ng/L (2.3-14.8) H* 05/23/22 22:15 B-Natriuretic Peptide 356 pg/mL (5-100) H 05/24/22 04:28 Total Protein 7.4 g/dL (6.7-8.2) 05/23/22 19:49 Albumin 3.8 g/dL (3.2-5.5) 05/23/22 19:49 Globulin 3.6 g/dL (2.1-4.2) 05/23/22 19:49 Albumin/Globulin Ratio 1.1 (1.0-2.2) 05/23/22 19:49 Lipase 28 U/L (22-51) 05/23/22 19:49 Nasal Adenovirus (PCR) NOT DETECTED 05/23/22 21:23 Nasal B. parapertussis DNA (PCR) NOT DETECTED 05/23/22 21:23 Nasal Coronavir 229E PCR NOT DETECTED 05/23/22 21:23 Nasal Coronavir HKU1 PCR NOT DETECTED 05/23/22 21:23 Nasal Coronavir NL63 PCR NOT DETECTED 05/23/22 21:23 Nasal Coronavir OC43 PCR NOT DETECTED 05/23/22 21:23 Nasal Enterovir/Rhinovir PCR NOT DETECTED 05/23/22 21:23 Nasal Influenza B PCR NOT DETECTED 05/23/22 21:23 Nasal Influenza A PCR NOT DETECTED 05/23/22 21:23 Nasal Parainfluen 1 PCR NOT DETECTED 05/23/22 21:23 Nasal Parainfluen 2 PCR NOT DETECTED 05/23/22 21:23 Nasal Parainfluen 3 PCR NOT DETECTED 05/23/22 21:23 Nasal Parainfluen 4 PCR NOT DETECTED 05/23/22 21:23 Nasal RSV (PCR) NOT DETECTED 05/23/22 21:23 Nasal B.pertussis DNA PCR NOT DETECTED 05/23/22 21:23 Nasal C.pneumoniae (PCR) NOT DETECTED 05/23/22 21:23 Macho Human Metapneumo PCR NOT DETECTED 05/23/22 21:23 Nasal M.pneumoniae (PCR) NOT DETECTED 05/23/22 21:23 Nasal SARS-CoV-2 (PCR) NOT DETECTED 05/23/22 21:23 - Procedures Procedures: Procedures ENDOSC POLYPECTOMY OF LG INTEST (04/11/14) EXCISE AXILLARY NODE (09/05/14) EXCISION OF DUODENUM, ENDO, DIAGN (09/18/20) EXCISION OF ESOPHAGOGASTRIC JUNCTION, ENDO, DIAGN (09/18/20) EXCISION OF ESOPHAGUS, ENDO, DIAGN (09/18/20) EXCISION OF STOMACH, ENDO, DIAGN (09/18/20) INSERTION OF TOTALLY IMPLANTABLE VASC ACCESS DEVIC (10/31/14) INSPECTION OF LOWER INTESTINAL TRACT, ENDO (09/18/20) LOCAL EXCIS BREAST LES (09/05/14) REMOVAL OF VAD FROM UP EXTREM SUBCU/FASCIA, PERC APPROACH (08/07/15) THORAX SFT TISS XRAY NEC (10/31/14) ABX Reporting Has patient been on IV antibiotics over the past 48 hours?: No
[2022-05-24] MEDS: POTASSIUM CHLORIDE 20 MEQ TABLET PO SCH (08:05)
[2022-05-24] MEDS: APIXABAN 5 MG TABLET PO SCH ×2 (08:05→20:35)
[2022-05-24] MEDS: TAMSULOSIN 0.4 MG CAPSULE PO SCH (08:06)
[2022-05-24] MEDS: diltiaZEM CD 180 MG CAPSULE PO SCH ×2 (08:06→18:53)
[2022-05-24] MEDS: SODIUM CHLORIDE FLUSH 0.9% 10 ML SYRINGE IVP SCH ×2 (08:07→18:53)
[2022-05-24] MEDS ORDERED: ENOXAPARIN 40 MG/0.4 ML SYRINGE SUBQ SCH (09:00)
[2022-05-24] MEDS ORDERED: ASPIRIN EC 81 MG TABLET PO SCH (09:00)
[2022-05-24] MEDS ORDERED: METOPROLOL TARTRATE 25 MG TABLET PO SCH ×2 (09:00→21:00)
[2022-05-24] MEDS ORDERED: CLOPIDOGREL 75 MG TABLET PO SCH (09:00)
[2022-05-24] MEDS: CYCLOBENZAPRINE 10 MG TABLET PO PRN ×2 (12:43→18:53)
[2022-05-24] MEDS ORDERED: POTASSIUM CHLORIDE 20 MEQ TABLET PO ONE (14:00)
[2022-05-24] MEDS: ATORVASTATIN 10 MG TABLET PO SCH (20:35)
[2022-05-25] MEDS: SODIUM CHLORIDE FLUSH 0.9% 10 ML SYRINGE IVP SCH ×3 (00:52→16:00)
[2022-05-25 05:14] LABS: BASOPHILS % (AUTO) 0.6 %; EOSINOPHILS # (AUTO) 0.1 10^3/uL (0.0-0.7); EOSINOPHILS % (AUTO) 1.9 %; HCT - HEMATOCRIT 32.4 % (37.0-47.0); HGB - HEMOGLOBIN 10.3 g/dL (12.0-16.0); LYMPHOCYTES % (AUTO) 15.7 %; MEAN CORPUSCULAR HEMOGLOBIN 31.2 pg (27.0-31.0); MEAN CORPUSCULAR HGB CONC 31.8 g/dL (32.0-36.0); MEAN CORPUSCULAR VOLUME 98.2 fL (81.0-99.0); MEAN PLATELET VOLUME 9.9 fL (7.9-10.8); MONOCYTES # (AUTO) 0.7 10^3/uL (0.0-1.0); MONOCYTES % (AUTO) 10.5 %; NEUTROPHILS # (AUTO) 4.5 10^3/uL (1.5-6.6); PLT - PLATELET COUNT 170 10^3/uL (130-450); RED CELL DISTRIBUTION WIDTH 15.1 % (12.0-15.0); WHITE BLOOD COUNT 6.3 x10^3/uL (4.8-10.8)
[2022-05-25 05:24] LABS: CALCIUM 8.9 mg/dL (8.5-10.3); CREATININE 0.9 mg/dL (0.4-1.0); MAGNESIUM 2.3 mg/dL (1.7-2.8); POTASSIUM 4.1 mmol/L (3.5-5.0)
[2022-05-25] MEDS: LEVOTHYROXINE 125 MCG TABLET PO SCH (05:30)
[2022-05-25] MEDS: FUROSEMIDE 40 MG/4 ML VIAL IVP SCH ×2 (05:30→13:25)
--- NOTE | 2022-05-25 07:36 | PROVIDER PROGRESS NOTE ---
Assessment/Plan - Problem List (1) Aortic stenosis Assessment/Plan: 2D echocardiogram done on 05/24/2022 showed severe aortic stenosis. Ejection fraction was 60 to 65%. RVSP was 56 mmHg. After discussing with patient she would like to undergo intervention. Will reach out to the patient's saw sharpener Dr. Morton for further follow-up. (2) Acute on chronic respiratory failure with hypoxia Assessment/Plan: Likely secondary to severe aortic stenosis and CHF On Lasix 60 mg IV twice daily. (3) Acute on chronic diastolic (congestive) heart failure Assessment/Plan: 2D echocardiogram done on 05/24/2022 showed severe aortic stenosis. Ejection fraction was 60 to 65%. RVSP was 56 mmHg. Lasix 60 mg IV twice daily (4) A-fib Assessment/Plan: On diltiazem 180 mg p.o. twice daily Eliquis 5 mg p.o. twice daily. (5) History of coronary artery disease Assessment/Plan: Atorvastatin 10 mg p.o. every afternoon. Eliquis 5 mg p.o. twice daily. Eliquis 5 mg p.o. twice daily. Metoprolol tartrate held for now due to bradycardia and frequent pauses. (6) Hypothyroidism Assessment/Plan: On Synthroid 125 mcg p.o. daily AC. (7) Reactive airway disease Assessment/Plan: Not in exacerbation. Albuterol as needed. - Current Meds Current Meds: Current Medications Generic Name Dose Route Start Last Admin Trade Name Freq PRN Reason Stop Dose Admin Albuterol 2.5 mg 05/23/22 21:46 05/24/22 07:40 Albuterol Neb 2.5 Mg/3 Ml INH 2.5 mg RTQ4H PRN Administration Wheezing Apixaban 5 mg 05/24/22 09:00 05/24/22 20:35 Apixaban 5 Mg Tablet PO 5 mg BID JULIANO Administration Atorvastatin Calcium 10 mg 05/24/22 21:00 05/24/22 20:35 Atorvastatin 10 Mg Tablet PO 10 mg QPM JULIANO Administration Cyclobenzaprine HCl 10 mg 05/24/22 10:35 05/24/22 18:53 Cyclobenzaprine 10 Mg Tablet PO 10 mg TID PRN Administration Spasms Diltiazem HCl 180 mg 05/24/22 08:00 05/24/22 18:53 Diltiazem Cd 180 Mg Capsule PO 180 mg 0800,1800 JULIANO Administration Furosemide 60 mg 05/24/22 06:00 05/25/22 05:30 Furosemide 40 Mg/4 Ml Vial IVP 60 mg BIDDIURETIC JULIANO Administration Levothyroxine Sodium 125 mcg 05/24/22 07:00 05/25/22 05:30 Levothyroxine 125 Mcg Tablet PO 125 mcg QDAC JULIANO Administration Potassium Chloride 20 meq 05/24/22 09:00 05/24/22 08:05 Potassium Chloride 20 Meq Tablet PO 20 meq DAILY JULIANO Administration Sodium Chloride 10 ml 05/24/22 01:00 05/25/22 00:52 Sodium Chloride Flush 0.9% 10 Ml Syringe IVP 10 ml 0100,0900,1700 JULIANO Administration Tamsulosin HCl 0.4 mg 05/24/22 09:00 05/24/22 08:06 Tamsulosin 0.4 Mg Capsule PO 0.4 mg DAILY JULIANO Administration - Lab Result Fish Bone Diagrams: 05/25/22 04:42 05/25/22 04:42 - Additional Planning My Orders: My Active Orders 05/24/22 10:35 Cyclobenzaprine [Flexeril] 10 mg PO TID PRN 05/24/22 16:31 Telemetry- [RC] Q4HR Subjective - Subjective Patient Reports: Other (Patient was seated in bedside chair at time of exam. Conversational dyspnea persist however she reports breathing better today compared to the previous day. Lower extremity edema improved. +1. She denied any other complaints.) Objective Vital Signs: Vital Signs - 24 hr 05/24/22 05/24/22 05/24/22 07:44 12:44 17:00 Temperature 36.8 C 36.8 C Heart Rate 78 Heart Rate [ Brachial] Heart Rate [ 52 L 52 L Monitoring electrodes] Respiratory 18 22 21 Rate Blood Pressure 125/42 L 129/59 L [Left Brachial artery] Blood Pressure [Right Brachial artery] O2 Saturation 95 96 05/24/22 05/24/22 05/24/22 17:24 18:54 21:00 Temperature 36.8 C Heart Rate 78 Heart Rate [ Brachial] Heart Rate [ 65 84 Monitoring electrodes] Respiratory 18 20 Rate Blood Pressure [Left Brachial artery] Blood Pressure 129/57 L 154/65 H [Right Brachial artery] O2 Saturation 93 05/25/22 05/25/22 00:52 04:51 Temperature 37 C 37 C Heart Rate Heart Rate [ 63 Brachial] Heart Rate [ 60 Monitoring electrodes] Respiratory 20 16 Rate Blood Pressure [Left Brachial artery] Blood Pressure 122/51 L 125/49 L [Right Brachial artery] O2 Saturation 93 94 Oxygen O2 Source [With Activity] Nasal cannula O2 Source Nasal cannula I&O (Last 24 Hrs): Intake and Output Totals x24h 05/23/22 05/24/22 05/25/22 23:59 23:59 23:59 Intake Total 1460 300 Output Total 950 3200 450 Balance -950 -1740 -150 Comments/Notes: General: Alert, Oriented x3, Mild distress (respiratory) HEENT: PERRLA, EOMI Neck: Supple, No JVD Neuro: Alert, Oriented Times 3 Cardiovascular: Regular rate, Other (3/6 blowing systolic murmur) Respiratory: Chest non-tender, Other (mild crackle in lung bases) Abdomen: Normal bowel sounds, Soft, No tenderness, No masses Extremities: No clubbing, No cyanosis, Other (1+ edema) Skin: No rashes, No breakdown, No significant lesion - Results Results: Laboratory Results WBC 6.3 x10^3/uL (4.8-10.8) 05/25/22 04:42 RBC 3.30 10^6/uL (4.20-5.40) L 05/25/22 04:42 Hgb 10.3 g/dL (12.0-16.0) L 05/25/22 04:42 Hct 32.4 % (37.0-47.0) L 05/25/22 04:42 MCV 98.2 fL (81.0-99.0) 05/25/22 04:42 MCH 31.2 pg (27.0-31.0) H 05/25/22 04:42 MCHC 31.8 g/dL (32.0-36.0) L 05/25/22 04:42 RDW 15.1 % (12.0-15.0) H 05/25/22 04:42 Plt Count 170 10^3/uL (130-450) 05/25/22 04:42 MPV 9.9 fL (7.9-10.8) 05/25/22 04:42 Neut # (Auto) 4.5 10^3/uL (1.5-6.6) 05/25/22 04:42 Lymph # (Auto) 1.0 10^3/uL (1.5-3.5) L 05/25/22 04:42 [place] # (Auto) 0.7 10^3/uL (0.0-1.0) 05/25/22 04:42 Eos # (Auto) 0.1 10^3/uL (0.0-0.7) 05/25/22 04:42 Baso # (Auto) 0.0 10^3/uL (0.0-0.1) 05/25/22 04:42 Absolute Nucleated RBC 0.00 x10^3/uL 05/25/22 04:42 Nucleated RBC % 0.0 /100WBC 05/25/22 04:42 Sodium 141 mmol/L (135-145) 05/25/22 04:42 Potassium 4.1 mmol/L (3.5-5.0) 05/25/22 04:42 Chloride 101 mmol/L (101-111) 05/25/22 04:42 Carbon Dioxide 32 mmol/L (21-32) 05/25/22 04:42 Anion Gap 8.0 (6-13) 05/25/22 04:42 BUN 25 mg/dL (6-20) H 05/25/22 04:42 Creatinine 0.9 mg/dL (0.4-1.0) 05/25/22 04:42 Estimated GFR (MDRD) 59 (>89) L 05/25/22 04:42 Glucose 118 mg/dL (70-100) H 05/25/22 04:42 Calcium 8.9 mg/dL (8.5-10.3) 05/25/22 04:42 Magnesium 2.3 mg/dL (1.7-2.8) 05/25/22 04:42 Total Bilirubin 0.9 mg/dL (0.2-1.0) 05/23/22 19:49 AST 19 IU/L (10-42) 05/23/22 19:49 ALT 18 IU/L (10-60) 05/23/22 19:49 Alkaline Phosphatase 72 IU/L (42-121) 05/23/22 19:49 Troponin I High Sens 19.3 ng/L (2.3-14.8) H* 05/23/22 22:15 B-Natriuretic Peptide 335 pg/mL (5-100) H 05/25/22 04:42 Total Protein 7.4 g/dL (6.7-8.2) 05/23/22 19:49 Albumin 3.8 g/dL (3.2-5.5) 05/23/22 19:49 Globulin 3.6 g/dL (2.1-4.2) 05/23/22 19:49 Albumin/Globulin Ratio 1.1 (1.0-2.2) 05/23/22 19:49 Lipase 28 U/L (22-51) 05/23/22 19:49 Nasal Adenovirus (PCR) NOT DETECTED 05/23/22 21:23 Nasal B. parapertussis DNA (PCR) NOT DETECTED 05/23/22 21:23 Nasal Coronavir 229E PCR NOT DETECTED 05/23/22 21:23 Nasal Coronavir HKU1 PCR NOT DETECTED 05/23/22 21:23 Nasal Coronavir NL63 PCR NOT DETECTED 05/23/22 21:23 Nasal Coronavir OC43 PCR NOT DETECTED 05/23/22 21:23 Nasal Enterovir/Rhinovir PCR NOT DETECTED 05/23/22 21:23 Nasal Influenza B PCR NOT DETECTED 05/23/22 21:23 Nasal Influenza A PCR NOT DETECTED 05/23/22 21:23 Nasal Parainfluen 1 PCR NOT DETECTED 05/23/22 21:23 Nasal Parainfluen 2 PCR NOT DETECTED 05/23/22 21:23 Nasal Parainfluen 3 PCR NOT DETECTED 05/23/22 21:23 Nasal Parainfluen 4 PCR NOT DETECTED 05/23/22 21:23 Nasal RSV (PCR) NOT DETECTED 05/23/22 21:23 Nasal B.pertussis DNA PCR NOT DETECTED 05/23/22 21:23 Nasal C.pneumoniae (PCR) NOT DETECTED 05/23/22 21:23 Macho Human Metapneumo PCR NOT DETECTED 05/23/22 21:23 Nasal M.pneumoniae (PCR) NOT DETECTED 05/23/22 21:23 Nasal SARS-CoV-2 (PCR) NOT DETECTED 05/23/22 21:23 - Procedures Procedures: Procedures ENDOSC POLYPECTOMY OF LG INTEST (04/11/14) EXCISE AXILLARY NODE (09/05/14) EXCISION OF DUODENUM, ENDO, DIAGN (09/18/20) EXCISION OF ESOPHAGOGASTRIC JUNCTION, ENDO, DIAGN (09/18/20) EXCISION OF ESOPHAGUS, ENDO, DIAGN (09/18/20) EXCISION OF STOMACH, ENDO, DIAGN (09/18/20) INSERTION OF TOTALLY IMPLANTABLE VASC ACCESS DEVIC (10/31/14) INSPECTION OF LOWER INTESTINAL TRACT, ENDO (09/18/20) LOCAL EXCIS BREAST LES (09/05/14) REMOVAL OF VAD FROM UP EXTREM SUBCU/FASCIA, PERC APPROACH (08/07/15) THORAX SFT TISS XRAY NEC (10/31/14) ABX Reporting Has patient been on IV antibiotics over the past 48 hours?: No
[2022-05-25] MEDS: ALBUTEROL NEB 2.5 MG/3 ML INH PRN ×3 (07:39→14:57)
[2022-05-25] MEDS: APIXABAN 5 MG TABLET PO SCH ×2 (08:25→21:21)
[2022-05-25] MEDS: TAMSULOSIN 0.4 MG CAPSULE PO SCH (08:25)
[2022-05-25] MEDS: POTASSIUM CHLORIDE 20 MEQ TABLET PO SCH (08:25)
[2022-05-25] MEDS: SODIUM CHLORIDE FLUSH 0.9% 10 ML SYRINGE IVP PRN (08:25)
[2022-05-25] MEDS: diltiaZEM CD 180 MG CAPSULE PO SCH ×2 (08:25→21:21)
[2022-05-25] MEDS: CYCLOBENZAPRINE 10 MG TABLET PO PRN (16:01)
[2022-05-25] MEDS: ATORVASTATIN 10 MG TABLET PO SCH (21:21)
[2022-05-26] MEDS: CYCLOBENZAPRINE 10 MG TABLET PO PRN ×3 (00:04→16:30)
[2022-05-26] MEDS: SODIUM CHLORIDE FLUSH 0.9% 10 ML SYRINGE IVP SCH ×3 (00:05→16:20)
[2022-05-26 05:18] LABS: BASOPHILS % (AUTO) 0.6 %; EOSINOPHILS # (AUTO) 0.1 10^3/uL (0.0-0.7); EOSINOPHILS % (AUTO) 1.9 %; HCT - HEMATOCRIT 33.3 % (37.0-47.0); HGB - HEMOGLOBIN 10.6 g/dL (12.0-16.0); LYMPHOCYTES # (AUTO) 0.9 10^3/uL (1.5-3.5); LYMPHOCYTES % (AUTO) 13.7 %; MEAN CORPUSCULAR HEMOGLOBIN 31.4 pg (27.0-31.0); MEAN CORPUSCULAR HGB CONC 31.8 g/dL (32.0-36.0); MEAN CORPUSCULAR VOLUME 98.5 fL (81.0-99.0); MEAN PLATELET VOLUME 10.1 fL (7.9-10.8); MONOCYTES # (AUTO) 0.7 10^3/uL (0.0-1.0); MONOCYTES % (AUTO) 10.3 %; NEUTROPHILS # (AUTO) 4.7 10^3/uL (1.5-6.6); NEUTROPHILS % (AUTO) 73.3 %; PLT - PLATELET COUNT 185 10^3/uL (130-450); RED BLOOD COUNT 3.38 10^6/uL (4.20-5.40); RED CELL DISTRIBUTION WIDTH 14.9 % (12.0-15.0); WHITE BLOOD COUNT 6.3 x10^3/uL (4.8-10.8)
[2022-05-26 05:34] LABS: CALCIUM 8.9 mg/dL (8.5-10.3); CREATININE 0.8 mg/dL (0.4-1.0); MAGNESIUM 2.2 mg/dL (1.7-2.8); POTASSIUM 3.9 mmol/L (3.5-5.0)
[2022-05-26] MEDS: LEVOTHYROXINE 125 MCG TABLET PO SCH (06:13)
[2022-05-26] MEDS: FUROSEMIDE 40 MG/4 ML VIAL IVP SCH ×2 (06:13→15:11)
--- NOTE | 2022-05-26 07:39 | PROVIDER PROGRESS NOTE ---
Assessment/Plan - Problem List (1) Aortic stenosis Assessment/Plan: 2D echocardiogram done on 05/24/2022 showed severe aortic stenosis. Ejection fraction was 60 to 65%. RVSP was 56 mmHg. After discussing with patient she would like to undergo intervention. This finding was discussed with the patient's gear hobber set up operator Dr. Morton after he reviewed the echo himself He stated that the study is not consistent with severe aortic stensosis and that there has not been significant change from the 2D echo done in 2019. He advised that other co-morbidities lare likely contributing to the patient's dyspnea. He agreed with continued diuresis. He will set up an outpatient follow up appointment in 3 weeks after discharge (2) Acute on chronic respiratory failure with hypoxia Assessment/Plan: Likely secondary to aortic stenosis and CHF On Lasix 60 mg IV twice daily. (3) Acute on chronic diastolic (congestive) heart failure Assessment/Plan: 2D echocardiogram done on 05/24/2022 showed severe aortic stenosis. Ejection fraction was 60 to 65%. RVSP was 56 mmHg. Lasix 60 mg IV twice daily (4) A-fib Assessment/Plan: Atorvastatin 10 mg p.o. every afternoon. Eliquis 5 mg p.o. twice daily. Eliquis 5 mg p.o. twice daily. Metoprolol tartrate resumed at a decreased dose of 25mg po bid. (5) History of coronary artery disease Assessment/Plan: Atorvastatin 10 mg p.o. every afternoon. Eliquis 5 mg p.o. twice daily. Eliquis 5 mg p.o. twice daily. Metoprolol tartrate resumed at a decreased dose of 25mg po bid. (6) Hypothyroidism Assessment/Plan: On Synthroid 125 mcg p.o. daily AC. (7) Reactive airway disease Assessment/Plan: Not in exacerbation. Albuterol as needed. - Current Meds Current Meds: Current Medications Generic Name Dose Route Start Last Admin Trade Name Freq PRN Reason Stop Dose Admin Albuterol 2.5 mg 05/23/22 21:46 05/25/22 14:57 Albuterol Neb 2.5 Mg/3 Ml INH 2.5 mg RTQ4H PRN Administration Wheezing Apixaban 5 mg 05/24/22 09:00 05/25/22 21:21 Apixaban 5 Mg Tablet PO 5 mg BID JULIANO Administration Atorvastatin Calcium 10 mg 05/24/22 21:00 05/25/22 21:21 Atorvastatin 10 Mg Tablet PO 10 mg QPM JULIANO Administration Cyclobenzaprine HCl 10 mg 05/24/22 10:35 05/26/22 06:12 Cyclobenzaprine 10 Mg Tablet PO 10 mg TID PRN Administration Spasms Diltiazem HCl 180 mg 05/24/22 08:00 05/25/22 21:21 Diltiazem Cd 180 Mg Capsule PO 180 mg 0800,1800 JULIANO Administration Furosemide 60 mg 05/24/22 06:00 05/26/22 06:13 Furosemide 40 Mg/4 Ml Vial IVP 60 mg BIDDIURETIC JULIANO Administration Levothyroxine Sodium 125 mcg 05/24/22 07:00 05/26/22 06:13 Levothyroxine 125 Mcg Tablet PO 125 mcg QDAC JULIANO Administration Potassium Chloride 20 meq 05/24/22 09:00 05/25/22 08:25 Potassium Chloride 20 Meq Tablet PO 20 meq DAILY JULIANO Administration Sodium Chloride 10 ml 05/23/22 21:16 05/25/22 08:25 Sodium Chloride Flush 0.9% 10 Ml Syringe IVP 10 ml PRN PRN Administration NEEDED PER PROVIDER ORDERS Sodium Chloride 10 ml 05/24/22 01:00 05/26/22 00:05 Sodium Chloride Flush 0.9% 10 Ml Syringe IVP 10 ml 0100,0900,1700 JULIANO Administration Tamsulosin HCl 0.4 mg 05/24/22 09:00 05/25/22 08:25 Tamsulosin 0.4 Mg Capsule PO 0.4 mg DAILY JULIANO Administration - Lab Result Fish Bone Diagrams: 05/26/22 04:33 05/26/22 04:33 Subjective - Subjective Patient Reports: Other (Resting comfortably in bed. Mild conversational dyspnea noted. Complain of leg cramps.) Objective Vital Signs: Vital Signs - 24 hr 05/25/22 05/25/22 05/25/22 07:52 11:16 16:08 Temperature 36.5 C 36.4 C L 36.8 C Heart Rate Heart Rate [ 73 54 L Brachial] Heart Rate [ 62 Monitoring electrodes] Respiratory 22 22 20 Rate Blood Pressure [Left Brachial artery] Blood Pressure 144/74 H 118/59 L 125/48 L [Right Brachial artery] O2 Saturation 94 96 97 0705/25/22 05/25/22 18:29 20:14 23:41 Temperature 36.6 C 36.7 C Heart Rate 67 Heart Rate [ 62 Brachial] Heart Rate [ 70 Monitoring electrodes] Respiratory 20 20 18 Rate Blood Pressure [Left Brachial artery] Blood Pressure 127/63 140/55 H [Right Brachial artery] O2 Saturation 94 95 05/26/22 05/26/22 05/26/22 05:12 06:21 07:25 Temperature 36.7 C 36.5 C Heart Rate Heart Rate [ 61 Brachial] Heart Rate [ 81 Monitoring electrodes] Respiratory 18 18 Rate Blood Pressure 131/67 H 115/71 [Left Brachial artery] Blood Pressure 103/44 L [Right Brachial artery] O2 Saturation 93 95 Oxygen O2 Source [With Activity] Nasal cannula O2 Source Nasal cannula I&O (Last 24 Hrs): Intake and Output Totals x24h 05/24/22 05/25/22 05/26/22 23:59 23:59 23:59 Intake Total 1460 1337 Output Total 3200 2550 550 Balance -1740 -1213 -550 General: Alert, Oriented x3, Cooperative, Mild distress HEENT: PERRLA, EOMI Neck: Supple, No JVD Neuro: Alert, Oriented Times 3 Cardiovascular: Regular rate, Other (iregular rhythm) Respiratory: Chest non-tender, No respiratory distress, Breath sounds nml Abdomen: Normal bowel sounds, Soft, No tenderness Extremities: No clubbing, No cyanosis, No edema, No tenderness/swelling Skin: No rashes, No breakdown, No significant lesion - Results Results: Laboratory Results WBC 6.3 x10^3/uL (4.8-10.8) 05/26/22 04:33 RBC 3.38 10^6/uL (4.20-5.40) L 05/26/22 04:33 Hgb 10.6 g/dL (12.0-16.0) L 05/26/22 04:33 Hct 33.3 % (37.0-47.0) L 05/26/22 04:33 MCV 98.5 fL (81.0-99.0) 05/26/22 04:33 MCH 31.4 pg (27.0-31.0) H 05/26/22 04:33 MCHC 31.8 g/dL (32.0-36.0) L 05/26/22 04:33 RDW 14.9 % (12.0-15.0) 05/26/22 04:33 Plt Count 185 10^3/uL (130-450) 05/26/22 04:33 MPV 10.1 fL (7.9-10.8) 05/26/22 04:33 Neut # (Auto) 4.7 10^3/uL (1.5-6.6) 05/26/22 04:33 Lymph # (Auto) 0.9 10^3/uL (1.5-3.5) L 05/26/22 04:33 [place] # (Auto) 0.7 10^3/uL (0.0-1.0) 05/26/22 04:33 Eos # (Auto) 0.1 10^3/uL (0.0-0.7) 05/26/22 04:33 Baso # (Auto) 0.0 10^3/uL (0.0-0.1) 05/26/22 04:33 Absolute Nucleated RBC 0.00 x10^3/uL 05/26/22 04:33 Nucleated RBC % 0.0 /100WBC 05/26/22 04:33 Sodium 139 mmol/L (135-145) 05/26/22 04:33 Potassium 3.9 mmol/L (3.5-5.0) 05/26/22 04:33 Chloride 99 mmol/L (101-111) L 05/26/22 04:33 Carbon Dioxide 32 mmol/L (21-32) 05/26/22 04:33 Anion Gap 8.0 (6-13) 05/26/22 04:33 BUN 23 mg/dL (6-20) H 05/26/22 04:33 Creatinine 0.8 mg/dL (0.4-1.0) 05/26/22 04:33 Estimated GFR (MDRD) 68 (>89) L 05/26/22 04:33 Glucose 126 mg/dL (70-100) H 05/26/22 04:33 Calcium 8.9 mg/dL (8.5-10.3) 05/26/22 04:33 Magnesium 2.2 mg/dL (1.7-2.8) 05/26/22 04:33 Total Bilirubin 0.9 mg/dL (0.2-1.0) 05/23/22 19:49 AST 19 IU/L (10-42) 05/23/22 19:49 ALT 18 IU/L (10-60) 05/23/22 19:49 Alkaline Phosphatase 72 IU/L (42-121) 05/23/22 19:49 Troponin I High Sens 19.3 ng/L (2.3-14.8) H* 05/23/22 22:15 B-Natriuretic Peptide 273 pg/mL (5-100) H 05/26/22 04:33 Total Protein 7.4 g/dL (6.7-8.2) 05/23/22 19:49 Albumin 3.8 g/dL (3.2-5.5) 05/23/22 19:49 Globulin 3.6 g/dL (2.1-4.2) 05/23/22 19:49 Albumin/Globulin Ratio 1.1 (1.0-2.2) 05/23/22 19:49 Lipase 28 U/L (22-51) 05/23/22 19:49 Nasal Adenovirus (PCR) NOT DETECTED 05/23/22 21:23 Nasal B. parapertussis DNA (PCR) NOT DETECTED 05/23/22 21:23 Nasal Coronavir 229E PCR NOT DETECTED 05/23/22 21:23 Nasal Coronavir HKU1 PCR NOT DETECTED 05/23/22 21:23 Nasal Coronavir NL63 PCR NOT DETECTED 05/23/22 21:23 Nasal Coronavir OC43 PCR NOT DETECTED 05/23/22 21:23 Nasal Enterovir/Rhinovir PCR NOT DETECTED 05/23/22 21:23 Nasal Influenza B PCR NOT DETECTED 05/23/22 21:23 Nasal Influenza A PCR NOT DETECTED 05/23/22 21:23 Nasal Parainfluen 1 PCR NOT DETECTED 05/23/22 21:23 Nasal Parainfluen 2 PCR NOT DETECTED 05/23/22 21:23 Nasal Parainfluen 3 PCR NOT DETECTED 05/23/22 21:23 Nasal Parainfluen 4 PCR NOT DETECTED 05/23/22 21:23 Nasal RSV (PCR) NOT DETECTED 05/23/22 21:23 Nasal B.pertussis DNA PCR NOT DETECTED 05/23/22 21:23 Nasal C.pneumoniae (PCR) NOT DETECTED 05/23/22 21:23 Macho Human Metapneumo PCR NOT DETECTED 05/23/22 21:23 Nasal M.pneumoniae (PCR) NOT DETECTED 05/23/22 21:23 Nasal SARS-CoV-2 (PCR) NOT DETECTED 05/23/22 21:23 - Procedures Procedures: Procedures ENDOSC POLYPECTOMY OF LG INTEST (04/11/14) EXCISE AXILLARY NODE (09/05/14) EXCISION OF DUODENUM, ENDO, DIAGN (09/18/20) EXCISION OF ESOPHAGOGASTRIC JUNCTION, ENDO, DIAGN (09/18/20) EXCISION OF ESOPHAGUS, ENDO, DIAGN (09/18/20) EXCISION OF STOMACH, ENDO, DIAGN (09/18/20) INSERTION OF TOTALLY IMPLANTABLE VASC ACCESS DEVIC (10/31/14) INSPECTION OF LOWER INTESTINAL TRACT, ENDO (09/18/20) LOCAL EXCIS BREAST LES (09/05/14) REMOVAL OF VAD FROM UP EXTREM SUBCU/FASCIA, PERC APPROACH (08/07/15) THORAX SFT TISS XRAY NEC (10/31/14) ABX Reporting Has patient been on IV antibiotics over the past 48 hours?: No
[2022-05-26] MEDS: APIXABAN 5 MG TABLET PO SCH ×2 (08:14→20:29)
[2022-05-26] MEDS: diltiaZEM CD 180 MG CAPSULE PO SCH ×2 (08:14→17:57)
[2022-05-26] MEDS: TAMSULOSIN 0.4 MG CAPSULE PO SCH (08:14)
[2022-05-26] MEDS: POTASSIUM CHLORIDE 20 MEQ TABLET PO SCH (08:14)
[2022-05-26] MEDS: ALBUTEROL NEB 2.5 MG/3 ML INH PRN (12:59)
[2022-05-26] MEDS: DOCUSATE SODIUM 250 MG CAPSULE PO SCH (20:28)
[2022-05-26] MEDS: SENNA 8.6 MG TABLET PO SCH (20:28)
[2022-05-26] MEDS: ATORVASTATIN 10 MG TABLET PO SCH (20:29)
[2022-05-26] MEDS: METOPROLOL TARTRATE 25 MG TABLET PO SCH (20:30)
[2022-05-27] MEDS: SODIUM CHLORIDE FLUSH 0.9% 10 ML SYRINGE IVP SCH ×4 (00:39→23:45)
[2022-05-27 05:26] LABS: BASOPHILS % (AUTO) 0.6 %; EOSINOPHILS # (AUTO) 0.1 10^3/uL (0.0-0.7); EOSINOPHILS % (AUTO) 1.8 %; HCT - HEMATOCRIT 32.5 % (37.0-47.0); HGB - HEMOGLOBIN 10.4 g/dL (12.0-16.0); LYMPHOCYTES # (AUTO) 0.9 10^3/uL (1.5-3.5); LYMPHOCYTES % (AUTO) 13.6 %; MEAN CORPUSCULAR HEMOGLOBIN 31.1 pg (27.0-31.0); MEAN CORPUSCULAR VOLUME 97.3 fL (81.0-99.0); MEAN PLATELET VOLUME 10.1 fL (7.9-10.8); MONOCYTES # (AUTO) 0.8 10^3/uL (0.0-1.0); MONOCYTES % (AUTO) 11.1 %; NEUTROPHILS % (AUTO) 72.5 %; PLT - PLATELET COUNT 200 10^3/uL (130-450); RED BLOOD COUNT 3.34 10^6/uL (4.20-5.40); WHITE BLOOD COUNT 6.8 x10^3/uL (4.8-10.8)
[2022-05-27 05:37] LABS: CALCIUM 9.1 mg/dL (8.5-10.3); MAGNESIUM 2.1 mg/dL (1.7-2.8); POTASSIUM 3.9 mmol/L (3.5-5.0)
[2022-05-27] MEDS: LEVOTHYROXINE 125 MCG TABLET PO SCH (06:33)
[2022-05-27] MEDS: FUROSEMIDE 40 MG/4 ML VIAL IVP SCH ×2 (06:33→14:11)
[2022-05-27] MEDS: ALBUTEROL NEB 2.5 MG/3 ML INH PRN ×3 (07:25→20:38)
--- NOTE | 2022-05-27 07:45 | PROVIDER PROGRESS NOTE ---
Assessment/Plan - Problem List (1) Aortic stenosis Assessment/Plan: 2D echocardiogram done on 05/24/2022 showed severe aortic stenosis. Ejection fraction was 60 to 65%. RVSP was 56 mmHg. After discussing with patient she would like to undergo intervention. This finding was discussed with the patient's self pay representative Dr. Morton after he reviewed the echo himself He stated that the study is not consistent with severe aortic stensosis and that there has not been significant change from the 2D echo done in 2019. He advised that other co-morbidities lare likely contributing to the patient's dyspnea. He agreed with continued diuresis. He will set up an outpatient follow up appointment in 3 weeks after discharge Anticipate discharge on 05/28/22 (2) Acute on chronic respiratory failure with hypoxia Assessment/Plan: Likely secondary to aortic stenosis and CHF On Lasix 60 mg IV twice daily. (3) Acute on chronic diastolic (congestive) heart failure Assessment/Plan: 2D echocardiogram done on 05/24/2022 showed severe aortic stenosis. Ejection fraction was 60 to 65%. RVSP was 56 mmHg. Lasix 60 mg IV twice daily (4) A-fib Assessment/Plan: Eliquis 5 mg p.o. twice daily. Metoprolol tartrate resumed at a decreased dose of 25mg po bid. (5) History of coronary artery disease Assessment/Plan: Atorvastatin 10 mg p.o. every afternoon. Eliquis 5 mg p.o. twice daily. Metoprolol tartrate resumed at a decreased dose of 25mg po bid. (6) Hypothyroidism Assessment/Plan: On Synthroid 125 mcg p.o. daily AC. (7) Reactive airway disease Assessment/Plan: Not in exacerbation. Albuterol as needed. - Current Meds Current Meds: Current Medications Generic Name Dose Route Start Last Admin Trade Name Freq PRN Reason Stop Dose Admin Albuterol 2.5 mg 05/23/22 21:46 05/27/22 07:25 Albuterol Neb 2.5 Mg/3 Ml INH 2.5 mg RTQ4H PRN Administration Wheezing Apixaban 5 mg 05/24/22 09:00 05/26/22 20:29 Apixaban 5 Mg Tablet PO 5 mg BID JULIANO Administration Atorvastatin Calcium 10 mg 05/24/22 21:00 05/26/22 20:29 Atorvastatin 10 Mg Tablet PO 10 mg QPM JULIANO Administration Cyclobenzaprine HCl 10 mg 05/24/22 10:35 05/26/22 16:30 Cyclobenzaprine 10 Mg Tablet PO 10 mg TID PRN Administration Spasms Diltiazem HCl 180 mg 05/24/22 08:00 05/26/22 17:57 Diltiazem Cd 180 Mg Capsule PO 180 mg 0800,1800 JULIANO Administration Docusate Sodium 250 - 500 mg 05/26/22 21:00 05/26/22 20:28 Docusate Sodium 250 Mg Capsule PO 250 mg DAILY JULIANO Administration Furosemide 60 mg 05/24/22 06:00 05/27/22 06:33 Furosemide 40 Mg/4 Ml Vial IVP 60 mg BIDDIURETIC JULIANO Administration Levothyroxine Sodium 125 mcg 05/24/22 07:00 05/27/22 06:33 Levothyroxine 125 Mcg Tablet PO 125 mcg QDAC JULIANO Administration Metoprolol Tartrate 25 mg 05/26/22 21:00 05/26/22 20:30 Metoprolol Tartrate 25 Mg Tablet PO Not Given BID JULIANO Potassium Chloride 20 meq 05/24/22 09:00 05/26/22 08:14 Potassium Chloride 20 Meq Tablet PO 20 meq DAILY JULIANO Administration Senna 8.6 - 17.2 mg 05/26/22 21:00 05/26/22 20:28 Senna 8.6 Mg Tablet PO 8.6 mg DAILY JULIANO Administration Sodium Chloride 10 ml 05/23/22 21:16 05/25/22 08:25 Sodium Chloride Flush 0.9% 10 Ml Syringe IVP 10 ml PRN PRN Administration NEEDED PER PROVIDER ORDERS Sodium Chloride 10 ml 05/24/22 01:00 05/27/22 00:39 Sodium Chloride Flush 0.9% 10 Ml Syringe IVP 10 ml 0100,0900,1700 JULIANO Administration Tamsulosin HCl 0.4 mg 05/24/22 09:00 05/26/22 08:14 Tamsulosin 0.4 Mg Capsule PO 0.4 mg DAILY JULIANO Administration - Lab Result Fish Bone Diagrams: 05/27/22 04:38 05/27/22 04:38 - Additional Planning My Orders: My Active Orders 05/26/22 21:00 Metoprolol Tartrate [Lopressor] 25 mg PO BID Subjective - Subjective Patient Reports: Other (She was seated comfortably in the bedside chair at time of exam. Reported breathing better today than the previous day. Crackles still appreciable on auscultation. Ambulated with physical therapy today.) Objective Vital Signs: Vital Signs - 24 hr 05/26/22 05/26/22 05/26/22 12:15 12:59 15:57 Temperature 36.6 C 36.6 C Heart Rate 70 Heart Rate [ 67 68 Brachial] Respiratory 23 16 24 Rate Blood Pressure 125/47 L 131/47 H [Left Brachial artery] O2 Saturation 97 93 05/26/22 05/27/22 05/27/22 20:00 00:34 05:00 Temperature 37.1 C 37 C 36.6 C Heart Rate Heart Rate [ 54 L 60 65 Brachial] Respiratory 23 20 20 Rate Blood Pressure 129/48 L 152/60 H 130/38 L [Left Brachial artery] O2 Saturation 96 93 95 05/27/22 07:26 Temperature Heart Rate 64 Heart Rate [ Brachial] Respiratory 18 Rate Blood Pressure [Left Brachial artery] O2 Saturation Oxygen O2 Source [With Activity] Nasal cannula O2 Source Nasal cannula I&O (Last 24 Hrs): Intake and Output Totals x24h 05/25/22 05/26/22 05/27/22 23:59 23:59 23:59 Intake Total 1337 1140 300 Output Total 2550 2975 875 Balance -1213 -1835 -575 General: Alert, Oriented x3, Mild distress (respiratory) HEENT: PERRLA, EOMI Neck: Supple, No JVD Neuro: Alert, Oriented Times 3 Cardiovascular: Regular rate, Other (iregular rhythm 3/6 blowing systollic murmur) Respiratory: Chest non-tender, Other (mild crackles bilaterally) Abdomen: Normal bowel sounds, Soft, No tenderness, No masses Extremities: No clubbing, No cyanosis, No edema Skin: No rashes, No breakdown, No significant lesion - Results Results: Laboratory Results WBC 6.8 x10^3/uL (4.8-10.8) 05/27/22 04:38 RBC 3.34 10^6/uL (4.20-5.40) L 05/27/22 04:38 Hgb 10.4 g/dL (12.0-16.0) L 05/27/22 04:38 Hct 32.5 % (37.0-47.0) L 05/27/22 04:38 MCV 97.3 fL (81.0-99.0) 05/27/22 04:38 MCH 31.1 pg (27.0-31.0) H 05/27/22 04:38 MCHC 32.0 g/dL (32.0-36.0) 05/27/22 04:38 RDW 15.0 % (12.0-15.0) 05/27/22 04:38 Plt Count 200 10^3/uL (130-450) 05/27/22 04:38 MPV 10.1 fL (7.9-10.8) 05/27/22 04:38 Neut # (Auto) 5.0 10^3/uL (1.5-6.6) 05/27/22 04:38 Lymph # (Auto) 0.9 10^3/uL (1.5-3.5) L 05/27/22 04:38 [place] # (Auto) 0.8 10^3/uL (0.0-1.0) 05/27/22 04:38 Eos # (Auto) 0.1 10^3/uL (0.0-0.7) 05/27/22 04:38 Baso # (Auto) 0.0 10^3/uL (0.0-0.1) 05/27/22 04:38 Absolute Nucleated RBC 0.00 x10^3/uL 05/27/22 04:38 Nucleated RBC % 0.0 /100WBC 05/27/22 04:38 Sodium 139 mmol/L (135-145) 05/27/22 04:38 Potassium 3.9 mmol/L (3.5-5.0) 05/27/22 04:38 Chloride 96 mmol/L (101-111) L 05/27/22 04:38 Carbon Dioxide 33 mmol/L (21-32) H 05/27/22 04:38 Anion Gap 10.0 (6-13) 05/27/22 04:38 BUN 28 mg/dL (6-20) H 05/27/22 04:38 Creatinine 1.0 mg/dL (0.4-1.0) 05/27/22 04:38 Estimated GFR (MDRD) 52 (>89) L 05/27/22 04:38 Glucose 126 mg/dL (70-100) H 05/27/22 04:38 Calcium 9.1 mg/dL (8.5-10.3) 05/27/22 04:38 Magnesium 2.1 mg/dL (1.7-2.8) 05/27/22 04:38 Total Bilirubin 0.9 mg/dL (0.2-1.0) 05/23/22 19:49 AST 19 IU/L (10-42) 05/23/22 19:49 ALT 18 IU/L (10-60) 05/23/22 19:49 Alkaline Phosphatase 72 IU/L (42-121) 05/23/22 19:49 Troponin I High Sens 19.3 ng/L (2.3-14.8) H* 05/23/22 22:15 B-Natriuretic Peptide 270 pg/mL (5-100) H 05/27/22 04:38 Total Protein 7.4 g/dL (6.7-8.2) 05/23/22 19:49 Albumin 3.8 g/dL (3.2-5.5) 05/23/22 19:49 Globulin 3.6 g/dL (2.1-4.2) 05/23/22 19:49 Albumin/Globulin Ratio 1.1 (1.0-2.2) 05/23/22 19:49 Lipase 28 U/L (22-51) 05/23/22 19:49 Nasal Adenovirus (PCR) NOT DETECTED 05/23/22 21:23 Nasal B. parapertussis DNA (PCR) NOT DETECTED 05/23/22 21:23 Nasal Coronavir 229E PCR NOT DETECTED 05/23/22 21:23 Nasal Coronavir HKU1 PCR NOT DETECTED 05/23/22 21:23 Nasal Coronavir NL63 PCR NOT DETECTED 05/23/22 21:23 Nasal Coronavir OC43 PCR NOT DETECTED 05/23/22 21:23 Nasal Enterovir/Rhinovir PCR NOT DETECTED 05/23/22 21:23 Nasal Influenza B PCR NOT DETECTED 05/23/22 21:23 Nasal Influenza A PCR NOT DETECTED 05/23/22 21:23 Nasal Parainfluen 1 PCR NOT DETECTED 05/23/22 21:23 Nasal Parainfluen 2 PCR NOT DETECTED 05/23/22 21:23 Nasal Parainfluen 3 PCR NOT DETECTED 05/23/22 21:23 Nasal Parainfluen 4 PCR NOT DETECTED 05/23/22 21:23 Nasal RSV (PCR) NOT DETECTED 05/23/22 21:23 Nasal B.pertussis DNA PCR NOT DETECTED 05/23/22 21:23 Nasal C.pneumoniae (PCR) NOT DETECTED 05/23/22 21:23 [place] Human Metapneumo PCR NOT DETECTED 05/23/22 21:23 Nasal M.pneumoniae (PCR) NOT DETECTED 05/23/22 21:23 Nasal SARS-CoV-2 (PCR) NOT DETECTED 05/23/22 21:23 - Procedures Procedures: Procedures ENDOSC POLYPECTOMY OF LG INTEST (04/11/14) EXCISE AXILLARY NODE (09/05/14) EXCISION OF DUODENUM, ENDO, DIAGN (09/18/20) EXCISION OF ESOPHAGOGASTRIC JUNCTION, ENDO, DIAGN (09/18/20) EXCISION OF ESOPHAGUS, ENDO, DIAGN (09/18/20) EXCISION OF STOMACH, ENDO, DIAGN (09/18/20) INSERTION OF TOTALLY IMPLANTABLE VASC ACCESS DEVIC (10/31/14) INSPECTION OF LOWER INTESTINAL TRACT, ENDO (09/18/20) LOCAL EXCIS BREAST LES (09/05/14) REMOVAL OF VAD FROM UP EXTREM SUBCU/FASCIA, PERC APPROACH (08/07/15) THORAX SFT TISS XRAY NEC (10/31/14) ABX Reporting Has patient been on IV antibiotics over the past 48 hours?: No
[2022-05-27] MEDS: DOCUSATE SODIUM 250 MG CAPSULE PO SCH (08:08)
[2022-05-27] MEDS: SENNA 8.6 MG TABLET PO SCH (08:09)
[2022-05-27] MEDS: TAMSULOSIN 0.4 MG CAPSULE PO SCH (08:09)
[2022-05-27] MEDS: APIXABAN 5 MG TABLET PO SCH ×2 (08:09→21:15)
[2022-05-27] MEDS: POTASSIUM CHLORIDE 20 MEQ TABLET PO SCH (08:09)
[2022-05-27] MEDS: diltiaZEM CD 180 MG CAPSULE PO SCH ×2 (08:09→18:10)
[2022-05-27] MEDS: METOPROLOL TARTRATE 25 MG TABLET PO SCH ×2 (08:10→21:18)
[2022-05-27] MEDS: CYCLOBENZAPRINE 10 MG TABLET PO PRN ×3 (11:17→21:16)
[2022-05-27] MEDS: SODIUM CHLORIDE FLUSH 0.9% 10 ML SYRINGE IVP PRN (14:12)
[2022-05-27] MEDS: ATORVASTATIN 10 MG TABLET PO SCH (21:15)
[2022-05-28 05:26] LABS: BASOPHILS % (AUTO) 0.4 %; EOSINOPHILS # (AUTO) 0.1 10^3/uL (0.0-0.7); EOSINOPHILS % (AUTO) 1.5 %; HCT - HEMATOCRIT 32.4 % (37.0-47.0); HGB - HEMOGLOBIN 10.5 g/dL (12.0-16.0); LYMPHOCYTES # (AUTO) 1.1 10^3/uL (1.5-3.5); LYMPHOCYTES % (AUTO) 14.5 %; MEAN CORPUSCULAR HEMOGLOBIN 31.5 pg (27.0-31.0); MEAN CORPUSCULAR HGB CONC 32.4 g/dL (32.0-36.0); MEAN CORPUSCULAR VOLUME 97.3 fL (81.0-99.0); MEAN PLATELET VOLUME 10.2 fL (7.9-10.8); MONOCYTES # (AUTO) 0.8 10^3/uL (0.0-1.0); MONOCYTES % (AUTO) 10.3 %; NEUTROPHILS # (AUTO) 5.3 10^3/uL (1.5-6.6); PLT - PLATELET COUNT 198 10^3/uL (130-450); RED BLOOD COUNT 3.33 10^6/uL (4.20-5.40); WHITE BLOOD COUNT 7.3 x10^3/uL (4.8-10.8)
[2022-05-28] MEDS: LEVOTHYROXINE 125 MCG TABLET PO SCH (05:30)
[2022-05-28] MEDS: FUROSEMIDE 40 MG/4 ML VIAL IVP SCH (05:30)
[2022-05-28 05:35] LABS: CALCIUM 9.1 mg/dL (8.5-10.3); CREATININE 0.9 mg/dL (0.4-1.0); MAGNESIUM 2.1 mg/dL (1.7-2.8); POTASSIUM 3.9 mmol/L (3.5-5.0)
[2022-05-28] MEDS: CYCLOBENZAPRINE 10 MG TABLET PO PRN (05:38)
[2022-05-28] MEDS ORDERED: METOPROLOL TARTRATE 25 MG TABLET PO SCH (09:00)
[2022-05-28] MEDS: ALBUTEROL NEB 2.5 MG/3 ML INH PRN (09:10)
[2022-05-28] MEDS: SODIUM CHLORIDE FLUSH 0.9% 10 ML SYRINGE IVP SCH (09:26)
[2022-05-28] MEDS: POTASSIUM CHLORIDE 20 MEQ TABLET PO SCH (09:26)
[2022-05-28] MEDS: diltiaZEM CD 180 MG CAPSULE PO SCH (09:26)
[2022-05-28] MEDS: SENNA 8.6 MG TABLET PO SCH (09:26)
[2022-05-28] MEDS: DOCUSATE SODIUM 250 MG CAPSULE PO SCH (09:26)
[2022-05-28] MEDS: APIXABAN 5 MG TABLET PO SCH (09:26)
[2022-05-28] MEDS: TAMSULOSIN 0.4 MG CAPSULE PO SCH (09:26)
--- NOTE | 2022-05-28 10:28 | DISCHARGE SUMMARY ---
Discharge Summary Admit Date: 05/23/22 Discharge Date: 05/28/22 Discharging Provider: Jana Felix Primary Care Provider: Tram Quintanilla Code Status: Do Not Attempt Resuscitation Condition at Discharge: Stable Discharge Disposition: 01 Home, Self Care - DIAGNOSES Admission Diagnoses: Acute on chronic respiratory failure with hypoxia Acute on chronic diastolic heart failure Aortic stenosis Atrial fibrillation History of coronary artery disease Urinary retention Reactive airway disease Hypothyroidism Discharge Diagnoses with Status of Each Condition: Acute on chronic respiratory failure with hypoxia: Improved. 2/2 CHF exab, Aortic stenosis Acute on chronic diastolic heart failure: Improved with IV lasix. Patient will c ontinue po lasix at home Aortic stenosis: Patient to follow up with her supervisor phosphoric acid Atrial fibrillation: Controlled/ Stable. Continue home medication History of coronary artery disease: Continue home medication Urinary retention: Acute. Resolved Reactive airway disease: Stable. Continue home medications Hypothyroidism: Chronic. Stable. Continue home medications - HPI History of Present Illness: This is a 87-year-old female with a past medical history significant for chronic diastolic heart failure on 3 L of oxygen, aortic stenosis, atrial fibrillation, coronary artery disease who presents today complaining of shortness of breath and worsening lower extremity edema. She states she has felt more short of breath over the past 3 days. She states she has nausea become more edematous over the past month despite taking Lasix 80 mg twice a day. Her edema really progressed over the last 2 to 3 days. She saw her supervisor phosphoric acid last week, Dr. Morton, and she states he had plan to order an EKG which she was to get done shortly. She reports no chest pain. She has had an occasional cough and does report orthopnea. She is also complained of difficulty urinating and feels like she cannot empty her bladder. She complains of abdominal discomfort because of this. She has no dysuria or hematuria. She denies any fevers, chills. She is on 3 L of oxygen at baseline but she did increase this to 4 L yesterday given she felt more short of breath. In the emergency department, she was initially saturating in the mid 80s on 3 L of oxygen but is improved to above 90% on 4 L. Chest x-ray suggested pulmonary edema. She was given IV Lasix and medicine was consulted for admission. We discussed goals of care and she would like to be a DNR. - HOSPITAL COURSE Hospital Course: Patient is an 87-year-old female who was admitted on 05/23/2022 with dyspnea. Normally she is on 3 L of oxygen at home. However on the day of admission while on her baseline oxygen, her oxygen saturation was in the mid 80s. She required 4 L to improve her oxygen saturation above 90%. She was suspected to have acute exacerbation of CHF. She was put on a low- sodium diet with 1800 mill fluid restriction. She was administered Lasix 60 mg IV twice daily. 2D echocardiogram done on 05/24/2022 showed severe aortic stenosis. Ejection fraction was 60 to 65%. RVSP was 56 mmHg. After discussing with patient she would like to undergo intervention. This finding was discussed with the patient's supervisor phosphoric acid Dr. Morton after he reviewed the echo himself He stated that the study is not consistent with severe aortic stensosis and that there has not been significant change from the 2D echo done in 2019. On the day before discharge patient was seen by physical therapy. During ambulation her oxygen saturation dropped briefly on 3 L but then she rebounded quickly. She has been instructed to increase her oxygen supply to 4 L as needed with activity. She was deemed not to be in need of any added therapy at home. She is to continue using her walker at home. Patient was having frequent pauses while in the hospital. Normally she is on metoprolol tartrate 50 mg p.o. twice daily at home. When she was admitted she was placed on metoprolol tartrate 25 mg p.o. twice daily. The metoprolol was held 2 days into her hospital stay and her pauses stopped. The longest pause she had was a 4-second pause. At the time of discharge her metoprolol dose was changed to 25 mg p.o. daily only. She has an upcoming appointment with Dr. Morton on 06/12/2022. She has been advised to keep that appointment. She has been advised to discuss her medications specifically the metoprolol and diltiazem CD1 80 mg p.o. twice daily with Dr. Morton. She expressed understanding and is agreeable to this plan. She was discharged in stable condition. - ALLERGIES Allergies/Adverse Reactions: Allergies Allergy/AdvReac Type Severity Reaction Status Date / Time No Known Drug Allergies Allergy Verified 05/23/22 19:39 - MEDICATIONS Home Medications: Ambulatory Orders Medication Instructions Recorded Confirmed Albuterol Sulf [Ventolin Hfa 2 puffs INH Q4H PRN 12/27/19 05/24/22 Inhaler] diltiaZEM CD [Cardizem Cd] 180 mg PO 0800,1800 #60 capsule 12/31/19 05/24/22 Aspirin [Aspirin EC] 81 mg PO DAILY 09/18/20 05/24/22 Rosuvastatin Calcium [Crestor] 5 mg PO QPM 09/18/20 05/24/22 Apixaban [Eliquis] 5 mg PO BID 05/24/22 05/24/22 Furosemide [Lasix] 80 mg PO BIDDIURETIC 05/24/22 05/24/22 Levothyroxine Sodium 137 mcg PO QDAC 05/24/22 05/24/22 [Levothyroxine] Potassium Chloride 10 meq PO DAILY 05/24/22 05/24/22 Metoprolol Tartrate [Lopressor] 25 mg PO DAILY #0 05/28/22 05/24/22 - PHYSICAL EXAM AT DISCHARGE General Appearance: positive: Alert, Mild distress Eyes Bilateral: positive: PERRL, EOMI ENT: positive: No signs of dehydration Neck: positive: No JVD, Trachea midline Respiratory: positive: Chest non-tender, Other (Mild crackles in lung bases bilaterally) Cardiovascular: positive: Irregularly irregular, Systolic murmur. negative: Tachycardia Abdomen: positive: Non-tender, No organomegaly, Nml bowel sounds, No distention Back: positive: Nml inspection Skin: positive: Color nml, No rash, Warm, Dry Extremities: positive: Non-tender, Full ROM, Pedal edema (trace) Neurologic/Psychiatric: positive: Oriented x3, Mood/affect nml - LABS Result Diagrams: 05/28/22 04:57 05/28/22 04:57 - TIME SPENT Time Spent in Discharge (Minutes): 20
--- NOTE | 2022-05-28 10:37 | Discharge Plan ---
Discharge Plan Problem Reviewed?: Yes Disposition: Home, Self Care Condition: Stable Diet: Low Sodium Activity Restrictions: Activity as Tolerated Assistance Devices: Walker Weight Bearing: Full Weight Health Concerns: Patient is an 87-year-old female who was admitted on 05/23/2022 with dyspnea. Normally she is on 3 L of oxygen at home. However on the day of admission while on her baseline oxygen, her oxygen saturation was in the mid 80s. She required 4 L to improve her oxygen saturation above 90%. She was suspected to have acute exacerbation of CHF. She was put on a low- sodium diet with 1800 mill fluid restriction. She was administered Lasix 60 mg IV twice daily. 2D echocardiogram done on 05/24/2022 showed severe aortic stenosis. Ejection fraction was 60 to 65%. RVSP was 56 mmHg. After discussing with patient she would like to undergo intervention. This finding was discussed with the patient's product safety specialist Dr. Morton after he reviewed the echo himself He stated that the study is not consistent with severe aortic stensosis and that there has not been significant change from the 2D echo done in 2019. On the day before discharge patient was seen by physical therapy. During ambulation her oxygen saturation dropped briefly on 3 L but then she rebounded quickly. She has been instructed to increase her oxygen supply to 4 L as needed with activity. She was deemed not to be in need of any added therapy at home. She is to continue using her walker at home. Patient was having frequent pauses while in the hospital. Normally she is on metoprolol tartrate 50 mg p.o. twice daily at home. When she was admitted she was placed on metoprolol tartrate 25 mg p.o. twice daily. The metoprolol was held 2 days into her hospital stay and her pauses stopped. The longest pause she had was a 4-second pause. At the time of discharge her metoprolol dose was changed to 25 mg p.o. daily only. She has also been encouraged to continue using her CPAP at home for sleep apnea. She has an upcoming appointment with Dr. Morton on 06/12/2022. She has been advised to keep that appointment. She has been advised to discuss her medications specifically the metoprolol and diltiazem CD1 80 mg p.o. twice daily with Dr. Morton. She expressed understanding and is agreeable to this plan. She was discharged in stable condition. No Smoking: If you smoke, Please STOP! Call for help. Follow-up with: Tram Quintanilla PA-C [Primary Care Provider] -
[2022-05-28 11:12] VITALS: BP 129/62
== END 2022-05-28 11:30 | disposition home or self-care (01) | DRG 291 ==
LOC: ED 19:28 → MS2 21:16
PROVIDERS: ADMIT Internal Medicine; ATTEND Internal Medicine
DX: I11.0 Hypertensive heart disease with heart failure (principal); I50.33 Acute on chronic diastolic (congestive) heart failure; J96.21 Acute and chronic respiratory failure with hypoxia; I35.0 Nonrheumatic aortic (valve) stenosis; Z79.01 Long term (current) use of anticoagulants; I48.91 Unspecified atrial fibrillation; I25.10 Atherosclerotic heart disease of native coronary artery without angina pectoris; E03.9 Hypothyroidism, unspecified; E78.00 Pure hypercholesterolemia, unspecified; F41.9 Anxiety disorder, unspecified; F32.A Depression, unspecified; J44.9 Chronic obstructive pulmonary disease, unspecified; R33.9 Retention of urine, unspecified; Z20.822 Contact with and (suspected) exposure to COVID-19; Z79.82 Long term (current) use of aspirin; Z79.890 Hormone replacement therapy; Z79.899 Other long term (current) drug therapy; Z80.9 Family history of malignant neoplasm, unspecified; Z82.49 Family history of ischemic heart disease and other diseases of the circulatory system; Z87.891 Personal history of nicotine dependence; Z90.49 Acquired absence of other specified parts of digestive tract; Z90.710 Acquired absence of both cervix and uterus; Z96.659 Presence of unspecified artificial knee joint; Z99.81 Dependence on supplemental oxygen
CPT/HCPCS: 36415; 71045; 80048; 80053; 83690; 83735; 83880; 84484; 85025; 87633; 93005; 93306; 94640; 96374; 97161; 99284; 99285; A9270; Q0162

== ENCOUNTER 2022-07-11 14:42 | Outpatient (CLI) | payer MEDICARE, OTHER ==
[2022-07-11 18:03] LABS: HCT - HEMATOCRIT 39.2 % (37.0-47.0); HGB - HEMOGLOBIN 12.5 g/dL (12.0-16.0); MEAN CORPUSCULAR HEMOGLOBIN 30.9 pg (27.0-31.0); MEAN CORPUSCULAR HGB CONC 31.9 g/dL (32.0-36.0); MEAN PLATELET VOLUME 10.6 fL (7.9-10.8); RED BLOOD COUNT 4.04 10^6/uL (4.20-5.40); RED CELL DISTRIBUTION WIDTH 14.6 % (12.0-15.0)
[2022-07-11 18:14] LABS: ALBUMIN 3.9 g/dL (3.2-5.5); ALBUMIN/GLOBULIN RATIO 1.1 (1.0-2.2); BILIRUBIN,TOTAL 0.8 mg/dL (0.2-1.0); CALCIUM 9.3 mg/dL (8.5-10.3); CREATININE 1.3 mg/dL (0.4-1.0); POTASSIUM 4.2 mmol/L (3.5-5.0); TOTAL PROTEIN 7.6 g/dL (6.7-8.2)
== END 2022-07-11 14:43 | disposition home or self-care (01) ==
LOC: LAB.N 14:42
PROVIDERS: ATTEND Nurse Practitioner
DX: I25.10 Atherosclerotic heart disease of native coronary artery without angina pectoris (principal); I50.32 Chronic diastolic (congestive) heart failure; I48.21 Permanent atrial fibrillation
CPT/HCPCS: 36415; 80053; 83880; 85027

== ENCOUNTER 2022-12-25 13:12 | Inpatient (IN) | payer MEDICARE, OTHER ==
[2022-12-25] MEDS ORDERED: IPRATROPIUM/ALBUTEROL 3 ML NEB INH STA (13:43)
[2022-12-25 14:08] LABS: BASOPHILS % (AUTO) 0.5 %; EOSINOPHILS % (AUTO) 0.7 %; HCT - HEMATOCRIT 37.8 % (37.0-47.0); LYMPHOCYTES % (AUTO) 16.9 %; MEAN CORPUSCULAR HEMOGLOBIN 29.7 pg (27.0-31.0); MEAN CORPUSCULAR HGB CONC 31.7 g/dL (32.0-36.0); MEAN CORPUSCULAR VOLUME 93.6 fL (81.0-99.0); MEAN PLATELET VOLUME 9.5 fL (7.9-10.8); MONOCYTES # (AUTO) 0.8 10^3/uL (0.0-1.0); MONOCYTES % (AUTO) 14.1 %; NEUTROPHILS % (AUTO) 67.5 %; PLT - PLATELET COUNT 170 10^3/uL (130-450); RED BLOOD COUNT 4.04 10^6/uL (4.20-5.40); RED CELL DISTRIBUTION WIDTH 15.9 % (12.0-15.0)
--- NOTE | 2022-12-25 14:19 | ED Physician Documentation ---
PD HPI DYSPNEA - Stated complaint Stated Complaint: SOA - Chief complaint Chief Complaint: Resp - History obtained from History obtained from: Patient, Family (Patient's daughter) - Additional information Additional information: Patient is an 87-year-old female with a history of COPD on home oxygen of 4 L presenting for evaluation of shortness of breath and productive cough for the past 9 days. Patient initially states that her cough was productive of clear sputum but it has turned more yellow in the past day. She has been using her home yet belies her with some improvement but has been feeling increasingly short of breath the last several days. She has not had a fever or chest pain. She denies leg swelling or discomfort. She does have a history of atrial fibrillation and is on Eliquis. Per her daughter who is at the bedside, there has been other family members with URI symptoms around the patient.Per triage nurse, patient did get very dyspneic when transitioning from wheelchair into hospital bed. Pt is also on lasix but has held it for 3 days because her mouth was feeling dry and she was worried she is getting dehydrated. Review of Systems Constitutional: denies: Fever Cardiac: denies: Chest pain / pressure Respiratory: reports: Dyspnea, Cough GI: denies: Abdominal Pain : denies: Dysuria Musculoskeletal: denies: Back pain PD PAST MEDICAL HISTORY - Past Medical History Past Medical History: Yes Cardiovascular: Congestive heart failure, Hypertension, High cholesterol, Atrial fibrillation, Valve disorder, Other Respiratory: None Neuro: None Endocrine/Autoimmune: HyPOthyroidism GI: None : None HEENT: None Psych: Depression, Anxiety Musculoskeletal: None Derm: None - Past Surgical History Past Surgical History: Yes General: Cholecystectomy, Appendectomy Ortho: 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: Tubal ligation, 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, Other - Present Medications Home Medications: Ambulatory Orders Medication Instructions Recorded Confirmed Albuterol Sulf [Ventolin Hfa 2 puffs INH Q4H PRN 12/27/19 05/24/22 Inhaler] diltiaZEM CD [Cardizem Cd] 180 mg PO 0800,1800 #60 capsule 12/31/19 05/24/22 Aspirin [Aspirin EC] 81 mg PO DAILY 09/18/20 05/24/22 Rosuvastatin Calcium [Crestor] 5 mg PO QPM 09/18/20 05/24/22 Apixaban [Eliquis] 5 mg PO BID 05/24/22 05/24/22 Furosemide [Lasix] 80 mg PO BIDDIURETIC 05/24/22 05/24/22 Levothyroxine Sodium 137 mcg PO QDAC 05/24/22 05/24/22 [Levothyroxine] Potassium Chloride 10 meq PO DAILY 05/24/22 05/24/22 Metoprolol Tartrate [Lopressor] 25 mg PO DAILY #0 05/28/22 05/24/22 - Allergies Allergies/Adverse Reactions: Allergies Allergy/AdvReac Type Severity Reaction Status Date / Time No Known Drug Allergies Allergy Verified 12/25/22 13:21 - Social History Does the pt smoke?: No Smoking Status: Never smoker Does the pt drink ETOH?: Yes Does the pt have substance abuse?: No - Immunizations Immunizations are current?: Yes - POLST Patient has POLST: No PD ED PE NORMAL - General General: Alert and oriented X 3, No acute distress, Well developed/nourished - HEENT HEENT: Atraumatic - Neck Neck: Supple, no meningeal sign - Cardiac Cardiac: Other (Irregularly irregular) - Respiratory Respiratory: Other (Diffuse expiratory wheezing; Mild tachypnea) - Abdomen Abdomen: Normal bowel sounds, Soft, Non tender, Non distended - Derm Derm: Warm and dry - Extremities Extremities: No calf tenderness / cord Results - Vitals Vitals: Vital Signs - 24 hr 12/25/22 12/25/22 12/25/22 13:16 13:52 14:36 Temperature 36.5 C Heart Rate 69 80 66 Respiratory 32 H 21 18 Rate Blood Pressure 119/59 L O2 Saturation 93 96 If not protocol 4 4 : Oxygen Flow, liters/minute 12/25/22 12/25/22 12/25/22 16:47 16:55 17:36 Temperature Heart Rate 95 83 Respiratory 21 20 Rate Blood Pressure 157/81 H O2 Saturation 92 78 L If not protocol 4 4 : Oxygen Flow, liters/minute 12/25/22 17:37 Temperature Heart Rate Respiratory Rate Blood Pressure O2 Saturation 92 If not protocol 4 : Oxygen Flow, liters/minute Oxygen O2 Source [With Activity] Nasal cannula O2 Source Nasal cannula Oxygen Flow Rate 4 - EKG (time done) 1350 Rate: Rate (enter#) (73) Rhythm: Atrial fibrillation Ischemia: No: ST elevation c/w ischemia - Labs Labs: Laboratory Tests 12/25/22 12/25/22 12/25/22 14:03 14:03 14:03 WBC 6.0 RBC 4.04 L Hgb 12.0 Hct 37.8 MCV 93.6 MCH 29.7 MCHC 31.7 L RDW 15.9 H Plt Count 170 MPV 9.5 Neut # (Auto) 4.0 Lymph # (Auto) 1.0 L [place] # (Auto) 0.8 Eos # (Auto) 0.0 Baso # (Auto) 0.0 Absolute Nucleated RBC 0.00 Nucleated RBC % 0.0 Sodium 139 Potassium 3.7 Chloride 100 L Carbon Dioxide 29 Anion Gap 10.0 BUN 18 Creatinine 1.0 Estimated GFR (MDRD) 52 L Glucose 112 H Calcium 8.7 Total Bilirubin 0.9 AST 25 ALT 19 Alkaline Phosphatase 52 B-Natriuretic Peptide 446 H Total Protein 7.0 Albumin 3.5 Globulin 3.5 Albumin/Globulin Ratio 1.0 Nasal Adenovirus (PCR) Nasal B. parapertussis DNA (PCR) Nasal Coronavir 229E PCR Nasal Coronavir HKU1 PCR Nasal Coronavir NL63 PCR Nasal Coronavir OC43 PCR Nasal Enterovir/Rhinovir PCR Nasal Influenza B PCR Nasal Influenza A PCR Nasal Parainfluen 1 PCR Nasal Parainfluen 2 PCR Nasal Parainfluen 3 PCR Nasal Parainfluen 4 PCR Nasal RSV (PCR) Nasal B.pertussis DNA PCR Nasal C.pneumoniae (PCR) [place] Human Metapneumo PCR Nasal M.pneumoniae (PCR) Nasal SARS-CoV-2 (PCR) 12/25/22 14:09 WBC RBC Hgb Hct MCV MCH MCHC RDW Plt Count MPV Neut # (Auto) Lymph # (Auto) [place] # (Auto) Eos # (Auto) Baso # (Auto) Absolute Nucleated RBC Nucleated RBC % Sodium Potassium Chloride Carbon Dioxide Anion Gap BUN Creatinine Estimated GFR (MDRD) Glucose Calcium Total Bilirubin AST ALT Alkaline Phosphatase B-Natriuretic Peptide Total Protein Albumin Globulin Albumin/Globulin Ratio Nasal Adenovirus (PCR) NOT DETECTED Nasal B. parapertussis DNA (PCR) NOT DETECTED Nasal Coronavir 229E PCR NOT DETECTED Nasal Coronavir HKU1 PCR NOT DETECTED Nasal Coronavir NL63 PCR NOT DETECTED Nasal Coronavir OC43 PCR NOT DETECTED Nasal Enterovir/Rhinovir PCR NOT DETECTED Nasal Influenza B PCR NOT DETECTED Nasal Influenza A PCR NOT DETECTED Nasal Parainfluen 1 PCR NOT DETECTED Nasal Parainfluen 2 PCR NOT DETECTED Nasal Parainfluen 3 PCR NOT DETECTED Nasal Parainfluen 4 PCR NOT DETECTED Nasal RSV (PCR) DETECTED A Nasal B.pertussis DNA PCR NOT DETECTED Nasal C.pneumoniae (PCR) NOT DETECTED [place] Human Metapneumo PCR NOT DETECTED Nasal M.pneumoniae (PCR) NOT DETECTED Nasal SARS-CoV-2 (PCR) NOT DETECTED PD Medical Decision Making - ED course Complexity details: reviewed results, re-evaluated patient, d/w patient, d/w family ED course: Pt with COPD on home O2 with worsening SOA and productive cough. Wheezing on exam with URI symptoms. Given 3 nebs and IV solumedrol. Labs reviewed. BNP elevated, normal WBC and electrolytes. No symptoms to suggest ACS. Pt is already anticoagulated so doubt PE and symptoms are more suggestive of infection. Chest XR reviewed and shows infiltrate. Pt started on antibiotics for CAP. Resp swab + for RSV. After 3 nebs, we attempted to ambulate patient and she quickly desaturated to 86% on 4L and increased WOB. D/W Hospitalist who will admit the pt for further management. Departure - Departure Disposition: ED Place in Observation Clinical Impression: Hypoxia Condition: Stable Discharge Date/Time: 12/25/22 19:12
[2022-12-25 14:21] LABS: ALBUMIN 3.5 g/dL (3.2-5.5); BILIRUBIN,TOTAL 0.9 mg/dL (0.2-1.0); CALCIUM 8.7 mg/dL (8.5-10.3); POTASSIUM 3.7 mmol/L (3.5-5.0)
--- NOTE | 2022-12-25 14:39 | XRAY Report ---
PROCEDURE: Chest 1 View X-Ray INDICATIONS: cough/SOA TECHNIQUE: One view of the chest was acquired. COMPARISON: None. FINDINGS: Heart size is enlarged. There is moderate vascular congestion present in left basilar atelectasis and or infiltrate. Right lung and pleural spaces clear. Osseous structures are normal IMPRESSION: Cardiomegaly and moderate vascular congestion Minimal left basilar atelectasis and or infiltrate Reviewed by: Andi Babcock MD on 12/25/2022 1:38 PM AKST Approved by: Andi Babcock MD on 12/25/2022 1:38 PM AKST Station ID: [id number]
[2022-12-25 15:09] LABS: CORONAVIRUS 229E-RESP PCR NOT DETECTED; CORONAVIRUS HKU1-RESP PCR NOT DETECTED; CORONAVIRUS NL63-RESP PCR NOT DETECTED; CORONAVIRUS OC43-RESP PCR NOT DETECTED
[2022-12-25 15:10] LABS: B. PARAPERTUSSIS- RESP PCR PAN NOT DETECTED; B. PERTUSSIS- RESP PCR PANEL NOT DETECTED; C. PNEUMONIAE- RESP PCR PANEL NOT DETECTED; HUMAN METAPNEUMOVIRUS NOT DETECTED; INFLUENZA A- RESP PCR PANEL NOT DETECTED; INFLUENZA B - RESP PCR PANEL NOT DETECTED; M. PNEUMONIAE- RESP PCR PANEL NOT DETECTED; PARAINFLUENZA VIRUS 1 NOT DETECTED; PARAINFLUENZA VIRUS 2 NOT DETECTED; PARAINFLUENZA VIRUS 3 NOT DETECTED; PARAINFLUENZA VIRUS 4 NOT DETECTED; RHINOVIRUS/ENTEROVIRUS NOT DETECTED; RSV- RESP PCR PANEL DETECTED; SARS-CoV-2 -RESP PCR PANEL NOT DETECTED
[2022-12-25] MEDS ORDERED: ALBUTEROL NEB 2.5 MG/3 ML INH STA (15:13)
[2022-12-25] MEDS ORDERED: AZITHROMYCIN INJ 500 MG in SODIUM CHLORIDE 0.9% 250 ML IV STA (15:14)
[2022-12-25] MEDS ORDERED: cefTRIAXone 1 GM in SODIUM CHLORIDE 0.9% MINIBAG 100 ML IV STA (15:14)
[2022-12-25] MEDS ORDERED: FUROSEMIDE 40 MG/4 ML VIAL IVP STA (17:01)
[2022-12-25] MEDS ORDERED: ACETAMINOPHEN 325 MG TABLET PO PRN (18:21)
[2022-12-25] MEDS ORDERED: ONDANSETRON 4 MG/2 ML VIAL IVP PRN (18:21)
[2022-12-25] MEDS ORDERED: IPRATROPIUM/ALBUTEROL 3 ML NEB INH PRN (18:26)
--- NOTE | 2022-12-25 18:37 | HISTORY & PHYSICAL EXAMINATION ---
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 The patient has had a cough and shortness of breath for 9 days. She has been needing to use her nebulizer more frequently and describes white sputum production that has now turned yellow for the past 2 days. Her symptoms of cough and shortness of breath are also worse in the last 2 days. The daughter brought the patient in to the ED today and her O2 saturation was 92% on her home setting of 4 L of oxygen. Exam showed wheezing. The patient received 3 nebulizer treatments while in the ED and still remained tachypneic. In addition, with standing up from the gurney, her O2 sat dropped to 86%, despite being on her usual 4 L of oxygen. Her chest x-ray shows an infiltrate and her labs show she is COVID-negative but RSV positive. The patient's PSI score is III but she has worsening of her usual need for O2, needing a higher setting. 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 She was a smoker. Her father had a history of arrhythmia and required a pacemaker Living Situation: With family Social History Notes: She lives at home with her daughter. She smoked less than a pack a day for 20 years but quit at the age of 38. She rarely drinks alcohol. - Substance History Use: Uses substance without health or social issues: NONE - POLST Patient has POLST: No Meds/Allgy - Home Medications Home Medications: Ambulatory Orders Medication Instructions Recorded Confirmed Albuterol Sulf [Ventolin Hfa 2 puffs INH Q4H PRN 12/27/19 12/26/22 Inhaler] diltiaZEM CD [Cardizem Cd] 180 mg PO 0800,1800 #60 capsule 12/31/19 12/26/22 Aspirin [Aspirin EC] 81 mg PO DAILY 09/18/20 12/26/22 Rosuvastatin Calcium [Crestor] 5 mg PO QPM 09/18/20 12/26/22 Apixaban [Eliquis] 5 mg PO BID 05/24/22 12/26/22 Levothyroxine Sodium 137 mcg PO QDAC 05/24/22 12/26/22 [Levothyroxine] Potassium Chloride 10 meq PO DAILY 05/24/22 12/26/22 Bio Complete 3 2 cap PO BIDAC 12/26/22 12/26/22 Cyanocobalamin (Vitamin B-12) 2,500 mcg PO DAILY 12/26/22 12/26/22 [Vitamin B-12] Empagliflozin [Jardiance] 10 mg PO DAILY 12/26/22 12/26/22 Metoprolol Tartrate [Lopressor] 25 mg PO BID 12/26/22 12/26/22 Torsemide 40 mg PO BIDDIURETIC 12/26/22 12/26/22 - Allergies Allergies/Adverse Reactions: Allergies Allergy/AdvReac Type Severity Reaction Status Date / Time No Known Drug Allergies Allergy Verified 12/25/22 13:21 Exam - Vital Signs Vital Signs: Vital Signs x48h Temp Pulse Resp BP Pulse Ox O2 Flow Rate 12/25/22 17:37 92 4 12/25/22 17:36 78 L 12/25/22 16:55 83 20 4 12/25/22 16:47 95 21 157/81 H 92 4 12/25/22 14:36 66 18 4 12/25/22 13:52 80 21 96 4 12/25/22 13:16 36.5 C 69 32 H 119/59 L 93 Conclusion/Plan - Problem List (1) Acute on chronic respiratory failure with hypoxia Conclusion/Plan: Caused by COPD exacerbation which is from a pneumonia and RSV infection Plan: We will place the patient in Observation status and begin treatment We will continue with supplemental oxygen, increasing the FiO2 is as needed to keep O2 sats between 90 and 93%, in a COPDer Treat the underlying problem (2) COPD exacerbation Conclusion/Plan: It appears her exacerbation is from a pneumonia plus RSV infection Plan: We will use DuoNebs scheduled 4 times daily and every 4 hours as needed Begin Pulmicort nebs and IV steroids Begin montelukast every night Give Mucinex for pulmonary toilet Begin antibiotics (3) CAP (community acquired pneumonia) Conclusion/Plan: An infiltrate is seen on chest x-ray. Blood cultures were done in the ED then she has received empiric Zithromax IV x1 and ceftriaxone IV x1 Plan: We will obtain sputum culture Continue with empiric Zithromax p.o. and IV ceftriaxone (4) RSV infection Conclusion/Plan: Plan: Droplet isolation (5) Acute on chronic congestive heart failure Conclusion/Plan: The patient last had an Echo done about 10 months ago, showing preserved LVEF. She had significant valvular disease. Her BNP is 440 today. On past admissions her BNP has been in the 200s Plan: We will continue with Lasix IV twice daily Follow I's and O's and daily weights We will give the Zithromax orally since it will have the same effect as IV, to decrease IV fluids Qualifiers: Heart failure type: diastolic Qualified Code(s): I50.33 - Acute on chronic diastolic (congestive) heart failure (6) A-fib Conclusion/Plan: We will continue her usual Eliquis dose (7) Hypothyroidism Conclusion/Plan: Plan: We will check a TSH, and resume his home dose of thyroid medication (8) DM type 2 (diabetes mellitus, type 2) Conclusion/Plan: Her reconciled med list shows she take Jardiance Plan: Will order a DM diet, accuchecks, ss Insulin and hypoglycemia protocol Check A1c - Lab Results Fish Bones: 12/26/22 05:41 12/26/22 05:41
[2022-12-25] MEDS: IPRATROPIUM/ALBUTEROL 3 ML NEB INH SCH (20:36)
[2022-12-25] MEDS: BUDESONIDE 0.5 MG/2 ML NEB INH SCH (20:36)
[2022-12-25] MEDS: MONTELUKAST 10 MG TABLET PO SCH (21:16)
[2022-12-25] MEDS: guaiFENesin 600 MG TABLET PO SCH (21:16)
[2022-12-25] MEDS: SODIUM CHLORIDE FLUSH 0.9% 10 ML SYRINGE IVP PRN (21:16)
[2022-12-25] MEDS: APIXABAN 5 MG TABLET PO SCH (21:16)
[2022-12-25] MEDS: SACCHAROMYCES BOULARDII 250 MG CAPSULE PO SCH (21:16)
[2022-12-25] MEDS: methylPREDNISolone SUCCINATE 125 MG/2 ML VIAL IVP SCH (21:16)
[2022-12-26] MEDS: SODIUM CHLORIDE FLUSH 0.9% 10 ML SYRINGE IVP SCH ×3 (00:15→18:05)
[2022-12-26] MEDS ORDERED: BENZOCAINE/MENTHOL LOZENGE MM PRN (01:47)
[2022-12-26 05:49] LABS: BASOPHILS % (AUTO) 0.2 %; HCT - HEMATOCRIT 38.2 % (37.0-47.0); HGB - HEMOGLOBIN 12.3 g/dL (12.0-16.0); LYMPHOCYTES # (AUTO) 0.4 10^3/uL (1.5-3.5); LYMPHOCYTES % (AUTO) 8.1 %; MEAN CORPUSCULAR HEMOGLOBIN 29.9 pg (27.0-31.0); MEAN CORPUSCULAR HGB CONC 32.2 g/dL (32.0-36.0); MEAN CORPUSCULAR VOLUME 92.7 fL (81.0-99.0); MEAN PLATELET VOLUME 9.7 fL (7.9-10.8); MONOCYTES # (AUTO) 0.1 10^3/uL (0.0-1.0); MONOCYTES % (AUTO) 2.1 %; NEUTROPHILS # (AUTO) 4.6 10^3/uL (1.5-6.6); NEUTROPHILS % (AUTO) 89.2 %; PLT - PLATELET COUNT 169 10^3/uL (130-450); RED BLOOD COUNT 4.12 10^6/uL (4.20-5.40); RED CELL DISTRIBUTION WIDTH 15.4 % (12.0-15.0); WHITE BLOOD COUNT 5.2 x10^3/uL (4.8-10.8)
[2022-12-26 06:01] LABS: CALCIUM 8.7 mg/dL (8.5-10.3); CREATININE 0.8 mg/dL (0.4-1.0); MAGNESIUM 2.3 mg/dL (1.7-2.8); POTASSIUM 3.4 mmol/L (3.5-5.0)
[2022-12-26] MEDS: IPRATROPIUM/ALBUTEROL 3 ML NEB INH SCH ×4 (06:07→19:35)
[2022-12-26] MEDS: BUDESONIDE 0.5 MG/2 ML NEB INH SCH ×2 (06:07→19:35)
[2022-12-26] MEDS: LEVOTHYROXINE 25 MCG TABLET PO SCH (06:21)
[2022-12-26] MEDS: methylPREDNISolone SUCCINATE 125 MG/2 ML VIAL IVP SCH ×2 (06:21→14:00)
[2022-12-26] MEDS: FUROSEMIDE 40 MG/4 ML VIAL IVP SCH ×2 (06:21→14:00)
[2022-12-26] MEDS: SODIUM CHLORIDE FLUSH 0.9% 10 ML SYRINGE IVP PRN (06:22)
[2022-12-26] MEDS ORDERED: LEVOTHYROXINE 112 MCG TABLET PO SCH (07:00)
[2022-12-26] MEDS: SACCHAROMYCES BOULARDII 250 MG CAPSULE PO SCH ×2 (08:48→21:20)
[2022-12-26] MEDS: diltiaZEM CD 180 MG CAPSULE PO SCH ×2 (08:48→18:04)
[2022-12-26] MEDS: APIXABAN 5 MG TABLET PO SCH ×2 (08:48→21:21)
[2022-12-26] MEDS: guaiFENesin 600 MG TABLET PO SCH ×2 (08:48→21:21)
[2022-12-26] MEDS: ASPIRIN EC 81 MG TABLET PO SCH (08:48)
[2022-12-26] MEDS: AZITHROMYCIN 250 MG TABLET PO SCH (08:48)
[2022-12-26] MEDS: cefTRIAXone 1 GM in SODIUM CHLORIDE 0.9% MINIBAG 100 ML IV SCH (10:17)
--- NOTE | 2022-12-26 11:31 | PHARMACY PROGRESS NOTE ---
- Best Possible Medication History Admit Date and Time: 12/25/221820 Processed by: Pharmacy Medication History completed: Yes Secondary Source(s): Prescription bottles, Pharmacy records, Insurance records As the person ultimately responsible for medication therapy, providers are able to order a medication from an existing home medication list in [facility] via the "Reconcile Routine" prior to Confirmation of that medication by office support clerk. Such practice is discouraged except when the physician, in their clinical judgment, deems that a medical need exists for a medication without regard to previous use.
--- NOTE | 2022-12-26 18:39 | PROVIDER PROGRESS NOTE ---
Assessment/Plan - Problem List (1) Acute on chronic respiratory failure with hypoxia Assessment/Plan: The patient had a documented saturation of 70% in the ER, despite being on her normal 4 L of O2. Caused by COPD exacerbation which is from a pneumonia and RSV infection. She has only been at rest today, not gotten out of bed, saturations therefore have been stable but she still has wheezing on exam. Plan: Will admit the pt from Observation status to Inpt status as she needs more treatment for her CIOPD exacerbation She was advised to start being OObed. We will continue with supplemental oxygen, increasing the FiO2 if needed to keep O2 sats between 90 and 93%, in a COPDer Cont to treat the underlying problem(s) On day of discharge, she will need a walking oximetry test to see if she needs different settings of O2 upon returning home (The current )2 setting was 4 L/min via n.c. continuously 22/05) (2) COPD exacerbation Conclusion/Plan: It appears her exacerbation is from a pneumonia plus RSV infection Plan: Cont DuoNebs scheduled 4 times daily and every 4 hours as needed Cont Pulmicort nebs and IV steroids Cont montelukast every night Give Mucinex for pulmonary toilet Cont empiric antibiotics Await sputum cx results to tailor antibiotic therapy (3) CAP (community acquired pneumonia) Conclusion/Plan: An infiltrate was seen on chest x-ray. Blood cultures were done in the ED then she has received empiric Zithromax IV x1 and ceftriaxone IV x1 After admission she did produce a sputum sample. It has many white cells and many different bacteria Plan: Continue with empiric Zithromax p.o. and IV ceftriaxone Await sputum cx results to tailor antibiotic therapy (4) RSV infection Conclusion/Plan: Plan: Droplet isolation (5) Acute on chronic congestive heart failure Conclusion/Plan: The patient last had an Echo done about 10 months ago, showing preserved LVEF. She had significant valvular disease. Her BNP is 440 today. On past admissions her BNP has been in the 200s Plan: We will continue with Lasix IV twice daily Follow I's and O's and daily weights We will give the Zithromax orally since it will have the same effect as IV, to decrease IV fluids Qualifiers: Heart failure type: diastolic Qualified Code(s): I50.33 - Acute on chronic diastolic (congestive) heart failure (6) A-fib Conclusion/Plan: We will continue her usual Eliquis dose (7) Hypothyroidism Conclusion/Plan: TSH came back less than 0.08, signifying excessive thyroid replacement dose Plan: We will hold the thyroid dose x several days and resume it at a lower amount (8) DNR status At admission yesterday we discussed her wishes for CODE STATUS and she wants to be a DNR/DNI. The last POLST in her [employer] chart, from 2 yrs ago, shows she wants to be a Full Code. Plan: She and I completed a new POLST form and a copy will be scanned into [employer], she has the original - Current Meds Current Meds: Current Medications Generic Name Dose Route Start Last Admin Trade Name Freq PRN Reason Stop Dose Admin Albuterol/Ipratropium 3 ml 12/25/22 18:26 12/26/22 01:52 Ipratropium/Albuterol 3 Ml Neb INH 3 ml Q4HR PRN Administration Wheezing Albuterol/Ipratropium 3 ml 12/25/22 19:00 12/26/22 15:16 Ipratropium/Albuterol 3 Ml Neb INH 3 ml RTQID JULIANO Administration Apixaban 5 mg 12/25/22 21:00 12/26/22 08:48 Apixaban 5 Mg Tablet PO 5 mg BID JULIANO Administration Aspirin 81 mg 12/26/22 09:00 12/26/22 08:48 Aspirin Ec 81 Mg Tablet PO 81 mg DAILY JULIANO Administration Azithromycin 500 mg 12/26/22 09:00 12/26/22 08:48 Azithromycin 250 Mg Tablet PO 12/28/22 00:01 500 mg DAILY JULIANO Administration Budesonide 0.5 mg 12/25/22 19:00 12/26/22 06:07 Budesonide 0.5 Mg/2 Ml Neb INH 0.5 mg RTBID JULIANO Administration Diltiazem HCl 180 mg 12/26/22 08:00 12/26/22 18:04 Diltiazem Cd 180 Mg Capsule PO 180 mg 0800,1800 JULIANO Administration Furosemide 40 mg 12/26/22 06:00 12/26/22 14:00 Furosemide 40 Mg/4 Ml Vial IVP 40 mg BIDDIURETIC JULIANO Administration Guaifenesin 600 mg 12/25/22 21:00 12/26/22 08:48 Guaifenesin 600 Mg Tablet PO 600 mg BID JULIANO Administration Ceftriaxone Sodium 1 gm/ 100 mls @ 200 mls/hr 12/26/22 10:00 12/26/22 11:01 Sodium Chloride IV Infused Q24H JULIANO Infusion Levothyroxine Sodium 112 mcg 12/26/22 07:00 12/26/22 06:21 Levothyroxine 112 Mcg Tablet PO 112 mcg QDAC JULIANO Administration Levothyroxine Sodium 25 mcg 12/26/22 07:00 12/26/22 06:21 Levothyroxine 25 Mcg Tablet PO 25 mcg QDAC JULIANO Administration Methylprednisolone Sodium Succinate 125 mg 12/25/22 22:00 12/26/22 14:00 Methylprednisolone Succinate 125 Mg/2 Ml Vial IVP 125 mg TID JULIANO Administration Montelukast Sodium 10 mg 12/25/22 21:00 12/25/22 21:16 Montelukast 10 Mg Tablet PO 10 mg QPM JULIANO Administration Saccharomyces Boulardii 250 mg 12/25/22 21:00 12/26/22 08:48 Saccharomyces Boulardii 250 Mg Capsule PO 250 mg BID JULIANO Administration Sodium Chloride 10 ml 12/25/22 18:21 12/26/22 06:22 Sodium Chloride Flush 0.9% 10 Ml Syringe IVP 10 ml PRN PRN Administration NEEDED PER PROVIDER ORDERS Sodium Chloride 10 ml 12/26/22 01:00 12/26/22 18:05 Sodium Chloride Flush 0.9% 10 Ml Syringe IVP 10 ml 0100,0900,1700 JULIANO Administration Throat Lozenges 1 lozenge 12/26/22 01:47 12/26/22 02:07 Benzocaine/Menthol Lozenge MM 1 lozenge Q2HR PRN Administration Throat pain - Lab Result Fish Bone Diagrams: 12/26/22 05:41 12/26/22 05:41 - Additional Planning My Orders: My Active Orders 12/25/22 18:21 Activity Orders [RC] Q2HR IO [RC] IOSHIFT Incentive Spirometry - RT [RC] TID Initiate Bowel Care Protocol [RC] .protocol Initiate Bronchodialator [place] [RC] .PROTOCOL Initiate Lung Inflation Protoc [RC] .PROTOCOL Initiate Personal Care Protoco [RC] .protocol Initiate Secretion Clearance P [RC] .PROTOCOL Oxygen Therapy [RC] .PRN Telemetry- [RC] Q4HR Vital Signs [RC] Q4HR Acetaminophen [Tylenol] 650 mg PO Q4HR PRN Ondansetron Inj [Zofran Inj] 4 mg IVP Q6HR PRN Sodium Chloride Flush 0.9% [Normal Saline Flush 0.9%] 10 ml IVP PRN PRN Code Status [OTHERS] Routine Condition of Patient [OTHERS] Routine DVT Prophylaxis [OTHERS] Routine 12/25/22 18:23 Daily Weight [RC] 0600 IV Insert [RC] .ONCE 12/25/22 18:24 Initiate Line Care Protocol [RC] QSHIFT 12/25/22 18:26 Ipratropium/Albuterol [Duoneb] 3 ml INH Q4HR PRN 12/25/22 18:41 Isolation [Infection Precautions] [RC] QSWAFT 12/25/22 19:00 Budesonide [Pulmicort] 0.5 mg INH RTBID Ipratropium/Albuterol [Duoneb] 3 ml INH RTQID 12/25/22 19:25 CUL, RESPIRATORY [RM] Stat 12/25/22 20:39 Nebulizer/MDI Tx. [RC] QID 12/25/22 21:00 Apixaban [Eliquis] 5 mg PO BID Montelukast [Singulair] 10 mg PO QPM Saccharomyces Boulardii [Florastor] 250 mg PO BID guaiFENesin [Mucinex] 600 mg PO BID 12/25/22 22:00 methylPREDNISolone SUCCINATE [SOLU-Medrol (125MG VIAL)] 125 mg IVP TID 12/26/22 01:00 Sodium Chloride Flush 0.9% [Normal Saline Flush 0.9%] 10 ml IVP 0100,0900,1700 12/26/22 01:47 Benzocaine/Menthol [Cepacol] 1 lozenge MM Q2HR PRN 12/26/22 06:00 FUROSEMIDE INJ 40mg VIAL [LASIX INJ 40 mg VIAL] 40 mg IVP BIDDIURETIC 12/26/22 07:00 Levothyroxine [Synthroid] 112 mcg PO QDAC Levothyroxine [Synthroid] 25 mcg PO QDAC 12/26/22 08:00 diltiaZEM CD [Cardizem Cd] 180 mg PO 0800,1800 12/26/22 09:00 Aspirin EC [Ecotrin] 81 mg PO DAILY Azithromycin [Zithromax] 500 mg PO DAILY 12/26/22 10:00 cefTRIAXone [Rocephin] 1 gm Sodium Chloride 0.9% Minibag [Normal Saline 0.9% Minibag] 100 ml IV Q24H 12/27/22 05:00 BMP - BASIC METABOLIC PANEL [CHEM] DAILYLAB BNP - B-NATRIURETIC PEPTIDE [IAI] DAILYLAB CBC - COMP BLD CT W/AUTO DIFF [HEME] DAILYLAB MAGNESIUM [CHEM] DAILYLAB Subjective - Subjective Patient Reports: Feeling Better (Her wheezing is less but her cough continues. She says she is not short of breath but has not gotten out of bed at all.) Objective Vital Signs: Vital Signs - 24 hr 12/25/22 12/25/22 12/25/22 18:48 19:10 19:55 Temperature 36.9 C Heart Rate 89 Heart Rate [ 90 Brachial] Respiratory 19 24 Rate Blood Pressure 127/63 Blood Pressure 151/84 H [Left Brachial artery] Blood Pressure [Right Brachial artery] O2 Saturation 95 94 If not protocol 4 4 4 : Oxygen Flow, liters/minute 12/25/22 12/25/22 12/25/22 20:40 20:42 21:00 Temperature 37.3 C Heart Rate 87 Heart Rate [ 105 H Brachial] Respiratory 18 18 Rate Blood Pressure Blood Pressure [Left Brachial artery] Blood Pressure 125/56 L [Right Brachial artery] O2 Saturation 95 If not protocol 4 4 4 : Oxygen Flow, liters/minute 12/26/22 12/26/22 12/26/22 00:09 01:53 01:54 Temperature 37.7 C 37.2 C Heart Rate 98 Heart Rate [ 94 Brachial] Respiratory 20 18 Rate Blood Pressure Blood Pressure [Left Brachial artery] Blood Pressure 123/55 L [Right Brachial artery] O2 Saturation 92 If not protocol 4 2 : Oxygen Flow, liters/minute 12/26/22 12/26/22 12/26/22 01:56 05:43 06:07 Temperature 36.6 C Heart Rate 96 Heart Rate [ 78 Brachial] Respiratory 20 20 Rate Blood Pressure Blood Pressure [Left Brachial artery] Blood Pressure 115/88 H [Right Brachial artery] O2 Saturation 93 If not protocol 4 4 4 : Oxygen Flow, liters/minute 12/26/22 12/26/22 12/26/22 07:42 11:00 11:52 Temperature 36.6 C 36.8 C Heart Rate 94 Heart Rate [ 100 85 Brachial] Respiratory 18 20 18 Rate Blood Pressure Blood Pressure [Left Brachial artery] Blood Pressure 131/79 H 118/52 L [Right Brachial artery] O2 Saturation 94 94 If not protocol 4 4 4 : Oxygen Flow, liters/minute 12/26/22 12/26/22 15:18 16:18 Temperature 36.7 C Heart Rate 85 Heart Rate [ 71 Brachial] Respiratory 20 20 Rate Blood Pressure Blood Pressure [Left Brachial artery] Blood Pressure 124/57 L [Right Brachial artery] O2 Saturation 92 If not protocol 4 : Oxygen Flow, liters/minute Oxygen O2 Source [With Activity] Nasal cannula O2 Source Nasal cannula Oxygen Flow Rate 4 I&O (Last 24 Hrs): Intake and Output Totals x24h 12/24/22 12/25/22 12/26/22 23:59 23:59 23:59 Intake Total 350 1040 Output Total 1350 1950 Balance -1000 -910 General: Alert, Oriented x3, No acute distress HEENT: Atraumatic, Mucous membr. moist/pink, Other (wearinmg O2 via n.c.) Neck: Supple Neuro: Alert, Non Focal Cardiovascular: Regular rate, No murmurs Respiratory: Other (Fine scattered wheezes, prolonged expiratory phase, no rales or rhonchi) Abdomen: Soft, Other (Obese) Extremities: No clubbing, No tenderness/swelling, Other (Trace edema) - Results Results: Laboratory Results WBC 5.2 x10^3/uL (4.8-10.8) 12/26/22 05:41 RBC 4.12 10^6/uL (4.20-5.40) L 12/26/22 05:41 Hgb 12.3 g/dL (12.0-16.0) 12/26/22 05:41 Hct 38.2 % (37.0-47.0) 12/26/22 05:41 MCV 92.7 fL (81.0-99.0) 12/26/22 05:41 MCH 29.9 pg (27.0-31.0) 12/26/22 05:41 MCHC 32.2 g/dL (32.0-36.0) 12/26/22 05:41 RDW 15.4 % (12.0-15.0) H 12/26/22 05:41 Plt Count 169 10^3/uL (130-450) 12/26/22 05:41 MPV 9.7 fL (7.9-10.8) 12/26/22 05:41 Neut # (Auto) 4.6 10^3/uL (1.5-6.6) 12/26/22 05:41 Lymph # (Auto) 0.4 10^3/uL (1.5-3.5) L 12/26/22 05:41 [place] # (Auto) 0.1 10^3/uL (0.0-1.0) 12/26/22 05:41 Eos # (Auto) 0.0 10^3/uL (0.0-0.7) 12/26/22 05:41 Baso # (Auto) 0.0 10^3/uL (0.0-0.1) 12/26/22 05:41 Absolute Nucleated RBC 0.00 x10^3/uL 12/26/22 05:41 Nucleated RBC % 0.0 /100WBC 12/26/22 05:41 Sodium 136 mmol/L (135-145) 12/26/22 05:41 Potassium 3.4 mmol/L (3.5-5.0) L 12/26/22 05:41 Chloride 98 mmol/L (101-111) L 12/26/22 05:41 Carbon Dioxide 27 mmol/L (21-32) 12/26/22 05:41 Anion Gap 11.0 (6-13) 12/26/22 05:41 BUN 18 mg/dL (6-20) 12/26/22 05:41 Creatinine 0.8 mg/dL (0.4-1.0) 12/26/22 05:41 Estimated GFR (MDRD) 68 (>89) L 12/26/22 05:41 Glucose 161 mg/dL (70-100) H 12/26/22 05:41 Calcium 8.7 mg/dL (8.5-10.3) 12/26/22 05:41 Magnesium 2.3 mg/dL (1.7-2.8) 12/26/22 05:41 Total Bilirubin 0.9 mg/dL (0.2-1.0) 12/25/22 14:03 AST 25 IU/L (10-42) 12/25/22 14:03 ALT 19 IU/L (10-60) 12/25/22 14:03 Alkaline Phosphatase 52 IU/L (42-121) 12/25/22 14:03 B-Natriuretic Peptide 455 pg/mL (5-100) H 12/26/22 05:41 Total Protein 7.0 g/dL (6.7-8.2) 12/25/22 14:03 Albumin 3.5 g/dL (3.2-5.5) 12/25/22 14:03 Globulin 3.5 g/dL (2.1-4.2) 12/25/22 14:03 Albumin/Globulin Ratio 1.0 (1.0-2.2) 12/25/22 14:03 TSH < 0.08 uIU/mL (0.34-5.60) L 12/26/22 05:41 Nasal Adenovirus (PCR) NOT DETECTED 12/25/22 14:09 Nasal B. parapertussis DNA (PCR) NOT DETECTED 12/25/22 14:09 Nasal Coronavir 229E PCR NOT DETECTED 12/25/22 14:09 Nasal Coronavir HKU1 PCR NOT DETECTED 12/25/22 14:09 Nasal Coronavir NL63 PCR NOT DETECTED 12/25/22 14:09 Nasal Coronavir OC43 PCR NOT DETECTED 12/25/22 14:09 Nasal Enterovir/Rhinovir PCR NOT DETECTED 12/25/22 14:09 Nasal Influenza B PCR NOT DETECTED 12/25/22 14:09 Nasal Influenza A PCR NOT DETECTED 12/25/22 14:09 Nasal Parainfluen 1 PCR NOT DETECTED 12/25/22 14:09 Nasal Parainfluen 2 PCR NOT DETECTED 12/25/22 14:09 Nasal Parainfluen 3 PCR NOT DETECTED 12/25/22 14:09 Nasal Parainfluen 4 PCR NOT DETECTED 12/25/22 14:09 Nasal RSV (PCR) DETECTED A 12/25/22 14:09 Nasal B.pertussis DNA PCR NOT DETECTED 12/25/22 14:09 Nasal C.pneumoniae (PCR) NOT DETECTED 12/25/22 14:09 Macho Human Metapneumo PCR NOT DETECTED 12/25/22 14:09 Nasal M.pneumoniae (PCR) NOT DETECTED 12/25/22 14:09 Nasal SARS-CoV-2 (PCR) NOT DETECTED 12/25/22 14:09 - Procedures Procedures: Procedures ENDOSC POLYPECTOMY OF LG INTEST (04/11/14) EXCISE AXILLARY NODE (09/05/14) EXCISION OF DUODENUM, ENDO, DIAGN (09/18/20) EXCISION OF ESOPHAGOGASTRIC JUNCTION, ENDO, DIAGN (09/18/20) EXCISION OF ESOPHAGUS, ENDO, DIAGN (09/18/20) EXCISION OF STOMACH, ENDO, DIAGN (09/18/20) INSERTION OF TOTALLY IMPLANTABLE VASC ACCESS DEVIC (10/31/14) INSPECTION OF LOWER INTESTINAL TRACT, ENDO (09/18/20) LOCAL EXCIS BREAST LES (09/05/14) REMOVAL OF VAD FROM UP EXTREM SUBCU/FASCIA, PERC APPROACH (08/07/15) THORAX SFT TISS XRAY NEC (10/31/14)
[2022-12-26] MEDS: MONTELUKAST 10 MG TABLET PO SCH (21:21)
[2022-12-26] MEDS: INSULIN LISPRO 300 UNIT/3 ML PEN SUBQ SCH (21:21)
[2022-12-26] MEDS: methylPREDNISolone SUCCINATE 40 MG/ML VIAL IVP SCH (21:21)
[2022-12-27] MEDS: SODIUM CHLORIDE FLUSH 0.9% 10 ML SYRINGE IVP SCH ×3 (00:43→17:16)
[2022-12-27] MEDS: TORSEMIDE 20 MG TABLET PO SCH ×2 (05:43→14:42)
[2022-12-27] MEDS: LEVOTHYROXINE 25 MCG TABLET PO SCH (05:43)
[2022-12-27] MEDS: methylPREDNISolone SUCCINATE 40 MG/ML VIAL IVP SCH ×3 (05:43→21:22)
[2022-12-27 06:23] LABS: BASOPHILS % (AUTO) 0.2 %; HCT - HEMATOCRIT 39.7 % (37.0-47.0); HGB - HEMOGLOBIN 12.5 g/dL (12.0-16.0); LYMPHOCYTES # (AUTO) 0.7 10^3/uL (1.5-3.5); LYMPHOCYTES % (AUTO) 4.4 %; MEAN CORPUSCULAR HEMOGLOBIN 29.2 pg (27.0-31.0); MEAN CORPUSCULAR HGB CONC 31.5 g/dL (32.0-36.0); MEAN CORPUSCULAR VOLUME 92.8 fL (81.0-99.0); MONOCYTES # (AUTO) 0.5 10^3/uL (0.0-1.0); MONOCYTES % (AUTO) 3.4 %; NEUTROPHILS # (AUTO) 13.8 10^3/uL (1.5-6.6); NEUTROPHILS % (AUTO) 91.5 %; PLT - PLATELET COUNT 203 10^3/uL (130-450); RED BLOOD COUNT 4.28 10^6/uL (4.20-5.40); RED CELL DISTRIBUTION WIDTH 15.7 % (12.0-15.0); WHITE BLOOD COUNT 15.1 x10^3/uL (4.8-10.8)
[2022-12-27 06:32] LABS: CALCIUM 8.9 mg/dL (8.5-10.3); CREATININE 0.7 mg/dL (0.4-1.0); MAGNESIUM 2.7 mg/dL (1.7-2.8); POTASSIUM 3.1 mmol/L (3.5-5.0)
[2022-12-27] MEDS: BUDESONIDE 0.5 MG/2 ML NEB INH SCH ×2 (07:30→20:52)
[2022-12-27] MEDS: IPRATROPIUM/ALBUTEROL 3 ML NEB INH SCH ×4 (07:30→20:52)
[2022-12-27] MEDS: diltiaZEM CD 180 MG CAPSULE PO SCH ×2 (08:14→17:22)
[2022-12-27] MEDS: AZITHROMYCIN 250 MG TABLET PO SCH (08:14)
[2022-12-27] MEDS: ASPIRIN EC 81 MG TABLET PO SCH (08:14)
[2022-12-27] MEDS: APIXABAN 5 MG TABLET PO SCH ×2 (08:15→21:17)
[2022-12-27] MEDS: guaiFENesin 600 MG TABLET PO SCH ×2 (08:15→21:18)
[2022-12-27] MEDS: SACCHAROMYCES BOULARDII 250 MG CAPSULE PO SCH ×2 (08:15→21:17)
[2022-12-27] MEDS: INSULIN LISPRO 300 UNIT/3 ML PEN SUBQ SCH ×4 (08:17→21:19)
[2022-12-27] MEDS ORDERED: POTASSIUM CHLORIDE 10 MEQ CAPSULE PO SCH (09:00)
[2022-12-27 09:20] LABS: ESTIMATED AVERAGE GLUCOSE 140 mg/dL (70-100); HEMOGLOBIN A1c% 6.5 % (4.27-6.07)
[2022-12-27] MEDS: POTASSIUM CHLORIDE 20 MEQ/15 ML UDC PO SCH (09:40)
[2022-12-27] MEDS: cefTRIAXone 1 GM in SODIUM CHLORIDE 0.9% MINIBAG 100 ML IV SCH (10:35)
[2022-12-27] MEDS: polyethylene glycoL 3350 17 GM PACKET PO SCH (11:49)
--- NOTE | 2022-12-27 12:32 | PROVIDER PROGRESS NOTE ---
Subjective - Prog Note Date Prog Note Date: 12/27/22 Prog Note Time: 12:30 - Subjective Pt reports feeling: Improved Subjective: At home she says that she is independent with activities of daily living. Prior to the current episode of illness she was able to get out of bed, shower, go to the bathroom, do light housekeeping, and cook small meals for herself. The most she can do right now is get up to walk to the bathroom. And even then she needs some help now to get up off the toilet to walk back into her chair. She denies any pain. Her main reason for decreased mobility is shortness of breath, generalized deconditioning. She is on her 4 L nasal cannula that she takes at home. She has been on that for about 2-1/2 years. She denies fever, chills. She denies aching chest pain. No syncope or near syncope in the last few months. Current Medications - Current Medications Current Medications: Active Medications Acetaminophen (Acetaminophen 325 Mg Tablet) 650 mg PO Q4HR PRN PRN Reason: Pain 1 to 4, or Fever Albuterol/Ipratropium (Ipratropium/Albuterol 3 Ml Neb) 3 ml INH Q4HR PRN PRN Reason: Wheezing Last Admin: 12/26/22 01:52 Dose: 3 ml Albuterol/Ipratropium (Ipratropium/Albuterol 3 Ml Neb) 3 ml INH RTQID [facility] Last Admin: 12/27/22 11:09 Dose: 3 ml Apixaban (Apixaban 5 Mg Tablet) 5 mg PO BID [facility] Last Admin: 12/27/22 08:15 Dose: 5 mg Aspirin (Aspirin Ec 81 Mg Tablet) 81 mg PO DAILY [facility] Last Admin: 12/27/22 08:14 Dose: 81 mg Azithromycin (Azithromycin 250 Mg Tablet) 500 mg PO DAILY [facility] Stop: 12/28/22 00:01 Last Admin: 12/27/22 08:14 Dose: 500 mg Budesonide (Budesonide 0.5 Mg/2 Ml Neb) 0.5 mg INH RTBID [facility] Last Admin: 12/27/22 07:30 Dose: 0.5 mg Diltiazem HCl (Diltiazem Cd 180 Mg Capsule) 180 mg PO 0800,1800 [facility] Last Admin: 02/28/23 08:14 Dose: 180 mg Guaifenesin (Guaifenesin 600 Mg Tablet) 600 mg PO BID [facility] Last Admin: 12/27/22 08:15 Dose: 600 mg Ceftriaxone Sodium 1 gm/ (Sodium Chloride) 100 mls @ 200 mls/hr IV Q24H [facility] Last Admin: 12/27/22 10:35 Dose: 200 mls/hr Insulin Human Lispro (Insulin Lispro 300 Unit/3 Ml Pen) 1 - 5 unit SUBQ 0800,1200,1700,2100 [facility]; Protocol Last Admin: 12/27/22 11:49 Dose: 1 unit Levothyroxine Sodium (Levothyroxine 25 Mcg Tablet) 25 mcg PO QDAC [facility] Last Admin: 12/27/22 05:43 Dose: 25 mcg Levothyroxine Sodium (Levothyroxine 100 Mcg Tablet) 100 mcg PO QDAC [facility] Methylprednisolone (Methylprednisolone Succinate 40 Mg/Ml Vial) 80 mg IVP TID [facility] Stop: 12/28/22 00:01 Last Admin: 12/27/22 05:43 Dose: 80 mg Methylprednisolone (Methylprednisolone Succinate 40 Mg/Ml Vial) 40 mg IVP TID [facility] Montelukast Sodium (Montelukast 10 Mg Tablet) 10 mg PO QPM [facility] Last Admin: 12/26/22 21:21 Dose: 10 mg Ondansetron HCl (Ondansetron 4 Mg/2 Ml Vial) 4 mg IVP Q6HR PRN PRN Reason: Nausea / Vomiting Polyethylene Glycol (Polyethylene Glycol 3350 17 Gm Packet) 17 gm PO DAILY [facility] Last Admin: 12/27/22 11:49 Dose: 17 gm Potassium Chloride (Potassium Chloride 10 Meq Capsule) 10 meq PO DAILY [facility] Last Admin: 12/27/22 08:15 Dose: 10 meq Potassium Chloride (Potassium Chloride 20 Meq/15 Ml Udc) 40 meq PO DAILYWM [facility] Last Admin: 12/27/22 09:40 Dose: 40 meq Saccharomyces Boulardii (Saccharomyces Boulardii 250 Mg Capsule) 250 mg PO BID [facility] Last Admin: 12/27/22 08:15 Dose: 250 mg Sodium Chloride (Sodium Chloride Flush 0.9% 10 Ml Syringe) 10 ml IVP PRN PRN PRN Reason: NEEDED PER PROVIDER ORDERS Last Admin: 12/26/22 06:22 Dose: 10 ml Sodium Chloride (Sodium Chloride Flush 0.9% 10 Ml Syringe) 10 ml IVP 0100,0900,1700 [facility] Last Admin: 12/27/22 08:16 Dose: 10 ml Throat Lozenges (Benzocaine/Menthol Lozenge) 1 lozenge MM Q2HR PRN PRN Reason: Throat pain Last Admin: 12/26/22 02:07 Dose: 1 lozenge Torsemide (Torsemide 20 Mg Tablet) 40 mg PO BIDDIURETIC [facility] Last Admin: 12/27/22 05:43 Dose: 40 mg Albuterol Sulf [Ventolin Hfa Inhaler] 2 puffs INH Q4H PRN 12/27/19 Aspirin [Aspirin EC] 81 mg PO DAILY 09/18/20 Rosuvastatin Calcium [Crestor] 5 mg PO QPM 09/18/20 Apixaban [Eliquis] 5 mg PO BID 05/24/22 Levothyroxine Sodium [Levothyroxine] 137 mcg PO QDAC 05/24/22 Potassium Chloride 10 meq PO DAILY 05/24/22 Bio Complete 3 2 cap PO BIDAC 12/26/22 Cyanocobalamin (Vitamin B-12) [Vitamin B-12] 2,500 mcg PO DAILY 12/26/22 Empagliflozin [Jardiance] 10 mg PO DAILY 12/26/22 Metoprolol Tartrate [Lopressor] 25 mg PO BID 12/26/22 Torsemide 40 mg PO BIDDIURETIC 12/26/22 Objective - Vital Signs/Intake & Output Vital Signs: Vital Signs x48h Temp Pulse Pulse Resp BP Pulse Ox O2 Flow Rate 12/27/22 11:11 70 18 4 12/27/22 08:21 36.6 C 61 20 110/56 L 95 4 12/27/22 07:32 72 18 4 12/27/22 04:53 36.6 C 61 16 123/51 L 94 4 Intake & Output: Intake & Output 12/24/22 12/25/22 12/26/22 12/27/22 23:59 23:59 23:59 23:59 Intake Total 350 1040 620 Output Total 1350 2850 700 Balance -1000 -1810 -80 - Objective General Appearance: positive: No acute distress, Alert, Other (Short statured morbidly obese white female, sitting up in her chair, no respiratory distress, legs elevated, dyed red hair) Eyes Bilateral: positive: PERRL, EOMI ENT: positive: Pharynx nml Neck: positive: Other (Neck is too short and thick to assess for JVD). negative: Carotid bruit Respiratory: positive: No respiratory distress, Other (Diminished breath sounds at the bases with faint crackles) Cardiovascular: positive: Regular rate & rhythm, Systolic murmur, Other Abdomen: positive: Non-tender, Other (huge abdominal pannus, normal bowel sounds, nontender) Skin: positive: Warm, Dry, Pallor Extremities: positive: Full ROM, No pedal edema (She said there was quite a bit of edema when she was admitted, it is all gone down and skin is now wrinkled) Neurologic/Psychiatric: positive: Oriented x3, CN's nml (2-12), Motor nml (No focal deficits. Just generalized weakness requiring 1 person assist to bring the chair down, and stand up. This resulted in significant tachypnea that recovers within a minute and a half) - Lab Results Fish Bones: 12/27/22 05:55 12/27/22 05:55 Other Labs: Lab Results x24hrs 12/27/22 12/27/22 12/27/22 Range/Units 05:55 05:55 05:55 WBC (4.8-10.8) x10^3/uL RBC (4.20-5.40) 10^6/uL Hgb (12.0-16.0) g/dL Hct (37.0-47.0) % MCV (81.0-99.0) fL MCH (27.0-31.0) pg MCHC (32.0-36.0) g/dL RDW (12.0-15.0) % Plt Count (130-450) 10^3/uL MPV (7.9-10.8) fL Neut # (Auto) (1.5-6.6) 10^3/uL Lymph # (Auto) (1.5-3.5) 10^3/uL Chase # (Auto) (0.0-1.0) 10^3/uL Eos # (Auto) (0.0-0.7) 10^3/uL Baso # (Auto) (0.0-0.1) 10^3/uL Absolute Nucleated RBC x10^3/uL Nucleated RBC % /100WBC Sodium 138 (135-145) mmol/L Potassium 3.1 L (3.5-5.0) mmol/L Chloride 98 L (101-111) mmol/L Carbon Dioxide 28 (21-32) mmol/L Anion Gap 12.0 (6-13) BUN 30 H (6-20) mg/dL Creatinine 0.7 (0.4-1.0) mg/dL Estimated GFR (MDRD) 79 L (>89) Glucose 171 H (70-100) mg/dL Estimat Average Glucose 140 H (70-100) mg/dL Hemoglobin A1c % 6.5 H (4.27-6.07) % Calcium 8.9 (8.5-10.3) mg/dL Magnesium 2.7 (1.7-2.8) mg/dL B-Natriuretic Peptide 492 H (5-100) pg/mL 12/27/22 Range/Units 05:55 WBC 15.1 H (4.8-10.8) x10^3/uL RBC 4.28 (4.20-5.40) 10^6/uL Hgb 12.5 (12.0-16.0) g/dL Hct 39.7 (37.0-47.0) % MCV 92.8 (81.0-99.0) fL MCH 29.2 (27.0-31.0) pg MCHC 31.5 L (32.0-36.0) g/dL RDW 15.7 H (12.0-15.0) % Plt Count 203 (130-450) 10^3/uL MPV 10.0 (7.9-10.8) fL Neut # (Auto) 13.8 H (1.5-6.6) 10^3/uL Lymph # (Auto) 0.7 L (1.5-3.5) 10^3/uL Chase # (Auto) 0.5 (0.0-1.0) 10^3/uL Eos # (Auto) 0.0 (0.0-0.7) 10^3/uL Baso # (Auto) 0.0 (0.0-0.1) 10^3/uL Absolute Nucleated RBC 0.00 x10^3/uL Nucleated RBC % 0.0 /100WBC Sodium (135-145) mmol/L Potassium (3.5-5.0) mmol/L Chloride (101-111) mmol/L Carbon Dioxide (21-32) mmol/L Anion Gap (6-13) BUN (6-20) mg/dL Creatinine (0.4-1.0) mg/dL Estimated GFR (MDRD) (>89) Glucose (70-100) mg/dL Estimat Average Glucose (70-100) mg/dL Hemoglobin A1c % (4.27-6.07) % Calcium (8.5-10.3) mg/dL Magnesium (1.7-2.8) mg/dL B-Natriuretic Peptide (5-100) pg/mL ABX Reporting Has patient been on IV antibiotics over the past 48 hours?: Yes Assessment/Plan - Problem List (1) Acute on chronic respiratory failure with hypoxia Impression: The patient had a documented saturation of 70% in the ER, despite being on her normal 4 L of O2. Caused by COPD exacerbation which is from a pneumonia and RSV infection. While she is improved and is back to her 4 L of nasal cannula, she still significantly tachypneic and dyspneic with limited mobility. She only has to walk 10 feet to the bathroom and back in her room and she can barely make it back. She is not at her baseline with regards to what she is at home. Plan: I had hoped to send her home today since she is back to baseline oxygen requirement, however, still significantly deconditioned and not a safe discharge. I will order physical therapy evaluation and treatment Continue her 4 L nasal cannula and maintain O2 sats between 90 and 93%. (2) COPD exacerbation Conclusion/Plan: It appears her exacerbation is from a pneumonia plus RSV infection. Sputum culture shows 3+ normal respiratory venecia. Not helpful in changing antibiotics Plan: Cont DuoNebs scheduled 4 times daily and every 4 hours as needed Cont Pulmicort nebs and IV steroids Cont montelukast every night Give Mucinex for pulmonary toilet Cont empiric antibiotics (3) CAP (community acquired pneumonia) Conclusion/Plan: An infiltrate was seen on chest x-ray. Blood cultures were done in the ED then she has received empiric Zithromax and ceftriaxone IV. Today is day #3 After admission she did produce a sputum sample. It is 3+ normal venecia. Her blood cultures are negative. As such these are not helpful in tailoring her antibiotics Plan: She can stop azithromycin since she is day #3 today and has received 1500 mg Continue rocephin 1 gram IV for a total of 5 days For deconditioning, I will order PT eval and treatment. Goal is to get to mobilize without help to get to toileting, dressing, and then I can order home health w PT/OT, bath aide (4) RSV infection Conclusion/Plan: Plan: Droplet isolation (5) Acute on chronic congestive heart failure Conclusion/Plan: The patient last had an Echo done about 10 months ago, showing preserved LVEF. Moderate to severe aortic stenosis with a peak/mean pressure gradient of 63 mmHg / 34 mmHg. Aortic valve valve area by continuity equation is 1.08 cm. Trace aortic regurg. Mild to moderate mitral regurg. Moderately abnormal right heart pressures with an RVSP of 56 mmHg. Her BNP staying at the same level in spite of adequate diuresis. On past admissions her BNP has been in the 200s. She received p.o. azithromycin to avoid excessive fluids. Fluid balance has been adequately negative. On December 25 her fluid balance was -1000 cc. On December 26 she was -1810 cc. Today she has been -80 cc so far. Laboratory Tests 12/26/22 12/27/22 05:41 05:55 B-Natriuretic Peptide 455 H 492 H My suspicion, after reviewing the echo report, is that she has some element of cor pulmonale. Diuresis would be the most effective. But I do have to worry about over diuresing her in the face of moderate to severe aortic stenosis. The previous hospitalist was able to discuss CODE STATUS with her. She is a DO NOT RESUSCITATE with limited interventions. When I discussed her aortic st enosis, she says that it has been "steady" and not a problem for a few years now. But if it got to the point where she needed replacement, she would consider it after talking to her district recruiter, Dr. Morton. Plan: Continue with Lasix IV twice daily. This has caused Hypokalemia and I will supplement with Kdur 40 meq po today and recheck in am. Follow I's and O's and daily weights I will go ahead and repeat the echocardiogram. If her aortic stenosis is worse, I will discuss with her district recruiter Dr. Morton from [facility] to see if that is why she is more short of breath than usual (and not just RSV) Qualifiers: Heart failure type: diastolic Qualified Code(s): I50.33 - Acute on chronic diastolic (congestive) heart failure (6) A-fib Conclusion/Plan: Anticoagulation is with Eliquis. That is what she takes at home. Rate control is with Lopressor 25 mg po bid at home but here she is on 180 mg p.o. twice daily of Cardizem. Unclear why, after I reviewed notes. Plan: I will await the echo report. That may lead to a conversation with her district recruiter and then I can discuss rate lowering agents with him (7) Hypothyroidism Conclusion/Plan: TSH came back less than 0.08, signifying excessive thyroid replacement dose Plan: We are holding the thyroid dose x several days and resume it at a lower amount (8) DNR status At admission that hospitalist discussed her wishes for CODE STATUS and she wants to be a DNR/DNI. The last POLST in her [employer] chart, from 2 yrs ago, shows she wants to be a Full Code. Plan: She and the hospitalist completed a new POLST form and a copy will be scanned into [employer], she has the original in her room. I reviewed it with her today and she states that having her aortic valve repaired is something she would want. She is not ready to transitioning to Palliative Care.
[2022-12-27] MEDS: MONTELUKAST 10 MG TABLET PO SCH (21:17)
[2022-12-28] MEDS: SODIUM CHLORIDE FLUSH 0.9% 10 ML SYRINGE IVP SCH ×2 (01:30→08:09)
[2022-12-28] MEDS: TORSEMIDE 20 MG TABLET PO SCH ×2 (06:00→14:34)
[2022-12-28] MEDS: LEVOTHYROXINE 25 MCG TABLET PO SCH (06:00)
[2022-12-28] MEDS: IPRATROPIUM/ALBUTEROL 3 ML NEB INH SCH ×2 (07:17→10:29)
[2022-12-28] MEDS: BUDESONIDE 0.5 MG/2 ML NEB INH SCH (07:17)
[2022-12-28] MEDS: methylPREDNISolone SUCCINATE 40 MG/ML VIAL IVP SCH ×2 (08:08→14:34)
[2022-12-28] MEDS: INSULIN LISPRO 300 UNIT/3 ML PEN SUBQ SCH ×2 (08:08→12:15)
[2022-12-28] MEDS: POTASSIUM CHLORIDE 20 MEQ/15 ML UDC PO SCH (08:09)
[2022-12-28] MEDS: ASPIRIN EC 81 MG TABLET PO SCH (08:09)
[2022-12-28] MEDS: SACCHAROMYCES BOULARDII 250 MG CAPSULE PO SCH (08:09)
[2022-12-28] MEDS: diltiaZEM CD 180 MG CAPSULE PO SCH (08:10)
[2022-12-28] MEDS: APIXABAN 5 MG TABLET PO SCH (08:10)
[2022-12-28] MEDS: polyethylene glycoL 3350 17 GM PACKET PO SCH (08:11)
[2022-12-28] MEDS: guaiFENesin 600 MG TABLET PO SCH (08:11)
[2022-12-28 08:20] LABS: CALCIUM 8.5 mg/dL (8.5-10.3); CREATININE 0.8 mg/dL (0.4-1.0); POTASSIUM 3.5 mmol/L (3.5-5.0)
[2022-12-28] MEDS: cefTRIAXone 1 GM in SODIUM CHLORIDE 0.9% MINIBAG 100 ML IV SCH (10:21)
[2022-12-28 12:13] VITALS: BP 122/78
--- NOTE | 2022-12-28 13:41 | Discharge Plan ---
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 Nevertheless, you are able to be independent in your own home. You still dress yourself, feed yourself, do light housekeeping, and laundry. You became ill with chest congestion, severe cough. After 9 days you are so short of breath you had to come to the emergency room. We found that even on your normal settings of oxygen, your oxygen level was very low. You were wheezing. We found the source of your decompensation of your emphysema to be that of viral infection. You are positive for respiratory syncytial virus. You were placed in observation to see if you would get better overnight with antibiotics, steroids, and nebulizers. But you did not so we transitioned you to inpatient status. After several days your wheezing improved tremendously. However you are still weak, tired, and easily deconditioned by trying to do simple things. We try to encourage you to get you out of bed and sit in a chair. But you were too tired to do so. As such, we felt that you were able to go home and rest at home rather than rest at the hospital. Plan of Treatment: 1. Please see your primary care provider in follow-up in the next 1 week. You have identified your primary care provider is Sujata Levin and she will be notified that you were in the hospital and discharged. 2. To help you regain some of the strength you lost because you were so sick, we are sending you home with home health physical therapy. Please cooperate with the physical therapist there to improve your endurance and mobility. 3. We will send you home on your baseline oxygen. You came in on 4 L nasal cannula, and you will go home on the same 4 L nasal cannula. 4. We did treat you with antibiotics in case you had a secondary bacterial infection superimposed on top of your viral infection. We also gave you steroids. You will not be sent home with further steroids, but I will send you home with 3 more days of antibiotics in the form of Augmentin. 1 tablet twice a day. Please take with food. Do not take on an empty stomach. To help your bowel health, we recommend a probiotic, [id number], to be taken twice a day as well while you are on antibiotics. 5. The only other new medication to take is Singulair. Singulair is a strong anti-inflammatory when your immune system is not doing well. Especially in emphysema. And we find that people who take Singulair do much better in the long run with infection. So we are prescribing Singulair for you. Care Goals: To remain in your own home for as long as possible. You stated that as you get older, and possibly need more help, you will discuss with your family about whether you want to stay in your own home, or transition to a retirement facility. Assessment: Patient is alert, oriented, lucid historian, makes her own decisions. Promises to follow through Follow-Up Care: Home Health - RN, Home Health - PT, Home Health - OT No Smoking: If you smoke, Please STOP! Call for help. Follow-up with: SUJATA LEVIN ARNP [Physician No Access] -
[2022-12-29] MEDS ORDERED: LEVOTHYROXINE 100 MCG TABLET PO SCH (07:00)
--- NOTE | 2022-12-29 08:40 | DISCHARGE SUMMARY ---
"Discharge Summary Admit Date: 12/25/22 Discharge Date: 12/28/22 Discharging Provider: Key Crowell MD Primary Care Provider: Sujata Levin Code Status: Attempt Resuscitation Condition at Discharge: Stable Discharge Disposition: 06 Home Health Service - DIAGNOSES Discharge Diagnoses with Status of Each Condition: 1. Acute and chronic respiratory failure with hypoxia 2. COPD exacerbation 3. Community-acquired pneumonia 4. RSV infection 5. Acute on chronic diastolic congestive heart failure due to valvular heart disease 6. Chronic atrial fibrillation 7. Hypothyroidism 8. DO NOT RESUSCITATE - HPI History of Present Illness: This is an 87-year-old female with a history of COPD on home oxygen set at 4 L, A-fib on Eliquis, and history of diastolic heart failure from valve disease. The patient has had a cough and shortness of breath for 9 days. She has been needing to use her nebulizer more frequently and describes white sputum production that has now turned yellow for the past 2 days. Her symptoms of cough and shortness of breath are also worse in the last 2 days. The daughter brought the patient in to the ED today and her O2 saturation was 92% on her home setting of 4 L of oxygen. Exam showed wheezing. The patient received 3 nebulizer treatments while in the ED and still remained tachypneic. In addition, with standing up from the gurney, her O2 sat dropped to 86%, despite being on her usual 4 L of oxygen. Her chest x-ray shows an infiltrate and her labs show she is COVID-negative but RSV positive. The patient's PSI score is III but she has worsening of her usual need for O2, needing a higher setting. 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 Blood culture were negative Sputum culture with 3+ normal respiratory venecia - HOSPITAL COURSE Hospital Course: In spite of her end-stage emphysema, and dependency on 4 L nasal cannula at home, she is still independent. She is able to still able to dress herself, feed herself, do light housekeeping and laundry. We think that she had decompensation of severe disease on the basis of a URI and she became quite hypoxic. Stabilization consisted of nebulizers, adding want to lose cast, IV steroids, and increased oxygen. Eventually her hypoxemia came down to baseline. She was still easily fatigued, deconditioned by trying to do simple things but was ambulating to the bathroom. There was some time that she just did not want to get up and did that for a couple of days. After a while I explained to her that she can do her recovery at home as well as she can do it here if she did not want to work with physical therapy. I will be sending her home with home health PT, OT, nurses aide, bath aide. I would like her to see her primary care provider in follow-up in the next week. She has returned to her baseline 4 L na ammy cannula. She did not have pneumonia but she was treated empirically with antibiotics and those were continued in the form of Augmentin at home. 1 tablet 3 times a day for 3 more days. I recommended a probiotic, [id number], to be taken twice a day while on the Augmentin. No changes made in her diuretic therapy. During her stay her BNP was flat. She was in the mid to high 400s consistently. Previous BNP in June 2022 was 3081. She may benefit from a visit with cardiology or a repeat echocardiogram to see if congestive heart failure is contributing to her shortness of breath. At discharge the patient was ambulating without assistance. Did require more time for going to the toilet, getting up, washing her hands and getting back in bed. But she was able to do it on her own. Again she really declined working with PT several times during her stay. Temperature is 36.5. Heart rate 84. Blood pressure 122/78. Respirations 18. 93% saturated on 4 L. Close she gets dyspneic with exertion to the bathroom. Prefers to sit in a supine position but not laying flat. She occasionally coughs and has thick yellow secretion. But she does not have tachypnea with speaking or sitting up in bed, or eating. She is in regular rate and rhythm. Abdomen is obese, soft, nontender with normal bowel sounds. Last bowel movement December 28. She has mild, trace edema around her ankles. Greater than 30 minutes was spent coordinating discharge - ALLERGIES Allergies/Adverse Reactions: Allergies Allergy/AdvReac Type Severity Reaction Status Date / Time No Known Drug Allergies Allergy Verified 12/25/22 13:21 - MEDICATIONS Home Medications: Ambulatory Orders Medication Instructions Recorded Confirmed Albuterol Sulf [Ventolin Hfa 2 puffs INH Q4H PRN 12/27/19 12/26/22 Inhaler] [id number] CD [Cardizem Cd] 180 mg PO 0800,1800 #60 capsule 12/31/19 12/26/22 Aspirin [Aspirin EC] 81 mg PO DAILY 09/18/20 12/26/22 Rosuvastatin Calcium [Crestor] 5 mg PO QPM 09/18/20 12/26/22 Apixaban [Eliquis] 5 mg PO BID 05/24/22 12/26/22 Levothyroxine Sodium 137 mcg PO QDAC 05/24/22 12/26/22 [Levothyroxine] Potassium Chloride 10 meq PO DAILY 05/24/22 12/26/22 Bio Complete 3 2 cap PO BIDAC 12/26/22 12/26/22 Cyanocobalamin (Vitamin B-12) 2,500 mcg PO DAILY 12/26/22 12/26/22 [Vitamin B-12] Empagliflozin [Jardiance] 10 mg PO DAILY 12/26/22 12/26/22 Metoprolol Tartrate [Lopressor] 25 mg PO BID 12/26/22 12/26/22 Torsemide 40 mg PO BIDDIURETIC 12/26/22 12/26/22 Amox/Clav 500/125 [Augmentin 1 tablet PO Q12H #6 tablet 12/28/22 500/125] Montelukast [Singulair] 10 mg PO QPM #30 tab 12/28/22 - LABS Result Diagrams: 12/27/22 05:55 12/28/22 08:00"
== END 2022-12-28 14:56 | disposition home health service (06) | DRG 189 ==
LOC: ED 13:12 → MS2 18:21 → OBSVTOIN 12-26 14:28
PROVIDERS: ADMIT Internal Medicine; ATTEND Specialist
DX: J96.21 Acute and chronic respiratory failure with hypoxia (principal); J44.0 Chronic obstructive pulmonary disease with (acute) lower respiratory infection; J44.1 Chronic obstructive pulmonary disease with (acute) exacerbation; J18.9 Pneumonia, unspecified organism; I50.33 Acute on chronic diastolic (congestive) heart failure; Z68.42 Body mass index [BMI] 45.0-49.9, adult; J43.9 Emphysema, unspecified; B97.4 Respiratory syncytial virus as the cause of diseases classified elsewhere; I11.0 Hypertensive heart disease with heart failure; I48.91 Unspecified atrial fibrillation; E11.9 Type 2 diabetes mellitus without complications; E78.00 Pure hypercholesterolemia, unspecified; F32.A Depression, unspecified; F41.9 Anxiety disorder, unspecified; Z20.822 Contact with and (suspected) exposure to COVID-19; E03.9 Hypothyroidism, unspecified; Z66 Do not resuscitate; E66.01 Morbid (severe) obesity due to excess calories; R53.1 Weakness; I35.0 Nonrheumatic aortic (valve) stenosis; I27.81 Cor pulmonale (chronic); E87.6 Hypokalemia; Z79.84 Long term (current) use of oral hypoglycemic drugs; Z99.81 Dependence on supplemental oxygen; Z79.01 Long term (current) use of anticoagulants; Z87.891 Personal history of nicotine dependence
CPT/HCPCS: 36415; 71045; 80048; 80053; 83036; 83735; 83880; 84443; 85025; 87040; 87070; 87205; 87633; 93005; 94640; 96365; 96367; 96375; 96376; 97116; 97162; 99284; 99285; A9270; G0378; J7626